=== PATIENT | female | born 1955 | race Hispanic/Latino ===

== ENCOUNTER → 2016-10-22 | Day surgery (SDC) | payer MEDICARE, MEDICAID ==
[~2016-10-22] MED LIST: ACET325C PO; ACET650S24 JT; ASPI-973 PO; ATOR20TA PO; CITA20TA11 PO; Fentanyl TOPICAL; INSLIS SUBQ; INSU100I13 SUBQ; MELA3TAB35 PO; METF-496 PO; METO25TA6 PO; METR500T19 JT; OLAN5TAB25 PO; OMEP20TA86 G-TUBE; ONDA-54 PO; OXYC5SOL11 PO; PROP10DR4 BOTH_EYES; RANI150C4 PO; [UNRECOGNIZED DRUG - CODE] SQ
== END ==
DX: Z45.2 Encounter for adjustment and management of vascular access device (principal)

== ENCOUNTER 2016-10-27 01:33 | Day surgery (SDC) | payer MEDICARE, MEDICAID ==
[~2016-10-27] VITALS: Ht 154.9 cm; Wt 70.0 kg
[~2016-10-27 01:33] MED LIST changes: -ACET325C PO; -Fentanyl TOPICAL; -OLAN5TAB25 PO; -PROP10DR4 BOTH_EYES; -RANI150C4 PO; -[UNRECOGNIZED DRUG - CODE] SQ
[2016-10-27 08:32] VITALS: BP 127/74; PULSE 68; RESP 14; O2SAT 100
--- NOTE | 2016-10-27 08:44 | NUR ---
Admitted for a PICC line placement today for infusions at [facility]. Pt does have a power port Left anterior chest used for Cancer Treatment. Pt does have a gastric feeding tube on the lower left side of her abdomen. RBS this AM is 142 - pre procedure.
[2016-10-27] MEDS ORDERED: 0.9% Sodium Chloride 250 ML ONE (08:51)
[2016-10-27] MEDS ORDERED: Heparin 5,000 Units/500 mL NS Premix IV ONE ×2 (09:23→09:55)
[2016-10-27] MEDS ORDERED: Heparin 1,000 Unit/mL 10 mL Inj ONE (10:08)
[2016-10-27] MEDS ORDERED: fentaNYL-PF 50 mCg/mL 2 mL Inj ONE (10:09)
[2016-10-27 11:00] VITALS: BP 108/61; PULSE 71; RESP 16; O2SAT 98
[2016-10-27 11:05] VITALS: BP 109/55; PULSE 70; RESP 16; O2SAT 97
--- NOTE | 2016-10-27 11:05 | DRSVH ---
PROCEDURE: 1. Right internal jugular vein PICC placement. 2. Conscious sedation x33 minutes. 3. Ultrasound guidance for right internal jugular vein access. INDICATIONS: Needs long-term antibiotics. COMPARISON: None. TECHNIQUE: Informed, written consent from the patient was obtained prior to the procedure. Patient wa s brought to the angiography suite, and conscious sedation was administered intravenously by [facility] staff, while continuous cardiorespiratory monitoring was performed. Maximal sterile barrier t echnique, hand hygiene, skin preparation, and sterile ultrasound technique (if ultrasound was utilize d) was followed. A mask, sterile gown, sterile gloves, a large sterile sheet, hand hygiene, and 2% ch lorhexidine or iodine was utilized for skin antisepsis. The right neck was prepped and draped sterile ly, and the skin and subcutaneous tissues overlying the right internal jugular vein were infused with lidocaine. The right internal jugular vein was accessed antegrade under sonographic guidance with a micropuncture set. A PICC catheter was cut to the appropriate length and advanced, with the tip place d at the cavoatrial junction. Catheter was then fastened to the skin surface by IV therapy. FLUOROSCOPY TIME: 3 minutes FINDINGS: At the conclusion of the procedure, the tip of the right internal jugular vein catheter is at the cavoatrial junction. IMPRESSION: Right internal jugular vein PICC placement. Dictated by: Hugh Nina M.D. on 10/27/2016 at 11:01 Approved by: Hugh Nina M.D. on 10/27/2016 at 11:04
[2016-10-27 11:15] VITALS: BP_SYST 109; BP_SYST 111; BP_DIAS 54; BP_DIAS 55; PULSE 70; PULSE 71; RESP 16; O2SAT 97
--- NOTE | 2016-10-27 11:28 | NUR ---
Returned from procedure with an OK for D/C now by Dr Bella. Pt has a bus service to [facility] today. PICC line placement is dry and intact. Power Port D/C'd in labor mediator - site of removal is dry and intact. Calling report to [facility].
== END 2016-10-27 23:59 | disposition home or self-care (01) ==
LOC: SOUO 01:33
PROVIDERS: ATTEND Radiology Diagnostic Radiology
DX: K31.6 Fistula of stomach and duodenum (principal); I10 Essential (primary) hypertension
CPT/HCPCS: 36569; 76937; 99152; C1769; J1644; J2250; J3010

== ENCOUNTER 2017-01-03 08:57 | Emergency (ER) | payer MEDICARE, MEDICAID ==
[~2017-01-03] VITALS: Ht 154.9 cm; Wt 164.0 kg
[2017-01-03 08:59] VITALS: BP 144/68; PULSE 82; RESP 16; O2SAT 98
--- NOTE | 2017-01-03 09:08 | ED.REPORT ---
HPI-General Illness Date of Service Jan 03, 2017 ED Provider: Kassie Lee MD Patient is a 61 year old female with a history of IDDM type II, gastric carcinoma, gastrectomy and Billroth II with complications, hypertension, stroke , and malignant neoplasm of the stomach among multiple other medical concerns is brought to the ED via EMS due to a dislodged J tube. She went to sleep last night with the tube in place, but found that it had fallen out when she woke up. She denies any pain or nausea. The patient is able to drink water and eat food but is not able to swallow pills, and has had the J-tube for several months. She has been seen in the ED multiple times for dislodging of this tube. The pt resides at [facility], but reports that she was not checked by staff until this morning. Nursing Notes Stated Complaint: DISPLACED J TUBE Chief Complaint: General Complaint Nursing Notes Reviewed: Yes Allergies: Coded Allergies: No Known Allergies (Verified Allergy, Unknown, 10/27/16) Scheduled Aspirin (Aspirin) 81 Mg Tablet 81 MG JT DAILY J TUBE Atorvastatin (Lipitor) 20 Mg Tablet 20 MG G-TUBE HS Citalopram (Citalopram) 20 Mg Tablet 20 MG JT DAILY Insulin Glargine (Lantus U100 Solostar Insulin Pen) 100 Unit/1 Ml Insuln.pen 30 UNIT SUBQ HS Insulin Human Lispro (HumaLOG U100 Insulin Vial) 100 Unit/Ml Unit 0-12 UNIT SUBQ TIDWM Check blood sugars before meals and at bedtime. Use correction factor only before meals. Blood Sugar Lispro Correction: <151, 0 units; 151-175, 1 unit; 176-200, 2 units; 201-225, 3 units; 226-250, 4 units; 251-275, 5 units; 276-300 , 6 units; 301-325, 7 units; 326-350, 8 units; 351-375, 9 units; 376-400, 10 units; >400, 12 units. Melatonin (Melatonin) 3 Mg Tablet 3 MG PO HS Metformin ER (Metformin ER) 1,000 Mg Tablet 1,000 MG JT BID Metoprolol Tartrate (Metoprolol Tartrate) 25 Mg Tablet 50 MG JT BID Metronidazole (Metronidazole) 500 Mg Tablet 500 MG JT TID Omeprazole (Omeprazole) 20 Mg Tablet.dr 20 MG G-TUBE DAILY J TUBE Ondansetron (Ondansetron) 8 Mg Tablet 8 MG PO TID Scheduled PRN Acetaminophen (Acetaminophen Liquid) 650 Mg/20 Ml Liquid 650 MG JT Q6H PRN PRN For Pain oxyCODONE (oxyCODONE) 5 Mg/5 Ml Solution 5-10 MG PO Q4H PRN PRN For Pain General Time Seen by MD: 09:06 Transferred From: assisted Chief Complaint Other (dislodged J-tube) Hx Obtained From: Patient, Oceanographer Assistant, EMS Arrived By: Ambulance Sudden in Onset?: Yes Onset Occurred: 9 - 12 hours ago Symptom Duration: Since onset Recent Healthcare: No recent hospitalization, Recent doctor visit Similar Sx Previous: Yes Past Medical History Past Medical History Notes: Seen ED for J-tube replacement 09/25/16 Past Medical History Gastric carcinoma IDDM type 2 Pancreatic leak Malignant neoplasm of the stomach 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 Recurrent UTIs Reports: Stroke Past Surgical History Gastrectomy and Billroth II, complicated by duodenal stump and pancreatic leak requiring squint operations Jejunostomy tube Percutaneous drainage of a retro-peritoneal abscess 08/2016 Family History non-contributory Smoking History Former Smoker (quit three years ago) Social History Other Social History: Good social support, Lives in longterm Ambulatory Status Independent Review of Systems dislodged J-tube Full Review of Systems Respiratory: Denies: Non-productive cough, Shortness of breath Cardiovascular: Denies: Chest pain GI: Denies: Abdominal pain, Nausea Musculoskeletal: Denies: Back pain, Neck pain Skin: Denies Rash Complete sys rev & neg: except as marked. Physical Exam Vital Signs Vital Signs Date Time Temp Pulse Resp B/P Pulse Ox O2 Delivery O2 Flow Rate FiO2 01/03/17 11:23 37.0 82 12 143/74 82 Room Air 01/03/17 08:59 37.2 82 16 144/68 98 Room Air Initial VS: Reviewed, Vital signs normal General/Constitutional: Awake, Alert, No acute distress Head / Eyes: Atraumatic, Normocephalic, PERRL, EOMI ENT: Atraumatic, Airway patent, Mucous membranes moist Neck: Atraumatic, Supple, Full range of motion Respiratory / Chest: Atraumatic, Breath sounds NL, Breath sounds = bilat, No respiratory distress Cardiovascular: Heart rate NL, Regular rhythm, Heart sounds NL Abdomen: Soft, Non-tender stoma with granulation tissue Back: Atraumatic Upper Extremities Upper Extremity / MS: Atraumatic Wrist / Hand: Atraumatic atrophy of the left hand Lower Extremity / Pelvis / MS: Atraumatic Skin: Color NL, No rash, Warm, Dry Neurologic: Oriented X3, Speech NL, No motor deficits, No sensory deficits Psychiatric: Affect NL, Mood NL Interpretation & Diagnostics Interpretation & Diagnostics: KUB X-Ray IMPRESSION: Jejunostomy catheter appears in expected position. Dictated by: Clarke Mcleod M.D. on 01/03/2017 at 10:07 Approved by: Clarke Mcleod M.D. on 01/03/2017 at 10:09 Re-Eval/Medical Decision Med Decision/Clinical Course The patient presents for a displaced G, she does not have any physical complaints at this time. Was reinserted and and was shown to be in good position on x-ray. Source of Hx: Old records Time of Eval: 09:43 Patient Status: Condition improved Re-Evaluation/Progress Note: Rechecked patient who is improved. The diagnosis and plan for discharge are discussed. The patient understands and agrees with the plan. All questions were addressed at this time. Counseled Regarding: Diagnosis, Need for follow-up, When/why to return to ED Discharge & Departure Primary Impression: Jejunostomy tube fell out Disposition: Home Discharge Condition All VS Reviewed: Yes Condition: Stable Additional Instructions: You will need to follow up with surgery or interventional radiology next week to have your tube replaced and secured properly. Have a surgeon address the extra granulation tissue around your stoma. Have the dressing changed at least 3 times per week. This tube is secured with tape only so be careful when changing the dressing. Return to the emergency department if you develop any new or worsening symptoms. Usted tendr que seguir con ciruga o radiologa intervencionista la prxima semana para que wills tubo sustituido y asegurados correctamente. Tener un cirujano abordar el tejido de granulacin extra alrededor de wills estoma. Tienen la preparacin cambi por lo menos 3 veces por semana. Suri tubo se fija con cinta slo as que tenga cuidado al cambiar el apsito. Volver al servicio de urgencias si presenta cualquier sntoma nuevo o que empeora. Referrals: Yesy Bauer MD (PCP) Scribe Attestation Portions of this note were transcribed by Neisha Samuels and Kanika Ernandez. I, Dr. Lee personally performed the history, physical exam and medical decision- making; I reviewed and confirmed the accuracy of the information in the transcribed note. Signed by: Neisha Samuels and Kanika Ernandez, Trinity, 01/03/17 and 1209. copies to: Yesy Bauer MD, Jena M MD Jan 03, 2017 09:08 Isatu Samuels Jan 03, 2017 09:24 KANIKA ERNANDEZ Jan 03, 2017 09:42
--- NOTE | 2017-01-03 10:10 | DRSVH ---
PROCEDURE: X-RAY KUB ([id number]) INDICATIONS: 61-year-old female with recent jejunostomy tube placement. TECHNIQUE: One view of the abdomen acquired. COMPARISON: [facility], CR, XR KUB, 06/09/2016, 10:15. FINDINGS: Surgical changes and devices: Left abdominal enteric catheter is present, as well as cholecystectomy clips. Bowel: Bowel gas pattern is normal. Contrast injected through the jejunostomy catheter opacifies no rmal caliber proximal small bowel loops. No contrast extravasation into the peritoneal cavity. Soft tissues: No suspicious abdominal calcifications. Visualized solid organ contours appear normal in size. Bones: No suspicious bony lesions. IMPRESSION: Jejunostomy catheter appears in expected position. Dictated by: Clarke Mcleod M.D. on 01/03/2017 at 10:07 Approved by: Clakre Mcleod M.D. on 01/03/2017 at 10:09
[2017-01-03 11:23] VITALS: BP 143/74; PULSE 82; RESP 12; O2SAT 82
== END 2017-01-03 11:29 | disposition home or self-care (01) ==
LOC: SED 08:57
DX: K94.23 Gastrostomy malfunction (principal); E11.9 Type 2 diabetes mellitus without complications; I10 Essential (primary) hypertension; E78.00 Pure hypercholesterolemia, unspecified; K21.9 Gastro-esophageal reflux disease without esophagitis; Z87.891 Personal history of nicotine dependence; Z87.440 Personal history of urinary (tract) infections; Z90.3 Acquired absence of stomach [part of]; Z85.028 Personal history of other malignant neoplasm of stomach; Z86.73 Personal history of transient ischemic attack (TIA), and cerebral infarction without residual deficits; Z79.4 Long term (current) use of insulin; Z79.82 Long term (current) use of aspirin; Z79.84 Long term (current) use of oral hypoglycemic drugs
CPT/HCPCS: 74000; 90791; 99284; Q9963

== ENCOUNTER 2017-02-21 16:11 | Inpatient (IN) | payer MEDICARE, MEDICAID ==
[~2017-02-21] VITALS: Ht 154.9 cm; Wt 74.9 kg
[2017-02-21 16:49] VITALS: BP 129/78; PULSE 86; RESP 20; O2SAT 97
[2017-02-21 18:00] LABS: BASOPHILS % (AUTO) 0.2 % (0-3); EOSINOPHILS % (AUTO) 2.1 % (0-5); Mean Corpuscular Hemoglobin 24.9 pg (27.0-35.0); Mean Corpuscular Volume 79.4 fL (81-100); NEUTROPHILS % (AUTO) 73.5 % (40-74); Platelet Count 656 bil/L (150-400)
[2017-02-21 18:20] LABS: Magnesium 1.7 mg/dL (1.6-2.6)
--- NOTE | 2017-02-21 18:28 | ED.REPORT ---
HPI-Abd Pain F 40 and Over Date of Service February 21, 2017 ED Provider: Zan Horton DO A 61 year old female with a medical history including gastric carcinoma, IDDM type 2, MRSA, retro-peritoneal abscess, CVA w/ left-sided deficits, and malignant neoplasm of the stomach s/p gastrectomy and Billroth II, complicated by duodenal stump and pancreatic leak requiring stent operations, presents to the ED with diffuse abdominal pain onset three weeks ago. Associated symptoms include nausea and vomiting. The patient denies diarrhea or other symptoms. She was seen at Urgent Care today, who sent her to the ED for a CT scan. The patient speaks Macedonian and her daughter was translating. Nursing Notes Stated Complaint: PAIN Chief Complaint: Female Abdominal Pain Nursing Notes Reviewed: Yes Allergies: Coded Allergies: No Known Allergies (Verified Allergy, Unknown, 10/27/16) Scheduled Aspirin (Aspirin) 81 Mg Tablet 81 MG JT DAILY J TUBE Atorvastatin (Lipitor) 20 Mg Tablet 20 MG G-TUBE HS Citalopram (Citalopram) 20 Mg Tablet 20 MG JT DAILY Insulin Glargine (Lantus U100 Solostar Insulin Pen) 100 Unit/1 Ml Insuln.pen 30 UNIT SUBQ HS Insulin Human Lispro (HumaLOG U100 Insulin Vial) 100 Unit/Ml Unit 0-12 UNIT SUBQ TIDWM Check blood sugars before meals and at bedtime. Use correction factor only before meals. Blood Sugar Lispro Correction: <151, 0 units; 151-175, 1 unit; 176-200, 2 units; 201-225, 3 units; 226-250, 4 units; 251-275, 5 units; 276-300 , 6 units; 301-325, 7 units; 326-350, 8 units; 351-375, 9 units; 376-400, 10 units; >400, 12 units. Melatonin (Melatonin) 3 Mg Tablet 3 MG PO HS Metformin ER (Metformin ER) 1,000 Mg Tablet 1,000 MG JT BID Metoprolol Tartrate (Metoprolol Tartrate) 25 Mg Tablet 50 MG JT BID Metronidazole (Metronidazole) 500 Mg Tablet 500 MG JT TID Omeprazole (Omeprazole) 20 Mg Tablet.dr 20 MG G-TUBE DAILY J TUBE Ondansetron (Ondansetron) 8 Mg Tablet 8 MG PO TID Scheduled PRN Acetaminophen (Acetaminophen Liquid) 650 Mg/20 Ml Liquid 650 MG JT Q6H PRN PRN For Pain oxyCODONE (oxyCODONE) 5 Mg/5 Ml Solution 5-10 MG PO Q4H PRN PRN For Pain General Time Seen by MD: 18:22 Chief Complaint Abdominal pain Hx Obtained From: Patient Arrived By: Walk-in Sudden in Onset?: No Onset Occurred: More than a week ago... 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 Recurrent UTIs CVA w/ left-sided deficits MRSA Reports: Stroke Past Surgical History Gastrectomy and Billroth II, complicated by duodenal stump and pancreatic leak requiring stent operations (07/12/16) Jejunostomy tube Percutaneous drainage of a retro-peritoneal abscess 08/2016 Family History non-contributory Smoking History Former Smoker Social History Lives at [facility] Other Social History: Good social support, Lives in [facility] Ambulatory Status Independent Review of Systems Constitutional: Denies: Fever Respiratory: Denies: Non-productive cough, Shortness of breath GI: Reports: Abdominal pain, Nausea, Vomiting, Denies: Diarrhea Complete sys rev & neg: except as marked. Physical Exam Vital Signs Vital Signs (First) Date Time Temp Pulse Resp B/P Pulse Ox O2 Delivery O2 Flow Rate FiO2 02/21/17 16:49 36.9 86 20 129/78 97 Room Air Initial VS: Reviewed Head / Eyes: Atraumatic, Normocephalic ENT: Conjunctiva normal, No scleral icterus Neck: Supple, Full range of motion Extremities: No swelling, No tenderness Neurologic: Alert, Oriented, Nonfocal Psychiatric: Mood/affect normal, Behavior normal, Normal thought content General/Constitutional: Awake, Alert Respiratory / Chest: Breath sounds NL, Breath sounds = bilat, No respiratory distress Cardiovascular: Heart rate NL, Regular rhythm, Heart sounds NL, Pulses = bilaterally Abdomen: Soft Tenderness/Guarding/Rebound: Positive: Tender diffuse (R>L) Skin: Warm, Dry No jaundice Interpretation & Diagnostics Lab Results Interpretation Result Diagram: 02/21/17 1740 02/21/17 1740 Test 02/21/17 17:40 02/21/17 17:50 02/21/17 18:41 White Blood Count 14.3th/mm3 (3.8-10.1) Red Blood Count 4.65mil/mm3 (3.90-5.20) Hemoglobin 11.6g/dL (12.0-15.6) Hematocrit 36.9% (35.0-46.0) Mean Corpuscular Volume 79.4fL (81-100) Mean Corpuscular Hemoglobin 24.9pg (27.0-35.0) Mean Corpuscular Hemoglobin Concent 31.4% (32.0-37.0) Red Cell Distribution Width 15.6% (12.3-15.4) Platelet Count 656bil/L (150-400) Neutrophils (%) (Auto) 73.5% (40-74) Lymphocytes (%) (Auto) 17.8% (14-46) Monocytes (%) (Auto) 6.0% (4-12) Eosinophils (%) (Auto) 2.1% (0-5) Basophils (%) (Auto) 0.2% (0-3) Sodium Level 133mEq/L (134-144) Potassium Level 4.8mEq/L (3.5-5.2) Chloride Level 94mEq/L (97-108) Carbon Dioxide Level 22mmol/L (18-29) Blood Urea Nitrogen 20mg/dL (8-27) Creatinine 0.89mg/dL (0.57-1.00) Estimat Glomerular Filtration Rate 92mL/min (>59) Glucose Level 192mg/dL (60-99) Lactic Acid Level 3.6mmol/L (0.4-2.0) Calcium Level 9.6mg/dL (8.5-10.1) Magnesium Level 1.7mg/dL (1.6-2.6) Iron Level 32ug/dL (35-150) Total Iron Binding Capacity 306ug/dL (250-450) Percent Iron Saturation 10%sat (15-50) Unsaturated Iron Binding 274.2ug/dL Total Bilirubin 0.3mg/dL (0.0-1.2) Aspartate Amino Transf (AST/SGOT) 21U/L (0-50) Alanine Aminotransferase (ALT/SGPT) 14U/L (0-32) Alkaline Phosphatase 95U/L (25-165) Troponin T < 0.010ug/L (0.0-0.011) Total Protein 8.8g/dL (6.4-8.4) Albumin 3.7g/dL (3.4-5.0) Lipase 14U/L (13-60) Procalcitonin 0.08ng/mL (0.00-0.08) Hold Little Top Tube Received (Received) Hold Urine Received (Received) Urine Color Dark yellow (YELLOW) Urine Appearance Cloudy (CLEAR,HAZY) Urine pH 5.0 (5.0-8.0) Urine Specific Pickett 1.020 (1.003-1.035) Urine Protein 30mg/dL (NEG,TRACE) Urine Glucose (UA) Negativemg/dL (NEGATIVE) Urine Ketones Negativemg/dL (NEGATIVE) Urine Occult Blood Trace (NEGATIVE) Urine Nitrite Positive (NEGATIVE) Urine Bilirubin Negative (NEGATIVE) Urine Urobilinogen 1.0mg/dL (NORMAL) Urine Leukocyte Esterase Negative (NEGATIVE) Urine RBC 0-2/hpf (0-2) Urine WBC 0-5/hpf (0-5) Urine Epithelial Cells None/hpf (NONE-MOD) Urine Crystals None seen (NONE SEEN) Urine Bacteria Many/hpf (NONE-FEW) Urine Hyaline Casts None/lpf (NONE) Urine Granular Casts None seen (NONE SEEN) Urine Waxy Casts None seen (NONE SEEN) Urine Red Blood Cell Casts None seen (NONE SEEN) Urine White Blood Cell Casts None seen (NONE SEEN) Urine Mucus Present (None Seen) Urine Trichomonas None seen (NONE SEEN) Urine Yeast None (NONE SEEN) Urinalysis Comment None Urine Culture Reflexed Indicated Point of Care Testing: Bedside glucose high, Hemoglobin low General Lab Results Interp 1: Labs reviewed, CBC - leukocytosis ECG Interpretation ECG Interpretation: Sinus rhythm rate 83 Low voltage, precordial leads Time: 20:37 Interpreted by: ED physician CT Abd / Pelvis Interpretation IMPRESSION: 1. Ill-defined loops of thickened bowel within the right hemiabdomen appearing to correlate to both small and large bowel. In addition, there is fluid-filled prominence of scattered small bowel loops. Free fluid is noted within the mid pelvis as well as perisplenic fluid and focal collection along the anterior abdomen. No free air is identified. Overall appearance is suggestive of diffuse infection or inflammation, possibly related colitis/enteritis with ileus/developing partial obstruction. Small focal fluid collection along the anterior abdomen may represent developing abscess. 2. Coursing within the anterior mesenteric fat which may be related to small areas of inflammation or fluid. In previous history of gastric carcinoma, small areas of peritoneal metastatic disease cannot be excluded. Recommend continued interval followup after resolution of apparent inflammatory/infectious condition. Dictated by: Ashley Rodriguez M.D. on 02/21/2017 at 19:25 Study type: Abdominal CT IV contrast Interpretation / Wet Read by: Interpret - Radiologist Re-Eval/Medical Decision Med Decision/Clinical Course Plan for fluid resuscitation and broad-spectrum antibiotics. Aerobic anaerobic and MRSA coverage indicated. Surgical consultation performed. Hospitalist admit. Source of Hx: Old records Re-Evaluation/Progress : Time of Eval: 20:50 Patient Status: Condition improved Re-Evaluation/Progress Note: Discussed with patient lab and CT results, diagnosis, and plan for admit. Patient agrees with plan for care and all questions were addressed. Consultation #1: Referral / Consult Name: Pablo Dill MD Consulted With: Surgeon Call Returned at: 19:50 Electrical Sign Servicer: Will see patient, Agrees with eval, Agrees with plan Note: Discussed patient's case Consultation #2: Referral / Consult Name: Aleksandr Cui MD Consulted With: Hospitalist Call Returned at: 19:55 Electrical Sign Servicer: Agrees with eval, Agrees with plan, Accepts admit Counseled Regarding: Diagnosis, Lab results, Need for admission Discharge & Departure Primary Impression: Bowel obstruction Intestinal obstruction type: unspecified Qualified Code: K56.60 - Unspecified intestinal obstruction Additional Impressions: Intra-abdominal infection UTI (urinary tract infection) Urinary tract infection type: acute cystitis Hematuria presence: without hematuria Qualified Code: N30.00 - Acute cystitis without hematuria Disposition: ADMITTED TO HOSPITAL Discharge Condition All VS Reviewed: Yes Condition: Improved Referrals: Yesy Bauer MD (PCP) [place] Attestation Portions of this note were transcribed by Mary Shankar. I, Dr. Horton, personally performed the history, physical exam, and medical decision-making; I reviewed and confirmed the accuracy of the information in the transcribed note. Signed by: Trinity Mccarthy, 02/21/2017, 22:45 copies to: Yesy Bauer MD, Todd P DO February 21, 2017 18:28 MARY SHANKAR February 21, 2017 18:43
[2017-02-21] MEDS ORDERED: 0.9% Sodium Chloride 1,000 ML IV ONE ×2 (18:45→23:35)
[2017-02-21] MEDS ORDERED: Ondansetron 2 mg/mL 2 mL Inj IVPUSH PRN (18:45)
[2017-02-21] MEDS: HYDROmorphone 1 mg/mL Inj IVPUSH PRN ×5 (18:51→22:27)
[2017-02-21 19:03] LABS: APPEARANCE,URINE CLOUDY (CLEAR,HAZY); COLOR,URINE DARK YELLOW (YELLOW)
[2017-02-21 19:04] LABS: OCCULT BLOOD,URINE TRACE (NEGATIVE)
--- NOTE | 2017-02-21 19:37 | DRSVH ---
PROCEDURE: CT ABDOMEN AND PELVIS WITH CONTRAST ([id number]) INDICATIONS: right sided abdominal pain, 14K wbc count TECHNIQUE: After the administration of intravenous contrast, 5 mm thick sections acquired from the diaphragm to the symphysis. 5 mm coronal and sagittal reformats were acquired. For radiation dose reduction, the following was used: automated exposure control, adjustment of mA and/or kV according to patient jaz cheema. COMPARISON: [facility], CT, CT ABD PELVIS W CON, 10/09/2016, 12:09. FINDINGS: Image quality: Excellent. ABDOMEN: Lung bases: Lung bases are clear. Heart size is normal. Solid organs: Liver is enlarged with mild steatosis. The spleen is normal in size and enhancement. Gallbladder has been removed. Biliary system is non dilated. Pancreas enhances normally. No adrena l nodules. Kidneys demonstrate normal size and enhancement, without hydronephrosis. Left renal cyst is present. Peritoneum and bowel: There are fluid-filled loops of mildly prominent small bowel throughout the ab domen and pelvis. There is thick and appearance of bowel within the right colon appearing to be predo minantly large bowel. However, overlapping, poorly distended loops of small bowel are also identified . There is free fluid within the mid pelvis. In addition, reena-splenic fluid is also identified. Ther e is an appearance of nodular coarsening of the abdominal mesenteric fat most prominently in the ante rior left hemiabdomen. Focal area of fluid is noted along the anterior abdomen at the level of the re ctus muscle within the midline measuring approximately 28 mm. Nodes and vessels: No retroperitoneal or mesenteric adenopathy by size criteria. Aorta and inferior vena cava are normal in size. Miscellaneous: No ventral hernias. PELVIS: Genitourinary: Bladder wall thickness is normal. Miscellaneous: No inguinal hernias or adenopathy. Bones: No suspicious bony lesions. No vertebral body compression fractures. IMPRESSION: 1. Ill-defined loops of thickened bowel within the right hemiabdomen appearing to correlate to both s mall and large bowel. In addition, there is fluid-filled prominence of scattered small bowel loops. F ree fluid is noted within the mid pelvis as well as perisplenic fluid and focal collection along the anterior abdomen. No free air is identified. Overall appearance is suggestive of diffuse infection or inflammation, possibly related colitis/enteritis with ileus/developing partial obstruction. Small fo britton fluid collection along the anterior abdomen may represent developing abscess. 2. Coursing within the anterior mesenteric fat which may be related to small areas of inflammation or fluid. In previous history of gastric carcinoma, small areas of peritoneal metastatic disease cannot be excluded. Recommend continued interval followup after resolution of apparent inflammatory/infecti ous condition. Dictated by: Ashley Rodriguez M.D. on 02/21/2017 at 19:25 Approved by: Ashley Rodriguez M.D. on 02/21/2017 at 19:36
[2017-02-21] MEDS ORDERED: Piperacillin-Tazo 3.375 Gm Inj 3.375 GM in Dextrose 5% Minibag Plus 50 ML IV ONE (19:45)
[2017-02-21] MEDS ORDERED: metroNIDAZOLE Inj 500 MG in IV Premix 1 EACH IV ONE (19:45)
[2017-02-21 20:14] VITALS: BP 140/45; PULSE 85; RESP 20; O2SAT 99
[2017-02-21] MEDS ORDERED: Ketorolac 15 mg/mL Inj IVPUSH ONE (21:00)
[2017-02-21] MEDS ORDERED: Alum-Mag Hydrox-Simeth 30 mL Suspension PO PRN (21:05)
[2017-02-21] MEDS ORDERED: Polyethylene Glycol (PEG) 17 Gm Powder PO PRN (21:05)
--- NOTE | 2017-02-21 21:20 | NUR ---
Arrival on the Floor Pt arrived on the floor via gurney around 2119. Daughter at bedside. Code Enforcement Officer on stick used for communication.
--- NOTE | 2017-02-21 21:28 | PCM.HPMED ---
Subjective Date of Service February 21, 2017 Primary Provider: Admitting Physician: Aleksandr Cui MD Primary Care Physician: Yesy Bauer MD Attending Physician: Pablo Dill MD Chief Complaint: Abdominal pain History of Present Illness: 61-year-old female staying at [facility] with a history of gastric carcinoma with multiple surgeries since last summer including Billroth II that was complicated by duodenal stump leak and intra-abdominal sepsis, a history of intra-abdominal abscess with MRSA, diabetes type II, CVA with left- sided deficits, and hyperlipidemia who presents emergency department tonight complaining of abdominal pain greater on the right than the left of 3 weeks duration with acute increase in pain last night. Patient states that over the last 3 weeks she has had crampy and stabbing lower quadrant abdominal pain as well as intermittent epigastric pain. Patient currently says her pain as 7 out of 10 with worst pain 10 out of 10 yesterday prior to vomiting. States she experienced nausea and nonbloody emesis 3. Over the last couple weeks she has been asking for better pain control but states that she is only received Tylenol. She denies any ongoing diarrhea, hematochezia/melena, fever, chills, chest pain, shortness of breath, dizziness, or difficulty urinating. She does state that she has been constipated, but this seems to be usual for her. Patient had a recent J-tube but is unable to give details about its removal. Patient is Serbian-speaking only and her daughters not a good chemical plant manager. History obtained using a chemical plant manager. In the ED patient underwent CT scan which shows some perisplenic free fluid and thickening of large and possibly small bowel with an overall picture concerning for infection/inflammation with questionable developing ileus or partial SBO. There are also small areas of inflammation or fluid in the peritoneum. Official read in chart Patient had a mild leukocytosis with white count 14.3, microcytic hypochromic anemia, as well as very mild hyponatremia and hypochloremia with thin anion gap of 17. Patient's glucose is 192. Lipase and LFTs were negative. Troponin was also negative. Urine was sent for culture although UA does not hint that UTI. Review of Systems: Complete review of systems performed, pertinent positives and negatives per history of present illness, all other systems reviewed and are negative. Allergies Coded Allergies: No Known Allergies (Verified Allergy, Unknown, 10/27/16) Home Medications Aspirin (Aspirin) 81 Mg Tablet 81 MG JT DAILY J TUBE Atorvastatin (Lipitor) 20 Mg Tablet 20 MG G-TUBE HS Citalopram (Citalopram) 20 Mg Tablet 20 MG JT DAILY Insulin Glargine (Lantus U100 Solostar Insulin Pen) 100 Unit/1 Ml Insuln.pen 30 UNIT SUBQ HS Insulin Human Lispro (HumaLOG U100 Insulin Vial) 100 Unit/Ml Unit 0-12 UNIT SUBQ TIDWM Melatonin (Melatonin) 3 Mg Tablet 3 MG PO HS Metformin ER (Metformin ER) 1,000 Mg Tablet 1,000 MG JT BID Metoprolol Tartrate (Metoprolol Tartrate) 25 Mg Tablet 50 MG JT BID Metronidazole (Metronidazole) 500 Mg Tablet 500 MG JT TID Omeprazole (Omeprazole) 20 Mg Tablet.dr 20 MG G-TUBE DAILY J TUBE Ondansetron (Ondansetron) 8 Mg Tablet 8 MG PO TID Acetaminophen (Acetaminophen Liquid) 650 Mg/20 Ml Liquid 650 MG JT Q6H PRN PRN For Pain oxyCODONE (oxyCODONE) 5 Mg/5 Ml Solution 5-10 MG PO Q4H PRN PRN For Pain PMH Gastric carcinoma IDDM type 2 Duodenal stump leak Hypercholesterolemia. Recurrent UTIs CVA w/ left-sided deficits Surgical History Gastrectomy and Billroth II, complicated by duodenal stump leak requiring stent operations (07/12/16) Jejunostomy tube Percutaneous drainage of a retro-peritoneal abscess 08/2016 Family History No history of malignancies in the family Social History Hx Alcohol Use: No Hx Substance Use: No Hx Tobacco Use: No Smoking Status: Former Smoker Living Arrangement: [facility] Facility ([facility]) Exam Vital Signs Vital Sign - Last Date Time Temp Pulse Resp B/P Pulse Ox O2 Delivery O2 Flow Rate FiO2 02/21/17 20:14 85 20 140/45 99 Room Air 02/21/17 16:49 36.9 Exam General: Awake and alert and conversive, mild distress HEENT: PERRLA, EOMI, dentition poor, mucous membranes dry Cardio: Regular rate and rhythm, no murmurs rubs or gallops Respiratory: CTA bilaterally, no wheezes or crackles Abdomen: Large central scar, small 3 cm scars consistent with previous laparoscopy. Bandage covering a recent drain removal site in the mid to left periumbilical region; noticeable guarding that inhibited the palpatory examination; moderate to severely tender with right greater than left; no rebound Extremities: No edema, pulses intact in all 4 extremities, Psych: Appropriate mood and affect Neuro: Sensation appeared to be intact throughout; mild left upper extremity deficiency; would not perform lower extremity movements due to abdominal pain Skin: No rashes Lymph: No lymphadenopathy Lab and Diagnostics Result Diagram: 02/21/17 17402/21/17 174 X-Rays, CTs and MRIs CT abdomen with contrast 1. Ill-defined loops of thickened bowel within the right hemiabdomen appearing to correlate to both small and large bowel. In addition, there is fluid-filled prominence of scattered small bowel loops. Free fluid is noted within the mid pelvis as well as perisplenic fluid and focal collection along the anterior abdomen. No free air is identified. Overall appearance is suggestive of diffuse infection or inflammation, possibly related colitis/enteritis with ileus/ developing partial obstruction. Small focal fluid collection along the anterior abdomen may represent developing abscess. 2. Coursing within the anterior mesenteric fat which may be related to small areas of inflammation or fluid. In previous history of gastric carcinoma, small areas of peritoneal metastatic disease cannot be excluded. Recommend continued interval followup after resolution of apparent inflammatory/infectious condition. Dictated by: Ashley Rodriguez M.D. on 02/21/2017 at 19:25 12-lead ECG Normal sinus rhythm with heart rate of 83; QTc 4 70 Assessment & Plan 61-year-old female with multiple abdominal surgeries due to gastric carcinoma, and history of intra-abdominal sepsis and abscesses with MRSA in the fall of 2015 who presented to the hospital with 3 weeks of worsening abdominal pain and new nausea and emesis x3 starting last night. Patient denies ongoing fevers or chills, or other signs systemic infection. Abdominal pain due to intra abdominal infection, acute; present on admission; Ongoing -etiology currently unknown but CT suggests possible ileus vs infection/ inflammation and early abscess, unable to rule out metastatic disease; no subjective findings of infection; mild leukocytosis -Dr. Dill was consulted from the emergency department and per ED's report will discuss case with Dr. Sawyer; will see tomorrow (no official consult placed admitting team) -Start patient on Unasyn and vancomycin due to somewhat recent history of MRSA -Patient has morphine for severe pain was to avoid opiates much as possible; initially patient given Dilaudid in the ED but needed additional Ketorolac for pain -Continued PPI -MRSA nasal screen Leukocytosis; present on admission; ongoing -Likely due to dehydration is membranes are dry and patient states she vomiting recently -Rehydrated in the ED with 2 L normal saline, given a 3rd liter on floor, and maintenance of 100 ml/hour -Reassess in a.m. CBC Insulin using Type II diabetes, chronic; present on admission; ongoing -Patient presents with glucose of 192 -This is a surgical patient and patient's blood glucose should be kept between 140 and 180 -Home Lantus 30 units daily at bedtime; lispro 0-12 units on sliding scale -We will restart Lantus 30 units tonight and will add a medium correctional -A1c pending Electrolyte abnormality; present mission; ongoing -Patient has a pseudohyponatremia with hypochloremia with a corrected anion gap of 19; likely due to recent vomiting without compensation for loss of chloride due to acuity -Lactic acid ordered and pending; initially ordered and the lab added it to a previously drawn lab; repeating -Normal saline bolus and ED and maintenance as above -recheck in AM Acute microcytic, hypochromic anemia; present mission; ongoing -Patient presents with a hemoglobin 11.6, a low MCV; review of past admissions does not appear that this is a chronic issue -Iron studies ordered -Consider smear and additional bilirubin or haptoglobin tomorrow High risk meds: IV morphine Disposition: She will admitted to [facility] expected length of stay greater than 2 minutes due to severity presentation, duration of treatment, and risk of adverse event. Resuscitation Status: CPR: Attempt Resuscitation Attending Statement The patient was seen and examined together with Dr. Amin on 02/21 and I agree with the history, exam and plan as outlined in the note above. Moo Amin DO February 21, 2017 21:28 Aleksandr Cui MD February 22, 2017 01:02
[2017-02-21 21:50] VITALS: BP 122/60; PULSE 88; RESP 18; O2SAT 94
[2017-02-21] MEDS ORDERED: Glucose 40% Oral Gel 15 Gm Tube PO PRN (22:10)
[2017-02-21] MEDS: 0.9% Sodium Chloride 1,000 ML IV SCH (22:22)
[2017-02-21 22:39] LABS: Unsaturated Iron Binding 274.2 ug/dL
[2017-02-21 22:51] VITALS: BP 100/63; PULSE 86; RESP 16; O2SAT 95
--- NOTE | 2017-02-21 22:59 | NUR ---
Admit Pt admission done with email marketing coordinator on stick. Oriented to room and use of call light. Family at bedside and providing some interpretation. Addendum: 02/22/17 at 0039 by ASCENCION HANNAH RN Updated Med Rec [facility] med list.
[2017-02-21] MEDS ORDERED: [UNRECOGNIZED DRUG - CODE] SQ (23:28)
[2017-02-21] MEDS ORDERED: PROP10DR4 BOTH_EYES (23:28)
[2017-02-21] MEDS ORDERED: RANI150C4 PO (23:28)
[2017-02-21] MEDS ORDERED: ACET325C PO (23:28)
[2017-02-22] VITALS (13 sets, daily range): BP systolic 101–124; BP diastolic 29–59; PULSE 82–126; RESP 16–22; O2SAT 94–99
--- NOTE | 2017-02-22 00:13 | CONS ---
[address] [address] CONSULTATION REPORT PATIENT: FLAQUITO DUBON : 1955 MR#: [id number] ADMIT: 02/21/2017 JOB ID: [id number] DATE OF SERVICE: 02/21/2017 CHIEF COMPLAINT: Abdominal pain. HISTORY OF PRESENT ILLNESS: The patient is a 61-year-old female with a complicated surgical history dating back to May 2016. The patient had gastric cancer and underwent neoadjuvant chemotherapy, and then subsequently underwent a distal gastrectomy with Billroth-II reconstruction and a cholecystectomy by Dr. Sawyer on May 27, 2016. Unfortunately, the patient developed a duodenal stump leak and required a 2nd operation by Dr. Durant on May 30 where he performed a patch closure of the stump leak and a feeding J-tube, and a 3rd operation by Dr. Dee on June 08 where he performed a washout and a retrograde J tube placement. The patient eventually left the hospital and went to [facility]. The patient was readmitted for a time in July of last year, and also in August 2016, underwent percutaneous drainage of right retroperitoneal abscess. 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 Most recently in January 2017, the patient had come back to the emergency department for a J-tube replacement. The patient presents to the emergency department tonight due to a 3-week history of epigastric and lower abdominal pain. This was associated with some vomiting yesterday. The patient did have a bowel movement two days ago. Her daughter denies any recent fevers. According to the daughter, she has not had any tubes in her for the past 1-2 months. The abdominal pain is described as bilateral lower quadrants, and also some in the epigastric location. The patient is mainly Israeli-speaking. Workup in the emergency department today showed an elevated white blood count of 14.3, and a CT scan of the abdomen and pelvis that suggests free fluid noted within the mid pelvis as well as perisplenic fluid and focal collection along the anterior abdomen. No free air. I was consulted by the ED physician for evaluation. PAST MEDICAL HISTORY: Gastric cancer, status post neoadjuvant chemotherapy, distal gastrectomy, Billroth-II reconstruction and a cholecystectomy, Port-A-Cath placement, diabetes, hypertension, stroke, recurrent UTIs. MEDICATIONS: Include acetaminophen, baby aspirin, Lipitor, citalopram, insulin, melatonin, metformin, metoprolol, omeprazole, oxycodone. ALLERGIES: None. SOCIAL HISTORY: The patient is . She is currently living at the [facility] [place]. She has four sons and one daughter. FAMILY HISTORY: Noncontributory to the current clinical situation. REVIEW OF SYSTEMS: Positive for the lower abdominal pain, epigastric pain and vomiting. There has been no fever. All other systems reviewed were negative. PHYSICAL EXAMINATION: The patient was pleasant-appearing, in no acute distress in the emergency department [facility]. Her BMI is 28.4, temperature is 36.9, blood pressure 140/45, pulse is 85, respirations 20. Saturation 99% on room air. Head is normocephalic, atraumatic. The patient is mainly Israeli-speaking. Neck is supple. Heart is regular rate. Lungs are clear bilaterally. Abdomen shows a well-healed midline scar. There are no external tubes coming out of her abdomen. The left-sided J-tube site is closed. The patient points to her lower bilateral abdomen as the site of her discomfort. However, on palpation, there is no guarding. There are no peritoneal signs. Extremities shows no clubbing and no cyanosis. Neurologically, patient is awake and alert, and speaks Israeli only. LABORATORY EXAMINATION: Today, shows a white blood count of 14.3, hematocrit 36.9, platelet count is 656. Sodium is 133, potassium 4.8, creatinine 0.89, lipase of 14. Total bilirubin is 0.3. Her urinalysis shows many bacteria. The CT scan report from [facility] shows free fluid noted within the midpelvis as well as perisplenic fluid and focal collection along the anterior abdomen. There is no free air. The overall appearance is suggestive of diffuse infection or inflammation, possibly related colitis or enteritis, with either ileus or partial obstruction. There could be small areas of peritoneal metastatic disease within the anterior mesenteric fat which could not be excluded. ASSESSMENT: This is a 61-year-old, Israeli-speaking female, with gastric cancer, who unfortunately, had a complicated postoperative course since May 2016. The patient has been having three weeks of lower abdominal pain and epigastric pain with some vomiting yesterday. The patient is not in distress at this time. The patient is being admitted to the hospital, and I recommend starting her on IV antibiotics. We will consult with the Intervention Radiology Service on Thursday to see if any of these fluid collections are new and whether they can be tapped percutaneously. Dr. Sawyer will return next Thursday. Possibly get GI service involved for consideration of colonoscopy. ALEXEI
[2017-02-22] MEDS: Heparin 5,000 Unit/mL Inj SUBQ SCH ×3 (00:25→16:42)
[2017-02-22] MEDS ORDERED: Piperacillin-Tazo 3.375 Gm Inj 3.375 GM in Dextrose 5% Minibag Plus 50 ML IV SCH (00:30)
[2017-02-22 02:30] LABS: BASOPHILS % (AUTO) 0.2 % (0-3); EOSINOPHILS % (AUTO) 2.4 % (0-5); MONOCYTES % (AUTO) 6.4 % (4-12); Mean Corpuscular Hemoglobin 24.8 pg (27.0-35.0); Mean Corpuscular Volume 81.5 fL (81-100); NEUTROPHILS % (AUTO) 67.6 % (40-74); Platelet Count 459 bil/L (150-400)
[2017-02-22] MEDS: Ampicillin-Sulbactam Inj 3,000 MG in 0.9% Sodium Chloride 100 ML IV SCH ×4 (02:52→20:17)
--- NOTE | 2017-02-22 06:57 | PCM.CONPHA ---
Subjective Date of Service: February 21, 2017 Requesting Provider: Moo Amin DO Abdominal pain History of Present Illness Intra-abdominal abscess with history of MRSA Reason for Pharmacy Consult: Vancomycin Dosing Objective Assessment/Plan Assessment/Plan A/ - 61 y/o female admitted in hospital late yesterday 02/21 for intra-abdominal pain/abscess. She has past hx of gastric carcinoma with multiple surgeries since last year, also hx of MRSA which Vancomycin required for empirical coverage - Afebrile, WBC: 14.3, Urine, blood cultures(x2), MRSA nasal screen are pending - In ED, patient received one time dose of Flagyl, ceftriaxone, Zosyn, and loading dose Vancomycin 1500mg - Comitant antibiotic: Unasyn - Wt: 69.8kg, ht: 155cm, SCr: 0.69 mg/dL, est. clearance ~ 75 ml/min, BMI: 29 mg/m2, Vd~49 L - Surgical consult ordered on Thursday P/ - Give vancomycin 1G iv q 12h. Trough level ordered before 3rd dose @2130 today. This regimen should produce a trough around 17 Pharmacy will continue to follow and make necessary adjustment Thank you for consulting clinical pharmacy in the care of this patient Akash Pickens, JohnnyD, [facility] Jose Pickens February 22, 2017 06:57
[2017-02-22] MEDS ORDERED: cefTRIAXone Inj 2,000 MG in Dextrose 5% Minibag Plus 50 ML IV SCH (08:30)
[2017-02-22] MEDS: Vancomycin Dose per Pharmacist XX SCH (08:30)
[2017-02-22] MEDS: 0.9% Sodium Chloride 1,000 ML IV SCH ×3 (08:31→18:48)
[2017-02-22] MEDS: Pantoprazole 4 mg/mL 10 mL Inj IVPUSH SCH (08:38)
[2017-02-22] MEDS: Insulin LISPRO 300 Unit/3 mL Inj SUBQ SCH ×2 (08:39→12:00)
--- NOTE | 2017-02-22 09:40 | PCM.PNSURG ---
Subjective Visit Information: Reason for Visit Bowel Obstruction, Intra Abdominal Infection Surgery/Surgery Date Post-Op Day # Date of Admission: February 21, 2017 at 20:53 Hospital Day # Subjective: febrile overnight, no n/v, c/o LLQ and suprapubic pain, no BM Objective Objective Lying in bed. awake Daughter is in room Abd: obese, mild tenderness LLQ and suprapubic location, no guarding or peritoneal signs WBC down to 12 Vital Sign- Last 8 Hours Date Time Temp Pulse Resp B/P Pulse Ox O2 Delivery O2 Flow Rate FiO2 02/22/17 08:12 107/46 02/22/17 08:06 39.9 103 20 103/32 98 Nasal Cannula 1.00 02/22/17 07:14 106 02/22/17 06:46 38.2 113 22 114/44 97 Nasal Cannula 2.00 02/22/17 05:48 39.4 126 95 Nasal Cannula 2.00 02/22/17 05:05 88 02/22/17 04:21 37.7 02/22/17 03:46 37.1 82 16 101/59 95 Room Air Intake and Output- Last 8 Hour 02/22/17 Cumulative From/Thru 07:00 02/21/17 16:49 - 02/22/17 06:49 Intake Total 2036 ml 2036 ml Balance 2036 ml 2036 ml Intake Oral 10 ml 10 ml IV Total 2026 ml 2026 ml # Voids 5 5 # Bowel Movements 0 0 Result Diagram: 02/22/1720902/22/170 Assessment & Plan Impression Lower abd pain for 3 weeks Complicated postop course since May 2016 with duodenal stump leak Problems: Plan Will discuss with IR about possibility of perc drainage tomorrow Continue IV abx Dr. Sawyer will return on Thursday Consider GI involvement for colonoscopy Resuscitation Status: CPR: Attempt Resuscitation Pablo Dill MD February 22, 2017 09:40
[2017-02-22] MEDS ORDERED: Acetaminophen IV 1,000 MG in IV Premix 1 EACH IV PRN (11:15)
[2017-02-22] MEDS: Vancomycin Inj 1,000 MG in IV Premix 1 EACH IV SCH ×2 (11:37→23:41)
[2017-02-22] MEDS ORDERED: Dextrose 10% 250 ML IV PRN (13:40)
[2017-02-22] MEDS: Insulin Human REGular 300 Unit/3 mL Inj SUBQ SCH ×2 (14:19→20:24)
--- NOTE | 2017-02-22 15:02 | NUR ---
Social Work: Initial Assessment Data & Assessment: See Initial Assessment. EMR reviewed. Patient is a 61 y/o female that admitted on 02/21/17 with bowel obstruction and intra abdominal infection. SW met with patient and patient's daughter, Teresa [phone], to complete initial assessment, SW role reviewed and initial assessment complete. Patient was asleep during most of the assessment. Patient's PCP is Dr. Yesy Bauer and patient's insurance is Medicare and [facility]. Patient has no VA or LTC benefits. Patient currently does not have a re-admit score. Patient was at [facility] prior to admission to the hospital. Patient plans to return home when discharged. Patient does not drive and patient has a wheel-chair at home. Patient has had HH in the past, but can not recall the name. Patient does want HH if it is needed when discharged. SW will continue to follow patient for discharge planning.SW provided patient and patient's daughter with SW contact information. Plan: SW will continue to follow and assist patient with discharge planning needs. Araceli Moncada LMSW, SARWAT Addendum: 02/22/17 at 1512 by ARACELI DA SILVA Amended: Links added.
--- NOTE | 2017-02-22 16:20 | CONS ---
[address] [address] CONSULTATION REPORT PATIENT: FLAQUITO DUBON : 1955 MR#: [id number] ADMIT: 02/21/2017 JOB ID: [id number] DATE OF SERVICE: 02/22/[address] Meeks for this timely consultation. REASON FOR CONSULT: Probable intra-abdominal infection. HISTORY OF PRESENT ILLNESS: The patient is an incredibly complex, 61-year-old woman I know from a series of admissions last June and July. Basically, the patient is a 61-year-old woman with a history of prior CVA and left hemiparesis as well as diabetes and hyperlipidemia. She was diagnosed last summer with gastric cancer and underwent a gastrectomy with Billroth II and cholecystectomy as her initial surgery. That surgery occurred in early May. Unfortunately, she developed a duodenal stump leak and required a return trip to the OR later that month to perform a patch on the leaking duodenum stump and to place a J-tube. She then required a third surgery in rapid succession which was done June 07 for an abdominal wall washout and placement of a drain. Following that surgery, I was involved with the case and the patient had shock and was critically ill with a white blood count over 40,000. She was aggressively treated with broad-spectrum antibacterial as well as antifungal agents and recovered. She was then discharged to rehab only to be admitted back in July with an abdominal wall abscess requiring additional drainage. That abscess appeared to have gas-forming organisms, but the main cultured organism was MRSA. That was treated with a lengthy course of vancomycin, ertapenem, and again antifungal agents. Eventually, the patient made it back to the [facility] facility. The patient was readmitted apparently in August, though I do not think I saw the patient at that time, for percutaneous drainage of another intra-abdominal abscess. In September, she developed a small bowel fistula, and in March, she had J-tube replacement. Against this backdrop of recurrent procedures and chronic illness the patient has been living at [facility] ever since her May admission. She recently developed lower abdominal pain which started about three weeks ago and slowly progressed, starting about two days ago. However, it became very severe and was associated with vomiting, subjective fever, rigors, and generalized weakness. Headache was also part of this illness. Nausea and vomiting were also present and because of this, the patient came back to the hospital and was admitted on February 20, two days ago. Initial workup in the ED showed leukocytosis and free fluid, which can raise the possibility of another abscess. Because of this, the patient was cultured and started on vancomycin and Unasyn at this time. PAST MEDICAL HISTORY: 1. Gastric carcinoma. a. Status post multiple procedures as listed above and complicated by duodenal stump leak as well as multiple fluid collections and abscesses. b. Necessity to be fed via percutaneous intra-abdominal devices and also need for recurrent drainage procedures. 2. Diabetes mellitus. 3. History of CVA with left hemiparesis. 4. Hyperlipidemia. 5. History of severe MRSA and intra-abdominal infection, July 2016. SOCIAL HISTORY: The patient has been living at [facility] for the past several months. She quit smoking a few years ago and does not drink alcohol. She speaks primarily Kinyarwanda. FAMILY HISTORY: Negative for tuberculosis in any first- or second-degree relatives of which she is aware. REVIEW OF SYSTEMS: Was done. The patient has had some headaches but they are improving. No visual change. No sore throat or trouble swallowing. She did have nausea and vomiting along with the lower abdominal pain prior to admission but the nausea and vomiting are largely gone in the past two days. No cough, shortness of breath or chest pain. No palpitations. No flank tenderness. She has been constipated prior to admission. No urinary complaints. She continues to be paralyzed on the left side. Remainder of the review of systems negative. PHYSICAL EXAMINATION: Reveals a healthier-looking woman than I appreciated in the past in that she is smiling and seems a little more filled out and well muscled than she did prior. Temperature 37.6 right now but she was essentially 40 degrees just this morning. Pulse 104, respiratory rate 18, blood pressure 103/46. She is saturating 96% on 2 L. As noted, she is in no acute distress at all. She is alert and oriented and able to give a good history. Conjunctivae very pale. Nose normal. Oral cavity: No thrush or hairy leukoplakia. Neck supple. Lungs relatively clear. Cardiac tones: Regular rate and rhythm without notable murmur. The patient's abdomen is notable for diffuse lower abdominal/pelvic tenderness perhaps slightly worse on the left. One could almost appreciate a sense of fullness in the lower mid abdomen. The upper portions of the abdomen are quite benign. The patient has a Silverman catheter. She is paralyzed on the left side with some contraction of the left upper extremity. Right lower extremity is completely normal. No evidence of synovitis around any joint. No skin rashes appreciated. Patient moves her right side well, left side not at all. The remainder of the physical basically unremarkable. LABORATORIES: Include a white count of 12,000 today without left shift. Platelets 459. Creatinine 0.69, AST 54, procalcitonin 0.08. During the last admission in the fall, we had negative HIV and hepatitis C. Micro studies from this admission: Nasal MRSA swab positive. Blood cultures negative so far, but they are only one day old. Urine cultures positive but cannot see what is being worked up and we do know there will be a positive on that assay. The urinalysis itself though had no white cells so I do not think it is of any significance. IMAGING: Includes an abdominal CT done yesterday when she was admitted. It shows ill-defined loops of thickened bowel on the right chapito-abdomen. There is also fluid-filled prominence of several small bowel loops and free fluid in the mid pelvis as well as perisplenic fluid and fluid collection along the anterior abdomen. Overall appearance is suggestive of a diffuse infection according to the radiologist. They raise concerns about possible developing abscess. The possibility of multiple small areas of peritoneal metastatic disease also could not be excluded per the radiologist. IMPRESSION: This is an incredibly complicated case of a woman who spent much of May, June, July in the hospital with duodenal stump leakage and formation of multiple abscesses and the need for many drains. She has continued to be in relatively ill health while living at the snf facility though obviously better than when she was last here in the hospital. She now returns with about three weeks of increasing symptoms but they were much worse in the past two days with nausea, vomiting, increasing abdominal pain and rigors. Given her elevated white count and temperature to basically 40 degrees this morning there seems little doubt that she is infected. Her prior cultures have primarily yielded MRSA and we never really were able to find much else though almost certainly there are anaerobes and other organisms involved. I note that she has already been started on vancomycin and Unasyn which is probably not a bad way to start, though Unasyn does have particular problems with E. coli and may not be the optimal agent for a below the diaphragm infections such as this. RECOMMENDATIONS: 1. Bactroban to the nares will be started. 2. Fungitell will be checked to see whether that might give us some hint about possible fungal infection. Note that we previously had high ones on the last few admissions but possibly due to spurious values caused by Zosyn use and so now will have a clean look at her Fungitell. 3. Fungal blood cultures will be obtained. 4. We may need to upgrade the Unasyn or add antifungal drugs going forward but for now the patient looks relatively nontoxic. The optimal approach here will undoubtedly be to place an additional drain and see whether we can get some good material for culture and Gram stain. Thank you very much for this consult. ALEXEI
--- NOTE | 2017-02-22 17:20 | NUR ---
Hypotension: P: Patient hypotensive with MAP mid 50 to low 60s. I: Patient asymptomatic. MD notified. Ordered NS 500 mL bolous once. Order for IV therapy to access L chest port. E: Port acessed by IV therapy. NS bolus was administered. BP 114/42 (60). Patient remains asymptomatic. Will continue to monitor patient and vitals.
--- NOTE | 2017-02-22 19:46 | PCM.PNMED ---
Subjective Date of Service February 22, 2017 Subjective Hospital day 2. No acute events overnight. However, the patient's blood pressures have continued to be soft but responsive to fluid administration. Patient continues to experience chills and high fevers with a peak of almost 40C. She reports today that she feels a little bit better than yesterday, but does note some persistent lower abdominal discomfort that is "minimal at this time." She reports otherwise just feeling worn down, but denies other complaints. Please note that she does have chronic limited use of her 4 extremities, but especially the left upper and lower extremities (the patient is wheelchair- bound at baseline). Please note that this was all communicated in Danish. ROS otherwise negative. Exam Vital Signs Vital Sign - Last Date Time Temp Pulse Resp B/P Pulse Ox O2 Delivery O2 Flow Rate FiO2 02/22/17 16:09 37.5 98 18 124/48 99 Room Air 02/22/17 12:31 2.00 Intake and Output 02/21/17 02/21/17 02/22/17 Cumulative From/Thru 15:00 23:00 07:00 02/21/17 16:49 - 02/22/17 06:49 Intake Total 2036 ml 2036 ml Balance 2036 ml 2036 ml Intake Oral 10 ml 10 ml IV Total 2026 ml 2026 ml # Voids 5 5 # Bowel Movements 0 0 Exam General: Awake and alert and conversive, mild distress HEENT: PERRLA, EOMI, dentition poor, mucous membranes dry Cardio: Regular rate and rhythm, no murmurs rubs or gallops Respiratory: CTA bilaterally, no wheezes or crackles Abdomen: Large central scar, small 3 cm scars consistent with previous laparoscopy. Bandage covering a recent drain removal site in the mid to left periumbilical region; noticeable guarding that inhibited the palpatory examination; mild to moderately tender with right greater than left; no rebound Extremities: No edema, pulses intact in all 4 extremities, Psych: Appropriate mood and affect Neuro: Sensation appeared to be intact throughout; mild left upper extremity deficiency; would not perform lower extremity movements due to abdominal pain Skin: No rashes Lymph: No lymphadenopathy Lab and Diagnostics Result Diagram: 02/22/1720902/22/17 0210 X-Rays, CTs and MRIs CT abdomen with contrast 1. Ill-defined loops of thickened bowel within the right hemiabdomen appearing to correlate to both small and large bowel. In addition, there is fluid-filled prominence of scattered small bowel loops. Free fluid is noted within the mid pelvis as well as perisplenic fluid and focal collection along the anterior abdomen. No free air is identified. Overall appearance is suggestive of diffuse infection or inflammation, possibly related colitis/enteritis with ileus/ developing partial obstruction. Small focal fluid collection along the anterior abdomen may represent developing abscess. 2. Coursing within the anterior mesenteric fat which may be related to small areas of inflammation or fluid. In previous history of gastric carcinoma, small areas of peritoneal metastatic disease cannot be excluded. Recommend continued interval followup after resolution of apparent inflammatory/infectious condition. Dictated by: Ashley Rodriguez M.D. on 02/21/2017 at 19:25 12-lead ECG Normal sinus rhythm with heart rate of 83; QTc 4 70 Assessment & Plan 61-year-old female with multiple abdominal surgeries due to gastric carcinoma, and history of intra-abdominal sepsis and abscesses with MRSA in the fall of 2015 who presented to the hospital with 3 weeks of worsening abdominal pain and new nausea and emesis x3 starting last night. Patient denies ongoing fevers or chills, or other signs systemic infection. Abdominal pain due to intra abdominal infection, acute; present on admission; Ongoing -etiology currently unknown but CT suggests possible ileus vs infection/ inflammation and early abscess, unable to rule out metastatic disease; no subjective findings of infection; mild leukocytosis -Dr. Dill was consulted from the emergency department and per ED's report will discuss case with Dr. Sawyer; * Surgical specialists have discussion with IR today regarding ultrasound- guided drainage of the small anterior abdominal fluid pocket. (This will be accomplished tomorrow) * Dr. Dill also noted that Dr. Sawyer will continue to follow on Thursday. -Start patient on Unasyn and vancomycin due to somewhat recent history of MRSA, and these will be continued (MRSA is positive) -Patient has morphine for severe pain was to avoid opiates much as possible; initially patient given Dilaudid in the ED but needed additional Ketorolac for pain -Continued PPI -Infectious disease consult that, and we appreciate Dr. House is expertise * Added fungitell, Bactroban to the nares, and fungal blood cultures * Consideration for adding antifungal given significant abdominal involvement in this somewhat chronically ill patient Leukocytosis; present on admission; ongoing and attributed to the above -Likely due to dehydration is membranes are dry and patient states she vomiting recently -Rehydrated in the ED with 2 L normal saline, given a 3rd liter on floor, and maintenance of 100 ml/hour. Bolusing as needed for blood pressure -Reassess in a.m. CBC -IV therapy to access patient's port for additional IV access Insulin using Type II diabetes, chronic; present on admission; ongoing -Patient presents with glucose of 192 -This is a surgical patient and patient's blood glucose should be kept between 140 and 180 -We will restart Lantus 30 units tonight and will add a medium correctional the form of regular insulin given her nothing by mouth status -A1c pending Electrolyte abnormality; present mission; ongoing -Patient has a pseudohyponatremia with hypochloremia with a corrected anion gap of 19; likely due to recent vomiting without compensation for loss of chloride due to acuity -Lactic acid normalized -Normal saline bolus and ED and maintenance as above -recheck in AM Acute microcytic, hypochromic anemia; present mission; ongoing -Patient presents with a hemoglobin 11.6, a low MCV; review of past admissions does not appear that this is a chronic issue -Iron studies ordered and demonstrates some deficiency component -Consider smear and additional bilirubin or haptoglobin tomorrow High risk meds: IV morphine She will admitted to [facility] expected length of stay greater than 2 minutes due to severity presentation, duration of treatment, and risk of adverse event. Anticipate patient will not discharge for several days given her significant multiple comorbidities on time of presentation in addition to acute illness. Pain Evaluation: Adequate Pain Control VTE Mechanical Devices: Intermittant Pneumatic CD Resuscitation Status: CPR: Attempt Resuscitation Attending Statement The patient was seen and examined together with Dr. Palomo on 02/22/2017 and I agree with the history, exam and plan as outlined in the note above. . Bacilio Meeks DO February 22, 2017 19:46 Merritt Longoria MD February 23, 2017 14:40
[2017-02-22] MEDS: HYDROmorphone 1 mg/mL Inj IVPUSH PRN (20:15)
[2017-02-22] MEDS: Mupirocin 2% 22 Gm Ointment NASAL SCH (20:17)
[2017-02-22] MEDS: Insulin GLARgine 100 Unit/mL Syringe SUBQ SCH (20:26)
[2017-02-22] MEDS ORDERED: Vancomycin Serum Trough XX ONE (21:30)
[2017-02-23] VITALS (7 sets, daily range): BP systolic 111–147; BP diastolic 41–66; PULSE 81–120; RESP 15–25; O2SAT 96–98
[2017-02-23] MEDS: Heparin 5,000 Unit/mL Inj SUBQ SCH ×3 (01:51→15:50)
[2017-02-23] MEDS: Insulin Human REGular 300 Unit/3 mL Inj SUBQ SCH ×4 (02:30→20:30)
[2017-02-23] MEDS: Ampicillin-Sulbactam Inj 3,000 MG in 0.9% Sodium Chloride 100 ML IV SCH ×4 (03:57→20:59)
[2017-02-23 04:35] LABS: Mean Corpuscular Hemoglobin 24.7 pg (27.0-35.0); Mean Corpuscular Volume 80.7 fL (81-100); Platelet Count 352 bil/L (150-400)
[2017-02-23 04:36] LABS: BASOPHILS % (AUTO) 0.4 % (0-3); EOSINOPHILS % (AUTO) 4.5 % (0-5); MONOCYTES % (AUTO) 4.8 % (4-12); NEUTROPHILS % (AUTO) 72.3 % (40-74)
[2017-02-23 04:41] LABS: Phosphorus 2.3 mg/dL (2.5-4.9)
[2017-02-23 04:58] LABS: Magnesium 1.1 mg/dL (1.6-2.6)
[2017-02-23] MEDS ORDERED: Potassium Chloride 20 mEq SR Tab (K < 3 & Creat <2) PO SCH (06:05)
--- NOTE | 2017-02-23 06:43 | NUR ---
Mobility/NPO status Pt able to turn self in bed with moderate assist. Complaining of dry mouth. Given chapstick and mouth moisturizer.
[2017-02-23] MEDS ORDERED: KCl 40 mEq/500 mL D5W (K < 3 & Creat <2) IV SCH (06:45)
[2017-02-23] MEDS ORDERED: Mag Sulf 4 Gm/100 mL IV Premix (Mag < 1.6 & Creat < 2) IV ONE (06:45)
[2017-02-23] MEDS: Pantoprazole 4 mg/mL 10 mL Inj IVPUSH SCH (08:01)
[2017-02-23 08:09] LABS: Mean Corpuscular Hemoglobin 24.9 pg (27.0-35.0); Mean Corpuscular Volume 80.2 fL (81-100)
[2017-02-23 08:27] LABS: Magnesium 1.3 mg/dL (1.6-2.6); Phosphorus 2.8 mg/dL (2.5-4.9)
[2017-02-23] MEDS: Vancomycin Dose per Pharmacist XX SCH (08:30)
[2017-02-23] MEDS: Mupirocin 2% 22 Gm Ointment NASAL SCH ×2 (08:32→21:00)
--- NOTE | 2017-02-23 08:55 | PROG NOTE ---
[address] [address] PROGRESS NOTE PATIENT: FLAQUITO DUBON : 1955 MR#: [id number] ADMIT: 02/21/2017 JOB ID: [id number] DATE: 02/23/2017 REASON FOR FOLLOWUP: Intraabdominal infection. INTERVAL HISTORY: Overnight, the patient continues to complain of abdominal pain which is quite severe. She denies any fever, but says she has had chills during the night. No sweats. No significant headache. No sore throat. No cough, shortness of breath, or chest pain. She has had nausea, but no vomiting. No diarrhea. No dysuria. PHYSICAL EXAMINATION: Reveals a comfortable woman temperature 37.7 during the night, but she did spike to 39.9 yesterday morning exactly 24 hours ago. Pulse 82, respiratory rate 16, blood pressure 111/47, saturating well on room air. She is in no acute distress this morning and basically smiling though then complains of very significant lower than upper abdominal pain. Eyes with conjunctival pallor, but no conjunctivitis. Oral cavity is benign. Lungs relatively clear. Abdomen is diffusely tender with hypoactive bowel sounds especially in the lower abdomen, but this is very diffuse and extends all the way across really the entire abdomen. No drains are present at this point. No skin rash noted. The extremities are well perfused. Note she continues to have hemiparesis as before. DIAGNOSTIC STUDIES: Labs this morning were considered suspicious and been repeated so I will not mention other than to say that apparently her white count has declined rather suddenly to normal, but there are questions about the veracity of all of her hematology and chemistry this morning and for that reason the nurse was just drawing stat repeats. Urinalysis had no white cells in it. Fungitell is pending. Blood cultures are negative. Urine culture is growing 2 separate gram-negative rods to be identified both in heavy concentrations, but again no pyuria so it is hard to know what that means. As I mentioned 8 blood culture bottles are negative. CT scan of the abdomen was reviewed. It is suspicious for another abscess as well as possibly an early partial obstruction. IMPRESSION: This is an extremely complex woman whom I know from multiple prior admissions during much of the May through July she was in the hospital with complications of surgery for gastric carcinoma including multiple intraabdominal abscesses which yielded numerous organisms including MRSA. At this point, she once again appears to have another intraabdominal complex infection which will require involvement of both probably Interventional Radiology and General Surgery. We do not know the microbiology of this current infection, and she has been started on vancomycin and Unasyn which are probably reasonable places to start as we await additional culture data. RECOMMENDATIONS: 1. Continue vancomycin and Unasyn. 2. Continue Bactroban to the nares. 3. We await blood cultures and Fungitell. 4. Once a drainage procedure is undertaken we will need cultures whether it is done by IR or by General Surgery so as to determine what organisms are present especially to see if she still has MRSA or the development of any multi-drug resistant organisms.
[2017-02-23] MEDS ORDERED: Vancomycin Serum Trough XX ONE ×2 (09:30→21:00)
--- NOTE | 2017-02-23 09:35 | PCM.PNSURG ---
Subjective Date of Service: February 23, 2017 Visit Information: Reason for Visit Bowel Obstruction, Intra Abdominal Infection Surgery/Surgery Date Post-Op Day # Date of Admission: February 21, 2017 at 20:53 Hospital Day #2 Subjective: This patient was examined with her daughter who acted as a gluer. Mid lower abdominal pain continues. Denies nausea or vomiting. Passing flatus but has not had a bowel movement. Has not been to IR for pelvic fluid collection drained. Postop General: Other (as above) Gastrointestinal: Good Appetite, No N/V, Passing Flatus Pain Management: IV Push Postop Activity: Other (bedrest) Objective Vital Sign- Last 8 Hours Date Time Temp Pulse Resp B/P Pulse Ox O2 Delivery O2 Flow Rate FiO2 02/23/17 08:14 37.1 83 120/60 96 Room Air 02/23/17 03:53 82 16 111/47 98 Room Air Intake and Output- Last 8 Hour 02/23/17 Cumulative From/Thru 07:00 02/21/17 16:49 - 02/23/17 06:30 Intake Total 1268 ml 5232 ml Balance 1268 ml 5232 ml Intake Oral 0 ml 10 ml IV Total 1268 ml 5222 ml # Voids 2 7 # Bowel Movements 0 General: Alert, Cooperative, No Acute Distress Lungs: Clear to Auscultation (in the anterolateral parada) Heart: Regular Rate/Rhythm Abdomen: Soft, Non-distended, No masses, Other (minimally tender to palpation in the mid lower abdomen.) Extremities: Thigh&Calf Soft/Nontender Neuro: Normal Speech Catheters: None Result Diagram: 02/23/17 0745 02/23/17 0745 Assessment & Plan Impression Primary diagnosis: Lower abdominal/pelvic fluid collection suggestive of possible early abscess formation. HD #2, not toxic. Pending IR drain placement. Other chronic conditions: 1. Gastric carcinoma 2. IDDM type 2 3. Duodenal stump leak , resolved. 4. Hypercholesterolemia. 5. Recurrent UTIs 6. CVA with residual left upper extremity hemiplegia 7. Former cigarette smoker Problems: Plan 1. Full liquid diet 2. Percutaneous drain by IR today. 3. CBC in the morning Pain Management: IV analgesics VTE Prophylaxis: Sub-Q Heparin (Unfractionated) Resuscitation Status: CPR: Attempt Resuscitation Denys Stephens PA-C February 23, 2017 09:35
[2017-02-23] MEDS ORDERED: Sodium Chloride LOK Flush 10 mL Syringe IVFLUSH PRN (11:05)
[2017-02-23] MEDS: 0.9% Sodium Chloride 250 ML IV SCH (11:05)
[2017-02-23] MEDS ORDERED: HepLOK Flush 100 unit/mL 5 mL Inj IVFLUSH PRN (11:05)
[2017-02-23] MEDS: Vancomycin Inj 1,000 MG in IV Premix 1 EACH IV SCH (11:19)
--- NOTE | 2017-02-23 14:47 | PCM.PNMED ---
Subjective Date of Service February 23, 2017 Subjective Ashley Smith is a 61-year-old female with a history of gastric carcinoma, multiple abdominal surgeries and intra-abdominal infection with abscess positive for MRSA in the fall of 2015 who presented with worsening abdominal pain for three weeks. Being treated for intra-abdominal infection, electrolyte abnormalities and anemia. Hospital day #3. No acute events overnight. Per nursing, patient hypotensive with MAP 50s-60, responsive to IV fluids. 500ml bolus of normal saline. Exam Vital Signs Vital Sign - Last Date Time Temp Pulse Resp B/P Pulse Ox O2 Delivery O2 Flow Rate FiO2 02/23/17 03:53 82 16 111/47 98 Room Air 02/22/17 22:57 36.7 02/22/17 12:31 2.00 Intake and Output 02/22/17 02/22/17 02/23/17 Cumulative From/Thru 15:00 23:00 07:00 02/21/17 16:49 - 02/23/17 06:30 Intake Total 1928 ml 1268 ml 5232 ml Balance 1928 ml 1268 ml 5232 ml Intake Oral 0 ml 10 ml IV Total 1928 ml 1268 ml 5222 ml # Voids 2 7 # Bowel Movements 0 Exam General: No acute distress, well-developed, well-nourished, appropriately interactive HEENT: Normocephalic, atraumatic. PERRL, mucous membranes dry Neck: Supple, nontender, no JVD, lymphadenopathy or thyromegaly. Cardiovascular: Regular rate and rhythm with no murmurs, rubs, or gallops appreciated Pulmonary: Clear to auscultation bilaterally with no crackles, wheezes, or rhonchi. Normal respiratory effort. Abdomen: Soft, nondistended, Large central scar & small scars consistent with previous laparoscopy, mid periumbilical bandage covering drain removal site; noticeable guarding, tender with right greater than left; no rebound. Bowel tones present. Extremities: No edema, cyanosis or clubbing. Skin: Normal temperature, turgor, no rash or ulcerations. Neurological: Cranial nerves grossly intact, mild left upper extremity deficiency Psychiatric: Normal mood and affect. Alert and oriented to person, place, and time. IVs and Medications Medications Reviewed: Medications were reviewed in detail Lab and Diagnostics Laboratory Tests Test 02/22/17 14:15 02/23/17 04:00 02/23/17 07:45 White Blood Count 5.6th/mm3 (3.8-10.1) Red Blood Count 2.95mil/mm3 (3.90-5.20) Hemoglobin 7.3g/dL (12.0-15.6) Hematocrit 23.8% (35.0-46.0) Mean Corpuscular Volume 80.7fL (81-100) Mean Corpuscular Hemoglobin 24.7pg (27.0-35.0) Mean Corpuscular Hemoglobin Concent 30.7% (32.0-37.0) Red Cell Distribution Width 15.3% (12.3-15.4) Platelet Count 352bil/L (150-400) Neutrophils (%) (Auto) 72.3% (40-74) Lymphocytes (%) (Auto) 17.8% (14-46) Monocytes (%) (Auto) 4.8% (4-12) Eosinophils (%) (Auto) 4.5% (0-5) Basophils (%) (Auto) 0.4% (0-3) Sodium Level 140mEq/L (134-144) Potassium Level 2.8mEq/L (3.5-5.2) Chloride Level 110mEq/L (97-108) Carbon Dioxide Level 20mmol/L (18-29) Blood Urea Nitrogen 5mg/dL (8-27) Creatinine 0.37mg/dL (0.57-1.00) Estimat Glomerular Filtration Rate 254mL/min (>59) Glucose Level 87mg/dL (60-99) Calcium Level 6.5mg/dL (8.5-10.1) Phosphorus Level 2.3mg/dL (2.5-4.9) Magnesium Level 1.1mg/dL (1.6-2.6) Total Bilirubin 0.2mg/dL (0.0-1.2) Aspartate Amino Transf (AST/SGOT) 17U/L (0-50) Alanine Aminotransferase (ALT/SGPT) 11U/L (0-32) Alkaline Phosphatase 58U/L (25-165) Total Protein 4.4g/dL (6.4-8.4) Albumin 1.9g/dL (3.4-5.0) Result Diagram: 02/23/17 04002/23/17 0400 Microbiology 02/21/17 Blood culture- No growth at 24h 02/21/17 Urine culture- positive gram negative rods 02/21/17 MRSA screen- positive 02/22/17- Repeat Blood Cultures- pending. X-Rays, CTs and MRIs (02/21/17) CT ABDOMEN AND PELVIS WITH CONTRAST IMPRESSION: 1. Ill-defined loops of thickened bowel within the right hemiabdomen appearing to correlate to both small and large bowel. In addition, there is fluid-filled prominence of scattered small bowel loops. Free fluid is noted within the mid pelvis as well as perisplenic fluid and focal collection along the anterior abdomen. No free air is identified. Overall appearance is suggestive of diffuse infection or inflammation, possibly related colitis/enteritis with ileus/ developing partial obstruction. Small focal fluid collection along the anterior abdomen may represent developing abscess. 2. Coursing within the anterior mesenteric fat which may be related to small areas of inflammation or fluid. In previous history of gastric carcinoma, small areas of peritoneal metastatic disease cannot be excluded. Recommend continued interval followup after resolution of apparent inflammatory/infectious condition. Dictated and approved by: Ashley Rodriguez M.D. on 02/21/2017 at 19:25 . 12-lead ECG Normal sinus rhythm with heart rate of 83; QTc 4 70 Assessment & Plan 61-year-old female with multiple abdominal surgeries due to gastric carcinoma, and history of intra-abdominal sepsis and abscesses with MRSA in the fall of 2015 who presented to the hospital with 3 weeks of worsening abdominal pain and new nausea and emesis x3 starting day prior to admission. Hospital day #3. Probable intra-abdominal infection, acute. Present on admission. Active -Uncertain etiology. Abd CT suggests possible ileus vs infection/inflammation and early abscess, unable to rule out metastatic disease; no subjective findings of infection; mild leukocytosis -General surgery is following, advanced diet to clear liquids. -IR drainage of ultrasound-guided drainage of the small anterior abdominal fluid pocket planned for today. -Continue unasyn, vancomycin and Bactroban (MRSA screen positive) per Infectious Disease. -IV morphine prn for severe; try to avoid opiates as much as possible due to potential for ileus -Continued PPI -Fungitell and fungal blood cultures- pending. Insulin using Type II diabetes, chronic. Present on admission. Active -Patient presents with glucose of 192. Goal blood glucose 140-180. -Continue home Lantus, 30U QPM and correctional insulin -A1c pending Electrolyte abnormality. Present on admission. Active -Patient has a pseudohyponatremia with hypochloremia with a corrected anion gap of 19; likely due to recent vomiting without compensation for loss of chloride due to acuity -Lactic acid normalized -IV fluids as above -BMP in the morning Acute microcytic, hypochromic anemia. Present mission. Active -Patient presents with a hemoglobin 11.6, a low MCV; review of past admissions does not appear that this is a chronic issue -Iron studies ordered and demonstrates some deficiency component -Supplemental iron -Check haptoglobin Leukocytosis, acute. Present on admission. Resolved. -Likely due to dehydration is membranes are dry and patient states she vomiting recently and possible intra-abdominal infection. -IV fluid resuscitation, received 3L normal saline. Maintenance 100mls/hr. -Follow CBC -Antibiotics, as above. High risk meds: IV morphine Disposition: Patient will likely discharge back to [facility] in 2-3 more days given her significant multiple comorbidities at time of presentation and pending further evaluation of probable intra-abdominal infection. VTE Mechanical Devices: Intermittant Pneumatic CD Resuscitation Status: CPR: Attempt Resuscitation Attending Statement The patient was seen and examined together with Dr. Jordan on 02-23-17 and I agree with the history, exam and plan as outlined in the note above. Carlota Jordan DO February 23, 2017 08:04 Deng Menard MD February 24, 2017 16:22
[2017-02-23] MEDS: HYDROmorphone 1 mg/mL Inj IVPUSH PRN ×3 (15:52→23:14)
[2017-02-23] MEDS: 0.9% Sodium Chloride 1,000 ML IV SCH ×2 (16:55→23:01)
--- NOTE | 2017-02-23 16:58 | DRSVH ---
PROCEDURE: US ABDOMEN, LIMITED ([id number]) INDICATIONS: Ant midline fluid collection seen on CT scan 02/21 TECHNIQUE: Real-time focused scanning was performed of the abdomen, with image documentation. COMPARISON: [facility], CT, CT ABD PELVIS W CON, 02/21/2017, 19:10. FINDINGS: No drainable fluid is identified within the anterior lower abdomen. There is a solid appea ring, hypoechoic masslike structure within the midline and slightly to the right inferior to the umbi licus measuring roughly 10.2 x 2.3 cm., within the peritoneal cavity. Doppler assessment demonstrates no definite internal flow. Trace ascites. IMPRESSION: 1. No drainable superficial fluid collection is seen although trace amount of ascites is present with in the pelvis. 2. Solid-appearing superficial masslike structure is present as above. Underlying neoplastic process cannot be excluded. Dictated by: Jimmy Mahoney [facility] Interpreted: Pravin Perez MD on 02/23/2017 at 16:54 Transcribed by: RASHID on 02/23/2017 at 16:57 Approved by: Pravin Perez M.D. on 02/24/2017 at 8:46
--- NOTE | 2017-02-23 18:31 | NUR ---
Pain/constipation pt c/o 7-05/14 abdominal pain through the day. Medicated each time with 2mg Morphine (q4hrs). Reassessment charted. Pt stating not having a BM for about 6days now, asking for suppository. MD made aware Suppository administered. Ongoing care.
[2017-02-23] MEDS: Insulin GLARgine 100 Unit/mL Syringe SUBQ SCH (21:00)
--- NOTE | 2017-02-23 21:44 | NUR ---
BG Pt's BG currently at 97. Previous night, pt was at 117 and 30 units of Lantus given at HS and at AM BG at 87. Provider contacted and orders to hold HS dose obtained.
--- NOTE | 2017-02-23 23:16 | PCM.PHAPRO ---
Progress Date of Service: February 23, 2017 Abdominal pain VANCOMYCIN MANAGEMENT A\ 61 yo F with intra-abdominal abscess and history of MRSA. Vancomycin trough = 11.5 Goal =15 SCr=0.49 GFR =102 WBC=6.8 P\ Will increase vancomycin 1250mg iv Q12h and check another level at 1030 02/25 Pharmacy will continue to monitor and adjust vancomycin as needed. Gilbert Longo [facility] February 23, 2017 23:16
[2017-02-23] MEDS: Vancomycin Inj 1,250 MG in 0.9% Sodium Chloride 250 ML IV SCH (23:21)
[2017-02-24] VITALS (8 sets, daily range): BP systolic 124–152; BP diastolic 43–74; PULSE 99–113; RESP 14–22; O2SAT 94–97
[2017-02-24] MEDS: Heparin 5,000 Unit/mL Inj SUBQ SCH ×4 (01:02→23:31)
[2017-02-24] MEDS ORDERED: MeTOProlol 1 mg/mL 5 mL Inj IVPUSH ONE (02:05)
[2017-02-24] MEDS: Insulin Human REGular 300 Unit/3 mL Inj SUBQ SCH ×4 (02:30→21:17)
[2017-02-24] MEDS: Ampicillin-Sulbactam Inj 3,000 MG in 0.9% Sodium Chloride 100 ML IV SCH ×4 (02:41→22:03)
[2017-02-24 03:18] LABS: BASOPHILS % (AUTO) 0.1 % (0-3); EOSINOPHILS % (AUTO) 0.7 % (0-5); MONOCYTES % (AUTO) 7.2 % (4-12); Mean Corpuscular Hemoglobin 24.6 pg (27.0-35.0); Mean Corpuscular Volume 78.9 fL (81-100); NEUTROPHILS % (AUTO) 84.9 % (40-74); Platelet Count 408 bil/L (150-400)
[2017-02-24] MEDS: HYDROmorphone 1 mg/mL Inj IVPUSH PRN ×3 (03:36→20:16)
[2017-02-24 05:00] LABS: TROPONIN T 0.01 ug/L (0.0-0.011)
[2017-02-24] MEDS: Ondansetron 2 mg/mL 2 mL Inj IVPUSH PRN ×2 (06:47→17:15)
--- NOTE | 2017-02-24 08:17 | PROG NOTE ---
[address] [address] PROGRESS NOTE PATIENT: FLAQUITO DUBON : 1955 MR#: [id number] ADMIT: 02/21/2017 JOB ID: [id number] DATE: 02/24/2017 SUBJECTIVE: The patient is seen in followup. I am extremely familiar with her overall story, as I have seen her innumerable times in the [facility] after her complicated episode of care starting in May 2016 when she underwent gastrectomy that was complicated by a duodenal stump leak and required multiple other operations and a long convalescence. She had been clinically well with no evidence of a fistula for the past 4-5 months. She was then admitted to the hospital service and complained that she had about three weeks of increasing lower abdominal pain. She is not complaining of any nausea today. She still complains of pain across the lower abdomen in a bandlike distribution. She is having bowel movements and has not had blood in the stool. There has been no vomiting. Yesterday, she underwent ultrasound of her abdominal process to see if it was amenable to percutaneous drainage. Not surprising to me, the ultrasound did not show any drainable fluid collection. There was a trace amount of ascites in the pelvis. There was a solid-appearing superficial masslike structure just inferior to the umbilicus, measuring 10 x 2 cm, and underlying neoplastic process could not be excluded. OBJECTIVE: Temperature 37.9, pulse 110, blood pressure 145/56, saturation 94% on room air. In general, she is sitting up in bed, in no acute distress. Heart: Regular rate and rhythm. No murmurs. Chest is clear. Abdomen is firm but not distended. There is no erythema of the abdominal wall. Her midline scar is completely healed, with no fluctuance. Her prior jejunostomy tube site in the left lower abdomen is closed, with no erythema, no fluctuance. LABORATORIES: White blood cell count 14.9, hematocrit 27.6, platelets 408. Creatinine 0.49. Lactate 0.9. Procalcitonin 0.08. IMAGING: As above. 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 The exact etiology of her current problem it is not clear. I do not think she has an intra-abdominal abscess, as there is really no evidence of a drainable fluid collection, and she has a normal procalcitonin level, arguing against an infectious process. I think the possibility of neoplasm needs to be considered. I have reviewed things with Dr. Kenny House from Infectious Disease, and I recommended stopping antibiotics. I think we should treat her conservatively and repeat CT scan of the abdomen in 2-3 days to see if anything evolves.
--- NOTE | 2017-02-24 08:18 | PROG NOTE ---
[address] [address] PROGRESS NOTE PATIENT: FLAQUITO DUBON : 1955 MR#: [id number] ADMIT: 02/21/2017 JOB ID: [id number] DATE: 02/24/2017 REASON FOR FOLLOWUP: Intraabdominal process, infection versus tumor versus combination. INTERVAL HISTORY: Overnight, the patient reports continued periumbilical pain, which is moderately severe. No associated chills, though she does report some subjective fever during the night. No chills, no sweats, but subjective fevers during the night. No vomiting, but nausea has been reported. No cough or shortness of breath. No headache. PHYSICAL EXAMINATION: Reveals a comfortable woman lying in bed. Her temperature this morning 37.9. She was as high as 38.4 during the night. Blood pressure 145/56, saturating 94% on room air. Mental status is clear. Oral cavity negative. Lungs clear. Cardiac tones regular rate and rhythm without murmur. Abdomen is notable for tenderness which is in the periumbilical distribution especially to the upper left of the umbilicus. The upper abdomen is relatively nontender. No skin rashes noted. There is no peripheral edema. LABORATORIES: Include white count which was 6800 yesterday, it has jumped to 14,900 today with 85% segs. Creatinine is 0.5. Albumin 1.9. Urinalysis without white cells. Fungitell is pending. Blood cultures x8 bottles all negative. Urine with 2 separate gram-negative rods greater than 100,000 colonies. Susceptibilities are pending. Nasal MRSA was positive. IMAGING: Includes the ultrasound done yesterday which shows no drainable fluid collection in the lower abdomen and a solid-appearing mass like structure is seen just below and to the right of the umbilicus. This mass is said to measure 10 x [address] scan done 2 days prior to the ultrasound on the other hand, showed course abdominal mesenteric fat in this area and an area of focal fluid in the anterior abdomen. This case discussed with Dr. Sawyer of General Surgery. Dr. Sawyer feels that the appearance of the patient is inconsistent with infection at this juncture and wonders whether the abdominal process could be a malignant one. I am uncertain as to whether not an infectious process is ongoing. Certainly the CT scan which suggests the possibility of intra-abdominal abscess, but the ultrasound done on the sounds more like a recurrence of gastric malignancy. Meanwhile the patient has had very consistent fevers over the past 72 hours, which of course could be on the basis of malignancy, but I am nonetheless concerned that in conjunction with elevated left shift and platelet count that this represents infection. Tumor in and of itself could of course do all of this. RECOMMENDATIONS: 1. I would cautiously continue with the vancomycin and Unasyn as we closely observe the patient. 2. I plan to call back Dr. Sawyer and discuss the case additionally with him. Whether or not to stop the patient's antibiotics and observe is unclear to me at this time. Additional imaging will undoubtedly be required as we go forward the next few days with an eye towards the drainage procedure or biopsy to determine if this is infection, tumor, or both.
[2017-02-24] MEDS: Vancomycin Dose per Pharmacist XX SCH (08:30)
[2017-02-24] MEDS: 0.9% Sodium Chloride 1,000 ML IV SCH ×2 (09:01→14:54)
[2017-02-24] MEDS: Mupirocin 2% 22 Gm Ointment NASAL SCH ×2 (09:06→20:16)
[2017-02-24] MEDS: Pantoprazole 4 mg/mL 10 mL Inj IVPUSH SCH (09:06)
--- NOTE | 2017-02-24 12:23 | PCM.PNMED ---
Subjective Date of Service February 24, 2017 Subjective Ashley Smith is a 61-year-old female with a history of gastric carcinoma, multiple abdominal surgeries and intra-abdominal infection with abscess positive for MRSA in the fall of 2015 who presented with worsening abdominal pain for three weeks. Being treated for intra-abdominal infection, electrolyte abnormalities and anemia. Hospital day #4 Patient afebrile overnight with Tmax of 38.4C. Ultrasound drainage of intra- abdominal fluid collection unsuccessful as no drainable superficial fluid collection seen on ultrasound. Patient continues to report increasing RLQ abdominal pain and decreased appetite. Exam Vital Signs Vital Sign - Last Date Time Temp Pulse Resp B/P Pulse Ox O2 Delivery O2 Flow Rate FiO2 02/24/17 03:30 37.9 110 18 145/56 94 Room Air 02/22/17 12:31 2.00 Intake and Output 02/23/17 02/23/17 02/24/17 Cumulative From/Thru 15:00 23:00 07:00 02/21/17 16:49 - 02/24/17 06:09 Intake Total 1738 ml 700 ml 7670 ml Balance 1738 ml 700 ml 7670 ml Intake Oral 220 ml 700 ml 930 ml IV Total 1518 ml 6740 ml # Voids 4 5 16 # Bowel Movements 2 2 Exam General: No acute distress, well-developed, well-nourished, appropriately interactive HEENT: Normocephalic, atraumatic. PERRL, mucous membranes dry Neck: Supple, nontender, no JVD, lymphadenopathy or thyromegaly. Cardiovascular: Regular rate and rhythm with no murmurs, rubs, or gallops appreciated Pulmonary: Clear to auscultation bilaterally with no crackles, wheezes, or rhonchi. Normal respiratory effort. Abdomen: Soft, nondistended, Large central scar & small scars consistent with previous laparoscopy, mid periumbilical bandage covering drain removal site; noticeable guarding, tender with right greater than left; no rebound. Bowel tones present. Extremities: No edema, cyanosis or clubbing. Skin: Normal temperature, turgor, no rash or ulcerations. Neurological: Cranial nerves grossly intact, mild left upper extremity deficiency Psychiatric: Normal mood and affect. Alert and oriented to person, place, and time. IVs and Medications Medications Reviewed: Medications were reviewed in detail Lab and Diagnostics Laboratory Tests Test 02/23/17 21:39 02/24/17 02:45 02/24/17 05:10 Vancomycin Level Trough 11.5mcg/mL White Blood Count 14.9th/mm3 (3.8-10.1) Red Blood Count 3.50mil/mm3 (3.90-5.20) Hemoglobin 8.6g/dL (12.0-15.6) Hematocrit 27.6% (35.0-46.0) Mean Corpuscular Volume 78.9fL (81-100) Mean Corpuscular Hemoglobin 24.6pg (27.0-35.0) Mean Corpuscular Hemoglobin Concent 31.2% (32.0-37.0) Red Cell Distribution Width 15.5% (12.3-15.4) Platelet Count 408bil/L (150-400) Neutrophils (%) (Auto) 84.9% (40-74) Lymphocytes (%) (Auto) 6.9% (14-46) Monocytes (%) (Auto) 7.2% (4-12) Eosinophils (%) (Auto) 0.7% (0-5) Basophils (%) (Auto) 0.1% (0-3) Creatinine 0.51mg/dL (0.57-1.00) Glucose Level 142mg/dL (60-99) Troponin T 0.010ug/L (0.0-0.011) Lactic Acid Level 0.9mmol/L (0.4-2.0) Result Diagram: 02/24/17 0245 02/24/17 0245 Microbiology 02/21/17 Blood culture- No growth at 2days 02/21/17 Urine culture- Positive for E. coli 02/21/17 MRSA screen- positive 02/22/17- Repeat Blood Cultures- no growth at 24 hrs. X-Rays, CTs and MRIs (02/21/17) CT ABDOMEN AND PELVIS WITH CONTRAST IMPRESSION: 1. Ill-defined loops of thickened bowel within the right hemiabdomen appearing to correlate to both small and large bowel. In addition, there is fluid-filled prominence of scattered small bowel loops. Free fluid is noted within the mid pelvis as well as perisplenic fluid and focal collection along the anterior abdomen. No free air is identified. Overall appearance is suggestive of diffuse infection or inflammation, possibly related colitis/enteritis with ileus/ developing partial obstruction. Small focal fluid collection along the anterior abdomen may represent developing abscess. 2. Coursing within the anterior mesenteric fat which may be related to small areas of inflammation or fluid. In previous history of gastric carcinoma, small areas of peritoneal metastatic disease cannot be excluded. Recommend continued interval followup after resolution of apparent inflammatory/infectious condition. Dictated and approved by: Ashley Rodriguez M.D. on 02/21/2017 at 19:25 (02/23/17) US ABDOMEN, LIMITED IMPRESSION: 1. No drainable superficial fluid collection is seen although trace amount of ascites is present within the pelvis. 2. Solid-appearing superficial masslike structure is present as above. Underlying neoplastic process cannot be excluded. Interpreted and approved by: Pravin Perez MD on 02/23/2017 at 16:54 12-lead ECG Normal sinus rhythm with heart rate of 83; QTc 4 70 Assessment & Plan 61-year-old female with multiple abdominal surgeries due to gastric carcinoma, and history of intra-abdominal sepsis and abscesses with MRSA in the fall of 2016 who presented to the hospital with 3 weeks of worsening abdominal pain and new nausea and emesis x3 starting day prior to admission. Hospital day # 4 . Probable intra-abdominal infection, acute. Present on admission. Active -Uncertain etiology. Abd CT suggests possible ileus vs infection/inflammation and early abscess, unable to rule out metastatic disease; no subjective findings of infection; mild leukocytosis -General surgery is following, advanced diet to clear liquids. -IR drainage of small anterior abdominal fluid pocket unsuccessful. -Continue unasyn, vancomycin and Bactroban (MRSA screen positive) per Infectious Disease. -IV morphine prn for severe; try to avoid opiates as much as possible due to potential for ileus -Continue PPI -Fungitell and fungal blood cultures- pending. Insulin using Type II diabetes, chronic. Present on admission. Active -Patient presents with glucose of 192. Goal blood glucose 140-180. -Continue home Lantus at decreased dose, 10U QPM and medium dose correctional insulin -A1c 7.2 Electrolyte abnormality. Present on admission. Active -Patient has a pseudohyponatremia with hypochloremia with a corrected anion gap of 19; likely due to recent vomiting without compensation for loss of chloride due to acuity -Lactic acid normalized -IV fluids as above -BMP in the morning Acute microcytic, hypochromic anemia. Present mission. Active -Patient presents with a hemoglobin 11.6, a low MCV; review of past admissions does not appear that this is a chronic issue -Iron studies demonstrate deficiency component -Supplemental iron Leukocytosis, acute. Present on admission. Resolved. -Likely due to dehydration is membranes are dry and patient states she vomiting recently and possible intra-abdominal infection. -IV fluid resuscitation, received 3L normal saline. Maintenance 100mls/hr. -Follow CBC -Antibiotics, as above. High risk meds: IV morphine, vancomycin Disposition: Patient will likely discharge back to [facility] in 2-3 more days given her significant multiple comorbidities at time of presentation and pending further evaluation of probable intra-abdominal infection. VTE Prophylaxis: Sub-Q Heparin (Unfractionated) VTE Mechanical Devices: Intermittant Pneumatic CD Resuscitation Status: CPR: Attempt Resuscitation Attending Statement The patient was seen and examined together with Dr. Jordan on 02-24-17 and I agree with the history, exam and plan as outlined in the note above. Carlota Jordan DO February 24, 2017 08:05 Deng Menard MD February 24, 2017 17:52
--- NOTE | 2017-02-24 13:50 | NUR ---
NUTRITION ASSESSMENT: ASSESS: Pt is a 61yo F admitted for possible bowel obstruction and abdominal pain. Pt has history of gastric cancer s/p distal gastrectomy, with Billroth II anastomosis, complicated by duodenal stump leak, for which she underwent re-laparotomy with repair of the leak, TONY drain placement at the site of the leak, and feeding jejunostomy placement 05/27- at [facility]. Per H&P, they are unsure when pts J tube was removed but it was within the last 1-2 months. Surgery is following. Currently plan is to treat her conservatively. Her diet was able to be advanced to Full Liquid 02/23. No PO has been recorded. PMHX: Type 2 DM, hyperlipidemia, stroke with left sided weakness, gastric adenocarcinoma. LABS: Reviewed. Bun 5, Staffing Specialist .49, Glu 142, Ca 8.1, Mg 1.3, Alb 1.9 MEDS: Reviewed. Senna, insulin, zofran GI: BMx2 02/24 SKIN: Devin 15, no major issues noted CURRENT WTS: 73.8kg, BMI 30.7kg/m2, admit wt 69.8kg, IBW 47.7kg DIET: Full Liquid. No PO recorded EST. NEEDS: BMI Kcals: 1625-1845kcal/day (22-25kcal/kg) Pro: 60-75g/day (1.2-1.5g/kg IBW) NUTRITION DIAGNOSIS: 1.) Inadequate oral intake related to altered GI function as evidence by recent diet advance, no PO recorded yet, pt reporting poor appetite and history of needing J-tube feedings. NUTRITION INTERVENTION: 1.) Will add Glucerna on L and D trays now that diet has been advanced to Full Liquid 2.) Recommend advance diet when medically appropriate MONITOR / EVAL: PO, wt, GI, diet advc, labs, POC, nutrition status. Will continue to monitor per high nutrition risk guidelines
[2017-02-24] MEDS: Vancomycin Inj 1,250 MG in 0.9% Sodium Chloride 250 ML IV SCH (14:54)
[2017-02-24] MEDS: 0.9% Sodium Chloride 250 ML IV SCH (14:54)
[2017-02-24] MEDS ORDERED: Potassium Chloride 20 mEq SR Tablet PO ONE (18:05)
--- NOTE | 2017-02-24 19:27 | NUR ---
PO Intake/K+/Nutritional Shakes/Pain Pt refused AM tray, ate 25% of lunch tray and encouraged to increase PO intake. K+ leve 3.3 per lab, notified, new order for PO K+ given as MD would like pt to increase PO intake and has ordered Supplemental Shakes with meal trays. Pt moving ind in bed, not OOB for dayshift. Family at the BS and requesting pain medication for pt; 2mg IV Morphine given followed by 4mg IV Zofran for N/V without emesis. Will continue to monitor with frequent rounds.
[2017-02-24] MEDS: Insulin GLARgine 100 Unit/mL Syringe SUBQ SCH (21:16)
[2017-02-25] VITALS (9 sets, daily range): BP systolic 116–160; BP diastolic 51–75; PULSE 97–120; RESP 14–22; O2SAT 93–95
[2017-02-25] MEDS: Vancomycin Inj 1,250 MG in 0.9% Sodium Chloride 250 ML IV SCH ×2 (01:39→16:03)
[2017-02-25] MEDS: Insulin Human REGular 300 Unit/3 mL Inj SUBQ SCH ×4 (02:30→21:47)
[2017-02-25] MEDS: HYDROmorphone 1 mg/mL Inj IVPUSH PRN ×9 (03:02→23:52)
[2017-02-25] MEDS: Ampicillin-Sulbactam Inj 3,000 MG in 0.9% Sodium Chloride 100 ML IV SCH ×4 (03:45→20:37)
[2017-02-25] MEDS: 0.9% Sodium Chloride 1,000 ML IV SCH ×2 (03:46→14:37)
[2017-02-25 05:23] LABS: BASOPHILS % (AUTO) 0.1 % (0-3); EOSINOPHILS % (AUTO) 4.8 % (0-5); MONOCYTES % (AUTO) 4.7 % (4-12); Mean Corpuscular Hemoglobin 24.8 pg (27.0-35.0); Mean Corpuscular Volume 78.3 fL (81-100); NEUTROPHILS % (AUTO) 74.1 % (40-74); Platelet Count 417 bil/L (150-400)
--- NOTE | 2017-02-25 05:44 | NUR ---
Telemetry/Pain Afebrile. Patient complains of abd pain 9/10. She reports pain relief down to 5/10 after dose of Dilaudid or Morphine. Patient noted to be needing pain meds often. No c/o nausea. Telemetry ST in low 100s
[2017-02-25] MEDS ORDERED: Potassium Chloride Oral 20 mEq SR Tab(K 3 - 3.7 & Creat < 2) PO ONE (06:10)
[2017-02-25] MEDS: Heparin 5,000 Unit/mL Inj SUBQ SCH ×3 (08:07→23:52)
[2017-02-25] MEDS: Mupirocin 2% 22 Gm Ointment NASAL SCH ×2 (08:08→21:46)
[2017-02-25] MEDS: Pantoprazole 4 mg/mL 10 mL Inj IVPUSH SCH (08:08)
[2017-02-25] MEDS: Vancomycin Dose per Pharmacist XX SCH (08:16)
--- NOTE | 2017-02-25 08:19 | PROG NOTE ---
[address] [address] PROGRESS NOTE PATIENT: FLAQUITO DUBON : 1955 MR#: [id number] ADMIT: 02/21/2017 JOB ID: [id number] DATE: 02/25/2017 REASON FOR FOLLOW UP: Possible intra-abdominal infection versus recurrent tumor mass. INTERVAL HISTORY: Overnight, the patient reports she has had no fevers, chills, or sweats. This represents an improvement over yesterday when she was having fever. She notes she has no cough, shortness of breath or sore throat, but she does have continued diffuse abdominal pain, which is worse on the left lower quadrant but extends across the entire abdomen. There is associated nausea. She has no vomiting, but she is afraid if she tried to eat more than a limited amount she is eating now that she would vomit. No problems with the lower extremities. PHYSICAL EXAMINATION: Reveals a woman who is 36.8 degrees now. She was as high as 38.1 during the night and, the night before that, she was 38.4. The night before that, 37.7. The night before that, 39.4. This is now her 5th in-hospital day. The patient is awake, alert, calm and conversational. Oral cavity without thrush or pharyngitis. Lungs are quite clear. Cardiac tones regular rate and rhythm without murmur. The abdomen has positive bowel tones, though they are hypoactive. There is tenderness wherever one palpates in the abdomen, but especially around the umbilicus and below diffusely. Lower extremities without cellulitis or edema. LABORATORIES: Include a white count of 7900, 74% polys. Creatinine 0.44. LFTs are normal. Albumin 2.1. Urinalysis without white cells. Fungitell is negative. Blood cultures negative x8 bottles. Urine grew 2 gram negative rods E. coli and Klebsiella, but the urinalysis actually showed no white cells. MRSA swab of the nares positive. The abdominal ultrasound was discussed in yesterday's note, shows possible masslike abnormality, 10 x 2 cm, within the peritoneal cavity. The abdominal CT scan which was done back on admission was less clear and suggested the possibility of either malignancy or abscess. IMPRESSION: This remains a difficult case which I discussed yesterday with Dr. Sawyer. Initially, I concurred with Dr. Sawyer' assessment that this was likely not an infection and we could safely withdraw antibiotics, but after re-thinking this, I am somewhat concerned. The patient did have significant fevers which seem to be moderating with the presence of antibiotics and she did have a significant leukocytosis with some degree of left shift on at least February 24 differential white blood count which also seems to be improving. Despite that, of course, there is no positive cultures of significance and we do have a negative procalcitonin. RECOMMENDATIONS: 1. I would continue cautiously with vancomycin and Unasyn while we further assess the case. I do feel she has improved somewhat with these antibiotics. 2. Attempts to biopsy or drain the intra-abdominal abnormality seen on ultrasound would seem to be a reasonable approach, and will defer this to General Surgery. However, will continue to closely follow this patient with you.
--- NOTE | 2017-02-25 09:51 | PROG NOTE ---
[address] [address] PROGRESS NOTE PATIENT: ASHLEY DUBON : 1955 MR#: [id number] ADMIT: 02/21/2017 JOB ID: [id number] DATE: 02/25/2017 SUBJECTIVE: Ashley is seen in followup. She is doing well. She continues to complain of pain across her lower abdomen, mostly relieved by pain medication. She has had some mild nausea, but no vomiting. OBJECTIVE: Temperature max 38.1 yesterday evening, current temperature 36.8, pulse 99, blood pressure 133/51, saturation 95% on room air. In general, she is resting in bed in no acute distress. Chest is clear. Heart regular rate and rhythm, no murmurs. Abdomen is nondistended. Her midline scar is intact as is the left lower abdominal jejunostomy site. There is no erythema of either site, and no drainage. She is mildly tender in the lower abdomen. LABORATORIES: White blood cell count 7.9, hematocrit 27.8, platelets 417. Creatinine 0.44. Glucose 104. Albumin 2.1. ASSESSMENT AND PLAN: A 61-year-old woman with lower abdominal pain and findings on CT of an inflammatory mass or a solid lesion of the lower abdomen with some new free intra-abdominal fluid. The etiology of this to me is not clear. I do not think she has an abscess in the abdomen. The possibility of recurrent tumor is discussed. Recommend checking some tumor markers today including a CEA, CA-125, CA-19-9. She also has urinary tract infection with Escherechia coli and Klebsiella, being treated with antibiotics. Recommend repeating a CT scan of the abdomen and pelvis in 1-2 days to see what becomes of the inflammatory mass seen on previous imaging.
[2017-02-25] MEDS ORDERED: Vancomycin Serum Trough XX ONE ×2 (10:30→14:00)
[2017-02-25] MEDS: 0.9% Sodium Chloride 250 ML IV SCH (11:05)
[2017-02-25] MEDS ORDERED: Potassium Chloride 20 mEq SR Tablet ONE (14:43)
--- NOTE | 2017-02-25 14:51 | NUR ---
Social Work Note: Continued Discharge Planning Data& Assessment: EMR reviewed. Per MD in morning rounds, pt is not medically ready for discharge at this time. Pt will undergo repeat CT with contrast this 02/17/2017. PT order is pending. ID final recommendations pending. SW to await PT recommendations and MD orders. SW check in with pt via phone call. Pt speaks some Irish. Pt denies any needs at this time. SW to arrange meeting time with pt and pt with the assistance of a progress clerk to ensure pt and pt have understanding of discharge plan and their needs are being met. SW to continue to follow. Plan: Per MD pt is not medically ready for discharge at this time. SW to await PT recommendations and MD orders. SW to continue to follow. COLLIN Montaño
--- NOTE | 2017-02-25 16:08 | PCM.PHAPRO ---
Progress Date of Service: February 25, 2017 Abdominal pain Vancomycin management per pharmacy Indication: intra-abdominal abscess, hx of MRSA Goal trough: 15-20 Pertinent info: - Patient has been receiving vancomycin 1250 mg Q12H. - Vancomycin was retimed yesterday but trough was not retimed, so patient only received 1 dose yesterday. - Vancomycin trough today at 1030 was 10.9 (however, this was not timed properly to be a true trough). Will not make any adjustments to vancomycin at this time. Will re-order vanco trough for 02/26/17 at 1400. Pharmacy to continue to monitor and dose vancomycin daily. Thank you, Nawaf Philippe Pharmacist. Nawaf Philippe February 25, 2017 16:08
--- NOTE | 2017-02-25 16:32 | PCM.PNMED ---
Subjective Date of Service February 25, 2017 Subjective Ashley Smith is a 61-year-old female with a history of gastric carcinoma, multiple abdominal surgeries and intra-abdominal infection with abscess positive for MRSA in the fall of 2015 who presented with worsening abdominal pain for three weeks. Being treated for intra-abdominal infection, electrolyte abnormalities and anemia. Patient afebrile overnight with Tmax of 38.1C. Patient reported 9/10 abdominal pain only mildly improved with dialudid or morphine. Today she continues to report RLQ pain that radiates across the midline and she is quite tender to palpation in the suprapubic region. She continues to deny urinary or GI symptoms. Exam Vital Signs Vital Sign - Last Date Time Temp Pulse Resp B/P Pulse Ox O2 Delivery O2 Flow Rate FiO2 02/25/17 12:51 37.1 99 18 116/70 95 Room Air 02/22/17 12:31 2.00 Intake and Output 02/24/17 02/24/17 02/25/17 Cumulative From/Thru 15:00 23:00 07:00 02/21/17 16:49 - 02/25/17 06:06 Intake Total 679 ml 1138 ml 1838 ml 40505 ml Balance 679 ml 1138 ml 1838 ml 76817 ml Intake Oral 430 ml 600 ml 1960 ml IV Total 679 ml 708 ml 1238 ml 9365 ml # Voids 4 3 23 # Bowel Movements 2 4 Exam General: Well-developed, female in no acute distress, appropriately interactive HEENT: Normocephalic, atraumatic. PERRL, mucous membranes moist/pink Neck: Supple, nontender, no lymphadenopathy Cardiovascular: Regular rate and rhythm with no murmurs, rubs, or gallops appreciated Pulmonary: Clear to auscultation bilaterally with no crackles, wheezes, or rhonchi. Abdomen: Soft, nondistended, Large central scar & small scars consistent with previous laparoscopy, mid periumbilical bandage covering drain removal site; noticeable guarding, tender with right greater than left; no rebound. Bowel tones present. Extremities: No edema, cyanosis or clubbing. Skin: Normal temperature, turgor, no rash or ulcerations. Neurological: Cranial nerves grossly intact, mild left upper extremity deficiency Psychiatric: Normal mood and affect. Alert and oriented to person, place, and time. IVs and Medications Medications Reviewed: Medications were reviewed in detail Lab and Diagnostics Laboratory Tests Test 02/25/17 05:15 02/25/17 11:05 02/25/17 14:40 02/25/17 16:15 White Blood Count 7.9th/mm3 (3.8-10.1) Red Blood Count 3.55mil/mm3 (3.90-5.20) Hemoglobin 8.8g/dL (12.0-15.6) Hematocrit 27.8% (35.0-46.0) Mean Corpuscular Volume 78.3fL (81-100) Mean Corpuscular Hemoglobin 24.8pg (27.0-35.0) Mean Corpuscular Hemoglobin Concent 31.7% (32.0-37.0) Red Cell Distribution Width 15.4% (12.3-15.4) Platelet Count 417bil/L (150-400) Neutrophils (%) (Auto) 74.1% (40-74) Lymphocytes (%) (Auto) 16.0% (14-46) Monocytes (%) (Auto) 4.7% (4-12) Eosinophils (%) (Auto) 4.8% (0-5) Basophils (%) (Auto) 0.1% (0-3) Sodium Level 141mEq/L (134-144) Potassium Level 3.3mEq/L (3.5-5.2) 3.6mEq/L (3.5-5.2) Chloride Level 105mEq/L (97-108) Carbon Dioxide Level 24mmol/L (18-29) Blood Urea Nitrogen 2mg/dL (8-27) Creatinine 0.44mg/dL (0.57-1.00) Estimat Glomerular Filtration Rate 208mL/min (>59) Glucose Level 104mg/dL (60-99) Calcium Level 7.7mg/dL (8.5-10.1) Total Bilirubin 0.2mg/dL (0.0-1.2) Aspartate Amino Transf (AST/SGOT) 15U/L (0-50) Alanine Aminotransferase (ALT/SGPT) 11U/L (0-32) Alkaline Phosphatase 75U/L (25-165) Total Protein 5.1g/dL (6.4-8.4) Albumin 2.1g/dL (3.4-5.0) Vancomycin Level Trough 10.9mcg/mL Result Diagram: 02/25/17 0515 02/25/17 1105 Microbiology 02/21/17 Blood culture- No growth to date 02/21/17 Urine culture- Positive Escherichia Coli; Klebsiella Pneumoniae 02/21/17 MRSA screen- positive 02/22/17- Repeat Blood Cultures- no growth to date X-Rays, CTs and MRIs (02/21/17) CT ABDOMEN AND PELVIS WITH CONTRAST IMPRESSION: 1. Ill-defined loops of thickened bowel within the right hemiabdomen appearing to correlate to both small and large bowel. In addition, there is fluid-filled prominence of scattered small bowel loops. Free fluid is noted within the mid pelvis as well as perisplenic fluid and focal collection along the anterior abdomen. No free air is identified. Overall appearance is suggestive of diffuse infection or inflammation, possibly related colitis/enteritis with ileus/ developing partial obstruction. Small focal fluid collection along the anterior abdomen may represent developing abscess. 2. Coursing within the anterior mesenteric fat which may be related to small areas of inflammation or fluid. In previous history of gastric carcinoma, small areas of peritoneal metastatic disease cannot be excluded. Recommend continued interval followup after resolution of apparent inflammatory/infectious condition. Dictated and approved by: Ashley Rodriguez M.D. on 02/21/2017 at 19:25 (02/23/17) US ABDOMEN, LIMITED IMPRESSION: 1. No drainable superficial fluid collection is seen although trace amount of ascites is present within the pelvis. 2. Solid-appearing superficial masslike structure is present as above. Underlying neoplastic process cannot be excluded. Interpreted and approved by: Pravin Perez MD on 02/23/2017 at 16:54 12-lead ECG Normal sinus rhythm with heart rate of 83; QTc 4 70 Assessment & Plan 61-year-old female with multiple abdominal surgeries due to gastric carcinoma, and history of intra-abdominal sepsis and abscesses with MRSA in the fall of 2016 who presented to the hospital with 3 weeks of worsening abdominal pain and new nausea and emesis x3 starting day prior to admission. Intra-abdominal mass/fluid collection, acute. Present on admission. Active -Uncertain etiology. Possibly infectious, inflammation and early abscess, unable to rule out metastatic disease. -Continue unasyn, vancomycin and Bactroban (MRSA screen positive) per Infectious Disease. -IV morphine prn for severe; oxycodone prn; try to avoid opiates as much as possible due to potential for ileus -General surgery not recommending surgical intervention at this time. -Repeat abd CT in next couple of days. UTI, acute. Present on admission. Active. -Urine culture growing- E. coli, Klebsiella -Continue unasyn, vancomycin, per Infectious Disease. -Add phenazopyridine for bladder analgesia as this may be contributing to her lower abdominal pain. Insulin using Type II diabetes, chronic. Present on admission. Active -Patient presents with glucose of 192. Goal blood glucose 140-180. -Continue home Lantus at decreased dose, 10U QPM and medium dose correctional insulin -A1c 7.2 Electrolyte abnormality. Present on admission.Resolved. -Patient with pseudohyponatremia, hypochloremia with a corrected anion gap of 19 ; likely due to recent vomiting without compensation for loss of chloride due to acuity -Lactic acid normalized -IV fluids as above -BMP in the morning Acute microcytic, hypochromic anemia. Present mission. Active -Patient presents with a hemoglobin 11.6, a low MCV; review of past admissions does not appear that this is a chronic issue -Iron studies demonstrate deficiency component. Consideration for supplemental iron. -Follow CBC Leukocytosis, acute. Present on admission. Resolved. -Likely due to dehydration is membranes are dry and patient states she vomiting recently and possible intra-abdominal infection. -IV fluid resuscitation, received 3L normal saline. Maintenance 100mls/hr. -Follow CBC -Antibiotics, as above. High risk meds: IV morphine, vancomycin Disposition: Patient will likely discharge back to [facility] in 2-3 more days given her significant multiple comorbidities at time of presentation and pending further evaluation of probable intra-abdominal infection. VTE Prophylaxis: Sub-Q Heparin (Unfractionated) VTE Mechanical Devices: Intermittant Pneumatic CD Resuscitation Status: CPR: Attempt Resuscitation Attending Statement Patient seen and examined with house staff. Agree with all attached documentation. Carlota Jordan DO February 25, 2017 16:10 Prakash Allison MD February 26, 2017 07:45
--- NOTE | 2017-02-25 17:18 | NUR ---
Requiring fairly frequent doses of anagesics for abd discomfort, eating well, denies nausea. Abd is soft, non-distended. Potassium replaced this morning; repeated this afternoon; to recheck level at 1900. Sinus rhythm/tach on tele. BP stable, low-grade temp. Independently repositioning in bed, declines getting up due to her abd discomfort. Blood sugars within goal range, no insulin coverage indicated. Labs ordered in a.m. Daughter here briefly this morningi and this evening.
[2017-02-25] MEDS: Phenazopyridine 97.5 mg Tablet PO SCH (21:46)
[2017-02-25] MEDS: Insulin GLARgine 100 Unit/mL Syringe SUBQ SCH (21:47)
[2017-02-26] VITALS (9 sets, daily range): BP systolic 130–151; BP diastolic 60–76; PULSE 92–108; RESP 15–20; O2SAT 93–96
[2017-02-26] MEDS ORDERED: Vancomycin Inj 1,250 MG in 0.9% Sodium Chloride 250 ML IV SCH (00:30)
[2017-02-26] MEDS: HYDROmorphone 1 mg/mL Inj IVPUSH PRN ×3 (01:56→08:08)
[2017-02-26] MEDS: Ampicillin-Sulbactam Inj 3,000 MG in 0.9% Sodium Chloride 100 ML IV SCH (01:56)
[2017-02-26] MEDS: Vancomycin Inj 1,250 MG in 0.9% Sodium Chloride 250 ML IV SCH ×3 (02:50→23:40)
[2017-02-26] MEDS: Insulin Human REGular 300 Unit/3 mL Inj SUBQ SCH ×4 (02:59→20:30)
[2017-02-26] MEDS: 0.9% Sodium Chloride 1,000 ML IV SCH ×2 (03:00→15:19)
[2017-02-26] MEDS: Sodium Chloride LOK Flush 10 mL Syringe IVFLUSH PRN (04:46)
[2017-02-26 05:10] LABS: BASOPHILS % (AUTO) 0.2 % (0-3); EOSINOPHILS % (AUTO) 4.4 % (0-5); MONOCYTES % (AUTO) 4.6 % (4-12); Mean Corpuscular Hemoglobin 25.1 pg (27.0-35.0); Mean Corpuscular Volume 76.9 fL (81-100); NEUTROPHILS % (AUTO) 77.2 % (40-74); Platelet Count 460 bil/L (150-400)
--- NOTE | 2017-02-26 05:46 | NUR ---
Pain Patient c/o abd pain as high 06/14. Patient requiring frequent pain meds. Dilaudid 0.5 mg IV given frequently. Pt reports better pain relief from Dialudid. Md made aware with new orders noted. Pt reports pain down as low as 5/10 after Dilaudid 1 mg given. No nausea. Senna last night with no bm noted. Addendum: 02/26/17 at 0553 by ASCENCION HANNAH RN Temp max 38.6. Tylenol given for comfort.
--- NOTE | 2017-02-26 07:19 | PROG NOTE ---
[address] [address] PROGRESS NOTE PATIENT: FLAQUITO DUBON : 1955 MR#: [id number] ADMIT: 02/21/2017 JOB ID: [id number] DATE: 02/26/2017 SUBJECTIVE: The patient is seen in followup. She still complains of fairly diffuse lower abdominal pain and has required multiple doses of IV narcotics overnight. She denies any nausea. She does not have an appetite. OBJECTIVE: Temperature max 38.6 last night, current temperature 36.6. Pulse 96, blood pressure 138/68, saturation 93% on room air. General: She is resting in bed in no acute distress. Chest is clear. Heart: Regular rate and rhythm. No murmurs. Abdomen is mildly distended and firm across the lower abdomen. There is no erythema of the abdominal wall. Her prior surgical scars are healed with no drainage. There are no discrete palpable masses. She is tender to palpation throughout the lower abdomen. LABORATORIES: White blood cell count 9.4, hematocrit 27.6, platelets 460. Creatinine 0.40, glucose 138. Procalcitonin 0.30. CA-125 is mildly elevated at 39.2. CEA and CA-19-9 are normal. ASSESSMENT AND PLAN: A 61-year-old woman with a history of gastric cancer, status post resection in May 2016, complicated by duodenal stump leak with a long convalescence, now admitted with abdominal pain, free intra-abdominal fluid, urinary tract infection. I am not sure about the significance of her mildly elevated CA-[address] scan of the abdomen and pelvis has been ordered for today.
--- NOTE | 2017-02-26 07:57 | PROG NOTE ---
[address] [address] PROGRESS NOTE PATIENT: FLAQUITO DUBON : 1955 MR#: [id number] ADMIT: 02/21/2017 JOB ID: [id number] DATE: 02/26/2017 REASON FOR FOLLOWUP: Possible intraabdominal abscess versus recurrent tumor or combination. INTERVAL HISTORY: The patient reports she has had some upper airway congestion overnight, but no significant cough. No chest pain, fevers, or chills. She has had very severe and worsening night sweats, however. Her abdominal pain continues especially just to the left of her umbilicus. She notes it is very hard in that area and that the pain is unrelenting. PHYSICAL EXAMINATION: Reveals a woman who is once again, febrile during the night. Temperature 38.6, pulse 96, respiratory rate 138/68, saturating 93% on room air. She is in mild distress. Awake, alert, and able to give an accurate history. Oral cavity is unremarkable. No thrush or pharyngitis is noted. Eyes without conjunctivitis. Lungs relatively clear bilaterally. Cardiac tones without change. Regular rate and rhythm. The left upper chest port appears benign. The abdomen is rather firm diffusely with a palpable mass just to the left and superior to the umbilicus. This mass is basically hard. There are other what feel like masses elsewhere in the abdomen, but none so distinct as the one in the left just above the umbilicus. No new skin rash noted. LABORATORIES: Include a white count of 9400, neutrophils 77%, creatinine is 0.4. AST is up to 54, otherwise LFTs normal. Albumin 2.1. CA-125, slightly elevated at 39 which is basically the upper limit of normal and is probably not significant. CA-19-9 and CEA tumor markers are normal. Cultures include negative blood cultures x8 bottles. MRSA swab of the nose is positive in the urine when she was first admitted now some 5 days ago. Grew E. coli and Klebsiella. Her most recent imaging was the abdominal ultrasound which shows a mass near the umbilicus. The abdominal CT that previously was more ambiguous. Impression: This case discussed in person with the surgical team. This remains a very difficult case in that it seems likely the patient has a recurrence of her gastric carcinoma though that has not been proven, but it is probably the most likely explanation for this very firm abdominal mass. Whether or not she might have an infection is difficult to ascertain. I doubt she has a urinary tract infection. As she has little in the way of symptoms and no pyuria even though she does have a positive culture. Of greater concern is the possibility of intraabdominal abscess and if that is true it could be the source of her ongoing fevers though. It is also possible that her tumor in and of itself could produce these fevers. At this point, I think it is reasonable to continue with antibiotics for a bit longer. To simplify things I would change the Unasyn to ertapenem which provides similar, but better coverage except for the Enterococcus. Note that she is also on vanco because of the finding of MRSA in her nares and the fact she had an intraabdominal MRSA infection during a prior hospitalization. RECOMMENDATIONS: 1. Will discontinue the Unasyn. 2. Will add ertapenem. 3. I would continue with the combination of ertapenem and vancomycin for the next several days perhaps to give a 5-7 to 10 day trial of antibiotics and see if we have any changes in her fever or overall status. 4. Note that I will be out of town the next 4 days. Returning to work on March 03. I can be reached by telephone or text message as needed to discuss this or any other case. ALEXEI
[2017-02-26] MEDS: Phenazopyridine 97.5 mg Tablet PO SCH ×3 (08:09→20:41)
[2017-02-26] MEDS: Heparin 5,000 Unit/mL Inj SUBQ SCH ×3 (08:09→23:41)
[2017-02-26] MEDS: Mupirocin 2% 22 Gm Ointment NASAL SCH ×2 (08:10→20:41)
[2017-02-26] MEDS: Pantoprazole 4 mg/mL 10 mL Inj IVPUSH SCH (08:10)
[2017-02-26] MEDS: Vancomycin Dose per Pharmacist XX SCH (08:30)
[2017-02-26] MEDS: 0.9% Sodium Chloride 250 ML IV SCH (10:25)
[2017-02-26] MEDS: Ertapenem Inj 1,000 MG in 0.9% Sodium Chloride 50 ML IV SCH (10:37)
--- NOTE | 2017-02-26 11:22 | PCM.PNMED ---
Subjective Date of Service February 26, 2017 Subjective Ashley Smith is a 61-year-old female with a history of gastric carcinoma, multiple abdominal surgeries and intra-abdominal infection with abscess positive for MRSA in the fall of 2015 who presented with worsening abdominal pain for three weeks. Being treated for intra-abdominal infection, electrolyte abnormalities and anemia. No acute events overnight. Pain control continues to be an issue. Patient requiring frequent IV pushes of morhpine as well as dilaudid for abdominal pain. This morning she reports congestion in her chest that started yesterday. She denies cough, shortness of breath, chest pain, nasal congestion, night sweats or chills. She states that the pain in her abdomen is getting worse and that it feels firm. Exam Vital Signs Vital Sign - Last Date Time Temp Pulse Resp B/P Pulse Ox O2 Delivery O2 Flow Rate FiO2 02/26/17 08:30 36.9 102 20 143/60 95 Room Air 02/22/17 12:31 2.00 Intake and Output 02/25/17 02/25/17 02/26/17 Cumulative From/Thru 15:00 23:00 07:00 02/21/17 16:49 - 02/26/17 05:03 Intake Total 2237 ml 1776 ml 68907 ml Balance 2237 ml 1776 ml 60627 ml Intake Oral 837 ml 400 ml 3197 ml IV Total 1400 ml 1376 ml 22795 ml # Voids 2 3 28 # Bowel Movements 0 4 Exam General: Well-developed, female in no acute distress, appropriately interactive HEENT: Normocephalic, atraumatic. PERRL, mucous membranes moist/pink Neck/chest: Supple, nontender, no lymphadenopathy. Left port in place without surrounding erythema or warmth. Cardiovascular: Regular rate and rhythm with no murmurs, rubs, or gallops appreciated Pulmonary: Mild bibasilar crackles. No wheezing or rhonchi. Abdomen: Soft, mildly distended with diffuse tenderness to palpation and noticeable guarding. LLQ is firm to palpation. Multiple surgical scars. Hypoactive bowel sounds Extremities: Mild pitting edema of bilateral lower ext to the ankle L >R. No cyanosis or clubbing. No calf tenderness or palpable cord. Skin: Normal temperature, turgor, no rash or ulcerations. Neurological: Cranial nerves grossly intact, mild left upper extremity deficiency Psychiatric: Normal mood and affect. Alert and oriented to person, place, and time. IVs and Medications Medications Reviewed: Medications were reviewed in detail Lab and Diagnostics Laboratory Tests Test 02/25/17 11:05 02/25/17 14:40 02/25/17 16:15 02/25/17 20:35 Potassium Level 3.6mEq/L (3.5-5.2) 4.1mEq/L (3.5-5.2) Vancomycin Level Trough 10.9mcg/mL Carcinoembryonic Antigen 3.8ng/mL (0.0-4.7) CA 19-9 Antigen <1U/mL (0-35) CA 125 Antigen 39.2U/mL (0.0-38.1) Test 02/26/17 04:36 White Blood Count 9.4th/mm3 (3.8-10.1) Red Blood Count 3.59mil/mm3 (3.90-5.20) Hemoglobin 9.0g/dL (12.0-15.6) Hematocrit 27.6% (35.0-46.0) Mean Corpuscular Volume 76.9fL (81-100) Mean Corpuscular Hemoglobin 25.1pg (27.0-35.0) Mean Corpuscular Hemoglobin Concent 32.6% (32.0-37.0) Red Cell Distribution Width 15.7% (12.3-15.4) Platelet Count 460bil/L (150-400) Neutrophils (%) (Auto) 77.2% (40-74) Lymphocytes (%) (Auto) 13.4% (14-46) Monocytes (%) (Auto) 4.6% (4-12) Eosinophils (%) (Auto) 4.4% (0-5) Basophils (%) (Auto) 0.2% (0-3) Sodium Level 137mEq/L (134-144) Potassium Level 4.1mEq/L (3.5-5.2) Chloride Level 104mEq/L (97-108) Carbon Dioxide Level 23mmol/L (18-29) Blood Urea Nitrogen 3mg/dL (8-27) Creatinine 0.40mg/dL (0.57-1.00) Estimat Glomerular Filtration Rate 232mL/min (>59) Glucose Level 138mg/dL (60-99) Calcium Level 8.1mg/dL (8.5-10.1) Total Bilirubin 0.3mg/dL (0.0-1.2) Aspartate Amino Transf (AST/SGOT) 54U/L (0-50) Alanine Aminotransferase (ALT/SGPT) 28U/L (0-32) Alkaline Phosphatase 94U/L (25-165) Total Protein 5.8g/dL (6.4-8.4) Albumin 2.1g/dL (3.4-5.0) Procalcitonin 0.30ng/mL (0.00-0.08) Result Diagram: 02/26/17 0436 02/26/17 0436 Microbiology 02/21/17 Blood culture- No growth to date 02/21/17 Urine culture- Positive Escherichia Coli; Klebsiella Pneumoniae 02/21/17 MRSA screen- positive 02/22/17- Repeat Blood Cultures- no growth to date X-Rays, CTs and MRIs (02/21/17) CT ABDOMEN AND PELVIS WITH CONTRAST IMPRESSION: 1. Ill-defined loops of thickened bowel within the right hemiabdomen appearing to correlate to both small and large bowel. In addition, there is fluid-filled prominence of scattered small bowel loops. Free fluid is noted within the mid pelvis as well as perisplenic fluid and focal collection along the anterior abdomen. No free air is identified. Overall appearance is suggestive of diffuse infection or inflammation, possibly related colitis/enteritis with ileus/ developing partial obstruction. Small focal fluid collection along the anterior abdomen may represent developing abscess. 2. Coursing within the anterior mesenteric fat which may be related to small areas of inflammation or fluid. In previous history of gastric carcinoma, small areas of peritoneal metastatic disease cannot be excluded. Recommend continued interval followup after resolution of apparent inflammatory/infectious condition. Dictated and approved by: Ashley Rodriguez M.D. on 02/21/2017 at 19:25 (02/23/17) US ABDOMEN, LIMITED IMPRESSION: 1. No drainable superficial fluid collection is seen although trace amount of ascites is present within the pelvis. 2. Solid-appearing superficial masslike structure is present as above. Underlying neoplastic process cannot be excluded. Interpreted and approved by: Pravin Perez MD on 02/23/2017 at 16:54 12-lead ECG Normal sinus rhythm with heart rate of 83; QTc 4 70 Assessment & Plan 61-year-old female with multiple abdominal surgeries due to gastric carcinoma, and history of intra-abdominal sepsis and abscesses with MRSA in the fall of 2016 who presented to the hospital with 3 weeks of worsening abdominal pain and new nausea and emesis x3 starting day prior to admission. Intra-abdominal mass/fluid collection, acute. Present on admission. Active -Uncertain etiology. Possibly infectious or inflammatory, unable to rule out metastatic disease. -General surgery not recommending surgical intervention at this time. No drainable abscess on Ultrasound. -CA 125 slightly elevated, uncertain significance. -Continue ertapenem, vancomycin and Bactroban (MRSA screen positive) per Infectious Disease. -Morphine 1-2mg IV q4h prn for severe pain; oxycodone 5mg Q4h prn -Repeat abd CT planned for today. UTI, acute. Present on admission. Active. -Urine culture growing- E. coli, Klebsiella. Patient suprapubic pain but no urinary symptoms. -Continue antibiotics, as above -Phenazopyridine added 02/25 for bladder analgesia, as this may be contributing to her lower abdominal pain. Insulin using Type II diabetes, chronic. Present on admission. Active -Patient presents with glucose of 192. Goal blood glucose 140-180. -Continue home Lantus at decreased dose, 10U QPM and medium dose correctional insulin -A1c 7.2 Acute microcytic, hypochromic anemia. Present mission. Active -Patient presents with a hemoglobin 11.6, a low MCV; review of past admissions does not appear that this is a chronic issue -Iron studies demonstrate deficiency component. -Supplemental iron held thus far due to constipation. -Follow CBC High risk meds: IV morphine, vancomycin Disposition: Patient will likely discharge back to [facility] in 2-3 more days given her significant multiple comorbidities at time of presentation and pending further evaluation of probable intra-abdominal infection. VTE Prophylaxis: Sub-Q Heparin (Unfractionated) VTE Mechanical Devices: Intermittant Pneumatic CD Resuscitation Status: CPR: Attempt Resuscitation Attending Statement Patient seen and examined with house staff. Agree with all attached documentation. Carlota Jordan DO February 26, 2017 09:03 Prakash Allison MD March 01, 2017 07:43
[2017-02-26] MEDS ORDERED: Vancomycin Serum Trough XX ONE (14:00)
--- NOTE | 2017-02-26 14:07 | DRSVH ---
PROCEDURE: CT ABDOMEN AND PELVIS WITH CONTRAST ([id number]) INDICATIONS: abdominal pain, fevers, history of gastric cancer TECHNIQUE: After the administration of oral and intravenous contrast, 5 mm thick sections acquired from the diap hragms to the symphysis. 5 mm thick coronal and sagittal reformats were performed. For radiation do se reduction, the following was used: automated exposure control, adjustment of mA and/or kV accordi ng to patient size. COMPARISON: CT abdomen and pelvis 02/21/2017; limited abdomen ultrasound 02/23/2017 FINDINGS: Image quality: Excellent. ABDOMEN: Lung bases: Compared to recent exams, there is now a small bilateral pleural effusion left greater th an right and increased atelectasis in both lower lobes. Heart size is normal. No hiatal hernia. Solid organs: Liver and spleen are normal in size and enhancement. Gallbladder is surgically absent . Biliary system is non-dilated. Pancreas enhances normally. No adrenal nodules. Kidneys are norm al in size and enhancement, without hydronephrosis. Peritoneum and bowel: Stomach contains ingested contrast. There is the appearance of a row of sutures along the greater curvature aspect of the antrum. Surgical clips right upper quadrant. Air fluid lev els are present within dilated large and small bowel loops compatible with ileus. A moderate amount o f ascites is present, increased in volume since last exam, especially within the pelvis. No free air seen. Nodes and vessels: No retroperitoneal or mesenteric adenopathy. Aorta and inferior vena cava are no rmal in caliber. Miscellaneous: There is a moderate amount of edema in the subcutaneous soft tissues. Again noted is a tract in the left lower abdominal wall secondary to prior J-tube. PELVIS: Genitourinary: Bladder wall thickness is normal. Uterus appears atrophic and located to the right o f midline. Ovaries appear normal. Miscellaneous: No inguinal hernias or adenopathy. Bones: No suspicious bony lesions. No vertebral body compression fractures. IMPRESSION: 1. Small bilateral pleural effusions, left greater than right, increasing volume of ascites and devel opment of diffuse subcutaneous edema. 2. Postoperative changes of partial gastrectomy, cholecystectomy and possible partial bowel resection . Old abdominal wall tract from prior J-tube placement. 3. Bowel distention with air-fluid levels, likely inflammatory with ileus, possibility of partial sma ll bowel obstruction with possible transition in the right upper quadrant in the area of surgical cli ps. Dictated by: Rio Thornton M.D. on 02/26/2017 at 13:45 Approved by: Rio Thornton M.D. on 02/26/2017 at 14:05
[2017-02-26] MEDS ORDERED: Furosemide 10 mg/mL 2 mL Inj IVPUSH ONE (15:30)
--- NOTE | 2017-02-26 15:44 | PCM.PHAPRO ---
Progress Date of Service: February 26, 2017 Abdominal pain Vancomycin management per pharmacy Indication: intra-abdominal abscess Goal vancomycin trough: 15 Pertinent information: - SCr = 0.4 - Procal = 0.3 (up from admit) - Febrile yesterday - Vancomycin trough today is 14.0 Vancomycin trough is slightly below goal. Will retime next dose to be earlier to act as pseudo-bolus dose then resume maintenance dose. Give vancomycin 1250 mg IV Q12H starting at 0030. Next trough has been scheduled for 02/28 at 1200. Pharmacy to continue to monitor and dose vancomycin. Thank you, Nawaf Philippe Pharmacist Nawaf Philippe February 26, 2017 15:44
[2017-02-26] MEDS ORDERED: HYDROmorphone 0.5 mg/0.5 mL iSecure Syringe IVPUSH PRN (17:10)
[2017-02-26] MEDS ORDERED: Dextrose 5% 500 ML IV SCH (17:10)
[2017-02-26] MEDS: HYDROmorphone PCA 0.2 mg/mL 30 mL Inj IV PRN (18:15)
--- NOTE | 2017-02-26 18:32 | DRSVH ---
PROCEDURE: US VEINOUS LEG DUPLEX UNILATERAL, LEFT INDICATIONS: Left > right lower ext swelling TECHNIQUE: Real-time imaging, as well as color and pulse Doppler interrogation, were performed of the lower extr emity deep veins from the inguinal ligament to the popliteal fossa. COMPARISON: None. FINDINGS: The deep veins are normally compressible, and free of intraluminal thrombus. Color and pu lse Doppler demonstrate normal phasic intraluminal flow. There is normal augmentation response to di stal compression maneuver. IMPRESSION: No evidence of deep venous thrombosis Dictated by: Tomy Cervantes M.D. on 02/26/2017 at 18:30 Approved by: Tomy Cervantes M.D. on 02/26/2017 at 18:31
--- NOTE | 2017-02-26 19:10 | NUR ---
Pain/Constipation Pt complaining of pain often today (see pain med pass). MD made aware of pt's pain unrelieved with current medications. CLINICAL SUPERVISOR Dilaudid ordered. Pt also complaining of constipation, stating receiving suppository at the detention when constipated. MD made aware, new order for prn suppository. Report given to oncoming RN.
[2017-02-26] MEDS: Insulin GLARgine 100 Unit/mL Syringe SUBQ SCH (21:00)
[2017-02-27] VITALS (15 sets, daily range): BP systolic 132–158; BP diastolic 65–80; PULSE 95–105; RESP 12–19; O2SAT 92–97
[2017-02-27] MEDS: Insulin Human REGular 300 Unit/3 mL Inj SUBQ SCH ×4 (02:17→20:30)
[2017-02-27] MEDS: Sodium Chloride LOK Flush 10 mL Syringe IVFLUSH PRN (04:53)
[2017-02-27 05:10] LABS: BASOPHILS % (AUTO) 0.2 % (0-3); EOSINOPHILS % (AUTO) 7.5 % (0-5); MONOCYTES % (AUTO) 9.8 % (4-12); Mean Corpuscular Hemoglobin 24.9 pg (27.0-35.0); Mean Corpuscular Volume 76.2 fL (81-100); NEUTROPHILS % (AUTO) 62.1 % (40-74); Platelet Count 498 bil/L (150-400)
--- NOTE | 2017-02-27 05:48 | NUR ---
Pain Pt reports pain as low as 4-6/10 and resting comfortably in bed. She is tolerating turns and care better with the ABRADING MACHINE TENDER medication. Pt reports no nausea or vomiting. C/o mild itching and Benadryl given with effectiveness. Xlarge x2 incontinent of urine noted last night. No BM last night despite suppository and Senna. 02sat in mid 90s on RA. Pt snore a little bit and noted to maintain 02sat 92% when asleep. 02 at 1L at this time while asleep.
[2017-02-27] MEDS: Pantoprazole 4 mg/mL 10 mL Inj IVPUSH SCH (07:58)
[2017-02-27] MEDS: Heparin 5,000 Unit/mL Inj SUBQ SCH ×2 (07:58→15:40)
[2017-02-27] MEDS: Vancomycin Dose per Pharmacist XX SCH (07:58)
[2017-02-27] MEDS: Ertapenem Inj 1,000 MG in 0.9% Sodium Chloride 50 ML IV SCH (07:58)
[2017-02-27] MEDS: Mupirocin 2% 22 Gm Ointment NASAL SCH ×2 (07:58→21:02)
[2017-02-27] MEDS: HYDROmorphone PCA 0.2 mg/mL 30 mL Inj IV PRN (08:19)
[2017-02-27] MEDS: Phenazopyridine 97.5 mg Tablet PO SCH ×3 (10:09→21:03)
[2017-02-27] MEDS: 0.9% Sodium Chloride 250 ML IV SCH (10:10)
--- NOTE | 2017-02-27 10:46 | NUR ---
NUTRITION FOLLOW-UP: ASSESS: Pt is a 61yo F admitted for possible bowel obstruction and abdominal pain. Pt has history of gastric cancer s/p distal gastrectomy, with Billroth II anastomosis, complicated by duodenal stump leak, for which she underwent re-laparotomy with repair of the leak, TONY drain placement at the site of the leak, and feeding jejunostomy placement 05/27- at [facility]. Per H&P, they are unsure when pts J tube was removed but it was within the last 1-2 months. Surgery and ID are following. She continues to have high amounts of abdominal pain. There is concern that the patient has a recurrence of her gastric carcinoma. She is to have abd CT today. Her PO intake continues to be poor on Full Liquid diet at bites-25%. PMHX: Type 2 DM, hyperlipidemia, stroke with left sided weakness, gastric adenocarcinoma. LABS: Reviewed. Bun 3, supervisor brine .43, Glu 101, Ca 8.0, AST 54, Alb 2.1 MEDS: Reviewed. Senna, insulin, zofran GI: BMx4 02/24 SKIN: Devin 17, no major issues noted CURRENT WTS: 78.6kg, BMI 32.7kg/m2, admit wt 69.8kg, IBW 47.7kg DIET: Full Liquid. PO bites-25% EST. NEEDS: BMI Kcals: 1625-1845kcal/day (22-25kcal/kg) Pro: 60-75g/day (1.2-1.5g/kg IBW) NUTRITION DIAGNOSIS: 1.) Inadequate oral intake related to altered GI function as evidence by poor PO intake, pt reporting poor appetite, severe abdominal pain and history of needing J-tube feedings. --PERSISTS NUTRITION INTERVENTION: 1.) Will increase supplements to Glucerna on all trays 2.) Recommend advance diet when medically appropriate 3.) Will continue to monitor PO intake. If pt continues to only tolerate bites of food, nutrition support may need to be considered. Pt has history of needing both TPN and J-Tube Feeding. MONITOR / EVAL: PO, wt, GI, diet advc, labs, POC, nutrition status. Will continue to monitor per high nutrition risk guidelines
[2017-02-27] MEDS: Vancomycin Inj 1,250 MG in 0.9% Sodium Chloride 250 ML IV SCH (13:13)
[2017-02-27] MEDS: Dextrose 5% 500 ML IV SCH (15:20)
[2017-02-27] MEDS ORDERED: HYDROmorphone PCA 0.2 mg/mL 30 mL Inj IV PRN (15:20)
--- NOTE | 2017-02-27 15:20 | PCM.PNMED ---
Subjective Date of Service February 27, 2017 Subjective Ashley Smith is a 61-year-old female with a history of gastric carcinoma, multiple abdominal surgeries and intra-abdominal infection with abscess positive for MRSA in the fall of 2015 who presented with worsening abdominal pain for three weeks. Being treated for intra-abdominal infection, electrolyte abnormalities and anemia. No acute events overnight. Patient continues to report abdominal/suprapubic pain. Dilaudid POLICY SPECIALIST initiated yesterday (02/26) with good response. This morning states that she has better control of her pain but still no change in her pain. Patient states that her breathing is better and that her chest is clear. Per nursing, patient was incontinent of urine overnight but still no bowel movement despite the suppository. Exam Vital Signs Vital Sign - Last Date Time Temp Pulse Resp B/P Pulse Ox O2 Delivery O2 Flow Rate FiO2 02/27/17 07:54 12 96 02/27/17 07:47 36.8 105 145/80 Room Air 02/27/17 04:26 1.00 Intake and Output 02/26/17 02/26/17 02/27/17 Cumulative From/Thru 15:00 23:00 07:00 02/21/17 16:49 - 02/27/17 05:51 Intake Total 1906 ml 675 ml 41069 ml Balance 1906 ml 675 ml 98235 ml Intake Oral 600 ml 300 ml 4097 ml IV Total 1306 ml 375 ml 48340 ml # Voids 5 2 35 # Bowel Movements 4 Exam General: Well-developed, female in no acute distress, appropriately interactive HEENT: Normocephalic, atraumatic. PERRL, mucous membranes moist/pink Neck/chest: Supple, nontender, no lymphadenopathy. Left port in place without surrounding erythema or warmth. Cardiovascular: Regular rate and rhythm with no murmurs, rubs, or gallops appreciated Pulmonary: Lungs clear to auscultation bilaterally with no crackles, wheezing or rhonchi. Abdomen: Soft, non-distended with diffuse tenderness to palpation especially in suprapubic area. Multiple surgical scars. Hypoactive bowel sounds Extremities: Mild pitting edema of bilateral lower ext to the ankle L >R. No cyanosis or clubbing. Skin: Normal temperature, turgor, no rash or ulcerations. Neurological: Cranial nerves grossly intact, mild left upper extremity deficiency Psychiatric: Normal mood and affect. Alert and oriented to person, place, and time. IVs and Medications Medications Reviewed: Medications were reviewed in detail Lab and Diagnostics Laboratory Tests Test 02/26/17 14:40 02/27/17 04:55 Vancomycin Level Trough 14.0mcg/mL White Blood Count 8.2th/mm3 (3.8-10.1) Red Blood Count 3.62mil/mm3 (3.90-5.20) Hemoglobin 9.0g/dL (12.0-15.6) Hematocrit 27.6% (35.0-46.0) Mean Corpuscular Volume 76.2fL (81-100) Mean Corpuscular Hemoglobin 24.9pg (27.0-35.0) Mean Corpuscular Hemoglobin Concent 32.6% (32.0-37.0) Red Cell Distribution Width 15.8% (12.3-15.4) Platelet Count 498bil/L (150-400) Neutrophils (%) (Auto) 62.1% (40-74) Lymphocytes (%) (Auto) 20.0% (14-46) Monocytes (%) (Auto) 9.8% (4-12) Eosinophils (%) (Auto) 7.5% (0-5) Basophils (%) (Auto) 0.2% (0-3) Sodium Level 136mEq/L (134-144) Potassium Level 3.9mEq/L (3.5-5.2) Chloride Level 100mEq/L (97-108) Carbon Dioxide Level 24mmol/L (18-29) Blood Urea Nitrogen 3mg/dL (8-27) Creatinine 0.43mg/dL (0.57-1.00) Estimat Glomerular Filtration Rate 214mL/min (>59) Glucose Level 101mg/dL (60-99) Calcium Level 8.0mg/dL (8.5-10.1) Procalcitonin 0.29ng/mL (0.00-0.08) Result Diagram: 02/27/17 0455 02/27/17 0455 Microbiology 02/21/17 Blood culture- No growth to date 02/21/17 Urine culture- Positive Escherichia Coli; Klebsiella Pneumoniae 02/21/17 MRSA screen- positive 02/22/17- Repeat Blood Cultures- no growth to date X-Rays, CTs and MRIs (02/21/17) CT ABDOMEN AND PELVIS WITH CONTRAST IMPRESSION: 1. Ill-defined loops of thickened bowel within the right hemiabdomen appearing to correlate to both small and large bowel. In addition, there is fluid-filled prominence of scattered small bowel loops. Free fluid is noted within the mid pelvis as well as perisplenic fluid and focal collection along the anterior abdomen. No free air is identified. Overall appearance is suggestive of diffuse infection or inflammation, possibly related colitis/enteritis with ileus/ developing partial obstruction. Small focal fluid collection along the anterior abdomen may represent developing abscess. 2. Coursing within the anterior mesenteric fat which may be related to small areas of inflammation or fluid. In previous history of gastric carcinoma, small areas of peritoneal metastatic disease cannot be excluded. Recommend continued interval followup after resolution of apparent inflammatory/infectious condition. Dictated and approved by: Ashley Rodriguez M.D. on 02/21/2017 at 19:25 (02/23/17) US ABDOMEN, LIMITED IMPRESSION: 1. No drainable superficial fluid collection is seen although trace amount of ascites is present within the pelvis. 2. Solid-appearing superficial masslike structure is present as above. Underlying neoplastic process cannot be excluded. Interpreted and approved by: Pravin Perez MD on 02/23/2017 at 16:54 (02/26/17) CT ABDOMEN AND PELVIS WITH CONTRAST IMPRESSION: 1. Small bilateral pleural effusions, left greater than right, increasing volume of ascites and development of diffuse subcutaneous edema. 2. Postoperative changes of partial gastrectomy, cholecystectomy and possible partial bowel resection. Old abdominal wall tract from prior J-tube placement. 3. Bowel distention with air-fluid levels, likely inflammatory with ileus, possibility of partial small bowel obstruction with possible transition in the right upper quadrant in the area of surgical clips. Dictated and approved by: Rio Thornton M.D. on 02/26/2017 at 14:05 ADDENDUM: Following consultation with Dr. Sawyer, the focal area of small bowel narrowing in the right upper quadrant at the level of surgical clips represents a surgical blind ended loop of duodenum and not a focus of small bowel obstruction. Dictated by: Rio Thornton M.D. on 02/26/2017 at 15:02 12-lead ECG Normal sinus rhythm with heart rate of 83; QTc 4 70 Assessment & Plan 61-year-old female with multiple abdominal surgeries due to gastric carcinoma, and history of intra-abdominal sepsis and abscesses with MRSA in the fall of 2016 who presented to the hospital with 3 weeks of worsening abdominal pain and new nausea and emesis x3 starting day prior to admission. Intra-abdominal mass/fluid collection, acute. Present on admission. Active -Uncertain etiology. Possibly infectious or inflammatory, unable to rule out metastatic disease. -General surgery not recommending surgical intervention at this time. No drainable abscess on Ultrasound. -CA 125 slightly elevated, uncertain significance. -Continue ertapenem, vancomycin and Bactroban (MRSA screen positive) per Infectious Disease. -Titrate down on dilaudid POLICY SPECIALIST -Repeat abd CT, as above. UTI, acute. Present on admission. Active. -Urine culture growing- E. coli, Klebsiella. Patient suprapubic pain but no urinary symptoms. -Continue antibiotics, as above -Phenazopyridine added 02/25 for bladder analgesia, as this may be contributing to her lower abdominal pain. Insulin using Type II diabetes, chronic. Present on admission. Active -Patient presents with glucose of 192. Goal blood glucose 140-180. -Continue home Lantus at decreased dose, 10U QPM and medium dose correctional insulin -A1c 7.2 Acute microcytic, hypochromic anemia. Present mission. Active -Patient presents with a hemoglobin 11.6, a low MCV; review of past admissions does not appear that this is a chronic issue -Iron studies demonstrate deficiency component. -Supplemental iron held thus far due to constipation. -Follow CBC High risk meds: IV morphine, vancomycin Disposition: Patient will likely discharge back to [facility] in 2-3 more days given her significant multiple comorbidities at time of presentation and pending further evaluation of probable intra-abdominal infection. VTE Prophylaxis: Sub-Q Heparin (Unfractionated) VTE Mechanical Devices: Intermittant Pneumatic CD Resuscitation Status: CPR: Attempt Resuscitation Attending Statement Patient seen and examined with house staff. Agree with all attached documentation. Carlota Jordan DO February 27, 2017 08:50 Prakash Allison MD February 28, 2017 07:43
--- NOTE | 2017-02-27 18:50 | DRSVH ---
PROCEDURE: US PELVIC SONOGRAM + TRANSVAGINAL SONOGRAM INDICATIONS: ascites, elevated CA 125 TECHNIQUE: Real-time scanning was performed of the pelvic organs, with image documentation. Additional endovagi nal scanning was necessary due to incomplete visualization of the adnexal and endometrial structures by transabdominal scanning. COMPARISON: None. FINDINGS: (orthogonal measurements) Uterus size: 4.00 cm, 1.79 cm, 3.44 cm Endometrium thickness: 2.10 mm Right ovary size: Not identified. Left ovary size: Not identified. Transabdominal scanning: Limited scanning through the kidneys shows no hydronephrosis. Ascites is in cidentally noted.. Endovaginal scanning: Uterus: Uterus is atrophic. Endometrium is within normal physiologic limits. Ovaries: Not identified. IMPRESSION: 1. Atrophic otherwise ultrasonographically normal uterus. The ovaries were not identified and cannot be evaluated. 2. Ascites is noted. Dictated by: Keny Duvall M.D. on 02/27/2017 at 18:47 Approved by: Keny Duvall M.D. on 02/27/2017 at 18:49
--- NOTE | 2017-02-27 19:16 | NUR ---
Wheeze/Lesion/Constipation Pt has audible wheeze today which appeared to slightly worsen throughout shift, Pt denied SOB, MD notified who came at assessed Pt. It was discovered shortly later that Pt had ~1" X 0.5" fluid filled pustule on central abd, MD made aware who assessed lesion, instructed to gently cleanse area and place a basic dressing over the lesion at this time, oncoming NOC RN made aware. Pt continues to report constipation, Pt reports flatus present, aware, Pt given PRN suppository.
[2017-02-27] MEDS: Insulin GLARgine 100 Unit/mL Syringe SUBQ SCH (21:03)
[2017-02-28] VITALS (13 sets, daily range): BP systolic 134–197; BP diastolic 68–97; PULSE 98–130; RESP 16–20; O2SAT 92–95
[2017-02-28] MEDS: Vancomycin Inj 1,250 MG in 0.9% Sodium Chloride 250 ML IV SCH ×3 (01:23→23:43)
[2017-02-28] MEDS: Heparin 5,000 Unit/mL Inj SUBQ SCH ×4 (01:23→23:43)
[2017-02-28] MEDS: Insulin Human REGular 300 Unit/3 mL Inj SUBQ SCH ×4 (02:30→20:26)
[2017-02-28 04:58] LABS: Mean Corpuscular Hemoglobin 24.9 pg (27.0-35.0); Platelet Count 598 bil/L (150-400)
[2017-02-28 05:25] LABS: BASOPHILS % (AUTO) 0.3 % (0-3); EOSINOPHILS % (AUTO) 7.4 % (0-5); MONOCYTES % (AUTO) 8.1 % (4-12); NEUTROPHILS % (AUTO) 60.9 % (40-74)
--- NOTE | 2017-02-28 05:29 | NUR ---
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
[2017-02-28] MEDS: 0.9% Sodium Chloride 250 ML IV SCH ×2 (06:33→23:43)
[2017-02-28] MEDS: Pantoprazole 40 mg ER24 Tablet PO SCH (06:33)
[2017-02-28] MEDS: Ondansetron 2 mg/mL 2 mL Inj IVPUSH PRN ×2 (07:53→16:07)
[2017-02-28] MEDS: Ertapenem Inj 1,000 MG in 0.9% Sodium Chloride 50 ML IV SCH (07:59)
[2017-02-28] MEDS: Mupirocin 2% 22 Gm Ointment NASAL SCH ×2 (08:02→20:11)
[2017-02-28] MEDS: Vancomycin Dose per Pharmacist XX SCH (08:03)
--- NOTE | 2017-02-28 09:59 | PROG NOTE ---
[address] [address] PROGRESS NOTE PATIENT: FLAQUITO DUBON : 1955 MR#: [id number] ADMIT: 02/21/2017 JOB ID: [id number] DATE: 02/28/2017 SUBJECTIVE: The patient is seen in followup for General Surgery team. The patient is a 61-year-old female, who underwent a distal gastrectomy with Billroth-II reconstruction in May of 2016 which was unfortunately complicated by duodenal stump leak. She had a prolonged recovery and was recently given ready to finally go home from [facility] facility when she developed progressive pain in her abdomen. Her family and she tell me that this just slowly progressed to the point where it was no longer controlled by Tylenol prompting her to be readmitted to the hospital. She has undergone a number of imaging studies, which show some ascites as well as some bowel distention with air-fluid levels. She continues to complain of intermittent pain. This morning she is afebrile with a temperature 36.8 degrees, heart rate of 100 beats per minute. Blood pressure 157/79, satting 95% on room air with a respiratory rate of 16 breaths per minute. In general, she appears comfortable, in no acute distress. Her abdomen is somewhat firm, mildly distended but not significantly tender, though she does endorse having pain everywhere. She has a mild leukocytosis of 10.7, up from 8.2 yesterday. Her hematocrit is also up a little bit at 29.1 from 27.6, and her platelet count is also up to 598. Her creatinine is 0.49. ASSESSMENT AND PLAN: This is a 61-year-old female with a history of gastric cancer for which she underwent a distal gastrectomy but never received adjuvant chemotherapy now admitted with abdominal pain and ascites. I had a lengthy discussion with the patient and her son and daughter. At this point, I am concerned about the potential for recurrent gastric cancer that is leading to ascites. I think the next appropriate step is to obtain a paracentesis. In the meantime, I recommend getting physical therapy involved to get her up and ambulating. Sounds like she has poor oral intake so I would also recommend a nutritional consult considering TPN for nutritional support. At this point, there is no indication for surgical intervention.
--- NOTE | 2017-02-28 11:56 | PCM.PNMED ---
Subjective Date of Service February 28, 2017 Subjective Ashley Smith is a 61-year-old female with a history of gastric carcinoma, multiple abdominal surgeries and intra-abdominal infection with abscess positive for MRSA in the fall of 2015 who presented with worsening abdominal pain for three weeks. Being treated for intra-abdominal infection, electrolyte abnormalities and anemia. No acute events overnight. Patient continues to report diffuse abdominal pain worse in suprapubic area and RLQ. 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 No bowel movement for three days despite multiple suppositories. Exam Vital Signs Vital Sign - Last Date Time Temp Pulse Resp B/P Pulse Ox O2 Delivery O2 Flow Rate FiO2 02/28/17 06:11 16 94 02/28/17 05:29 102 02/28/17 04:21 36.9 154/68 Room Air 02/27/17 04:26 1.00 Intake and Output 02/27/17 02/27/17 02/28/17 Cumulative From/Thru 15:00 23:00 07:00 02/21/17 16:49 - 02/28/17 06:41 Intake Total 1032 ml 962 ml 85341 ml Balance 1032 ml 962 ml 23378 ml Intake Oral 600 ml 580 ml 5277 ml IV Total 432 ml 382 ml 14238 ml # Voids 3 2 40 # Bowel Movements 4 Exam General: Well-developed, female in no acute distress, appropriately interactive HEENT: Normocephalic, atraumatic. PERRL, mucous membranes moist/pink Neck/chest: Supple, nontender, no lymphadenopathy. Left port in place without surrounding erythema or warmth. Cardiovascular: Regular rate and rhythm with no murmurs, rubs, or gallops appreciated Pulmonary: Lungs clear to auscultation bilaterally with no crackles, wheezing or rhonchi. Abdomen: Soft, non-distended with diffuse tenderness to palpation especially in suprapubic area. Multiple surgical scars. Hypoactive bowel sounds Extremities: Mild pitting edema of bilateral lower ext to the ankle L >R. No cyanosis or clubbing. Skin: Normal temperature, turgor, no rash or ulcerations. Neurological: Cranial nerves grossly intact, mild left upper extremity deficiency Psychiatric: Normal mood and affect. Alert and oriented to person, place, and time. IVs and Medications Medications Reviewed: Medications were reviewed in detail Lab and Diagnostics Laboratory Tests Test 02/28/17 04:40 White Blood Count 10.7th/mm3 (3.8-10.1) Red Blood Count 3.73mil/mm3 (3.90-5.20) Hemoglobin 9.3g/dL (12.0-15.6) Hematocrit 29.1% (35.0-46.0) Mean Corpuscular Volume 78.0fL (81-100) Mean Corpuscular Hemoglobin 24.9pg (27.0-35.0) Mean Corpuscular Hemoglobin Concent 32.0% (32.0-37.0) Red Cell Distribution Width 15.8% (12.3-15.4) Platelet Count 598bil/L (150-400) Neutrophils (%) (Auto) 60.9% (40-74) Lymphocytes (%) (Auto) 22.9% (14-46) Monocytes (%) (Auto) 8.1% (4-12) Eosinophils (%) (Auto) 7.4% (0-5) Basophils (%) (Auto) 0.3% (0-3) Band Neutrophils % 0% (1-5) Hematology Comments Sodium Level 136mEq/L (134-144) Potassium Level 3.6mEq/L (3.5-5.2) Chloride Level 98mEq/L (97-108) Carbon Dioxide Level 25mmol/L (18-29) Blood Urea Nitrogen 3mg/dL (8-27) Creatinine 0.49mg/dL (0.57-1.00) Estimat Glomerular Filtration Rate 184mL/min (>59) Glucose Level 116mg/dL (60-99) Calcium Level 8.2mg/dL (8.5-10.1) Total Bilirubin 0.2mg/dL (0.0-1.2) Aspartate Amino Transf (AST/SGOT) 47U/L (0-50) Alanine Aminotransferase (ALT/SGPT) 57U/L (0-32) Alkaline Phosphatase 141U/L (25-165) Total Protein 5.9g/dL (6.4-8.4) Albumin 2.3g/dL (3.4-5.0) Procalcitonin 0.23ng/mL (0.00-0.08) Result Diagram: 02/28/17 0440 02/28/17 0440 Microbiology 02/21/17 Blood culture- No growth to date 02/21/17 Urine culture- Positive Escherichia Coli; Klebsiella Pneumoniae 02/21/17 MRSA screen- positive 02/22/17- Repeat Blood Cultures- no growth to date X-Rays, CTs and MRIs (02/26/17) CT ABDOMEN AND PELVIS WITH CONTRAST IMPRESSION: 1. Small bilateral pleural effusions, left greater than right, increasing volume of ascites and development of diffuse subcutaneous edema. 2. Postoperative changes of partial gastrectomy, cholecystectomy and possible partial bowel resection. Old abdominal wall tract from prior J-tube placement. 3. Bowel distention with air-fluid levels, likely inflammatory with ileus, possibility of partial small bowel obstruction with possible transition in the right upper quadrant in the area of surgical clips. Dictated and approved by: Rio Thornton M.D. on 02/26/2017 at 14:05 ADDENDUM: Following consultation with Dr. Sawyer, the focal area of small bowel narrowing in the right upper quadrant at the level of surgical clips represents a surgical blind ended loop of duodenum and not a focus of small bowel obstruction. Dictated by: Rio Thornton M.D. on 02/26/2017 at 15:02 (02/27/17) US PELVIC SONOGRAM + TRANSVAGINAL SONOGRAM IMPRESSION: 1. Atrophic otherwise ultrasonographically normal uterus. The ovaries were not identified and cannot be evaluated. 2. Ascites is noted. Dictated and approved by: Keny Duvall M.D. on 02/27/2017 at 18:47 . 12-lead ECG Normal sinus rhythm with heart rate of 83; QTc 4 70 Assessment & Plan 61-year-old female with multiple abdominal surgeries due to gastric carcinoma, and history of intra-abdominal sepsis and abscesses with MRSA in the fall of 2015 who presented to the hospital with 3 weeks of worsening abdominal pain and new nausea and emesis x3 starting day prior to admission. Intra-abdominal mass/fluid collection, acute. Present on admission. Active -Uncertain etiology. Possibly infectious or inflammatory, unable to rule out metastatic disease. -General surgery recommend diagnostic paracentesis, no surgical intervention at this time. -CA 125 slightly elevated, uncertain significance. Transvaginal US unremarkable for ovarian pathology -Repeat abd CT, results as above. -Continue ertapenem, vancomycin and Bactroban (MRSA screen positive) per Infectious Disease. 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 UTI, acute. Present on admission. Active. -Urine culture growing- E. coli, Klebsiella. Patient suprapubic pain but no urinary symptoms. -Continue antibiotics, as above -Phenazopyridine added 02/25-02/27. Constipation, chronic. Present on admission. Active. -Likely secondary to chronic opiate use. Typically responds to suppositories, per the patient. -Last bowel movement was now three days ago despite multiple suppositories -Schedule miralax and docusate -Enema today (02/28). Insulin using Type II diabetes, chronic. Present on admission. Active -Patient presents with glucose of 192. Goal blood glucose 140-180. -Continue home Lantus at decreased dose, 10U QPM and medium dose correctional insulin -A1c 7.2 Acute microcytic, hypochromic anemia. Present mission. Active -Patient presents with a hemoglobin 11.6, a low MCV; review of past admissions does not appear that this is a chronic issue -Iron studies demonstrate deficiency component. -Supplemental iron held thus far due to constipation. -Follow CBC High risk meds: IV dilaudid, vancomycin Disposition: Patient will likely discharge back to [facility] in 2-3 more days given her significant multiple comorbidities at time of presentation and pending further evaluation of probable intra-abdominal infection. Pain Evaluation: Adequate Pain Control VTE Prophylaxis: Sub-Q Heparin (Unfractionated) VTE Mechanical Devices: Intermittant Pneumatic CD Resuscitation Status: CPR: Attempt Resuscitation Attending Statement Patient seen and examined with house staff. Agree with all attached documentation. Carlota Jordan DO February 28, 2017 07:33 Prakash Allison MD March 01, 2017 07:38 does not appear that this is a chronic issue -Iron studies demonstrate deficiency component. -Supplemental iron held thus far due to constipation. -Follow CBC High risk meds: IV dilaudid, vancomycin Disposition: Patient will likely discharge back to [facility] in 2-3 more days given her significant multiple comorbidities at time of presentation and pending further evaluation of probable intra-abdominal infection. Pain Evaluation: Adequate Pain Control VTE Prophylaxis: Sub-Q Heparin (Unfractionated) VTE Mechanical Devices: Intermittant Pneumatic CD Resuscitation Status: CPR: Attempt Resuscitation Carlota Jordan DO February 28, 2017 07:33
[2017-02-28] MEDS ORDERED: Vancomycin Serum Trough XX ONE (12:00)
[2017-02-28] MEDS: Polyethylene Glycol (PEG) 17 Gm Powder PO SCH (13:00)
[2017-02-28 13:16] LABS: Magnesium 1.6 mg/dL (1.6-2.6)
--- NOTE | 2017-02-28 14:35 | NUR ---
NUTRITION FOLLOW-UP: ASSESS: Pt is a 61 YO female who underwent a distal gastrectomy with Billroth-II reconstruction related to gastric cancer in May of 2016 which was unfortunately complicated by duodenal stump leak. She had a jejunostomy placed 05/27/16. SNF staff report that j-tube removed within last 1 - 2 months. She had a prolonged recovery and was recently on the verge of discharging from the snf facility when she developed progressive pain in her abdomen. Patient and family report that this just slowly progressed to the point where it was no longer controlled by Tylenol prompting her to be readmitted to the hospital. She has undergone a number of imaging studies, which show some ascites as well as some bowel distention with air-fluid levels. She continues to complain of intermittent pain. Surgery and ID are following. Surgery concerned about the potential for recurrent gastric cancer that is leading to ascites; recommending paracentesis, PT and TPN. There is no surgical intervention planned at this time. PMHX: Type 2 DM, hyperlipidemia, stroke with left sided weakness, gastric adenocarcinoma. LABS: Reviewed. BUN 3, Cr 0.49, Glu 116, A1c 7.2, Ca 8.2, ALT 47, Alb 2.3. MEDS:Reviewed. Miralax, colace, insulin. GI: BM x 4 (02/24) SKIN: Devin 17, no major issues noted. WT:79.6 kg, BMI 32.7kg/m2, admit wt 69.8kg, IBW 47.7kg DIET: Full Liquid. PO bites-25% EST. NEEDS: BMI Kcals: 1625-1845kcal/day (22-25kcal/kg) Pro: 60-75g/day (1.2-1.5g/kg IBW) NUTRITION DIAGNOSIS: 1) Inadequate oral intake related to altered GI function as evidence by poor PO intake, pt reporting poor appetite, severe abdominal pain and history of needing J-tube feedings - PERSISTS. NUTRITION INTERVENTION: 1) Will increase supplements to Glucerna on all trays. 2) Recommend advance diet when medically appropriate. 3) Will continue to monitor PO intake. Pt has history of needing both TPN and J-Tube Feeding. TPN recommendation follows in event it is ordered over weekend: goal macronutrient recommendation dextrose 320 g, amino acid 65 g, lipids 35 g (64% dextrose / 15% amino acid / 21% lipid), providing 1698 kcal, 65 g protein, meeting 100% nutrient needs. 4) Recommend initiate TPN at 35% macronutrient goal to mitigate refeeding issues. 5) Recommend monitor diet advance / PO intake and adjust TPN accordingly. MONITOR / EVAL: PO, wt, GI, diet advc, labs, POC, nutrition status. Will continue to monitor per high nutrition risk guidelines
--- NOTE | 2017-02-28 14:44 | NUR ---
Evaluation completed. Please go to "Notes" then click on "Assessments and Notes" (bottom left corner of screen). Then select appropriate discipline tab on top of screen.
[2017-02-28] MEDS ORDERED: Sodium Biphos-Phos 133 mL Enema RECTAL PRN (14:55)
[2017-02-28] MEDS: Dextrose 5% 500 ML IV SCH (15:20)
--- NOTE | 2017-02-28 19:25 | NUR ---
Constipation Pt has had no BM since the . Pt reports feeling like she needs to have a BM, but then can't. Pt given malena senna this am and then PRN miralax mixed in prune juice. MD already aware when discussed, orders for miralax changed to malena, malena colace added, and PRN enemas added. Pt still no BM prior to shift change, Pt given PRN suppository and oncoming NOC RN made aware of PRN enema order.
[2017-02-28] MEDS ORDERED: DEXTROSE 5% IV ONE (19:30)
[2017-02-28] MEDS ORDERED: Magnesium Sulf 4 Gm/100 mL H2O 4 GM in IV Premix 1 EACH IV ONE (19:30)
[2017-02-28] MEDS ORDERED: POTASSIUM PHOS IV ONE (19:30)
[2017-02-28] MEDS: HYDROmorphone PCA 0.2 mg/mL 30 mL Inj IV PRN (20:19)
[2017-02-28] MEDS: Insulin GLARgine 100 Unit/mL Syringe SUBQ SCH (20:27)
[2017-03-01] VITALS (11 sets, daily range): BP systolic 151–156; BP diastolic 77–82; PULSE 107–116; RESP 12–22; O2SAT 90–97
[2017-03-01] MEDS: Insulin Human REGular 300 Unit/3 mL Inj SUBQ SCH ×4 (03:07→20:30)
[2017-03-01 03:20] LABS: Mean Corpuscular Hemoglobin 24.7 pg (27.0-35.0); Mean Corpuscular Volume 78.8 fL (81-100); Platelet Count 608 bil/L (150-400)
[2017-03-01 03:31] LABS: BASOPHILS % (AUTO) 0.3 % (0-3); EOSINOPHILS % (AUTO) 5.5 % (0-5); MONOCYTES % (AUTO) 10.1 % (4-12); NEUTROPHILS % (AUTO) 68.1 % (40-74)
[2017-03-01] MEDS: Pantoprazole 40 mg ER24 Tablet PO SCH (05:34)
--- NOTE | 2017-03-01 05:56 | NUR ---
GI/ Mag Scheduled bowel meds given as ordered with no success- pt is passing gas with repositioning but still no BM. Pt using CONTINUOUS MINING MACHINE LODE MINER Dilaudid overnight for abdominal pain- PRN Po pain med given at bed for pain with good results, pt sleeping comfortably overnight- Pt only used 2.3 MG of her CONTINUOUS MINING MACHINE LODE MINER Dilaudid. Mag 1.6- rider order per resident. paged this am for repeat lab order.
[2017-03-01] MEDS: Ondansetron 2 mg/mL 2 mL Inj IVPUSH PRN (09:14)
[2017-03-01] MEDS: Mupirocin 2% 22 Gm Ointment NASAL SCH ×2 (09:18→21:52)
[2017-03-01] MEDS: Polyethylene Glycol (PEG) 17 Gm Powder PO SCH (09:19)
[2017-03-01] MEDS: Ertapenem Inj 1,000 MG in 0.9% Sodium Chloride 50 ML IV SCH (09:19)
[2017-03-01] MEDS: Heparin 5,000 Unit/mL Inj SUBQ SCH ×2 (09:22→17:37)
[2017-03-01] MEDS: Vancomycin Dose per Pharmacist XX SCH (09:28)
[2017-03-01] MEDS: Vancomycin Inj 1,250 MG in 0.9% Sodium Chloride 250 ML IV SCH (12:20)
--- NOTE | 2017-03-01 14:47 | PCM.PNMED ---
Subjective Date of Service March 01, 2017 Subjective She feels about the same today. She rates her pain at 6 out of 10. His both epigastric and suprapubic but more suprapubic. Some nausea and increased abdominal distention. No emesis. One small bowel movement this morning. No diarrhea or blood. No fever. She is somewhat short of breath but denies any cough. No overnight events noted. Exam Vital Signs Vital Sign - Last Date Time Temp Pulse Resp B/P Pulse Ox O2 Delivery O2 Flow Rate FiO2 03/01/17 12:19 16 96 03/01/17 11:34 110 03/01/17 02:58 37.1 156/77 Room Air 02/27/17 04:26 1.00 Intake and Output 02/28/17 02/28/17 03/01/17 Cumulative From/Thru 15:00 23:00 07:00 02/21/17 16:49 - 03/01/17 06:06 Intake Total 1216 ml 621 ml 77882 ml Balance 1216 ml 621 ml 93628 ml Intake Oral 800 ml 200 ml 6277 ml IV Total 416 ml 421 ml 51921 ml # Voids 3 3 46 # Bowel Movements 1 0 5 Exam Alert and oriented -3, no distress. Fluent speech Anicteric sclera. Lungs are clear with normal rate and effort Heart is regular without murmur gallop or rub Abdomen soft nontender, distended and somewhat tense. Some suprapubic tenderness with deep palpation. No guarding or rebound. Extremities are free of edema. Skin is free of rash or lesions. IVs and Medications Medications Reviewed: Medications were reviewed in detail Lab and Diagnostics Result Diagram: 03/01/17 0313 03/01/17 0313 Microbiology 02/21/17 Blood culture- No growth to date 02/21/17 Urine culture- Positive Escherichia Coli; Klebsiella Pneumoniae 02/21/17 MRSA screen- positive 02/22/17- Repeat Blood Cultures- no growth to date X-Rays, CTs and MRIs (02/26/17) CT ABDOMEN AND PELVIS WITH CONTRAST IMPRESSION: 1. Small bilateral pleural effusions, left greater than right, increasing volume of ascites and development of diffuse subcutaneous edema. 2. Postoperative changes of partial gastrectomy, cholecystectomy and possible partial bowel resection. Old abdominal wall tract from prior J-tube placement. 3. Bowel distention with air-fluid levels, likely inflammatory with ileus, possibility of partial small bowel obstruction with possible transition in the right upper quadrant in the area of surgical clips. Dictated and approved by: Rio Thornton M.D. on 02/26/2017 at 14:05 ADDENDUM: Following consultation with Dr. Sawyer, the focal area of small bowel narrowing in the right upper quadrant at the level of surgical clips represents a surgical blind ended loop of duodenum and not a focus of small bowel obstruction. Dictated by: Rio Thornton M.D. on 02/26/2017 at 15:02 (02/27/17) US PELVIC SONOGRAM + TRANSVAGINAL SONOGRAM IMPRESSION: 1. Atrophic otherwise ultrasonographically normal uterus. The ovaries were not identified and cannot be evaluated. 2. Ascites is noted. Dictated and approved by: Keny Duvall M.D. on 02/27/2017 at 18:47 . 12-lead ECG Normal sinus rhythm with heart rate of 83; QTc 4 70 Assessment & Plan 61-year-old female with multiple abdominal surgeries due to gastric carcinoma, and history of intra-abdominal sepsis and abscesses with MRSA in the fall of 2015 who presented to the hospital with 3 weeks of worsening abdominal pain and new nausea and emesis x3 starting day prior to admission. Intra-abdominal mass/fluid collection, acute. Present on admission. Active and progressive. The plan is to perform a therapeutic and diagnostic paracentesis either Thursday or Thursday depending on interventional radiology availability. This will be done with ultrasound -Uncertain etiology. Possibly infectious or inflammatory, unable to rule out metastatic disease. -General surgery recommend diagnostic paracentesis, no surgical intervention at this time. -CA 125 slightly elevated, uncertain significance. Transvaginal US unremarkable for ovarian pathology -Repeat abd CT, results as above. -Continue ertapenem, vancomycin and Bactroban (MRSA screen positive) per Infectious Disease. 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 UTI, acute. Present on admission. Active. -Urine culture growing- E. coli, Klebsiella. Patient suprapubic pain but no urinary symptoms. -Continue antibiotics, as above -Phenazopyridine added 02/25-02/27. Constipation, chronic. Present on admission. Active and improving. -Likely secondary to chronic opiate use. Typically responds to suppositories, per the patient. -Last bowel movement was now three days ago despite multiple suppositories -Schedule miralax and docusate -Enema today (02/28). Insulin using Type II diabetes, chronic. Present on admission. Active -Patient presents with glucose of 192. Goal blood glucose 140-180. -Continue home Lantus at decreased dose, 10U QPM and medium dose correctional insulin -A1c 7.2 Acute microcytic, hypochromic anemia. Present mission. Active -Patient presents with a hemoglobin 11.6, a low MCV; review of past admissions does not appear that this is a chronic issue -Iron studies demonstrate deficiency component. -Supplemental iron held thus far due to constipation. -Follow CBC High risk meds: IV dilaudid, vancomycin Disposition: Patient will likely discharge back to [facility] in 2-3 more days given her significant multiple comorbidities at time of presentation and pending further evaluation of probable intra-abdominal infection. VTE Prophylaxis: Sub-Q Heparin (Unfractionated) VTE Mechanical Devices: Intermittant Pneumatic CD Resuscitation Status: CPR: Attempt Resuscitation Prakash Allison MD March 01, 2017 14:47
[2017-03-01] MEDS: Dextrose 5% 500 ML IV SCH (15:20)
--- NOTE | 2017-03-01 15:21 | NUR ---
CHACE signed by pt's daughter who was at bedside.
--- NOTE | 2017-03-01 16:49 | NUR ---
Social Work Note: Continued Discharge Planning Data& Assessment: EMR reviewed. Per MD in morning rounds, pt is not medically ready for discharge at this time. ID is following. Pt to receive a paracentesis. Pt continues on abx. PT is recommending SNF at this time as pt has deconditioned in the hospital. Pt comes from [facility] where she was receiving rehab prior to admission. Pt is likely to return there at discharge. SW continues to follow pt and await MD orders. Plan: Per pt is not medically ready for discharge at this time. SW to await MD orders. SW to continue to follow. Rita Martinez NEWSPAPER SUBSCRIPTION SOLICITOR
[2017-03-01] MEDS: HYDROmorphone PCA 0.2 mg/mL 30 mL Inj IV PRN (17:54)
--- NOTE | 2017-03-01 18:12 | NUR ---
BM Pt had very small liquid BM this am, Pt denied feeling like she needed to have further BM afterwards, Pt given all scheduled BM medications to continue bowel regime at this time r/t small output. Pt continued to report abd pain throughout shift.
[2017-03-01] MEDS: Insulin GLARgine 100 Unit/mL Syringe SUBQ SCH (21:50)
[2017-03-02] VITALS (18 sets, daily range): BP systolic 131–196; BP diastolic 80–96; PULSE 99–114; RESP 16–20; O2SAT 93–98
[2017-03-02] MEDS: Heparin 5,000 Unit/mL Inj SUBQ SCH ×4 (00:46→23:20)
[2017-03-02] MEDS: Vancomycin Inj 1,250 MG in 0.9% Sodium Chloride 250 ML IV SCH (00:46)
[2017-03-02] MEDS: Insulin Human REGular 300 Unit/3 mL Inj SUBQ SCH ×4 (02:30→21:45)
[2017-03-02 03:56] LABS: Mean Corpuscular Hemoglobin 24.4 pg (27.0-35.0); Mean Corpuscular Volume 79.2 fL (81-100)
--- NOTE | 2017-03-02 05:12 | NUR ---
Pain Pt reported significant pain at HS of approx. 8/10 to abdomen and requested oral medications - oxycodone administered with pt sleeping on reassessment. At approx. 0030, pt woke and reported waking due to sudden severe pain - stated MOLDING ASSOCIATE was ineffective for relief and requested additional pain medication. 2 clinician boluses given through MOLDING ASSOCIATE, pt able to rest after administration. At 0400, no further MOLDING ASSOCIATE dosing had been utilized and pt reported pain at 4/10 (patient had earlier stated at least 5/10 as goal for pain). VSS with some hypertension, tele ST 100s-110s.
[2017-03-02] MEDS: Pantoprazole 40 mg ER24 Tablet PO SCH (06:33)
[2017-03-02] MEDS: Vancomycin Dose per Pharmacist XX SCH (08:30)
[2017-03-02] MEDS: Polyethylene Glycol (PEG) 17 Gm Powder PO SCH (09:41)
[2017-03-02] MEDS: Mupirocin 2% 22 Gm Ointment NASAL SCH ×2 (09:42→21:40)
[2017-03-02] MEDS: Ertapenem Inj 1,000 MG in 0.9% Sodium Chloride 50 ML IV SCH (09:55)
--- NOTE | 2017-03-02 10:39 | PROG NOTE ---
[address] [address] PROGRESS NOTE PATIENT: FLAQUITO DUBON : 1955 MR#: [id number] ADMIT: 02/21/2017 JOB ID: [id number] DATE: 03/02/2017 SUBJECTIVE: The patient is seen in followup for her recent admission for increasing abdominal pain. The patient tells me that over the last 24 hours her pain increased. The pain medication does help, but does not completely alleviate her pain. OBJECTIVE: Over the last 24 hours she has remained afebrile. She has been intermittently tachycardic up to as high as 115. This morning heart rate is 99. Her blood pressure has been fine. She is alert and oriented. Appears comfortable. Her abdomen is firm and tender particularly in the mid abdomen. Her white blood cell count is slightly up today 12.2 from 10.9 yesterday. Hematocrit stable at 24.4. Her creatinine is 0.87. Her albumin is 2.2. ASSESSMENT AND PLAN: This is a 61-year-old female with a history of gastric cancer status post distal gastrectomy complicated by duodenal stump leak in May 2016 now readmitted with worsening abdominal pain and ascites. The patient's daughter tells me that there is a plan for a paracentesis today. I agree with that plan. Really it is hard to know what is going on and recurrent malignancy certainly remains high in the differential. Physical therapy did come by yesterday and worked with her, and I encouraged her to continue to work with them. She is severely malnourished with an albumin of 2.2 and little to no oral intake. I recommend starting TPN.
[2017-03-02] MEDS: Ondansetron 2 mg/mL 2 mL Inj IVPUSH PRN ×2 (11:29→21:30)
[2017-03-02] MEDS ORDERED: Vancomycin Serum Trough XX ONE (12:00)
--- NOTE | 2017-03-02 13:49 | PCM.PHAPRO ---
Progress Abdominal pain VANCOMYCIN DOSING PER PHARMACY Trough came back at 24.9 Labs: Scr 0.87 (almost doubled from previous day) P: Will hold current vancomycin dose Will draw additional trough on 03/03 @ 0500 Will order additional SCr lab for 03/03 @ 499 Pharmacy will continue to monitor, thank you Elizabeth Colunga PharmD March 02, 2017 13:49
[2017-03-02] MEDS: HYDROmorphone PCA 0.2 mg/mL 30 mL Inj IV PRN (14:24)
--- NOTE | 2017-03-02 14:40 | PCM.PNMED ---
Subjective Date of Service March 02, 2017 Subjective The patient states that her abdominal pain is slightly stronger today, she rates the pain as 8/10 whereas it has previously been 6/10. She further states that overnight she had a dry cough that is new to this hospital stay. Otherwise she states that her appetite is unchanged, and that she continues to feel constipated and nauseous. Overnight events include cough as above. Exam Vital Signs Vital Sign - Last Date Time Temp Pulse Resp B/P Pulse Ox O2 Delivery O2 Flow Rate FiO2 03/02/17 13:02 36.7 114 16 154/89 96 Room Air 02/27/17 04:26 1.00 Intake and Output 03/01/17 03/01/17 03/02/17 Cumulative From/Thru 15:00 23:00 07:00 02/21/17 16:49 - 03/02/17 06:41 Intake Total 1400 ml 761 ml 47637 ml Balance 1400 ml 761 ml 25794 ml Intake Oral 950 ml 400 ml 7627 ml IV Total 450 ml 361 ml 52521 ml # Voids 2 1 49 # Bowel Movements 1 6 Exam Gen: A/O x3 pleasant cooperative woman mild acute distress secondary to abdominal pain Neck: Supple, non tender, no JVD, Full ROM HEENT: PERRL, EOMI, no scleral icterus, no conjunctival pallor CV: RRR, no murmurs rubs or gallops Resp: Lungs CTA BL, no wheezing rales or rhonchi Abd: Firm masslike area around the umbilicus extending to the left flank, Diminished bowel sounds throughout, diffuse mild tenderness to palpation Extr: Mild BL LE non pitting edema Neuro: CN 2-12 grossly intact, no focal neurologic deficit Psych: Mood and affect pleasant and appropriate IVs and Medications IV Fluids NS @ 10 ml hr TKO 50 ml delivered with IV meds Medications Reviewed: Medications were reviewed in detail Lab and Diagnostics Item Value Date Time Red Blood Count 3.60 mil/mm3 L 03/02/17344 Hematocrit 28.5 % L 03/02/17344 Mean Corpuscular Volume 79.2 fL L 03/02/17344 Mean Corpuscular Hemoglobin 24.4 pg L 03/02/17344 Mean Corpuscular Hemoglobin Concent 30.9 % L 03/02/17 034 Red Cell Distribution Width 16.5 % H 03/02/17 0345 Estimat Glomerular Filtration Rate 95 mL/min 03/02/17 0345 Calcium Level 8.0 mg/dL L 03/02/17 034 Magnesium Level 2.7 mg/dL H 03/01/17 0313 Total Bilirubin 0.3 mg/dL 03/02/17 0345 Aspartate Amino Transf (AST/SGOT) 67 U/L H 03/02/17 0345 Alanine Aminotransferase (ALT/SGPT) 44 U/L H 03/02/17 034 Alkaline Phosphatase 142 U/L 03/02/17 0345 Total Protein 5.9 g/dL L 03/02/17 034 Albumin 2.2 g/dL L 03/02/17 034 Result Diagram: 03/02/1734403/02/17344 Microbiology 02/21/17 Blood culture- No growth to date 02/21/17 Urine culture- Positive Escherichia Coli; Klebsiella Pneumoniae 02/21/17 MRSA screen- positive 02/22/17- Repeat Blood Cultures- no growth to date X-Rays, CTs and MRIs (02/26/17) CT ABDOMEN AND PELVIS WITH CONTRAST IMPRESSION: 1. Small bilateral pleural effusions, left greater than right, increasing volume of ascites and development of diffuse subcutaneous edema. 2. Postoperative changes of partial gastrectomy, cholecystectomy and possible partial bowel resection. Old abdominal wall tract from prior J-tube placement. 3. Bowel distention with air-fluid levels, likely inflammatory with ileus, possibility of partial small bowel obstruction with possible transition in the right upper quadrant in the area of surgical clips. Dictated and approved by: Rio Thornton M.D. on 02/26/2017 at 14:05 ADDENDUM: Following consultation with Dr. Sawyer, the focal area of small bowel narrowing in the right upper quadrant at the level of surgical clips represents a surgical blind ended loop of duodenum and not a focus of small bowel obstruction. Dictated by: Rio Thornton M.D. on 02/26/2017 at 15:02 (02/27/17) US PELVIC SONOGRAM + TRANSVAGINAL SONOGRAM IMPRESSION: 1. Atrophic otherwise ultrasonographically normal uterus. The ovaries were not identified and cannot be evaluated. 2. Ascites is noted. Dictated and approved by: Keny Duvall M.D. on 02/27/2017 at 18:47 . 12-lead ECG Normal sinus rhythm with heart rate of 83; QTc 4 70 Assessment & Plan 61-year-old female with multiple abdominal surgeries due to gastric carcinoma, and history of intra-abdominal sepsis and abscesses with MRSA in the fall of 2016 who presented to the hospital with 3 weeks of worsening abdominal pain and new nausea and emesis x3 starting day prior to admission. Intra-abdominal mass/fluid collection, acute. Present on admission. Active and progressive. -The plan is to perform a therapeutic and diagnostic paracentesis likely tomorrow because of the holiday. This will be done with ultrasound guidance -Uncertain etiology. Possibly infectious or inflammatory, unable to rule out metastatic disease. -General surgery recommend diagnostic paracentesis, no surgical intervention at this time. -CA 125 slightly elevated, uncertain significance. Transvaginal US unremarkable for ovarian pathology -Repeated abd CT, results as above. -Continue ertapenem, vancomycin and Bactroban (MRSA screen positive) per Infectious Disease. -Dilaudid SPECIAL EDUCATION PARAPROFESSIONAL for control of abdominal pain UTI, acute. Present on admission. Active. -Urine culture growing- E. coli, Klebsiella. Patient suprapubic pain but no urinary symptoms. -Continue antibiotics, as above -Phenazopyridine added 02/25-02/27. Constipation, chronic. Present on admission. Active and improving. -Likely secondary to chronic opiate use. Typically responds to suppositories, per the patient. -Starting Relistor to counteract opiate induced component of constipation -Last bowel movement was now three days ago despite multiple suppositories -Schedule miralax and docusate -Enema 02/28 Insulin using Type II diabetes, chronic. Present on admission. Active -Patient presents with glucose of 192. Goal blood glucose 140-180. -Continue home Lantus at decreased dose, 10U QPM and medium dose correctional insulin -A1c 7.2 Acute microcytic, hypochromic anemia. Present mission. Active -Patient presents with a hemoglobin 11.6, a low MCV; review of past admissions does not appear that this is a chronic issue -Iron studies demonstrate deficiency component. -Supplemental iron held thus far due to constipation. -Follow CBC High risk meds: IV dilaudid, vancomycin Disposition: Patient will likely discharge back to [facility] in 2-3 more days given her significant multiple comorbidities at time of presentation and uncertain nature of her abdominal symptoms. Pain Evaluation: Adequate Pain Control GI Prophylaxis: Proton Pump Inhibitor VTE Prophylaxis: Sub-Q Heparin (Unfractionated) VTE Mechanical Devices: Intermittant Pneumatic CD Resuscitation Status: CPR: Attempt Resuscitation Zeke Moncada DO March 02, 2017 14:13
[2017-03-02] MEDS: 0.9% Sodium Chloride 250 ML IV SCH (15:09)
[2017-03-02] MEDS: Dextrose 5% 500 ML IV SCH (15:13)
--- NOTE | 2017-03-02 16:50 | NUR ---
Chest pain At approximately 16:15 pt called to report sudden onset of substernal chest pressure with radiating pain to left shoulder, rating pain 5/10. No associative symptoms reported. Hypertensive, 150s/90s. ST per speed operator. 2L 02 applied for comfort. Hospitalist notified of change in pt status. Sp02 >92%. EKG completed, no acute changes noted. SL nitro administered with relief of chest pain. Troponin drawn. Will continue to monitor.
[2017-03-02] MEDS: Insulin GLARgine 100 Unit/mL Syringe SUBQ SCH (21:45)
[2017-03-02] MEDS: Nystatin 100,000 Unit/Gm 15 Gm Powder TOPICAL SCH (23:10)
--- NOTE | 2017-03-02 23:22 | NUR ---
Axillary rash Pt has rash to axillae bilaterally, left worse than right, that looks like yeast. MD notified and here to assess. Orders received and Nystatin applied. Pt is Upper Sorbian speaking. Daughter has been at bedside and is spending the night. I have offered steel roller services several times, but daughter and patient have declined.
[2017-03-03] VITALS (16 sets, daily range): BP systolic 127–150; BP diastolic 63–78; PULSE 86–107; RESP 14–20; O2SAT 93–99
[2017-03-03] MEDS: Insulin Human REGular 300 Unit/3 mL Inj SUBQ SCH ×4 (02:30→20:30)
[2017-03-03 03:46] LABS: INR 0.98 ratio
[2017-03-03 04:03] LABS: Phosphorus 4.4 mg/dL (2.5-4.9)
[2017-03-03 04:47] LABS: BASOPHILS % (AUTO) 0.2 % (0-3); EOSINOPHILS % (AUTO) 2.9 % (0-5); MONOCYTES % (AUTO) 9.8 % (4-12); Mean Corpuscular Hemoglobin 24.4 pg (27.0-35.0); Mean Corpuscular Volume 79.6 fL (81-100); NEUTROPHILS % (AUTO) 74.3 % (40-74); Platelet Count 511 bil/L (150-400)
[2017-03-03] MEDS ORDERED: Vancomycin Serum Trough XX ONE (05:00)
[2017-03-03] MEDS: Pantoprazole 40 mg ER24 Tablet PO SCH (05:29)
--- NOTE | 2017-03-03 05:45 | PCM.PHAPRO ---
Progress Date of Service: March 03, 2017 Requesting Provider: Moo Amin DO Abdominal pain intra-abdominal abscess with history of MRSA A/ - Day 10th on Vancomycin and Ertapenem to treat intra-abdominal abscess - Been received Vancomycin 1250mg q12, trough yesterday was high @ 24.9, noted that clearance is worsening: SCr jumped from 0.47 (03/01) to 0.87mg/dL (03/02) - Dose held and new trough drawn @0315 today at 17.5, and SCr increased again to 0.95 mg/dL P/ - Give Vancomycin 1500mg iv q24h, starts at 0600 today. Trough level ordered @ 0530 on 03/05 Pharmacy will continue to monitor daily Thank you Jose Cervantes March 03, 2017 05:45
[2017-03-03] MEDS: Vancomycin Inj 1,500 MG in 0.9% Sodium Chloride 500 ML IV SCH (05:49)
--- NOTE | 2017-03-03 06:50 | NUR ---
decreased urine output no void this shift. Bladder scan showed minimal amount in bladder. Addendum: 03/03/17 at 0651 by ROSY ISIDRO RN Md aware of no void this shift.
[2017-03-03] MEDS: Vancomycin Dose per Pharmacist XX SCH (08:30)
[2017-03-03] MEDS: Heparin 5,000 Unit/mL Inj SUBQ SCH ×2 (08:30→16:41)
[2017-03-03] MEDS: Ertapenem Inj 1,000 MG in 0.9% Sodium Chloride 50 ML IV SCH (08:49)
[2017-03-03] MEDS: Polyethylene Glycol (PEG) 17 Gm Powder PO SCH (08:51)
[2017-03-03] MEDS: Nystatin 100,000 Unit/Gm 15 Gm Powder TOPICAL SCH ×2 (08:52→21:41)
[2017-03-03] MEDS: Mupirocin 2% 22 Gm Ointment NASAL SCH ×2 (08:52→21:42)
[2017-03-03] MEDS: Ondansetron 2 mg/mL 2 mL Inj IVPUSH PRN (09:12)
--- NOTE | 2017-03-03 09:34 | NUR ---
Nausea / GI Pt reported nausea this a.m. while taking her PO medications. Administered 4 mg IVP Zofran. Pt reported later that she felt better. Pt passing flatus this a.m. when we turned her in bed. No BM this shift yet.
--- NOTE | 2017-03-03 11:09 | NUR ---
NUTRITION FOLLOW-UP: ASSESS: Pt is a 61 YO female who underwent a distal gastrectomy with Billroth-II reconstruction related to gastric cancer in May of 2016 which was unfortunately complicated by duodenal stump leak. She had a jejunostomy placed 05/27/16. SNF staff report that j-tube removed within last 1 - 2 months. Pt continues to have severe abdomen pain. Plan is for paracentesis today. There is concern for recurrent gastric cancer that is leading to ascites. Pt has been only tolerating bites-25% of food x10 days due to severe pain, constipation, nausea and some vomiting. TPN is to start tonight due to prolonged poor PO intake. PMHX: Type 2 DM, hyperlipidemia, stroke with left sided weakness, gastric adenocarcinoma. LABS: Reviewed. Bun 7, Glu 162, Ca 8.2, ALT 44, Alb 2.1 MEDS: Reviewed. Miralax, colace, insulin, relistor GI: BM x 1 (03/01) SKIN: Devin 16, no major issues noted. WT: 81 kg, BMI 33.7kg/m2, admit wt 69.8kg, IBW 47.7kg DIET: Full Liquid. PO bites-25% EST. NEEDS: BMI Kcals: 1780-2025kcal/day (22-25kcal/kg) Pro: 60-75g/day (1.2-1.5g/kg IBW) NUTRITION DIAGNOSIS: 1) Inadequate oral intake related to altered GI function as evidence by poor PO intake, pt reporting poor appetite, severe abdominal pain and history of needing J-tube feedings - PERSISTS. NUTRITION INTERVENTION: 1) Continue Glucerna on all trays 2) TPN to start tonight due to poor PO intake. Recommend start TPN at 135g Dex, 40g AA and 35g lipids to provide 869kcal and 40g pro (~50% estimated needs.) Pharmacy aware of recommendation 3) Recommend advance TPN as tolerated towards goal rate of 300g Dex, 75g AA and 50g lipids to provide 1820kcal and 75g pro (100% estimated needs) 4) Will continue to monitor PO intake. Recommend adjust TPN based on PO intake. MONITOR / EVAL: TPN start, PO, wt, GI, diet advc, labs, POC, nutrition status. Will continue to monitor per high nutrition risk guidelines
[2017-03-03] MEDS: TPN Per Pharmacist XX SCH (11:26)
--- NOTE | 2017-03-03 12:56 | DRSVH ---
PROCEDURE: US ABDOMEN, LIMITED ([id number]) INDICATIONS: abdominal mass and ascites TECHNIQUE: Real-time focused scanning was performed of the abdomen, with image documentation. COMPARISON: [facility], , [facility]EN L[facility], 02/23/2017, 15:53. FINDINGS: Small amount of ascites is present within the within the pelvis with intermittent peristals ing bowel intervening between the small amount of fluid and the anterior abdominal wall. IMPRESSION: Small amount of ascites is present with volume sufficient for safe paracentesis at this t kranthi. Dictated by: Jimmy Mahoney [facility] Interpreted: Adeel Carrasco MD on 03/03/2017 at 11:44 Transcribed by: DANIELLA on 03/03/2017 at 12:56 Approved by: Adeel Carrasco M.D. on 03/03/2017 at 15:34
--- NOTE | 2017-03-03 14:11 | PCM.PNMED ---
Subjective Date of Service March 03, 2017 Subjective Ashley Smith states that her symptoms are more or less unchanged since yesterday, she continues to endorse "Charmaine(strong)" abdominal pain rated at about 6/10. She states that the chest pain she had felt last evening has resolved. She has essentially no appetite, and has no desire to get up and moving. She and her daughter express frustration at the wait for diagnostic testing. Comprehensive ROS negative except as outlined above. Exam Vital Signs Vital Sign - Last Date Time Temp Pulse Resp B/P Pulse Ox O2 Delivery O2 Flow Rate FiO2 03/03/17 11:49 36.8 92 16 142/78 95 Room Air 03/03/17 08:44 2.00 Intake and Output 03/02/17 03/02/17 03/03/17 Cumulative From/Thru 15:00 23:00 07:00 02/21/17 16:49 - 03/03/17 06:49 Intake Total 333 ml 318 ml 10733 ml Balance 333 ml 318 ml 11765 ml Intake Oral 200 ml 200 ml 8027 ml IV Total 133 ml 118 ml 16221 ml # Voids 2 0 51 # Bowel Movements 6 Exam Gen: A/O x3 pleasant cooperative woman in mild acute distress secondary to abdominal pain Neck: Supple, non tender, no JVD, Full ROM HEENT: PERRL, EOMI, no scleral icterus, no conjunctival pallor Chest: Port a cath present in Left upper chest CV: RRR no murmurs rubs or gallops Resp: Lungs CTA BL, no wheezing rales or rhonchi Abd: Firm rubbery mass surrounding umbilicus with extension into the left flank , BS +4Q, diffuse mild tenderness to palpation, no appreciable organomegaly Extr: No clubbing cyanosis or edema Neuro: CN 2-12 grossly intact, no focal neurologic deficit Psych: Pleasant and appropriate mood and affect, does express some frustration with the wait for diagnostic procedure. IVs and Medications IV Fluids 550 ml NS delivered with IV meds Medications Reviewed: Medications were reviewed in detail Lab and Diagnostics Item Value Date Time Red Blood Count 2.70 mil/mm3 L 03/03/17436 Mean Corpuscular Volume 79.6 fL L 03/03/17436 Mean Corpuscular Hemoglobin 24.4 pg L 03/03/17436 Mean Corpuscular Hemoglobin Concent 30.7 % L 03/03/17436 Neutrophils (%) (Auto) 74.3 % H 03/03/17436 Lymphocytes (%) (Auto) 12.4 % L 03/03/17436 Monocytes (%) (Auto) 9.8 % 03/03/17436 Eosinophils (%) (Auto) 2.9 % 03/03/17436 Basophils (%) (Auto) 0.2 % 03/03/17436 Estimat Glomerular Filtration Rate 86 mL/min 03/03/17314 Calcium Level 8.2 mg/dL L 03/03/17314 Phosphorus Level 4.4 mg/dL 03/03/17314 Magnesium Level 2.0 mg/dL 03/03/17314 Total Bilirubin 0.3 mg/dL 03/03/17314 Aspartate Amino Transf (AST/SGOT) 42 U/L 03/03/17314 Alanine Aminotransferase (ALT/SGPT) 44 U/L H 03/03/17314 Alkaline Phosphatase 147 U/L 03/03/17314 Troponin T 0.010 ug/L 03/02/172129 Total Protein 6.3 g/dL L 03/03/17314 Albumin 2.1 g/dL L 03/03/17314 Procalcitonin 0.19 ng/mL H 03/03/17314 Prothrombin Time 10.5 sec 03/03/17314 Prothromb Time International Ratio 0.98 ratio 03/03/17314 Result Diagram: 03/03/17 0520 03/03/17314 Microbiology 02/21/17 Blood culture- No growth to date 02/21/17 Urine culture- Positive Escherichia Coli; Klebsiella Pneumoniae 02/21/17 MRSA screen- positive 02/22/17- Repeat Blood Cultures- no growth to date X-Rays, CTs and MRIs (02/26/17) CT ABDOMEN AND PELVIS WITH CONTRAST IMPRESSION: 1. Small bilateral pleural effusions, left greater than right, increasing volume of ascites and development of diffuse subcutaneous edema. 2. Postoperative changes of partial gastrectomy, cholecystectomy and possible partial bowel resection. Old abdominal wall tract from prior J-tube placement. 3. Bowel distention with air-fluid levels, likely inflammatory with ileus, possibility of partial small bowel obstruction with possible transition in the right upper quadrant in the area of surgical clips. Dictated and approved by: Rio Thornton M.D. on 02/26/2017 at 14:05 ADDENDUM: Following consultation with Dr. Sawyer, the focal area of small bowel narrowing in the right upper quadrant at the level of surgical clips represents a surgical blind ended loop of duodenum and not a focus of small bowel obstruction. Dictated by: Rio Thornton M.D. on 02/26/2017 at 15:02 (02/27/17) US PELVIC SONOGRAM + TRANSVAGINAL SONOGRAM IMPRESSION: 1. Atrophic otherwise ultrasonographically normal uterus. The ovaries were not identified and cannot be evaluated. 2. Ascites is noted. Dictated and approved by: Keny Duvall M.D. on 02/27/2017 at 18:47 . 12-lead ECG Normal sinus rhythm with heart rate of 83; QTc 4 70 Assessment & Plan 61-year-old female with multiple abdominal surgeries due to gastric carcinoma, and history of intra-abdominal sepsis and abscesses with MRSA in the fall of 2015 who presented to the hospital with 3 weeks of worsening abdominal pain and new nausea and emesis x3 starting day prior to admission. 1. Intra-abdominal mass/fluid collection, acute. Present on admission. Active and progressive. -Therapeutic and diagnostic paracentesis to be performed today with analysis of pleural fluid including cell count with diff and cultures -Uncertain etiology. Possibly infectious or inflammatory, though recurrent malignancy appears to be the most likely scenario given soft infectious indicators and the size of the mass -General surgery recommend diagnostic paracentesis, no surgical intervention at this time. -CA 125 slightly elevated, uncertain significance. Transvaginal US unremarkable for ovarian pathology -Repeated abd CT, results as above. -Continue ertapenem, vancomycin and Bactroban (MRSA screen positive) per Infectious Disease. -Dilaudid RV REPAIRER for control of abdominal pain 2. UTI, acute. Present on admission. Active. -Urine culture growing- E. coli, Klebsiella. Patient suprapubic pain but no urinary symptoms. -Continue antibiotics, as above -Phenazopyridine added 02/25-02/27. 3. Constipation, chronic. Present on admission. Active and improving. -Likely secondary to chronic opiate use. Typically responds to suppositories, per the patient. -Starting Relistor to counteract opiate induced component of constipation -Last bowel movement 03/01 -Schedule miralax and docusate -Enema 02/28 4. Insulin using Type II diabetes, chronic. Present on admission. Active -Patient presents with glucose of 192. Goal blood glucose 140-180. -Continue home Lantus at decreased dose, 10U QPM and medium dose correctional insulin -A1c 7.2 5. Acute microcytic, hypochromic anemia. Present mission. Active -Patient presents with a hemoglobin 11.6, a low MCV; review of past admissions does not appear that this is a chronic issue -Iron studies demonstrate deficiency component. -Supplemental iron held thus far due to constipation. -Follow CBC High risk meds: IV dilaudid, vancomycin Disposition: Patient will likely discharge back to [facility] following appropriate diagnostic procedures to characterize her mass Pain Evaluation: Adequate Pain Control GI Prophylaxis: Proton Pump Inhibitor VTE Prophylaxis: Sub-Q Heparin (Unfractionated) VTE Mechanical Devices: Intermittant Pneumatic CD Resuscitation Status: CPR: Attempt Resuscitation Attending Statement The patient was seen and examined together with Dr. Moncada on 03/03/2017 and I agree with the history, exam and plan as outlined in the note above. . Zeke Moncada DO March 03, 2017 14:11 Merritt Longoria MD Mar 05, 2017 20:25
--- NOTE | 2017-03-03 14:14 | PCM.CONPHA ---
Subjective Abdominal pain Reason for Pharmacy Consult: TPN Management Assessment/Plan Assessment/Plan PARENTERAL NUTRITION ORDERS 1 - Standard Hang Time: 2100 Substrates Total kcal: 869 AMINO ACIDS 40 g DEXTROSE 135 g Total Volume (mL): 1500 LIPIDS 25 g Sterile Water for Injection QS mL To Infuse Over (hrs): 24 Total Volume 1500 mL At at a rate of (mL/hr): 63 Additives Sodium Chloride 40 mEq "typical" daily requirements Sodium Acetate 20 mEq Sodium 50-120mEq Potassium Chloride 40 mEq Potassium 60-120mEq Potassium Phosphate 20 mEq Phosphate 20-40mEq Calcium Gluconate 9 mEq Magnesium 8-32mEq Magnesium Sulfate 16 mEq Calcium 9-22mEq Acetate* 80-120mEq Chloride* 80-120mEq Regular Insulin units *Depending on acid-base status Famotidine 40 mg Multivitamins 1 std dose Insulin Regimen Trace Elements 1 std dose none Thiamine 100 mg Regular Low Intensity Subcut X Folic Acid 1 mg Regular Medium Intensity Subcut Ascorbic Acid mg Regular High Intensity Subcut Regular Insulin Infusion Other: Special Instructions: To be infused via central line only. For delay or inturruption of TPN contact the pharmacist for alternative replacement solution. Signature Date: FLAQUITO DUBON [address] [facility] Mynor See, PharmD Mynor See March 03, 2017 14:14
[2017-03-03] MEDS: 0.9% Sodium Chloride 250 ML IV SCH ×2 (15:11→17:31)
[2017-03-03] MEDS: Dextrose 5% 500 ML IV SCH (15:20)
--- NOTE | 2017-03-03 15:40 | NUR ---
Social Work-continued d/c planning: Data:EMR Reviewed. Pt is on day 10 of hospitalization for bowel obstruction per H&P. Pt is not medically stable anticipate 2-3 more days. JORDAN met with pt, daughter Mary [phone] and designer and patternmaker at bedside, SW role explained. Daughter expressed concerns about pt returning to [facility] at discharge. Daughter is hopeful to take pt home, but does not have [facility] anymore. Daughter states this was discontinued in December and they have not gotten pt back on services. JORDAN explained PT recommendation of SNF and that pt is a 2 person max assist and that SNF would be beneficial. JORDAN called [facility] and found out pt's HCS worker is Lilly Haro [phone], JORDAN called Lilly and requested she call SW back to discuss. JORDAN explained to daughter that SW has left a message with Lilly and Lilly would be the one to complete assessment for [facility]. JORDAN explained to daughter that it may make sense to have pt return to [facility] while she works with Lilly on getting [facility] set up at home. Daughter and pt in agreement with this plan. JORDAN explained that if any information is found out from Lilly, JORDAN will update daughter at bedside. JORDAN also provided daughter with Lilly's phone number. JORDAN placed a call to Lana at [facility] and confirmed they are able to accept pt back at discharge. Paperwork placed in the chart. SW will continue to follow. Assessment:Pt who would benefit from SNF. Plan:Pt to discharge back to [facility] with Dr. Cortes to follow. JORDAN has left message for HCS worker Lilly to discuss snf [facility] options for pt post Rehab. Pt and daughter agreeable to plan.Paperwork placed in the chart. SW will continue to follow. COLLIN Ordonez
--- NOTE | 2017-03-03 16:01 | NUR ---
Transferred off [facility] Pt transferred to [facility] room 1012 at 1600 hrs. VSS. Pt alert and oriented. Pain controlled with OIL RIGGER Dilaudid; OIL RIGGER pump and IV pump sent with pt. Daughter at pt's bedside. All pt possessions transferred to room 1012 with pt. Report called to Darlyn Mukherjee RN.
[2017-03-03] MEDS: HYDROmorphone PCA 0.2 mg/mL 30 mL Inj IV PRN (16:40)
--- NOTE | 2017-03-03 17:09 | PROG NOTE ---
[address] [address] PROGRESS NOTE PATIENT: FLAQUITO DUBON : 1955 MR#: [id number] ADMIT: 02/21/2017 JOB ID: [id number] DATE: 03/03/2017 SUBJECTIVE: The patient is seen in followup. She complains of the same pain across her lower abdomen and her whole abdomen is tight. She is not complaining of nausea but does state that she frequently gets nausea in the mornings. She is passing flatus but has not had a bowel movement today. OBJECTIVE: Temperature 37.2, pulse 88, blood pressure 141/77, saturation 96% on room air. General: She is resting in bed in no acute distress. Her abdomen is firm, mildly distended. There is no erythema of the abdominal wall. She is mildly tender to palpation. LABORATORY: Hemoglobin is 9.2, hematocrit 30.0, creatinine 0.95, glucose 162, albumin 2.1, Procalcitonin 0.19. IMAGING: Ultrasound of the abdomen today shows a small amount of ascites fluid, but there is no safe window for paracentesis. ASSESSMENT AND PLAN: A 61-year-old woman with abdominal pain, new ascites, inflammatory mass deep to the anterior abdominal wall, with a personal history of gastric cancer. The etiology of her acute problem is still unclear. It does not sound like paracentesis will be a safe option. I have discussed her situation with Dr. Zeke Moncada from the hospitalist service. Recommendation is to proceed with ultrasound-guided needle biopsy of the abdominal wall inflammatory mass. I will continue to follow along, but otherwise defer care to the hospitalist team for management.
--- NOTE | 2017-03-03 18:59 | DRSVH ---
PROCEDURE: US VENOUS ARM DUPLEX UNILATERAL, LEFT INDICATIONS: infiltrated IV in arm with previous SVT TECHNIQUE: Real-time imaging, as well as color and pulse Doppler interrogation, was performed of the left upper extremity deep veins from the inferior neck to the antecubital fossa. COMPARISON: None. FINDINGS: The internal jugular vein, visualized portions of the subclavian vein, axillary, and brach ial veins are free of intraluminal thrombus. The left cephalic vein is not well identified. Where phy sically possible, the veins are normally compressible. Color and pulse Doppler demonstrate normal in traluminal flow, with expected phasicity and pulsatility. Additional scanning of the cephalic and ba silic veins of the superficial system demonstrate normal compressibility, without thrombus. IMPRESSION: No evidence of deep vein thrombosis involving the left upper extremity where the veins a re well-visualized. Please note the left cephalic vein is not well visualized through the entire ext ent and cannot be completely evaluated. Dictated by: Selma Boone MD, PhD on 03/03/2017 at 18:56 Approved by: Selma Boone MD, PhD on 03/03/2017 at 18:57
--- NOTE | 2017-03-03 19:17 | PROG NOTE ---
[address] [address] PROGRESS NOTE PATIENT: FLAQUITO DUBON : 1955 MR#: [id number] ADMIT: 02/21/2017 JOB ID: [id number] DATE: 03/03/2017 REASON FOR FOLLOWUP: Possible intra-abdominal abscess versus recurrent tumor mass versus combination. INTERVAL HISTORY: In the last four days since I have last seen the patient, she has continued to have primarily left-sided abdominal pain which she thinks is actually worsening. She has also noticed that her fevers and chills and sweats have resolved, even as she has developed a bit of a nonproductive cough. She is not significantly short of breath, however, and has no chest pain. Her abdominal pain was quite severe and she rates it at least 6, and sometimes far higher scale on the one out of ten [place] Scale. She is not able to eat. PHYSICAL EXAMINATION: Reveals an afebrile woman who has been afebrile since February 25, which was six days ago; currently 37.2. Pulse 88, respiratory rate 18, blood pressure 141/77. She is in moderate distress due to pain, but she is alert and able to provide history. Oral cavity negative. Neck without new adenopathy. Lungs fairly clear with some decreased breath sounds at the left base, perhaps cardiac tones without change. Abdomen is very firm with the sense that there is a large mass present just to the left upper side of the umbilicus. Extremities without change. LABORATORIES: Include a white count which has dropped to 9700, platelet count which has dropped to 511, CRP which is dropped to 0.19 from a previous high of 0.3 several days ago. Fungitell has come back negative. Blood cultures are all negative. The MRSA screen was positive of course. The abdominal ultrasound done today showed a small amount of ascites in and around the bowel. IMPRESSION: This is an extremely challenging case of a woman with multiple previous surgeries related to her diagnosis of gastric carcinoma. She did have a large intra-abdominal abscess that was treated in the past and now presents with increasing abdominal symptoms which may be due to abscess, recurrent tumor, or both. We are continuing to treat with vancomycin and ertapenem as broad-spectrum coverage directed against the methicillin-resistant Staphylococcus aureus she had previously, and we know she is still colonized with as well as other common enteric organisms. RECOMMENDATIONS: 1. Will continue with vancomycin and ertapenem. 2. We await the results of tomorrow's planned biopsy and/or aspiration to see whether this is infection, cancer or both, and if it is an infection, what are the microorganisms involved. 3. ID will go ahead and follow up on this case on March 05. Thank you very much.
[2017-03-03] MEDS: Total Parenteral Nutrition 1 BAG IV SCH (21:42)
[2017-03-03] MEDS: Insulin GLARgine 100 Unit/mL Syringe SUBQ SCH (22:57)
[2017-03-04] VITALS (10 sets, daily range): BP systolic 110–132; BP diastolic 66–72; PULSE 75–87; RESP 18–20; O2SAT 96–98
[2017-03-04] MEDS: Heparin 5,000 Unit/mL Inj SUBQ SCH ×3 (00:51→16:36)
[2017-03-04] MEDS: Insulin Human REGular 300 Unit/3 mL Inj SUBQ SCH ×4 (02:30→20:30)
[2017-03-04 05:11] LABS: BASOPHILS % (AUTO) 0.2 % (0-3); EOSINOPHILS % (AUTO) 3.7 % (0-5); Mean Corpuscular Hemoglobin 24.5 pg (27.0-35.0); Mean Corpuscular Volume 79.8 fL (81-100); NEUTROPHILS % (AUTO) 75.5 % (40-74); Platelet Count 626 bil/L (150-400)
[2017-03-04 05:44] LABS: Magnesium 1.9 mg/dL (1.6-2.6); Phosphorus 3.8 mg/dL (2.5-4.9)
[2017-03-04] MEDS: Vancomycin Inj 1,500 MG in 0.9% Sodium Chloride 500 ML IV SCH (06:02)
--- NOTE | 2017-03-04 06:14 | NUR ---
TPN/INCONTINENT: Started TPN tonight as scheduled. Incontinent of urine and stool x3 tonight. Pt. was constipated last BM per report was 3 days ago. Gave stool softeners at HS and a Dulcolax Suppository at HS as well. Good results tonight. Pain is controlled with SET UP WORKER Dilaudid. Gave Melatonin at HS, pt. sleeping comfortably through the night. A & O, vss. On going care.
--- NOTE | 2017-03-04 07:25 | PROG NOTE ---
[address] [address] PROGRESS NOTE PATIENT: FLAQUITO DUBON : 1955 MR#: [id number] ADMIT: 02/21/2017 JOB ID: [id number] DATE: 03/04/2017 SUBJECTIVE: The patient is seen in followup. She feels about the same today. She has no nausea. After getting a suppository, she had three fairly large bowel movements overnight. OBJECTIVE: Temperature 36.1, pulse 77, blood pressure 110/67, saturation 98% on room air. In general, she is resting in bed in no acute distress. Her abdomen is mildly distended. The central upper abdomen is firm. The lower abdomen and flanks are soft, with a small amount of ascites fluid appreciable. There is no erythema of the abdominal wall. There is no drainage from her wounds. LABORATORIES: White count is 12.3, hemoglobin 8.5, hematocrit 27.7, platelets 626. Creatinine 0.86, glucose 141, albumin 2.0. Procalcitonin 0.13. ASSESSMENT AND PLAN: A 61-year-old woman with a history of gastric cancer, status post distal gastrectomy with Billroth II reconstruction with a complicated postoperative course following that operation, now admitted with abdominal pain and an inflammatory versus neoplastic mass involving the anterior intraabdominal space with ascites. Plan is to proceed today with a percutaneous biopsy of the inflammatory mass. Recommend sending tissue for flow cytometry as well as standard pathology.
[2017-03-04] MEDS: Vancomycin Dose per Pharmacist XX SCH (08:30)
[2017-03-04] MEDS: Polyethylene Glycol (PEG) 17 Gm Powder PO SCH (08:30)
[2017-03-04] MEDS: Methylnaltrexone 12 mg/0.6 mL Inj SUBQ SCH (08:30)
[2017-03-04] MEDS: TPN Per Pharmacist XX SCH (08:30)
[2017-03-04] MEDS: Mupirocin 2% 22 Gm Ointment NASAL SCH ×2 (08:51→19:50)
[2017-03-04] MEDS: Nystatin 100,000 Unit/Gm 15 Gm Powder TOPICAL SCH ×2 (08:59→19:50)
[2017-03-04] MEDS: Ertapenem Inj 1,000 MG in 0.9% Sodium Chloride 50 ML IV SCH (09:08)
--- NOTE | 2017-03-04 09:19 | NUR ---
NUTRITION FOLLOW-UP: ASSESS: Pt is a 61 YO female who underwent a distal gastrectomy with Billroth-II reconstruction related to gastric cancer in May of 2016 which was unfortunately complicated by duodenal stump leak. She had a jejunostomy placed 05/27/16. SNF staff report that j-tube removed within last 1 - 2 months. Pt continues to have severe abdomen pain. Plan is for paracentesis and percutaneous biopsy of inflammatory mass. Pt has been made NPO and TPN was started 03/03. So far TPN is tolerated. Pt had 3 BM overnight. PMHX: Type 2 DM, hyperlipidemia, stroke with left sided weakness, gastric adenocarcinoma. LABS: Reviewed. Glu 141, Ca 8.0, Alb 2.0 MEDS: Reviewed. Miralax, colace, insulin, relistor GI: BM x 3 03/04 SKIN: Devin 14, no major issues noted. WT: 81.2 kg, BMI 33.8kg/m2, admit wt 69.8kg, IBW 47.7kg DIET: NPO EST. NEEDS: BMI Kcals: 1780-2025kcal/day (22-25kcal/kg) Pro: 60-75g/day (1.2-1.5g/kg IBW) NUTRITION DIAGNOSIS: 1) Inadequate oral intake related to altered GI function as evidence by poor PO intake, pt reporting poor appetite, severe abdominal pain and history of needing J-tube feedings - SLIGHT IMPROVEMENT W/TPN START NUTRITION INTERVENTION: 1) Continue TPN due to poor PO intake and now NPO status. Recommend continue same TPN today at 135g Dex, 40g AA and 35g lipids to provide 869kcal and 40g pro (~50% estimated needs.) Pharmacy aware of recommendation 2) If TPN continues to be tolerated, recommend advance to 220g Dex, 65g AA and 40g lipids to provide 1408kcal and 65g pro (~75% estimated needs) in next day or two. 3) Recommend advance TPN as tolerated towards goal rate of 300g Dex, 75g AA and 50g lipids to provide 1820kcal and 75g pro (100% estimated needs) 4) Will monitor for diet advance and adjust TPN macronutrients based on PO intake MONITOR / EVAL: TPN , NPO, wt, GI, diet advc, labs, POC, nutrition status. Will continue to monitor per high nutrition risk guidelines
--- NOTE | 2017-03-04 09:30 | PCM.PNMED ---
Subjective Date of Service March 04, 2017 Subjective pt c/o persistent abdominal pain from known mass, 05/14, nauseated, poor appetite , cannot eat anything down kept NPO overnight, TPN is running scheduled for US guided biopsys today Discussed at length via rubber tubing backer about current status, plan, pt understood well, questions answered Exam Vital Signs Vital Sign - Last Date Time Temp Pulse Resp B/P Pulse Ox O2 Delivery O2 Flow Rate FiO2 03/04/17 06:11 77 03/04/17 05:13 20 98 03/04/17 04:35 36.1 110/67 Room Air 03/03/17 08:44 2.00 Intake and Output 03/03/17 03/03/17 03/04/17 Cumulative From/Thru 15:00 23:00 07:00 02/21/17 16:49 - 03/04/17 05:13 Intake Total 35 ml 519 ml 73812 ml Balance 35 ml 519 ml 42017 ml Intake Oral 0 ml 8027 ml IV Total 35 ml 66 ml 31956 ml TPN/PPN 453 ml 453 ml # Voids 3 54 # Bowel Movements 0 6 Exam Laying down on the bed, mildly distressed due to pain no JVD, MMM, no LAD RRR, nl s1, s2 no mrg CTAB, no w,c S,distended, diffuse tenderness,hypoactive BS+ warm, no edema, pulses 2/2 FINANCE BROKER pump, TPN running IVs and Medications Medications Reviewed: Medications were reviewed in detail Lab and Diagnostics Result Diagram: 03/04/17 0450 03/04/17 0450 Microbiology 02/21/17 Blood culture- No growth to date 02/21/17 Urine culture- Positive Escherichia Coli; Klebsiella Pneumoniae 02/21/17 MRSA screen- positive 02/22/17- Repeat Blood Cultures- no growth to date X-Rays, CTs and MRIs (02/26/17) CT ABDOMEN AND PELVIS WITH CONTRAST IMPRESSION: 1. Small bilateral pleural effusions, left greater than right, increasing volume of ascites and development of diffuse subcutaneous edema. 2. Postoperative changes of partial gastrectomy, cholecystectomy and possible partial bowel resection. Old abdominal wall tract from prior J-tube placement. 3. Bowel distention with air-fluid levels, likely inflammatory with ileus, possibility of partial small bowel obstruction with possible transition in the right upper quadrant in the area of surgical clips. Dictated and approved by: Rio Thornton M.D. on 02/26/2017 at 14:05 ADDENDUM: Following consultation with Dr. Sawyer, the focal area of small bowel narrowing in the right upper quadrant at the level of surgical clips represents a surgical blind ended loop of duodenum and not a focus of small bowel obstruction. Dictated by: Rio Thornton M.D. on 02/26/2017 at 15:02 (02/27/17) US PELVIC SONOGRAM + TRANSVAGINAL SONOGRAM IMPRESSION: 1. Atrophic otherwise ultrasonographically normal uterus. The ovaries were not identified and cannot be evaluated. 2. Ascites is noted. Dictated and approved by: Keny Duvall M.D. on 02/27/2017 at 18:47 . 12-lead ECG Normal sinus rhythm with heart rate of 83; QTc 4 70 Assessment & Plan 61-year-old female with multiple abdominal surgeries due to gastric carcinoma, and history of intra-abdominal sepsis and abscesses with MRSA in the fall of 2015 who presented to the hospital with 3 weeks of worsening abdominal pain and new nausea and emesis x3 starting day prior to admission. 1. Intra-abdominal mass/fluid collection, acute. Present on admission. Active and progressive. -percutaneous biopsy to be performed today, cultures, cytology,.flow cytometry, standard pathology. -Uncertain etiology. Possibly infectious or inflammatory, though recurrent malignancy appears to be the most likely scenario given soft infectious indicators and the size of the mass -appreciatre General surgery input, recommend diagnostic paracentesis, no surgical intervention at this time. -CA 125 slightly elevated, uncertain significance. Transvaginal US unremarkable for ovarian pathology -Repeated abd CT, results as above. -Continue ertapenem, vancomycin and Bactroban (MRSA screen positive) per Infectious Disease. -Dilaudid FINANCE BROKER for control of abdominal pain 2. UTI, acute. Present on admission. Active. -Urine culture growing- E. coli, Klebsiella. Patient suprapubic pain but no urinary symptoms. -Continue antibiotics, as above -Phenazopyridine added 02/25-02/27. 3. Constipation, chronic. Present on admission. Active, Likely secondary to chronic opiate use. Typically responds to suppositories, per the patient. -no BM yet with current tx-Last bowel movement 03/01 -continue Relistor to counteract opiate induced component of constipation -Schedule miralax and docusate -Enema 5/27 4. Insulin using Type II diabetes, chronic. Present on admission. Active -Patient presents with glucose of 192. Goal blood glucose 140-180. -Continue home Lantus at decreased dose, 10U QPM and medium dose correctional insulin -A1c 7.2 5. Acute microcytic, hypochromic anemia. Present mission. Active -Patient presents with a hemoglobin 11.6, a low MCV; review of past admissions does not appear that this is a chronic issue -Iron studies demonstrate deficiency component. -Supplemental iron held thus far due to constipation. -Follow CBC High risk meds: IV dilaudid, vancomycin Disposition: Patient will likely discharge back to [facility] following appropriate diagnostic procedures to characterize her mass GI Prophylaxis: Proton Pump Inhibitor VTE Prophylaxis: Sub-Q Heparin (Unfractionated) VTE Mechanical Devices: Intermittant Pneumatic CD Resuscitation Status: CPR: Attempt Resuscitation Time spent 35min Kati Gibbons MD March 04, 2017 09:11
--- NOTE | 2017-03-04 10:26 | PCM.PHAPRO ---
Progress TPN Management: -Indication: poor oral intake for the past 11 days in pt with history of gastric cancer -Day 2 this evening of TPN -macronutrients will remain the same as yesterday, as confirmed with nutrition -electrolytes have remained fairly stable overnight as well -formula for this evening: PARENTERAL NUTRITION ORDERS 2 04-Mar-17 Standard Hang Time: 2100 Substrates Total kcal: 969 AMINO ACIDS 40 g DEXTROSE 135 g Total Volume (mL): 1500 LIPIDS 35 g Sterile Water for Injection QS mL To Infuse Over (hrs): 24 Total Volume 1500 mL At at a rate of (mL/hr): 63 Additives Sodium Chloride 70 mEq "typical" daily requirements Sodium Acetate 20 mEq Sodium 50-120mEq Potassium Chloride 30 mEq Potassium 60-120mEq Potassium Phosphate 30 mEq Phosphate 20-40mEq Calcium Gluconate 9 mEq Magnesium 8-32mEq Magnesium Sulfate 16 mEq Calcium 9-22mEq Acetate* 80-120mEq Chloride* 80-120mEq Regular Insulin units *Depending on acid-base status Famotidine 40 mg Multivitamins 1 std dose Insulin Regimen Trace Elements 1 std dose none Thiamine 100 mg Regular Low Intensity Subcut X Folic Acid 1 mg Regular Medium Intensity Subcut Ascorbic Acid mg Regular High Intensity Subcut Regular Insulin Infusion Other: Leesa Knight [facility] March 04, 2017 10:26
--- NOTE | 2017-03-04 12:10 | DRSVH ---
PROCEDURE: US GUIDED PARACENTESIS, PRIMARY ([id number]) INDICATIONS: Ventral abdominal mass TECHNIQUE: The indications, alternatives, benefits, risks, and complications of the procedure were explained to the patient. Written informed consent was obtained and placed in the chart. The abdomen and pelvis were examined sonographically, and an appropriate site was chosen for paracentesis. The skin was pre pared and draped in the usual sterile fashion, and 1% lidocaine was infiltrated from the skin down th rough the peritoneal surface. A 19-gauge catheter-covered needle was then introduced into the perito kiki space, the catheter was advanced and the needle was withdrawn, and thereafter peritoneal fluid w as withdrawn. The catheter was then removed and a dressing was applied. The fluid was discarded if the clinician did not order diagnostic testing of the fluid. The attending physician was present, an d personally performed the procedure. COMPARISON: None. FINDINGS: Access site: Midline pelvis Needle: One-Step centesis catheter with introducer needle. Fluid volume and description: 240 cc of clear peritoneal fluid was aspirated. Fluid sent for diagnostic testing: Fluid sent for cytology, multiple chemistry panels and therapeuti c drainage. Medications: 1% lidocaine for local anaesthesia. Complications: None. IMPRESSION: Successful ultrasound-guided paracentesis. Dictated by: Jimmy EDDY Interpreted: Tomy Cervantes MD on 03/04/2017 at 12:08 Transcribed by: ROULA on 03/04/2017 at 12:09 Approved by: Tomy Cervantes M.D. on 03/04/2017 at 15:09
[2017-03-04 13:43] LABS: BFWBC 353 /mm3; MONOCYTES,BODY FLUID 10 %
[2017-03-04 13:44] LABS: OTHER CELLS,BODY FLUID 0
[2017-03-04] MEDS: Dextrose 5% 500 ML IV SCH (15:20)
--- NOTE | 2017-03-04 15:44 | NUR ---
Day Shift An biology specimen technician was used for all assessments. A bedside paracentesis was done with the use of an biology specimen technician as well. The patient has had pretty consistent pain in her abdomen throughout the day, she has been encouraged to use the CHAIR LIFT OPERATOR as needed. CHAIR LIFT OPERATOR education was done with an biology specimen technician in the room. The patient has been drowsy, sleeping a good portion of the day.
[2017-03-04] MEDS: HYDROmorphone PCA 0.2 mg/mL 30 mL Inj IV PRN (16:31)
[2017-03-04] MEDS: Total Parenteral Nutrition 1 BAG IV SCH (21:00)
[2017-03-05] VITALS (13 sets, daily range): BP systolic 128–172; BP diastolic 67–82; PULSE 73–88; RESP 14–20; O2SAT 96–98
[2017-03-05] MEDS: Heparin 5,000 Unit/mL Inj SUBQ SCH ×3 (00:24→16:45)
[2017-03-05] MEDS: Insulin GLARgine 100 Unit/mL Syringe SUBQ SCH ×2 (00:25→21:33)
[2017-03-05] MEDS: Insulin Human REGular 300 Unit/3 mL Inj SUBQ SCH ×4 (03:56→21:34)
[2017-03-05] MEDS ORDERED: Vancomycin Serum Trough XX ONE (05:30)
[2017-03-05 06:04] LABS: Magnesium 1.9 mg/dL (1.6-2.6); Phosphorus 3.9 mg/dL (2.5-4.9)
[2017-03-05] MEDS: Vancomycin Inj 1,500 MG in 0.9% Sodium Chloride 500 ML IV SCH (06:32)
--- NOTE | 2017-03-05 06:40 | NUR ---
ACTIVITY: Resting in bed through the night, no c/o pain or nausea. Incontinent of large amounts of urine, no BM. Skin care incontinent care done as needed. Wants to eat some fruit (simran). Informed needs to wait for doctors orders regarding diet. A & O, forgetful at times.
--- NOTE | 2017-03-05 08:07 | PROG NOTE ---
[address] [address] PROGRESS NOTE PATIENT: FLAQUITO DUBON : 1955 MR#: [id number] ADMIT: 02/21/2017 JOB ID: [id number] DATE: 03/05/2017 SUBJECTIVE: The patient is seen in follow up. She is doing well clinically. She is hungry today and is asking for simran. Yesterday she underwent ultrasound-guided paracentesis, which she tolerated well. Her abdominal pain is well controlled. She has no nausea. OBJECTIVE: Temperature 36.6, pulse 73, blood pressure 133/67, saturation 98% on room air. In general, she is resting in bed in no acute distress. Abdomen is firm in anterior superior portions. Her flanks are soft. Her scars are well approximated with no erythema, no drainage. She has a paracentesis site in the right lower quadrant, which has no evidence of drainage. ASSESSMENT AND PLAN: A 61-year-old woman with a history of gastric cancer, now admitted with abdominal pain, ascites, inflammatory mass involving the anterior intraabdominal space. She is day 1 following paracentesis. She is doing relatively well. I am restarting a diet for her today. I will continue to follow along peripherally, awaiting cytology results from yesterday's procedure.
[2017-03-05] MEDS: Polyethylene Glycol (PEG) 17 Gm Powder PO SCH ×2 (08:30→21:26)
[2017-03-05] MEDS: TPN Per Pharmacist XX SCH (08:30)
[2017-03-05] MEDS: Vancomycin Dose per Pharmacist XX SCH (08:30)
[2017-03-05] MEDS: Mupirocin 2% 22 Gm Ointment NASAL SCH ×2 (09:20→21:16)
[2017-03-05] MEDS: Ertapenem Inj 1,000 MG in 0.9% Sodium Chloride 50 ML IV SCH (09:20)
[2017-03-05] MEDS: Nystatin 100,000 Unit/Gm 15 Gm Powder TOPICAL SCH (09:20)
--- NOTE | 2017-03-05 10:19 | PCM.PNMED ---
Subjective Date of Service Mar 05, 2017 Subjective pt underwent paracentesis well, c/o persistent abdominal pain, cell count shows exudates, no gram/culture, cytology pending still nauseated, on TPN, advanced diet per today Exam Vital Signs Vital Sign - Last Date Time Temp Pulse Resp B/P Pulse Ox O2 Delivery O2 Flow Rate FiO2 03/05/17 09:06 36.6 79 18 128/69 97 Room Air 03/03/17 08:44 2.00 Intake and Output 03/04/17 03/04/17 03/05/17 Cumulative From/Thru 15:00 23:00 07:00 02/21/17 16:49 - 03/05/17 06:05 Intake Total 0 ml 475 ml 74824 ml Output Total 781 ml 781 ml Balance 0 ml -781 ml 475 ml 67578 ml Intake Oral 0 ml 0 ml 8027 ml IV Total 50 ml 58588 ml TPN/PPN 425 ml 878 ml Output Urine/Stool Mix 781 ml 781 ml # Voids 3 4 61 # Bowel Movements 3 1 0 10 Exam Laying down on the bed, mildly distressed due to pain no JVD, MMM, no LAD RRR, nl s1, s2 no mrg CTAB, no w,c S,distended, diffuse tenderness,hypoactive BS+ warm, no edema, pulses 2/2 CLAIM ANALYST pump, TPN running IVs and Medications Medications Reviewed: Medications were reviewed in detail Lab and Diagnostics Result Diagram: 03/04/17 0450 03/05/17 0503 Microbiology 02/21/17 Blood culture- No growth to date 02/21/17 Urine culture- Positive Escherichia Coli; Klebsiella Pneumoniae 02/21/17 MRSA screen- positive 02/22/17- Repeat Blood Cultures- no growth to date X-Rays, CTs and MRIs (02/26/17) CT ABDOMEN AND PELVIS WITH CONTRAST IMPRESSION: 1. Small bilateral pleural effusions, left greater than right, increasing volume of ascites and development of diffuse subcutaneous edema. 2. Postoperative changes of partial gastrectomy, cholecystectomy and possible partial bowel resection. Old abdominal wall tract from prior J-tube placement. 3. Bowel distention with air-fluid levels, likely inflammatory with ileus, possibility of partial small bowel obstruction with possible transition in the right upper quadrant in the area of surgical clips. Dictated and approved by: Rio Thornton M.D. on 02/26/2017 at 14:05 ADDENDUM: Following consultation with Dr. Sawyer, the focal area of small bowel narrowing in the right upper quadrant at the level of surgical clips represents a surgical blind ended loop of duodenum and not a focus of small bowel obstruction. Dictated by: Rio Thornton M.D. on 02/26/2017 at 15:02 (02/27/17) US PELVIC SONOGRAM + TRANSVAGINAL SONOGRAM IMPRESSION: 1. Atrophic otherwise ultrasonographically normal uterus. The ovaries were not identified and cannot be evaluated. 2. Ascites is noted. Dictated and approved by: Keny Duvall M.D. on 02/27/2017 at 18:47 . 12-lead ECG Normal sinus rhythm with heart rate of 83; QTc 4 70 Assessment & Plan 61-year-old female with multiple abdominal surgeries due to gastric carcinoma, and history of intra-abdominal sepsis and abscesses with MRSA in the fall of 2015 who presented to the hospital with 3 weeks of worsening abdominal pain and new nausea and emesis x3 starting day prior to admission. 1. Intra-abdominal mass/fluid collection, acute. Present on admission. Active and progressive. ddx: infectious or inflammatory or recurrent malingnancy. CA 125 slightly elevated, uncertain significance. Transvaginal US unremarkable for ovarian pathology. s/p diagnostic paracentesis 03/04, tolerated well. -awaits cultures, cytology, flow cytometry from peritoneal fluid 03/04 -appreciatre General surgery input, no surgical intervention for now -Continue ertapenem, vancomycin and Bactroban (MRSA screen positive) per Infectious Disease. -Dilaudid CLAIM ANALYST for control of abdominal pain 2. UTI, acute. Present on admission. Active. -Urine culture growing- E. coli, Klebsiella. Patient suprapubic pain but no urinary symptoms. -Continue antibiotics, as above -Phenazopyridine added 02/25-02/27. 3. Constipation, chronic. Present on admission. Active, Likely secondary to chronic opiate use. Typically responds to suppositories, per the patient. -no BM yet with current tx-Last bowel movement 03/01 -continue Relistor to counteract opiate induced component of constipation -Schedule miralax and docusate -Enema 02/28, will try again today 4. Insulin using Type II diabetes, chronic. Present on admission. Active -Patient presents with glucose of 192. Goal blood glucose 140-180. -Continue home Lantus at decreased dose, 10U QPM and medium dose correctional insulin -A1c 7.2 5. Acute microcytic, hypochromic anemia. Present mission. Active -Patient presents with a hemoglobin 11.6, a low MCV; review of past admissions does not appear that this is a chronic issue -Iron studies demonstrate deficiency component. -Supplemental iron held thus far due to constipation. -Follow CBC High risk meds: IV dilaudid, vancomycin Disposition: Patient will likely discharge back to [facility] following appropriate diagnostic procedures to characterize her mass GI Prophylaxis: Proton Pump Inhibitor VTE Prophylaxis: Sub-Q Heparin (Unfractionated) VTE Mechanical Devices: Intermittant Pneumatic CD Resuscitation Status: CPR: Attempt Resuscitation Time spent 35min Kati Gibbons MD Mar 05, 2017 10:19
[2017-03-05] MEDS: 0.9% Sodium Chloride 250 ML IV SCH (11:05)
--- NOTE | 2017-03-05 11:31 | PCM.PHAPRO ---
Progress TPN Management: -Day 3 of TPN -macronutrients have been advanced to AA 65gm, Dextrose 220gm, Lipids 40gm per nutrition recommendation -electrolytes have remained stable -Plan: formula for this evening at 2100: PARENTERAL NUTRITION ORDERS 3 05-Mar-17 Standard Hang Time: 2100 Substrates Total kcal: 1408 AMINO ACIDS 65 g DEXTROSE 220 g Total Volume (mL): 1700 LIPIDS 40 g Sterile Water for Injection QS mL To Infuse Over (hrs): 24 Total Volume 1700 mL At at a rate of (mL/hr): 71 Additives Sodium Chloride 60 mEq "typical" daily requirements Sodium Acetate 30 mEq Sodium 50-120mEq Potassium Chloride 40 mEq Potassium 60-120mEq Potassium Phosphate 20 mEq Phosphate 20-40mEq Calcium Gluconate 9 mEq Magnesium 8-32mEq Magnesium Sulfate 16 mEq Calcium 9-22mEq Acetate* 80-120mEq Chloride* 80-120mEq Regular Insulin units *Depending on acid-base status Famotidine 40 mg Multivitamins 1 std dose Insulin Regimen Trace Elements 1 std dose none Thiamine 100 mg Regular Low Intensity Subcut X Folic Acid 1 mg Regular Medium Intensity Subcut Ascorbic Acid mg Regular High Intensity Subcut Regular Insulin Infusion -Bmp, Mg and Phos on order for tomorrow Leesa Knight [facility] Mar 05, 2017 11:31
--- NOTE | 2017-03-05 11:39 | NUR ---
NUTRITION FOLLOW-UP: ASSESS: Pt is a 61 YO female who underwent a distal gastrectomy with Billroth-II reconstruction related to gastric cancer in May of 2016 which was unfortunately complicated by duodenal stump leak. She had a jejunostomy placed 05/27/16. SNF staff report that j-tube removed within last 1 - 2 months. Pt underwent diagnostic paracentesis 03/04, cytology is pending. Pt is reporting an appetite today but continues to have some nausea and abdomen pain. Diet has been advanced to general. Pt continues on TPN and tolerating well. PMHX: Type 2 DM, hyperlipidemia, stroke with left sided weakness, gastric adenocarcinoma. LABS: Reviewed. Glu 170, Ca 8.0, Alb 2.0 MEDS: Reviewed. Miralax, colace, insulin, relistor GI: BM x 4 03/04 SKIN: Devin 12, no major issues noted. WT: 79.6 kg, BMI 33.2kg/m2, admit wt 69.8kg, IBW 47.7kg DIET: General EST. NEEDS: BMI Kcals: 1780-2025kcal/day (22-25kcal/kg) Pro: 60-75g/day (1.2-1.5g/kg IBW) NUTRITION DIAGNOSIS: 1) Inadequate oral intake related to altered GI function as evidence by poor PO intake, pt reporting poor appetite, severe abdominal pain and history of needing J-tube feedings - SLIGHT IMPROVEMENT W/TPN START NUTRITION INTERVENTION: 1) Recommend advance TPN to 220g Dex, 65g AA and 40g lipids to provide 1408kcal and 65g pro (~75% estimated needs). Pharmacy is aware of recommendation. 2) Will monitor for PO intake now that pt's diet has been advanced and adjust TPN macronutrients based on intake 3) If PO intake continues to be minimal recommend advance TPN as tolerated towards goal rate of 300g Dex, 75g AA and 50g lipids to provide 1820kcal and 75g pro (100% estimated needs) MONITOR / EVAL: TPN , PO, wt, GI, diet advc, labs, POC, nutrition status. Will continue to monitor per high nutrition risk guidelines Addendum: 03/06/17 at [address] Will continue current TPN today of 220g Dex, 65g AA and 40g lipids to provide 1408kcal and 65g pro (~75% estimated needs). Pharmacy is aware of recommendation. Pt refused all meals yesterday due to nausea/pain. Pt's Na was low this am so pt's NaCl will be increased in today's TPN per pharmacy.
--- NOTE | 2017-03-05 13:45 | PROG NOTE ---
[address] [address] PROGRESS NOTE PATIENT: FLAQUITO DUBON : 1955 MR#: [id number] ADMIT: 02/21/2017 JOB ID: [id number] DATE: 03/05/2017 REASON FOR FOLLOWUP: Intraabdominal tumor spread, infection, or both. INTERVAL HISTORY: The patient reports she continues to have quite severe abdominal pain which is unrelenting. When she eats, she almost immediately vomits it up. She also notes she no longer is passing stool and thinks that her constipation is part of the reason for her terrible abdominal pain. She has no fevers, chills, or sweats, and she is not short of breath. PHYSICAL EXAMINATION: Reveals a reasonably comfortable woman lying in bed. Temperature 36.6, pulse 79, respiratory rate 18, blood pressure 128/69. She is saturating well on room air. She is awake and alert but in some pain, apparently. Oral cavity is negative. Lungs relatively clear. Cardiac tones without change. Her abdomen is diffusely rather tender with a mass present above and to the left of the umbilicus. No new skin rash. She is being fed via TPN. LABORATORY DATA: Labs include a white count yesterday at 12,000, not repeated today. Today, her creatinine is 0.88, and yesterday's liver function test normal. Procalcitonin continues to be very low at 0.13. Yesterday she underwent a paracentesis to attempt to establish the nature of the conflicts with solid and fluid collections within the abdomen, so fluid was obtained which had 350 white cells. Half were polys and about half lymphocytes. A gram stain and culture have been ordered on that fluid. Unfortunately, they were not ordered at the time the study was done, so and I conferred today, and we went ahead and added a gram stain and culture. A cytology is also pending. No new imaging has been done since an ultrasound on the . IMPRESSION: This remains a very challenging case of a woman who had gastric cancer as well as an intraabdominal abscess within the past year. She has had multiple surgeries and now presents with pain, what feels like a swollen mass above and to the left of the umbilicus. A small amount of peritoneal fluid was seen, and this was aspirated yesterday in hopes of figuring out if this is infection, tumor, or a mixture. RECOMMENDATIONS: 1. Will continue with vancomycin and ertapenem. 2. We await the gram stain culture, cytology, and other studies from yesterday's histopath if there was any from yesterday's biopsy/paracentesis.
[2017-03-05] MEDS: Dextrose 5% 500 ML IV SCH (15:20)
--- NOTE | 2017-03-05 19:32 | NUR ---
Turns / pain pain seems to be controlled with Standard dose UMBRELLA TIPPER Dilaudid. Pt does rub belly during and after moving or when asked about pain. Although pt c/o pain same as yesterday this nurse has noticed that her use of the UMBRELLA TIPPER has decreased and pt seems much more comfortable. Independent Living Specialist in person or over computer has been used for all assessments. Pt aids with turns most of time. Although with PT pt seems to be unable to help much. Care continues.
[2017-03-05] MEDS: Total Parenteral Nutrition 1 BAG IV SCH (21:00)
[2017-03-05] MEDS: HYDROmorphone PCA 0.2 mg/mL 30 mL Inj IV PRN (21:57)
[2017-03-06] VITALS (11 sets, daily range): BP systolic 149–173; BP diastolic 71–82; PULSE 77–84; RESP 16–20; O2SAT 96–97
[2017-03-06] MEDS: Nystatin 100,000 Unit/Gm 15 Gm Powder TOPICAL SCH ×3 (00:34→21:18)
[2017-03-06] MEDS: Heparin 5,000 Unit/mL Inj SUBQ SCH ×3 (00:34→16:28)
[2017-03-06] MEDS: Insulin Human REGular 300 Unit/3 mL Inj SUBQ SCH ×4 (03:23→21:15)
--- NOTE | 2017-03-06 04:02 | NUR ---
INCONTINENT/CONSTIPATED: Pt. has been incontinent of very large urine about 3 X tonight. Was given stool softeners at HS with no result, also given a Fleet enema tonight, no result yet. Passing flatus. Repositioned multiple times in bed per pt's request. Using Dilaudid CITY CLERK for pain control. On going care.
[2017-03-06 06:03] LABS: Magnesium 1.8 mg/dL (1.6-2.6); Phosphorus 3.8 mg/dL (2.5-4.9)
[2017-03-06] MEDS: Vancomycin Inj 1,500 MG in 0.9% Sodium Chloride 500 ML IV SCH (06:19)
[2017-03-06 07:37] LABS: BASOPHILS % (AUTO) 0.2 % (0-3); EOSINOPHILS % (AUTO) 1.4 % (0-5); MONOCYTES % (AUTO) 5.3 % (4-12); Mean Corpuscular Hemoglobin 24.9 pg (27.0-35.0); Mean Corpuscular Volume 80.2 fL (81-100); Platelet Count 713 bil/L (150-400)
[2017-03-06] MEDS: Vancomycin Dose per Pharmacist XX SCH (07:38)
[2017-03-06] MEDS: TPN Per Pharmacist XX SCH (07:38)
[2017-03-06] MEDS: Polyethylene Glycol (PEG) 17 Gm Powder PO SCH ×2 (07:54→20:30)
[2017-03-06] MEDS: Mupirocin 2% 22 Gm Ointment NASAL SCH ×2 (07:54→21:17)
[2017-03-06] MEDS: Ondansetron 2 mg/mL 2 mL Inj IVPUSH PRN ×3 (08:08→21:28)
--- NOTE | 2017-03-06 08:13 | PROG NOTE ---
[address] [address] PROGRESS NOTE PATIENT: FLAQUITO DUBON : 1955 MR#: [id number] ADMIT: 02/21/2017 JOB ID: [id number] DATE: 03/06/2017 SUBJECTIVE: The patient is seen in followup. She had some nausea yesterday, so did not feel like eating anything. She is passing flatus, but had not had a bowel movement yesterday. OBJECTIVE: Temperature 36.5, pulse 77, blood pressure 173/82, saturation 96% on room air. General: She is resting in bed, in no acute distress. Her abdomen is distended, firm in the central upper aspect, soft in the flanks and lower abdomen. There is no erythema of the abdominal wall. There is no drainage from her prior scars. LABORATORY DATA: Gram stain from paracentesis fluid shows no polys, no organisms, and culture shows no growth to date. Cytology is pending. ASSESSMENT AND PLAN: A 61-year-old woman with a history of gastric cancer, status post resection with Billroth-II reconstruction, now with abdominal pain, ascites, inflammatory versus neoplastic mass in the upper abdomen. There is no evidence of infection. Cytology is pending, but I am hopeful that we will get some answers today.
[2017-03-06] MEDS: Ertapenem Inj 1,000 MG in 0.9% Sodium Chloride 50 ML IV SCH (08:29)
[2017-03-06] MEDS: Methylnaltrexone 12 mg/0.6 mL Inj SUBQ SCH (08:30)
--- NOTE | 2017-03-06 09:41 | PCM.PNMED ---
Subjective Date of Service Mar 06, 2017 Subjective pt remained in pain, had 4BM 2days ago, no yesterday had one episode of vomiting 150cc, controlled with nausea awaits cytology, gram stain/culture ngtd Exam Vital Signs Vital Sign - Last Date Time Temp Pulse Resp B/P Pulse Ox O2 Delivery O2 Flow Rate FiO2 03/06/17 07:51 36.9 79 16 156/77 96 Room Air 03/03/17 08:44 2.00 Intake and Output 03/05/17 03/05/17 03/06/17 Cumulative From/Thru 15:00 23:00 07:00 02/21/17 16:49 - 03/06/17 06:52 Intake Total 520 ml 733 ml 61126 ml Output Total 781 ml Balance 520 ml 733 ml 27910 ml Intake Oral 520 ml 100 ml 8647 ml IV Total 50 ml 10192 ml TPN/PPN 583 ml 1461 ml Output Urine/Stool Mix 781 ml # Voids 3 2 66 # Bowel Movements 10 IVs and Medications Medications Reviewed: Medications were reviewed in detail Lab and Diagnostics Result Diagram: 03/06/17 0455 03/06/17 0455 Microbiology 02/21/17 Blood culture- No growth to date 02/21/17 Urine culture- Positive Escherichia Coli; Klebsiella Pneumoniae 02/21/17 MRSA screen- positive 02/22/17- Repeat Blood Cultures- no growth to date X-Rays, CTs and MRIs (02/26/17) CT ABDOMEN AND PELVIS WITH CONTRAST IMPRESSION: 1. Small bilateral pleural effusions, left greater than right, increasing volume of ascites and development of diffuse subcutaneous edema. 2. Postoperative changes of partial gastrectomy, cholecystectomy and possible partial bowel resection. Old abdominal wall tract from prior J-tube placement. 3. Bowel distention with air-fluid levels, likely inflammatory with ileus, possibility of partial small bowel obstruction with possible transition in the right upper quadrant in the area of surgical clips. Dictated and approved by: Rio Thornton M.D. on 02/26/2017 at 14:05 ADDENDUM: Following consultation with Dr. Sawyer, the focal area of small bowel narrowing in the right upper quadrant at the level of surgical clips represents a surgical blind ended loop of duodenum and not a focus of small bowel obstruction. Dictated by: Rio Thornton M.D. on 02/26/2017 at 15:02 (02/27/17) US PELVIC SONOGRAM + TRANSVAGINAL SONOGRAM IMPRESSION: 1. Atrophic otherwise ultrasonographically normal uterus. The ovaries were not identified and cannot be evaluated. 2. Ascites is noted. Dictated and approved by: Keny Duvall M.D. on 02/27/2017 at 18:47 . 12-lead ECG Normal sinus rhythm with heart rate of 83; QTc 4 70 Assessment & Plan 61-year-old female with multiple abdominal surgeries due to gastric carcinoma, and history of intra-abdominal sepsis and abscesses with MRSA in the fall of 2015 who presented to the hospital with 3 weeks of worsening abdominal pain and new nausea and emesis x3 starting day prior to admission. 1. Intra-abdominal mass/fluid collection, acute. Present on admission. Active and progressive. ddx: infectious or inflammatory or recurrent malingnancy. CA 125 slightly elevated, uncertain significance. Transvaginal US unremarkable for ovarian pathology. s/p diagnostic paracentesis 03/04, tolerated well. exudates, culture ngtd -pt is clinically stable, HD stable -awaits cytology, flow cytometry from peritoneal fluid 03/04 -appreciatre General surgery input, no surgical intervention for now -Continue ertapenem, vancomycin and Bactroban (MRSA screen positive) per Infectious Disease. -Dilaudid HR MANAGER for control of abdominal pain 2. UTI, acute. Present on admission. Active. -Urine culture growing- E. coli, Klebsiella. Patient suprapubic pain but no urinary symptoms. -Continue antibiotics, as above -Phenazopyridine added 02/25-02/27. 3. Constipation, chronic. Present on admission. Active, Likely secondary to chronic opiate use. Typically responds to suppositories, per the patient. -last BM03/04 4times, -continue Relistor, for counteract opiate induced component of constipation, -Schedule miralax and docusate -Enema 02/28, 03/05 4. Insulin using Type II diabetes, chronic. Present on admission. Active -Patient presents with glucose of 192. Goal blood glucose 140-180. -Continue home Lantus at decreased dose, 10U QPM and medium dose correctional insulin -A1c 7.2 5. Acute microcytic, hypochromic anemia. Present mission. Active -Patient presents with a hemoglobin 11.6, a low MCV; review of past admissions does not appear that this is a chronic issue -Iron studies demonstrate deficiency component. -Supplemental iron held thus far due to constipation. -Follow CBC High risk meds: IV dilaudid, vancomycin Disposition: Patient will likely discharge back to [facility] following appropriate diagnostic procedures to characterize her mass GI Prophylaxis: Proton Pump Inhibitor VTE Prophylaxis: Sub-Q Heparin (Unfractionated) VTE Mechanical Devices: Intermittant Pneumatic CD Resuscitation Status: CPR: Attempt Resuscitation Time spent 35min Kati Gibbons MD Mar 06, 2017 09:41
[2017-03-06] MEDS: 0.9% Sodium Chloride 250 ML IV SCH (11:19)
--- NOTE | 2017-03-06 12:06 | PCM.PHAPRO ---
Progress -tpn volume decreased and NS concentration increased to 75meq. PARENTERAL NUTRITION ORDERS 4 06-Mar-17 Standard Hang Time: 2100 Substrates Total kcal: 1408 AMINO ACIDS 65 g DEXTROSE 220 g Total Volume (mL): 1000 LIPIDS 40 g Sterile Water for Injection QS mL To Infuse Over (hrs): 24 Total Volume 1000 mL At at a rate of (mL/hr): 42 Additives Sodium Chloride 75 mEq "typical" daily requirements Sodium Acetate 30 mEq Sodium 50-120mEq Potassium Chloride 40 mEq Potassium 60-120mEq Potassium Phosphate 20 mEq Phosphate 20-40mEq Calcium Gluconate 9 mEq Magnesium 8-32mEq Magnesium Sulfate 16 mEq Calcium 9-22mEq Acetate* 80-120mEq Chloride* 80-120mEq Regular Insulin units *Depending on acid-base status Famotidine 40 mg Multivitamins 1 std dose Insulin Regimen Trace Elements 1 std dose none Thiamine 100 mg Regular Low Intensity Subcut X Folic Acid 1 mg Regular Medium Intensity Subcut Ascorbic Acid mg Regular High Intensity Subcut Regular Insulin Infusion Other: Special Instructions: To be infused via central line only. For delay or inturruption of TPN contact the pharmacist for alternative replacement solution. Signature Date: FLAQUITO DUBON [address] [facility] [place] Davila.D Mar 06, 2017 12:06
[2017-03-06] MEDS: Dextrose 5% 500 ML IV SCH (13:03)
--- NOTE | 2017-03-06 15:16 | NUR ---
GI/ACTIVITY LINEN GRADER Dilaudid has been helpful for pain control. Patient rated her pain as 7/10 over her abdomen. Via FELDT scale patient pain level is 0/10 after the pain medicine. Complained of nausea. Vomited X 2. 150 ml of emesis noted. No appetite at this time due to nausea. Zofran 4 mg IV administered. + Xlarge stool, Loose this morning. Turned and repositioned. Dressing in her abdomen is CDI. Patient is on remote tele. Per agent telegrapher patient is on sinus reena; HR-50.
--- NOTE | 2017-03-06 15:28 | NUR ---
Social Work: Continued Discharge Planning D: EMR reviewed. Pt is on day 13 of hospitalizations. SW placed a call to Lana at [facility] and confirmed they are able to accept pt back at discharge. Access given. Paperwork placed in the chart. SW will continue to follow. A:Pt who would benefit from SNF. P: Pt to discharge back to [facility] with Dr. Cortes to follow. Pt and daughter agreeable to plan. Paperwork placed in the chart and access given. SW will continue to follow. COLLIN Anderson
[2017-03-06] MEDS: Insulin GLARgine 100 Unit/mL Syringe SUBQ SCH (21:15)
[2017-03-06] MEDS: Ondansetron 8 mg ODT Tablet PO PRN (21:16)
[2017-03-06] MEDS: Total Parenteral Nutrition 1 BAG IV SCH (21:28)
--- NOTE | 2017-03-06 23:50 | NUR ---
Nausea/Vomiting/Refused Medication This evening during medication administration patient complained of nausea. 8mg zofran tablet was given, but patient vomited before tablet could be dissolved. Charge nurse notified and 4mg zofran IVP was given. Upon reassessment patient states relief. Patient refused to continue with medication administration, stating that if she tried to drink water again, she would get sick. Even medications were unable to be given. Will continue to monitor, and continue Q1 hour checks. Addendum: 03/06/17 at 6039 by NESHA LARA RN notified
[2017-03-07] VITALS (13 sets, daily range): BP systolic 148–163; BP diastolic 75–89; PULSE 75–98; RESP 14–20; O2SAT 96–100
[2017-03-07] MEDS: Heparin 5,000 Unit/mL Inj SUBQ SCH ×3 (01:02→17:57)
--- NOTE | 2017-03-07 02:28 | NUR ---
Missing Dentures This evening, family member states that patients dentures are missing. Entire room checked as well as both garbage cans. Neither this nurse or ON SITE MANAGER have seen patients dentures on this shift. Charge nurse notified of this, will notify day shift and community center director for follow up. Care continues.
[2017-03-07] MEDS: HYDROmorphone PCA 0.2 mg/mL 30 mL Inj IV PRN ×2 (02:52→22:18)
[2017-03-07] MEDS: Insulin Human REGular 300 Unit/3 mL Inj SUBQ SCH ×4 (02:59→22:07)
[2017-03-07 04:29] LABS: BASOPHILS % (AUTO) 0.1 % (0-3); EOSINOPHILS % (AUTO) 1.2 % (0-5); MONOCYTES % (AUTO) 6.4 % (4-12); Mean Corpuscular Hemoglobin 24.6 pg (27.0-35.0); Mean Corpuscular Volume 79.8 fL (81-100); NEUTROPHILS % (AUTO) 78.8 % (40-74); Platelet Count 699 bil/L (150-400)
--- NOTE | 2017-03-07 04:31 | PROG NOTE ---
[address] [address] PROGRESS NOTE PATIENT: FLAQUITO DUBON : 1955 MR#: [id number] ADMIT: 02/21/2017 JOB ID: [id number] INFECTIOUS DISEASE FOLLOWUP NOTE: DATE: 03/06/2017 REASON FOR FOLLOWUP: Intraabdominal fluid collection, infection, tumor or both. INTERVAL HISTORY: The patient reports she feels exactly the same. Her abdominal pain continues to be moderately severe at all times. She is not able to eat by mouth. She is receiving TPN. No fever or chills or trouble breathing. PHYSICAL EXAMINATION: Reveals an afebrile woman. Temperature 36.7, pulse 81, respiratory rate 19, blood pressure 150/73. She is saturating well on room air. She looks like she is chronic pain, but no different than any other day. Lungs: Fairly clear. Cardiac: Tones without murmur. Left chest port is benign and has TPN infusing. Abdomen is firm and at some points hard. There is a mass present just to the left above the umbilicus. LABORATORIES: Include a white count which has jumped up to 15,700 with 82% segs. Creatinine stable 0.8. Procalcitonin is 0.09, which strongly suggests no bacterial infection and no systemic bacterial infection. Gram stain of the peritoneal fluid that was obtained yesterday showed no organisms and there is no growth. The cytology is still pending on that fluid. IMPRESSION: Complex patient with recent gastric cancer as well as multiple intraabdominal abscesses in the past year. Currently awaiting the IR draining analysis to see whether this is tumor, infection or both. RECOMMENDATIONS: 1. We will continue with vancomycin and ertapenem over the weekend. 2. We await the cultures and cytology.
[2017-03-07 04:49] LABS: Magnesium 1.7 mg/dL (1.6-2.6); Phosphorus 3.4 mg/dL (2.5-4.9)
[2017-03-07] MEDS ORDERED: Vancomycin Serum Trough XX ONE (05:30)
--- NOTE | 2017-03-07 05:52 | PCM.PHAPRO ---
Progress Date of Service: Mar 07, 2017 Vancomycin dosing by pharmacy for 61 y/o woman A: * The patient is on vancomycin 1500 mg IV every 24 hours * Trough level today is appropriate at 16.4 mcg/mL * The last two trough levels at this dosing were also appropriate * SCr remaining stable at 0.74 mg/dL today 03/07/17 P: * Continue the current vancomycin dose * Pharmacy to follow-up with culture results Thank you. Fozia Welch Mar 07, 2017 05:52
[2017-03-07] MEDS: Vancomycin Inj 1,500 MG in 0.9% Sodium Chloride 500 ML IV SCH (06:10)
[2017-03-07] MEDS: Vancomycin Dose per Pharmacist XX SCH (08:30)
[2017-03-07] MEDS: TPN Per Pharmacist XX SCH (08:30)
[2017-03-07] MEDS: Mupirocin 2% 22 Gm Ointment NASAL SCH ×2 (08:30→21:51)
[2017-03-07] MEDS: Ertapenem Inj 1,000 MG in 0.9% Sodium Chloride 50 ML IV SCH (09:02)
--- NOTE | 2017-03-07 09:15 | NUR ---
CHACE signed by pt's daughter
--- NOTE | 2017-03-07 10:23 | NUR ---
Social Work: Readiness for Discharge D: EMR reviewed. Pt is on day 14 of hospitalization. on 03/06, SW placed a T/C to Lana at [facility] and confirmed they are able to accept pt back at discharge. Access given. Paperwork in the chart. SW will continue to follow. A:Pt for whom a SNF has been deemed medically necessary. P: Pt to discharge back to [facility] with Dr. Cortes to follow. SW to update [facility] at time of discharge. Pt and daughter agreeable to plan. Paperwork placed in the chart and access given. SW will continue to follow. COLLIN Anderson
[2017-03-07] MEDS: Polyethylene Glycol (PEG) 17 Gm Powder PO SCH ×2 (11:24→21:51)
[2017-03-07] MEDS: Nystatin 100,000 Unit/Gm 15 Gm Powder TOPICAL SCH ×2 (11:26→21:52)
[2017-03-07] MEDS: Ondansetron 8 mg ODT Tablet PO PRN (11:42)
--- NOTE | 2017-03-07 12:24 | NUR ---
nausea / SOB PT worked with pt this a.m. and pt c/o slight SOB after sitting up at the side of bed. Also stated her back hurt. Administered 1 lpm oxygen via nasal cannula. Pt reported this helped. Kept pt on oxygen and will recheck her later.
--- NOTE | 2017-03-07 12:43 | PCM.PNMED ---
Subjective Date of Service Mar 07, 2017 Subjective pain continued, not tolerable for po TPN is running no BM for 2d Exam Vital Signs Vital Sign - Last Date Time Temp Pulse Resp B/P Pulse Ox O2 Delivery O2 Flow Rate FiO2 03/07/17 12:07 Supplement Oxygen 03/07/17 10:14 95 03/07/17 09:43 36.9 16 163/84 96 03/03/17 08:44 2.00 Intake and Output 03/06/17 03/06/17 03/07/17 Cumulative From/Thru 15:00 23:00 07:00 02/21/17 16:49 - 03/07/17 06:27 Intake Total 1610 ml 873 ml 91103 ml Output Total 1238 ml 2019 ml Balance 1610 ml -365 ml 01995 ml Intake Oral 150 ml 8797 ml IV Total 704 ml 121 ml 07655 ml TPN/PPN 906 ml 602 ml 2969 ml Output Urine Total 1238 ml 1238 ml Urine/Stool Mix 781 ml # Voids 3 3 72 # Bowel Movements 1 0 11 Exam Laying down on the bed, mildly distressed due to pain no JVD, MMM, no LAD RRR, nl s1, s2 no mrg CTAB, no w,c S,distended, diffuse tenderness,hypoactive BS+ warm, no edema, pulses 2/2 GUIDANCE COUNSELOR pump, TPN running IVs and Medications Medications Reviewed: Medications were reviewed in detail Lab and Diagnostics Result Diagram: 03/07/1741403/07/175 Microbiology 02/21/17 Blood culture- No growth to date 02/21/17 Urine culture- Positive Escherichia Coli; Klebsiella Pneumoniae 02/21/17 MRSA screen- positive 02/22/17- Repeat Blood Cultures- no growth to date X-Rays, CTs and MRIs (02/26/17) CT ABDOMEN AND PELVIS WITH CONTRAST IMPRESSION: 1. Small bilateral pleural effusions, left greater than right, increasing volume of ascites and development of diffuse subcutaneous edema. 2. Postoperative changes of partial gastrectomy, cholecystectomy and possible partial bowel resection. Old abdominal wall tract from prior J-tube placement. 3. Bowel distention with air-fluid levels, likely inflammatory with ileus, possibility of partial small bowel obstruction with possible transition in the right upper quadrant in the area of surgical clips. Dictated and approved by: Rio Thornton M.D. on 02/26/2017 at 14:05 ADDENDUM: Following consultation with Dr. Sawyer, the focal area of small bowel narrowing in the right upper quadrant at the level of surgical clips represents a surgical blind ended loop of duodenum and not a focus of small bowel obstruction. Dictated by: Rio Thornton M.D. on 02/26/2017 at 15:02 (02/27/17) US PELVIC SONOGRAM + TRANSVAGINAL SONOGRAM IMPRESSION: 1. Atrophic otherwise ultrasonographically normal uterus. The ovaries were not identified and cannot be evaluated. 2. Ascites is noted. Dictated and approved by: Keny Duvall M.D. on 02/27/2017 at 18:47 . 12-lead ECG Normal sinus rhythm with heart rate of 83; QTc 4 70 Assessment & Plan 61-year-old female with multiple abdominal surgeries due to gastric carcinoma, and history of intra-abdominal sepsis and abscesses with MRSA in the fall of 2015 who presented to the hospital with 3 weeks of worsening abdominal pain and new nausea and emesis x3 starting day prior to admission. 1. Intra-abdominal mass/fluid collection, acute. Present on admission. Active and progressive. ddx: infectious or inflammatory or recurrent malingnancy. CA 125 slightly elevated, uncertain significance. Transvaginal US unremarkable for ovarian pathology. s/p diagnostic paracentesis 03/04, tolerated well. exudates, culture ngtd -pt is clinically stable, HD stable -awaits cytology, flow cytometry from peritoneal fluid 03/04 -appreciatre General surgery input, no surgical intervention for now -Continue ertapenem, vancomycin and Bactroban (MRSA screen positive) per Infectious Disease. -Dilaudid GUIDANCE COUNSELOR for control of abdominal pain 2. UTI, acute. Present on admission. Active. -Urine culture growing- E. coli, Klebsiella. Patient suprapubic pain but no urinary symptoms. -Continue antibiotics, as above -Phenazopyridine added 02/25-02/27. 3. Constipation, chronic. Present on admission. Active, Likely secondary to chronic opiate use. Typically responds to suppositories, per the patient. -last BM 03/06 once -continue Relistor, for counteract opiate induced component of constipation, -Schedule miralax and docusate -Enema 02/28, 03/05, will try again 4. Insulin using Type II diabetes, chronic. Present on admission. Active -Patient presents with glucose of 192. Goal blood glucose 140-180. -Continue home Lantus at decreased dose, 10U QPM and medium dose correctional insulin -A1c 7.2 5. Acute microcytic, hypochromic anemia. Present mission. Active -Patient presents with a hemoglobin 11.6, a low MCV; review of past admissions does not appear that this is a chronic issue -Iron studies demonstrate deficiency component. -Supplemental iron held thus far due to constipation. -Follow CBC High risk meds: IV dilaudid, vancomycin Disposition: Patient will likely discharge back to [facility] following appropriate diagnostic procedures to characterize her mass GI Prophylaxis: Proton Pump Inhibitor VTE Prophylaxis: Sub-Q Heparin (Unfractionated) VTE Mechanical Devices: Intermittant Pneumatic CD Resuscitation Status: CPR: Attempt Resuscitation Time spent 35min Kati Gibbons MD Mar 07, 2017 12:43
--- NOTE | 2017-03-07 13:25 | NUR ---
NUTRITION FOLLOW-UP: ASSESS: Pt is a 61 YO female who underwent a distal gastrectomy with Billroth-II reconstruction related to gastric cancer in May 2016 which was unfortunately complicated by duodenal stump leak. She had a jejunostomy placed 05/27/16. SNF staff report that j-tube removed within last 1 - 2 months. Transvaginal US unremarkable for ovarian pathology, s/p diagnostic paracentesis 03/04. Awaits cytology, flow cytometry from peritoneal fluid 03/04. Pt is reporting an appetite today but continues to have some nausea and abdominal pain. Diet has been advanced to general. Pt continues on TPN and tolerating well. PMHX: Type 2 DM, hyperlipidemia, stroke with left sided weakness, gastric adenocarcinoma. LABS: Reviewed. Glu 205, Ca 8.1, Alb 1.9. MEDS: Reviewed. Relistor, MiraLax, Docusate, Melatonin. GI: BM x 1 yesterday. SKIN: Devin 11. No major issues noted. WT: 79.4 kg, BMI 33.2kg/m2, admit wt 69.8kg, IBW 47.7kg DIET: General. TPN: 220g Dex, 65g AA and 40g lipids to provide 1408 kcal and 65 g pro (~75% estimated needs). Pharmacy is aware of recommendation. EST. NEEDS: BMI Kcals: 1780-2025kcal/day (22-25kcal/kg) Pro: 60-75g/day (1.2-1.5g/kg IBW) NUTRITION DIAGNOSIS: 1) Inadequate oral intake related to altered GI function as evidence by poor PO intake, pt reporting poor appetite, severe abdominal pain and history of needing J-tube feedings - SLIGHT IMPROVEMENT W/TPN START. NUTRITION INTERVENTION: 1) Will monitor PO intake and adjust TPN macronutrients based on intake. 3) If PO intake continues to be minimal recommend advance TPN as tolerated towards goal rate of 300g Dex, 75g AA and 50g lipids to provide 1820kcal and 75g pro (100% estimated needs) MONITOR / EVAL: TPN tolerance, PO intake, wt, GI, diet advc, labs, POC, nutrition status. Will continue to monitor per high nutrition risk guidelines.
[2017-03-07] MEDS: 0.9% Sodium Chloride 250 ML IV SCH (14:30)
[2017-03-07] MEDS: Dextrose 5% 500 ML IV SCH (15:20)
--- NOTE | 2017-03-07 16:39 | NUR ---
Constipation Pt has not had a BM today yet. Administered Fleets enema and pt tolerated this well. Waiting for results of enema; pt is incontinent. Addendum: 03/07/17 at 1840 by HIRO HAIR RN No BM yet as of 1840 hrs. Hypoactive BT present in all 4 quadrants. Will pass information onto [facility] rajani RN to continue bowel regimen.
--- NOTE | 2017-03-07 16:39 | PCM.PHAPRO ---
Progress PARENTERAL NUTRITION ORDERS 5 07-Mar-17 Standard Hang Time: 2100 Substrates Total kcal: 1820 AMINO ACIDS 75 g DEXTROSE 300 g Total Volume (mL): 1250 LIPIDS 50 g Sterile Water for Injection QS mL To Infuse Over (hrs): 24 Total Volume 1250 mL At at a rate of (mL/hr): 52 Additives Sodium Chloride 90 mEq "typical" daily requirements Sodium Acetate 30 mEq Sodium 50-120mEq Potassium Chloride 40 mEq Potassium 60-120mEq Potassium Phosphate 20 mEq Phosphate 20-40mEq Calcium Gluconate 9 mEq Magnesium 8-32mEq Magnesium Sulfate 16 mEq Calcium 9-22mEq Acetate* 80-120mEq Chloride* 80-120mEq Regular Insulin units *Depending on acid-base status Famotidine 40 mg Multivitamins 1 std dose Insulin Regimen Trace Elements 1 std dose none Thiamine 100 mg Regular Low Intensity Subcut X Folic Acid 1 mg Regular Medium Intensity Subcut Ascorbic Acid mg Regular High Intensity Subcut Regular Insulin Infusion Other: Special Instructions: To be infused via central line only. For delay or inturruption of TPN contact the pharmacist for alternative replacement solution. Signature Date: FLAQUITO DUBON [address] [facility] Israel Davila Pharm.D Mar 07, 2017 16:39
[2017-03-07] MEDS ORDERED: Total Parenteral Nutrition 1 BAG IV SCH (21:00)
[2017-03-07] MEDS: Total Parenteral Nutrition 1 BAG IV SCH (21:00)
[2017-03-07] MEDS: Insulin GLARgine 100 Unit/mL Syringe SUBQ SCH (22:06)
[2017-03-08] VITALS (14 sets, daily range): BP systolic 171–184; BP diastolic 82–99; PULSE 80–87; RESP 16–18; O2SAT 96–100
[2017-03-08] MEDS: Heparin 5,000 Unit/mL Inj SUBQ SCH ×3 (01:39→16:28)
[2017-03-08] MEDS: Insulin Human REGular 300 Unit/3 mL Inj SUBQ SCH ×4 (03:08→21:35)
--- NOTE | 2017-03-08 05:24 | NUR ---
GI No BM overnight, denies nausea. TPN infusing - appetite decreased. Abdomen painful, needs reinforcement for [employer] use. Genevieve-care done and repositioned for comfort.
[2017-03-08] MEDS: Vancomycin Inj 1,500 MG in 0.9% Sodium Chloride 500 ML IV SCH (05:51)
[2017-03-08] MEDS: Vancomycin Dose per Pharmacist XX SCH (08:30)
[2017-03-08] MEDS: TPN Per Pharmacist XX SCH (08:30)
[2017-03-08] MEDS: 0.9% Sodium Chloride 250 ML IV SCH (10:48)
[2017-03-08] MEDS: Ertapenem Inj 1,000 MG in 0.9% Sodium Chloride 50 ML IV SCH (10:54)
[2017-03-08] MEDS: Polyethylene Glycol (PEG) 17 Gm Powder PO SCH ×2 (10:58→22:21)
[2017-03-08] MEDS: Methylnaltrexone 12 mg/0.6 mL Inj SUBQ SCH (11:04)
--- NOTE | 2017-03-08 11:07 | PCM.PNMED ---
Subjective Date of Service Mar 08, 2017 Subjective abdomen is more distended, pt is more uncomfortable with belly respiratory status stable TPN, MULTIMEDIA SERVICES MANAGER is running no BM yet for >2more days bowel regimen increased, enema, relistor Exam Vital Signs Vital Sign - Last Date Time Temp Pulse Resp B/P Pulse Ox O2 Delivery O2 Flow Rate FiO2 03/08/17 10:29 36.8 86 16 179/90 96 Nasal Cannula 1.00 Intake and Output 03/07/17 03/07/17 03/08/17 Cumulative From/Thru 15:00 23:00 07:00 02/21/17 16:49 - 03/08/17 06:40 Intake Total 2100 ml 629 ml 05991 ml Output Total 2019 ml Balance 2100 ml 629 ml 81729 ml Intake Oral 856 ml 100 ml 9753 ml IV Total 724 ml 113 ml 83552 ml TPN/PPN 520 ml 416 ml 3905 ml Output Urine Total 1238 ml Urine/Stool Mix 781 ml # Voids 2 2 76 # Bowel Movements 0 0 11 Exam Laying down on the bed, mildly distressed due to pain no JVD, MMM, no LAD RRR, nl s1, s2 no mrg CTAB, no w,c S,somewhat more distended, diffuse tenderness,hypoactive BS+ warm, no edema, pulses 2/2 MULTIMEDIA SERVICES MANAGER pump, TPN running IVs and Medications Medications Reviewed: Medications were reviewed in detail Lab and Diagnostics Result Diagram: 03/07/1741403/07/175 Microbiology 02/21/17 Blood culture- No growth to date 02/21/17 Urine culture- Positive Escherichia Coli; Klebsiella Pneumoniae 02/21/17 MRSA screen- positive 02/22/17- Repeat Blood Cultures- no growth to date X-Rays, CTs and MRIs (02/26/17) CT ABDOMEN AND PELVIS WITH CONTRAST IMPRESSION: 1. Small bilateral pleural effusions, left greater than right, increasing volume of ascites and development of diffuse subcutaneous edema. 2. Postoperative changes of partial gastrectomy, cholecystectomy and possible partial bowel resection. Old abdominal wall tract from prior J-tube placement. 3. Bowel distention with air-fluid levels, likely inflammatory with ileus, possibility of partial small bowel obstruction with possible transition in the right upper quadrant in the area of surgical clips. Dictated and approved by: Rio Thornton M.D. on 02/26/2017 at 14:05 ADDENDUM: Following consultation with Dr. Sawyer, the focal area of small bowel narrowing in the right upper quadrant at the level of surgical clips represents a surgical blind ended loop of duodenum and not a focus of small bowel obstruction. Dictated by: Rio Thornton M.D. on 02/26/2017 at 15:02 (02/27/17) US PELVIC SONOGRAM + TRANSVAGINAL SONOGRAM IMPRESSION: 1. Atrophic otherwise ultrasonographically normal uterus. The ovaries were not identified and cannot be evaluated. 2. Ascites is noted. Dictated and approved by: Keny Duvall M.D. on 02/27/2017 at 18:47 . 12-lead ECG Normal sinus rhythm with heart rate of 83; QTc 4 70 Assessment & Plan 61-year-old female with multiple abdominal surgeries due to gastric carcinoma, and history of intra-abdominal sepsis and abscesses with MRSA in the fall of 2015 who presented to the hospital with 3 weeks of worsening abdominal pain and new nausea and emesis x3 starting day prior to admission. 1. Intra-abdominal mass/fluid collection, acute. Present on admission. Active and progressive. ddx: infectious or inflammatory or recurrent malingnancy. CA 125 slightly elevated, uncertain significance. Transvaginal US unremarkable for ovarian pathology. s/p diagnostic paracentesis 03/04, tolerated well. exudates, culture ngtd -pt is clinically stable, HD stable -awaits cytology, flow cytometry from peritoneal fluid 03/04 -appreciatre General surgery input, no surgical intervention for now -Continue ertapenem, vancomycin and Bactroban (MRSA screen positive) per Infectious Disease. -Dilaudid MULTIMEDIA SERVICES MANAGER for control of abdominal pain -please consider therapeutic tab tomorrow if pt develop more ascites, likely reaccumulate given high suspicion of cancer. order for US is in. 2. UTI, acute. Present on admission. Active. -Urine culture growing- E. coli, Klebsiella. Patient suprapubic pain but no urinary symptoms. -Continue antibiotics, as above -Phenazopyridine added 02/25-02/27. 3. Constipation, chronic. Present on admission. Active, Likely secondary to chronic opiate use. Typically responds to suppositories, per the patient. -last BM 03/06 once -continue Relistor, for counteract opiate induced component of constipation, -Schedule miralax and docusate, added ducolax -Enema 02/28, 03/05, will try again on daily basis 4. Insulin using Type II diabetes, chronic. Present on admission. Active -Patient presents with glucose of 192. Goal blood glucose 140-180. -Continue home Lantus at decreased dose, 10U QPM and medium dose correctional insulin -A1c 7.2 5. Acute microcytic, hypochromic anemia. Present mission. Active -Patient presents with a hemoglobin 11.6, a low MCV; review of past admissions does not appear that this is a chronic issue -Iron studies demonstrate deficiency component. -Supplemental iron held thus far due to constipation. -Follow CBC High risk meds: IV dilaudid, vancomycin Disposition: currently waiting to establish long-term plan, based on cytology, pt may need surgery, please coordinate with surgery, ID Half-Way nutrition also has to be discussed if non-surgical option is the plan. Consider palliative care consult in this case Patient will likely discharge back to [facility] following appropriate diagnostic procedures to characterize her mass GI Prophylaxis: Proton Pump Inhibitor VTE Prophylaxis: Sub-Q Heparin (Unfractionated) VTE Mechanical Devices: Intermittant Pneumatic CD Resuscitation Status: CPR: Attempt Resuscitation Time spent 35min Kati Gibbons MD Mar 08, 2017 11:07
[2017-03-08] MEDS: Ondansetron 2 mg/mL 2 mL Inj IVPUSH PRN ×4 (11:09→21:59)
[2017-03-08] MEDS: Nystatin 100,000 Unit/Gm 15 Gm Powder TOPICAL SCH ×2 (11:19→22:22)
[2017-03-08] MEDS: Mupirocin 2% 22 Gm Ointment NASAL SCH ×2 (11:37→21:39)
--- NOTE | 2017-03-08 11:51 | PCM.PHAPRO ---
Progress PARENTERAL NUTRITION ORDERS 6 08-Mar-17 Standard Hang Time: 2100 Substrates Total kcal: 1820 AMINO ACIDS 75 g DEXTROSE 300 g Total Volume (mL): 1250 LIPIDS 50 g Sterile Water for Injection QS mL To Infuse Over (hrs): 24 Total Volume 1250 mL At at a rate of (mL/hr): 52 Additives Sodium Chloride 90 mEq "typical" daily requirements Sodium Acetate 30 mEq Sodium 50-120mEq Potassium Chloride 40 mEq Potassium 60-120mEq Potassium Phosphate 20 mEq Phosphate 20-40mEq Calcium Gluconate 9 mEq Magnesium 8-32mEq Magnesium Sulfate 16 mEq Calcium 9-22mEq Acetate* 80-120mEq Chloride* 80-120mEq Regular Insulin units *Depending on acid-base status Famotidine 40 mg Multivitamins 1 std dose Insulin Regimen Trace Elements 1 std dose none Thiamine 100 mg Regular Low Intensity Subcut X Folic Acid 1 mg Regular Medium Intensity Subcut Ascorbic Acid mg Regular High Intensity Subcut Regular Insulin Infusion Other: Special Instructions: To be infused via central line only. For delay or inturruption of TPN contact the pharmacist for alternative replacement solution. Signature Date: FLAQUITO DUBON [address] [facility] No labs were drawn due to line access issues. Will continue previous TPN with no changes. Mynor See, PharmD Mynor See Mar 08, 2017 11:51
[2017-03-08 12:20] LABS: BASOPHILS % (AUTO) 0.3 % (0-3); EOSINOPHILS % (AUTO) 1.6 % (0-5); MONOCYTES % (AUTO) 5.2 % (4-12); Mean Corpuscular Hemoglobin 25.2 pg (27.0-35.0); NEUTROPHILS % (AUTO) 82.8 % (40-74); Platelet Count 713 bil/L (150-400)
--- NOTE | 2017-03-08 14:54 | DRSVH ---
PROCEDURE: X-RAY KUB ([id number]) INDICATIONS: known abdominal mass severe ileus TECHNIQUE: One view of the abdomen acquired. COMPARISON: [facility], US, ABDOMEN LTD, 03/03/2017, 10:25. [facility], CT, CT ABD PELVIS W CON, 02/26/2017, 13:15. FINDINGS: Surgical changes and devices: None. Bowel: Bowel gas pattern is again seen to be abnormal with a similar degree of ileus pattern over th e mid abdomen, perhaps slightly improved when compared to CT scanning from 02/26/17. Stable postsurgi britton clips right midabdomen, no free air suspected.. Soft tissues: No suspicious abdominal calcifications. Visualized solid organ contours appear normal in size. Bones: No suspicious bony lesions. IMPRESSION: Gukaio-[id number]-improved ileus pattern with reference to the CT scanning late last mo nth, no free air found. Dictated by: Adeel Carrasco M.D. on 03/08/2017 at 14:51 Approved by: Adeel Carrasco M.D. on 03/08/2017 at 14:53
[2017-03-08] MEDS: Dextrose 5% 500 ML IV SCH (15:05)
[2017-03-08] MEDS: HYDROmorphone PCA 0.2 mg/mL 30 mL Inj IV PRN (16:18)
--- NOTE | 2017-03-08 18:12 | NUR ---
GI/Pain/Nausea & Vomiting Pt. was given a mineral fleet enema 30min before administering bisacodyl 10mg suppository this morning. Pt. had BM x2, loose/brown and large. Pt. stated feeling slight relief but still c/o abdominal pain 5/10 through out shift. Abdomen firm round and distended. Pt. was reminded to use her SURGICAL CODER pump because she would forget sometimes. MD ordered tylenol for headache and Pt. stats that helped overall including her abdominal pain. Pt. also vomited x4 on shift and zofran PRN IV push 4mg was used x2 to help control N/V. Vomit characteristic was green/slight brown and liquid. Will continue to monitor.
[2017-03-08] MEDS: Total Parenteral Nutrition 1 BAG IV SCH (20:54)
[2017-03-08] MEDS: Insulin GLARgine 100 Unit/mL Syringe SUBQ SCH (21:56)
[2017-03-09] VITALS (12 sets, daily range): BP systolic 151–170; BP diastolic 78–80; PULSE 64–88; RESP 16–18; O2SAT 94–99
[2017-03-09] MEDS: Heparin 5,000 Unit/mL Inj SUBQ SCH ×3 (00:28→17:21)
--- NOTE | 2017-03-09 00:43 | NUR ---
GI/PAIN; pt given zofran x2 first half of shift with some relief for small emesis x1 and 240cc bile colored emesis x1. Pt was able to take most of her pills Encouraged pt to use physician advisor dilaudid for abd. pain. Sleeping second half of shift.
[2017-03-09] MEDS: Insulin Human REGular 300 Unit/3 mL Inj SUBQ SCH ×4 (01:29→20:30)
[2017-03-09] MEDS: Ondansetron 2 mg/mL 2 mL Inj IVPUSH PRN ×3 (01:36→14:56)
[2017-03-09] MEDS: Vancomycin Inj 1,500 MG in 0.9% Sodium Chloride 500 ML IV SCH (05:02)
[2017-03-09] MEDS: Polyethylene Glycol (PEG) 17 Gm Powder PO SCH ×2 (08:30→21:55)
[2017-03-09] MEDS: TPN Per Pharmacist XX SCH (08:30)
[2017-03-09] MEDS: Vancomycin Dose per Pharmacist XX SCH (08:30)
[2017-03-09] MEDS: Ertapenem Inj 1,000 MG in 0.9% Sodium Chloride 50 ML IV SCH (09:20)
[2017-03-09] MEDS: Nystatin 100,000 Unit/Gm 15 Gm Powder TOPICAL SCH ×2 (10:00→21:55)
[2017-03-09] MEDS: Mupirocin 2% 22 Gm Ointment NASAL SCH ×2 (10:01→20:30)
--- NOTE | 2017-03-09 11:07 | PCM.PHAPRO ---
Progress TPN Per Pharmacy Unable to draw morning labs - adjusting based on afternoon labs on 03/08 PARENTERAL NUTRITION ORDERS 7 09-Mar-17 Standard Hang Time: 2100 Substrates Total kcal: 1820 AMINO ACIDS 75 g DEXTROSE 300 g Total Volume (mL): 1250 LIPIDS 50 g Sterile Water for Injection QS mL To Infuse Over (hrs): 24 Total Volume 1250 mL At at a rate of (mL/hr): 52 Additives Sodium Chloride 110 mEq "typical" daily requirements Sodium Acetate 30 mEq Sodium 50-120mEq Potassium Chloride 40 mEq Potassium 60-120mEq Potassium Phosphate 20 mEq Phosphate 20-40mEq Calcium Gluconate 9 mEq Magnesium 8-32mEq Magnesium Sulfate 16 mEq Calcium 9-22mEq Acetate* 80-120mEq Chloride* 80-120mEq Regular Insulin units *Depending on acid-base status Famotidine 40 mg Multivitamins 1 std dose Insulin Regimen Trace Elements 1 std dose none Thiamine 100 mg Regular Low Intensity Subcut X Folic Acid 1 mg Regular Medium Intensity Subcut Ascorbic Acid mg Regular High Intensity Subcut Regular Insulin Infusion Other: Special Instructions: To be infused via central line only. For delay or inturruption of TPN contact the pharmacist for alternative replacement solution. Signature Date: FLAQUITO DUBON [address] [facility] Elizabeth Colunga PharmD Mar 09, 2017 11:07
[2017-03-09 11:43] LABS: BASOPHILS % (AUTO) 0.4 % (0-3); EOSINOPHILS % (AUTO) 3.1 % (0-5); MONOCYTES % (AUTO) 6.6 % (4-12); Mean Corpuscular Hemoglobin 24.7 pg (27.0-35.0); Mean Corpuscular Volume 80.1 fL (81-100); NEUTROPHILS % (AUTO) 80.9 % (40-74)
--- NOTE | 2017-03-09 11:48 | NUR ---
Social Work: Continued Discharge Planning D: EMR reviewed. Pt is on day 16 of hospitalization. Per MD in AM multi-disciplinary rounds, pt is likely to discharge in 3-4 days. Pt is still on TPN and CONTROLLED AREA CHECKER for pain management. On 03/06, SW placed a T/C to Lana at [facility] [place] and confirmed they are able to accept pt back at discharge. Access given. Paperwork in the chart. SW will continue to follow. A: Pt for whom a SNF has been deemed medically necessary. P: Pt to [facility] back [facility] with Dr. Cortes to follow. SW to update [facility] at time of discharge. Pt and daughter agreeable to plan. Paperwork placed in the chart and access given. SW will continue to follow. COLLIN Anderson
[2017-03-09 12:17] LABS: Magnesium 1.7 mg/dL (1.6-2.6); Phosphorus 2.9 mg/dL (2.5-4.9)
--- NOTE | 2017-03-09 12:53 | PCM.PNMED ---
Subjective Date of Service Mar 09, 2017 Subjective resting comfortable in bed. No fever. Awaiting results of biopsey, still on IV antibiotics. Exam Vital Signs Vital Sign - Last Date Time Temp Pulse Resp B/P Pulse Ox O2 Delivery O2 Flow Rate FiO2 03/09/17 10:30 86 03/09/17 10:07 Supplement Oxygen 03/09/17 10:07 16 98 03/09/17 10:04 36.9 162/79 1.00 Intake and Output 03/08/17 03/08/17 03/09/17 Cumulative From/Thru 15:00 23:00 07:00 02/21/17 16:49 - 03/09/17 06:30 Intake Total 1795 ml 1108 ml 23471 ml Output Total 200 ml 1205 ml 3424 ml Balance 1595 ml -97 ml 60847 ml Intake Oral 500 ml 200 ml 59724 ml IV Total 658 ml 328 ml 94944 ml TPN/PPN 637 ml 580 ml 5122 ml Output Urine Total 465 ml 1703 ml Urine/Stool Mix 781 ml Emesis 200 ml 740 ml 940 ml # Voids 3 3 82 # Bowel Movements 3 14 Exam Skin; clear no rash HENT adequate hydration CV; no murmur, reg Resp; clear anteriorly GI; soft with diffuse tenderness neuro; 2-12 intact, no focal neuro deficits Lab and Diagnostics Result Diagram: 03/09/17 1120 03/09/17 1120 Microbiology 02/21/17 Blood culture- No growth to date 02/21/17 Urine culture- Positive Escherichia Coli; Klebsiella Pneumoniae 02/21/17 MRSA screen- positive 02/22/17- Repeat Blood Cultures- no growth to date X-Rays, CTs and MRIs (02/26/17) CT ABDOMEN AND PELVIS WITH CONTRAST IMPRESSION: 1. Small bilateral pleural effusions, left greater than right, increasing volume of ascites and development of diffuse subcutaneous edema. 2. Postoperative changes of partial gastrectomy, cholecystectomy and possible partial bowel resection. Old abdominal wall tract from prior J-tube placement. 3. Bowel distention with air-fluid levels, likely inflammatory with ileus, possibility of partial small bowel obstruction with possible transition in the right upper quadrant in the area of surgical clips. Dictated and approved by: Rio Thornton M.D. on 02/26/2017 at 14:05 ADDENDUM: Following consultation with Dr. Sawyer, the focal area of small bowel narrowing in the right upper quadrant at the level of surgical clips represents a surgical blind ended loop of duodenum and not a focus of small bowel obstruction. Dictated by: Rio Thornton M.D. on 02/26/2017 at 15:02 (02/27/17) US PELVIC SONOGRAM + TRANSVAGINAL SONOGRAM IMPRESSION: 1. Atrophic otherwise ultrasonographically normal uterus. The ovaries were not identified and cannot be evaluated. 2. Ascites is noted. Dictated and approved by: Keny Duvall M.D. on 02/27/2017 at 18:47 . 12-lead ECG Normal sinus rhythm with heart rate of 83; QTc 4 70 Assessment & Plan 61-year-old female with multiple abdominal surgeries due to gastric carcinoma, and history of intra-abdominal sepsis and abscesses with MRSA in the fall of 2015 who presented to the hospital with 3 weeks of worsening abdominal pain and new nausea and emesis x3 starting day prior to admission. 1. Intra-abdominal mass/fluid collection, acute. Present on admission. Active and progressive. ddx: infectious or inflammatory or recurrent malingnancy. CA 125 slightly elevated, uncertain significance. Transvaginal US unremarkable for ovarian pathology. s/p diagnostic paracentesis 03/04, tolerated well. exudates, culture ngtd -pt is clinically stable, HD stable -awaits cytology, flow cytometry from peritoneal fluid 03/04 -appreciatre General surgery input, no surgical intervention for now -Continue ertapenem, vancomycin and Bactroban (MRSA screen positive) per Infectious Disease, re-evaluate today -Dilaudid HANDLE SEWER for control of abdominal pain -please consider therapeutic tab tomorrow if pt develop more ascites, likely reaccumulate given high suspicion of cancer. order for US is in. 2. UTI, acute. Present on admission. Active. -Urine culture growing- E. coli, Klebsiella. Patient suprapubic pain but no urinary symptoms. -Continue antibiotics, as above -Phenazopyridine added 02/25-02/27. 3. Constipation, chronic. Present on admission. Active, Likely secondary to chronic opiate use. Typically responds to suppositories, per the patient. -last BM 03/06 once -continue Relistor, for counteract opiate induced component of constipation, -Schedule miralax and docusate, added ducolax -Enema 02/28, 03/05, will try again on daily basis 4. Insulin using Type II diabetes, chronic. Present on admission. Active -Patient presents with glucose of 192. Goal blood glucose 140-180. -Continue home Lantus at decreased dose, 10U QPM and medium dose correctional insulin -A1c 7.2 5. Acute microcytic, hypochromic anemia. Present mission. Active -Patient presents with a hemoglobin 11.6, a low MCV; review of past admissions does not appear that this is a chronic issue -Iron studies demonstrate deficiency component. -Supplemental iron held thus far due to constipation. -Follow CBC High risk meds: IV dilaudid, vancomycin Disposition: currently waiting to establish oysterman plan, based on cytology, pt may need surgery, please coordinate with surgery, ID Alf nutrition also has to be discussed if non-surgical option is the plan. Consider palliative care consult in this case Patient will likely discharge back to [facility] following appropriate diagnostic procedures to characterize her mass GI Prophylaxis: Proton Pump Inhibitor VTE Prophylaxis: Sub-Q Heparin (Unfractionated) VTE Mechanical Devices: Intermittant Pneumatic CD Resuscitation Status: CPR: Attempt Resuscitation Deng Menard MD Mar 09, 2017 12:53
[2017-03-09] MEDS: MetoCLOpramide 5 mg/mL 2 mL Inj IVPUSH SCH ×2 (13:32→21:54)
[2017-03-09] MEDS: 0.9% Sodium Chloride 250 ML IV SCH (13:33)
--- NOTE | 2017-03-09 15:03 | NUR ---
NUTRITION FOLLOW-UP: ASSESS: Pt is a 61 YO female who underwent a distal gastrectomy with Billroth-II reconstruction related to gastric cancer in May 2016 which was unfortunately complicated by duodenal stump leak. She had a jejunostomy placed 05/27/16. SNF staff report that j-tube removed within last 1 - 2 months. Transvaginal US unremarkable for ovarian pathology, s/p diagnostic paracentesis 03/04. Continues to await cytology, flow cytometry from peritoneal fluid 03/04 for intra-abdominal mass. MD notes indicate pt may need surgery, and to discuss intermediate nutrition if surgery not an option. PO intake shows mild improvement; continues to have some nausea,vomiting. Pt continues on TPN and tolerating well, advanced today per pharmacy to goal. PMHX: Type 2 DM, hyperlipidemia, stroke with left sided weakness, gastric adenocarcinoma. LABS: Reviewed. Na 136, Glu 272,Ca 8.3, Alb 2.0 MEDS: Reviewed. Relistor, MiraLax, Docusate, Melatonin. GI: BM x 3 -6/4 SKIN: Devin 11. No major issues noted. WT: 79.1 kg, BMI 32.9kg/m2, admit wt 69.8kg, IBW 47.7kg DIET: General. PO 25-75% x 2 meals TPN: 300g Dex, 75g AA and 50g lipids to provide 1820kcal and 75g pro (100% estimated needs) EST. NEEDS: BMI Kcals: 1780-2025kcal/day (22-25kcal/kg) Pro: 60-75g/day (1.2-1.5g/kg IBW) NUTRITION DIAGNOSIS: 1) Inadequate oral intake related to altered GI function as evidence by poor PO intake, pt reporting poor appetite, severe abdominal pain and history of needing J-tube feedings - SLIGHT IMPROVEMENT W/TPN START. NUTRITION INTERVENTION: 1) Continue current TPN: 300g Dex, 75g AA and 50g lipids to provide 1820kcal and 75g pro (100% estimated needs). 2.) Monitor po intake and modify TPN accordingly. If PO intake remains 25-75% or > consider decreasing TPN formulation. MONITOR / EVAL: TPN tolerance, PO intake, wt, GI, diet advc, labs, POC, nutrition status. Will continue to monitor per high nutrition risk guidelines. Addendum: 03/10/17 at [address] Will continue current TPN today providing 100% estimated needs. Pharmacy is aware. Overnight pt experienced increased n/v. PO has been poor. Pt is to have paracentesis today. Will continue to monitor per high nutrition risk guidelines
[2017-03-09] MEDS: HYDROmorphone PCA 0.2 mg/mL 30 mL Inj IV PRN (15:15)
[2017-03-09] MEDS: Dextrose 5% 500 ML IV SCH (15:20)
--- NOTE | 2017-03-09 16:48 | DRSVH ---
PROCEDURE: CT ABDOMEN AND PELVIS WITH CONTRAST ([id number]) INDICATIONS: evaluate intraabdominal mass, ascites TECHNIQUE: After the administration of oral and intravenous contrast, 5 mm thick sections acquired from the diap hragms to the symphysis. 5 mm thick coronal and sagittal reformats were performed. For radiation do se reduction, the following was used: automated exposure control, adjustment of mA and/or kV accordi ng to patient size. COMPARISON: CT abdomen and pelvis 02/26/2017 FINDINGS: Image quality: Excellent. ABDOMEN: Lung bases: Lung bases show left lower lobe consolidation and small effusion of concern for pneumoni a/aspiration. Heart size is normal. Solid organs: Liver and spleen are normal in size and enhancement. Gallbladder is surgically absent . Biliary system is non-dilated. Pancreas enhances normally. No adrenal nodules. Kidneys are norm al in size and enhancement, without hydronephrosis. Peritoneum and bowel: Stomach is distended and does contain contrast/air level. Multiple air-fluid le vels are present throughout moderately dilated small bowel loops. Postoperative changes as previously noted. A moderately large volume of ascites is present. There appear to be peritoneal enhancing nodu les such as along the right upper pelvic wall. Nodes and vessels: No retroperitoneal or mesenteric adenopathy. Aorta and inferior vena cava are no rmal in caliber. Miscellaneous: No ventral hernias. PELVIS: Genitourinary: Bladder wall thickness is normal. Miscellaneous: No inguinal hernias or adenopathy. Bones: No suspicious bony lesions. No vertebral body compression fractures. IMPRESSION: 1. Left lower lobe pulmonary consolidation with small left pleural effusion, nonspecific with possibi lity of pneumonia. 2. Moderate degree of ascites. Enhancing peritoneal nodularity compatible with metastatic deposits fr om previously known gastric carcinoma. 3. Persistent small bowel distention with scattered air-fluid levels compatible with persistent ileus versus partial obstruction. Dictated by: Rio Thornton M.D. on 03/09/2017 at 16:36 Approved by: Rio Thornton M.D. on 03/09/2017 at 16:47
--- NOTE | 2017-03-09 17:05 | PROG NOTE ---
[address] [address] PROGRESS NOTE PATIENT: FLAQUITO DUBON : 1955 MR#: [id number] ADMIT: 02/21/2017 JOB ID: [id number] DATE: 03/09/2017 SUBJECTIVE: The patient is seen in followup. She has done relatively poorly over the past 24 hours with fairly large-volume emesis. She feels better now after ongoing vomiting this morning. The vomitus has been yellowish green. She has no nausea at this time. She does complain of ongoing pain across the upper central abdomen. OBJECTIVE: Temperature 36.9, pulse 86, blood pressure 162/79, saturation 98% on 1 L. General: She is resting in bed, chronically ill-appearing. Abdomen is distended. It is firm across the central upper portion, and soft along both flanks and on the inferior abdomen. Her midline scar is well approximated with no erythema, no drainage. LABORATORIES: White blood cell count 18.0, hematocrit 28.2, platelets cannot be counted because they are clumped. Creatinine 0.71, glucose 272, albumin 2.0. ASSESSMENT AND PLAN: A 61-year-old woman with a history of gastric cancer, now hospitalized with abdominal pain, ascites, inflammatory mass of the anterior intra-abdominal space. Paracentesis has been performed but cytology from that procedure is still pending. Now with increased vomiting, I recommend a CT scan of the abdomen and pelvis again today with oral contrast and IV contrast. The etiology of her intra-abdominal problem remains unclear. I also recommend scheduled Reglan because of potential poor gastric emptying after her prior hemigastrectomy, so that has been ordered.
--- NOTE | 2017-03-09 17:59 | PROG NOTE ---
[address] [address] PROGRESS NOTE PATIENT: FLAQUITO DUBON : 1955 MR#: [id number] ADMIT: 02/21/2017 JOB ID: [id number] DATE: 03/09/2017 REASON FOR FOLLOWUP: Progressive increase in abdominal girth, with severe abdominal pain, etiology unknown. INTERVAL HISTORY: Over the weekend, the patient has continued to have increasing abdominal girth, pain, intermittent vomiting and intermittent constipation. Yesterday, she did have a couple of bowel movements, however, which was an improvement in that direction, but still with persistent vomiting and severe abdominal pain with increasing girth. No fevers, chills, sweats, or cough. PHYSICAL EXAMINATION: Temperature 36.9, pulse 86, respiratory rate 16, blood pressure 162/79, saturating 98% on and off 1 L nasal oxygen. The patient appears to be in some pain and is receiving pain medications. She is awake and alert. Oral cavity with mild pharyngitis which looks as if it certainly could be due to repeated vomiting. There is no exudate noted. Lungs with decreased breath sounds at the bases. Cardiac tones without change. Abdomen: Abdominal girth is clearly increasing and much of the abdominal wall is almost rigid. There is the sensation of a palpable mass left and above the umbilicus. Whether or not there is ascites there is impossible to tell given the hard exterior texture of the abdomen. No skin rash is noted. Remainder of the exam is unchanged. LABS: Reveal a consistent leukocytosis, now 18,000, 81% segs. Her creatinine is 0.71. Her LFTs are normal. Procalcitonin when last checked was 0.09 and all of her procalcitonins have been very low. No recent urinalysis is available. The peritoneal fluid from the had 353 white cells, half were polys and the albumin was 1.5. Cultures from that peritoneal fluid on the are negative. Blood cultures negative. MRSA screen was positive. No new imaging is available. IMPRESSION: This case does not appear to be infected to me, but it is a little unclear what is going on in her peritoneum. Either she has progressive gastric tumor, infection, or a combination. Given her leukocytosis and other issues, I think it is reasonable to continue on at least briefly with antibiotics until we get some additional imaging. RECOMMENDATIONS: 1. Will continue with the current antibiotics which include vancomycin and ertapenem. Note that we have been on these antibiotics now for roughly 11 days, however. 2. We await the additional CT scan. 3. Additional paracentesis may be useful. 4. Note that I called the path lab on multiple occasions and was finally able to find out that no cytology had ever been ordered on the prior aspirates from the which explains why we do not have any cytology results. 5. ID will continue to follow this patient with you.
--- NOTE | 2017-03-09 19:44 | NUR ---
nausea/vomiting/CT scan Pt increased nausea and vomiting this shift, administered PRN Zofran and scheduled Reglan, some improvement, Pt on ROUTEMAN Dilaudid. helped with pain, gave K-pad to help with abdominal discomfort. pt drank and keep down half the contrast required for CT scan today. pt tolerated CT well. Peracentisis rescheduled for tomorrow at 2pm, pt and family aware.
[2017-03-09] MEDS: Total Parenteral Nutrition 1 BAG IV SCH (21:00)
[2017-03-09] MEDS: Insulin GLARgine 100 Unit/mL Syringe SUBQ SCH (22:24)
[2017-03-10] VITALS (17 sets, daily range): BP systolic 119–155; BP diastolic 66–87; PULSE 79–88; RESP 12–20; O2SAT 96–100
[2017-03-10] MEDS: MetoCLOpramide 5 mg/mL 2 mL Inj IVPUSH SCH ×4 (00:32→20:40)
[2017-03-10] MEDS: Heparin 5,000 Unit/mL Inj SUBQ SCH ×3 (00:32→17:46)
[2017-03-10] MEDS: Insulin Human REGular 300 Unit/3 mL Inj SUBQ SCH ×4 (02:57→22:29)
--- NOTE | 2017-03-10 05:09 | NUR ---
nausea/vomiting/pain Pt had episode of vomiting at start of shift. Quickly resolved and Pt had no c/o NV rest of shift. Rec'd routine reglan. Pt using POLICE CAPTAIN SENIOR dilaudid for pain and Kpad which has been helpful. She states pain 3/10 but has been comfortable and sleeping this shift. Pt has been being repositioned q2hrs and tolerating well. Family at bedside early in shift and assisting with translation. Care continues
[2017-03-10] MEDS: Vancomycin Inj 1,500 MG in 0.9% Sodium Chloride 500 ML IV SCH (05:17)
[2017-03-10] MEDS: HYDROmorphone PCA 0.2 mg/mL 30 mL Inj IV PRN (06:43)
[2017-03-10] MEDS: Vancomycin Dose per Pharmacist XX SCH (08:49)
[2017-03-10] MEDS: TPN Per Pharmacist XX SCH (08:49)
[2017-03-10] MEDS: Ertapenem Inj 1,000 MG in 0.9% Sodium Chloride 50 ML IV SCH (08:57)
[2017-03-10] MEDS: Mupirocin 2% 22 Gm Ointment NASAL SCH ×2 (09:03→20:44)
[2017-03-10] MEDS: Polyethylene Glycol (PEG) 17 Gm Powder PO SCH ×2 (09:03→20:46)
[2017-03-10] MEDS: Nystatin 100,000 Unit/Gm 15 Gm Powder TOPICAL SCH ×2 (09:03→20:44)
--- NOTE | 2017-03-10 09:20 | NUR ---
CHACE: Asked WOOD PLANER to follow up with family regarding CHACE
--- NOTE | 2017-03-10 10:41 | PCM.PHAPRO ---
Progress TPN per Pharmacy no changes necessary PARENTERAL NUTRITION ORDERS 8 10-Mar-17 Standard Hang Time: 2100 Substrates Total kcal: 1820 AMINO ACIDS 75 g DEXTROSE 300 g Total Volume (mL): 1250 LIPIDS 50 g Sterile Water for Injection QS mL To Infuse Over (hrs): 24 Total Volume 1250 mL At at a rate of (mL/hr): 52 Additives Sodium Chloride 110 mEq "typical" daily requirements Sodium Acetate 30 mEq Sodium 50-120mEq Potassium Chloride 40 mEq Potassium 60-120mEq Potassium Phosphate 20 mEq Phosphate 20-40mEq Calcium Gluconate 9 mEq Magnesium 8-32mEq Magnesium Sulfate 16 mEq Calcium 9-22mEq Acetate* 80-120mEq Chloride* 80-120mEq Regular Insulin units *Depending on acid-base status Famotidine 40 mg Multivitamins 1 std dose Insulin Regimen Trace Elements 1 std dose none Thiamine 100 mg Regular Low Intensity Subcut X Folic Acid 1 mg Regular Medium Intensity Subcut Ascorbic Acid mg Regular High Intensity Subcut Regular Insulin Infusion Other: Special Instructions: To be infused via central line only. For delay or inturruption of TPN contact the pharmacist for alternative replacement solution. Signature Date: FLAQUITO DUBON [address] [facility] Elizabeth Colunga PharmD Mar 10, 2017 10:41
[2017-03-10] MEDS: Methylnaltrexone 12 mg/0.6 mL Inj SUBQ SCH (10:52)
[2017-03-10] MEDS: 0.9% Sodium Chloride 250 ML IV SCH (11:13)
--- NOTE | 2017-03-10 13:04 | NUR ---
No Nausea/Vomiting/Pain Pt has not had any nausea today, given scheduled antiemetics. Pt up in the chair now, waiting for scheduled paracentesis at 1400. Family at bedside all shift. Pt has reported 7/10 abd pain, Dilaudid CASE ASSISTANT helpful for pain. Cont to monitor.
[2017-03-10] MEDS: Dextrose 5% 500 ML IV SCH (14:24)
--- NOTE | 2017-03-10 16:06 | PCM.PNMED ---
Subjective Date of Service Mar 10, 2017 Subjective In bed, daughter in law is trying to get her to eat a bit. Patient says the abdominal pain is a bit better. Repeat paracentesis don, > 3 liters obtained. I called lab , I added a protein , glucose and LDH. Flow cytometry and cell count already ordered. Exam Vital Signs Vital Sign - Last Date Time Temp Pulse Resp B/P Pulse Ox O2 Delivery O2 Flow Rate FiO2 03/10/17 15:36 83 16 119/67 03/10/17 15:34 36.5 100 Room Air 03/10/17 09:04 1.00 Intake and Output 03/09/17 03/09/17 03/10/17 Cumulative From/Thru 15:00 23:00 07:00 02/21/17 16:49 - 03/10/17 05:35 Intake Total 1428 ml 1186 ml 27102 ml Output Total 1670 ml 400 ml 5494 ml Balance -242 ml 786 ml 84793 ml Intake Oral 600 ml 460 ml 86646 ml IV Total 204 ml 116 ml 40053 ml TPN/PPN 624 ml 610 ml 6356 ml Output Urine Total 1220 ml 2923 ml Urine/Stool Mix 781 ml Emesis 450 ml 400 ml 1790 ml # Voids 2 2 86 # Bowel Movements 0 0 14 Exam Skin; clear no rash HENT adequate hydration CV; no murmur, reg Resp; clear anteriorly GI; firm hardness to anterior abdomen, bs present, diffuse tenderness neuro; 2-12 intact, no focal neuro deficits Lab and Diagnostics Result Diagram: 03/09/17 1120 03/10/17 0835 Microbiology 02/21/17 Blood culture- No growth to date 02/21/17 Urine culture- Positive Escherichia Coli; Klebsiella Pneumoniae 02/21/17 MRSA screen- positive 02/22/17- Repeat Blood Cultures- no growth to date X-Rays, CTs and MRIs (02/26/17) CT ABDOMEN AND PELVIS WITH CONTRAST IMPRESSION: 1. Small bilateral pleural effusions, left greater than right, increasing volume of ascites and development of diffuse subcutaneous edema. 2. Postoperative changes of partial gastrectomy, cholecystectomy and possible partial bowel resection. Old abdominal wall tract from prior J-tube placement. 3. Bowel distention with air-fluid levels, likely inflammatory with ileus, possibility of partial small bowel obstruction with possible transition in the right upper quadrant in the area of surgical clips. Dictated and approved by: Rio Thornton M.D. on 02/26/2017 at 14:05 ADDENDUM: Following consultation with Dr. Sawyer, the focal area of small bowel narrowing in the right upper quadrant at the level of surgical clips represents a surgical blind ended loop of duodenum and not a focus of small bowel obstruction. Dictated by: Rio Thornton M.D. on 02/26/2017 at 15:02 (02/27/17) US PELVIC SONOGRAM + TRANSVAGINAL SONOGRAM IMPRESSION: 1. Atrophic otherwise ultrasonographically normal uterus. The ovaries were not identified and cannot be evaluated. 2. Ascites is noted. Dictated and approved by: Keny Duvall M.D. on 02/27/2017 at 18:47 . 12-lead ECG Normal sinus rhythm with heart rate of 83; QTc 4 70 Assessment & Plan 61-year-old female with multiple abdominal surgeries due to gastric carcinoma, and history of intra-abdominal sepsis and abscesses with MRSA in the fall of 2016 who presented to the hospital with 3 weeks of worsening abdominal pain and new nausea and emesis x3 starting day prior to admission. 1. Intra-abdominal mass/fluid collection, acute. Present on admission. Active and progressive. -ddx: infectious or inflammatory or recurrent malingnancy. CA 125 slightly elevated, uncertain significance. -awaits cytology, flow cytometry from peritoneal fluid 03/10/17 and other studies -Continue ertapenem, vancomycin and Bactroban (MRSA screen positive) per Infectious Disease -Dilaudid PROCESS HELPER for control of abdominal pain 2. UTI, acute. Present on admission. resolved. -Urine culture growing- E. coli, Klebsiella. Patient suprapubic pain but no urinary symptoms. -Phenazopyridine added 02/25-02/27. 3. Constipation, chronic. Present on admission. Active, -Likely secondary to chronic opiate use. Typically responds to suppositories, per the patient. -continue Relistor, for counteract opiate induced component of constipation, -Schedule miralax and docusate, added ducolax -Enema 02/28, 03/05, will try again on daily basis if needed 4. Insulin using Type II diabetes, chronic. Present on admission. Active -Patient presents with glucose of 192. Goal blood glucose 140-180. -Continue home Lantus at decreased dose, 10U QPM and medium dose correctional insulin -A1c 7.2 5. Acute microcytic, hypochromic anemia. Present mission. Active -Patient presents with a hemoglobin 11.6, a low MCV; review of past admissions does not appear that this is a chronic issue -Iron studies demonstrate deficiency component. -Supplemental iron held thus far due to constipation. -Follow CBC 6. Nutrition -continue TPN High risk meds: IV dilaudid, vancomycin Disposition: currently waiting to establish group home plan, based on cytology, pt may need surgery, please coordinate with surgery, ID Group Home nutrition also has to be discussed if non-surgical option is the plan. Consider palliative care consult in this case Patient will likely discharge back to [facility] following appropriate diagnostic procedures to characterize her mass GI Prophylaxis: Proton Pump Inhibitor VTE Prophylaxis: Sub-Q Heparin (Unfractionated) VTE Mechanical Devices: Intermittant Pneumatic CD Resuscitation Status: CPR: Attempt Resuscitation Deng Menard MD Mar 10, 2017 16:06
--- NOTE | 2017-03-10 16:16 | NUR ---
Paracentesis: 3,800 mLs of greenish yellow cloudy fluid removed Paracentesis performed with brick yard hand. Tolerated procedure well. Catheter removed intact and pressure held to site x 15 minutes. Band aid dressing applied. No bleeding or hematoma. Dr. House later added lab orders to test peritoneal fluid for fluid cell count and gram stain culture. Confirmed with Lab dept that they are able to process those orders with the peritoneal fluid already collected today. Dr. House notified. Report to primary RN. Results called to Ultrasound.
--- NOTE | 2017-03-10 16:19 | DRSVH ---
PROCEDURE: US GUIDED PARACENTESIS, PRIMARY ([id number]) INDICATIONS: gastric cancer, ascites, peritoneal carcinomatosis TECHNIQUE: The indications, alternatives, benefits, risks, and complications of the procedure were explained to the patient. Written informed consent was obtained and placed in the chart. The abdomen and pelvis were examined sonographically, and an appropriate site was chosen for paracentesis. The skin was pre pared and draped in the usual sterile fashion, and 1% lidocaine was infiltrated from the skin down th rough the peritoneal surface. A 19-gauge catheter-covered needle was then introduced into the perito kiki space, the catheter was advanced and the needle was withdrawn, and thereafter peritoneal fluid w as withdrawn. The catheter was then removed and a dressing was applied. The fluid was discarded if the clinician did not order diagnostic testing of the fluid. The attending physician was present, an d personally performed the procedure. COMPARISON: [facility], US, US GUIDED PARACENTESIS, 03/04/2017, 10:31. FINDINGS: Access site: Midline pelvis Needle: One-Step centesis catheter with introducer needle. Fluid volume and description: 3.8 L of clear peritoneal fluid. Fluid sent for diagnostic testing: Fluid sent for cytology, multiple chemistry panels and therapeuti c drainage. Medications: 1% lidocaine for local anaesthesia. Complications: None. IMPRESSION: Successful ultrasound-guided paracentesis. Dictated by: Jimmy EDDY Interpreted: Alfredo Flynn MD on 03/10/2017 at 16:18 Transcribed by: SIMONE on 03/10/2017 at 16:18 Approved by: Alfredo Flynn M.D. on 03/11/2017 at 12:12
--- NOTE | 2017-03-10 16:20 | PROG NOTE ---
[address] [address] PROGRESS NOTE PATIENT: FLAQUITO DUBON : 1955 MR#: [id number] ADMIT: 02/21/2017 JOB ID: [id number] DATE: 03/10/2017 INFECTIOUS DISEASE FOLLOW UP NOTE: REASON FOR FOLLOWUP: Extensive peritoneal fluid collection related to malignancy, infection or both. INTERVAL HISTORY: Today, the patient is having a bedside paracentesis. So far, about 4 L of light greenish fluid have been drained from her peritoneal cavity and the drainage continues. The patient reports as the fluid is drained, her abdominal pain is receding. She has had no fevers, chills, sweats, cough or chest pain today. PHYSICAL EXAMINATION: Reveals an afebrile woman, temperature 36.9, pulse 84, respiratory rate 16, blood pressure 155/81. Her examination is basically unchanged from prior except that her abdomen is much less distended and painful even as the paracentesis continues. Her mental status is sharp and her lungs are clear. As noted, her abdomen is much less tender and much less swollen following the massive paracentesis which is ongoing. LABORATORIES: Include a white count of 18,000 yesterday which has not changed. Platelets 218. Fungitell negative. Our last sample of peritoneal fluid had 350 white cells, 50% were polys. The cultures from that fluid last obtained on the have been negative now almost five full days. IMPRESSION: It seems unlikely that there is an ongoing infection within her peritoneum but we await the results from this paracentesis. The patient most likely has progressive gastric tumor with peritoneal implants and fluid production though a superimposed infection is certainly not impossible. RECOMMENDATIONS: 1. I continue with vanc and ertapenem for at least another day or two while we await the results of the paracentesis. 2. I have written for cell count and cultures. I note that Dr. Sawyer has already written for cytology. 3. Will continue to follow this patient with you at least the next couple days until we have back some culture and cytology information.
--- NOTE | 2017-03-10 21:08 | NUR ---
EMESIS: Just previous to HS meds, gave 10 mg of IV Reglan, then gave po HS medications, but Pt. immediately had an emesis about 200 ml with all meds that she took included in emesis. Will wait until later tonight and give meds again. On going care. Addendum: 03/10/17 at 2312 by PRESLEY CASTILLO RN (NELLY) ADDENDUM: EMESIS: Pt. had a second emesis at about 2230, about 100 ml liquid. Given 8 mg of IV Reglan. Cool wash cloth to the forehead. On going care.
[2017-03-10] MEDS: Total Parenteral Nutrition 1 BAG IV SCH (21:24)
[2017-03-10] MEDS: Insulin GLARgine 100 Unit/mL Syringe SUBQ SCH (22:29)
[2017-03-10] MEDS: Ondansetron 2 mg/mL 2 mL Inj IVPUSH PRN (22:40)
[2017-03-11] VITALS (11 sets, daily range): BP systolic 131–161; BP diastolic 62–77; PULSE 75–85; RESP 16–18; O2SAT 96–99
[2017-03-11] MEDS: Heparin 5,000 Unit/mL Inj SUBQ SCH ×3 (00:40→17:18)
[2017-03-11] MEDS: MetoCLOpramide 5 mg/mL 2 mL Inj IVPUSH SCH ×4 (02:05→21:41)
[2017-03-11] MEDS: Insulin Human REGular 300 Unit/3 mL Inj SUBQ SCH ×4 (03:08→22:43)
[2017-03-11] MEDS ORDERED: Vancomycin Serum Trough XX ONE (05:00)
[2017-03-11 07:15] LABS: Vancomycin, Trough 14.5 mcg/mL
[2017-03-11] MEDS: Vancomycin Inj 1,500 MG in 0.9% Sodium Chloride 500 ML IV SCH (07:30)
[2017-03-11] MEDS: HYDROmorphone PCA 0.2 mg/mL 30 mL Inj IV PRN (07:40)
[2017-03-11] MEDS: TPN Per Pharmacist XX SCH (08:00)
[2017-03-11] MEDS: Vancomycin Dose per Pharmacist XX SCH (08:30)
--- NOTE | 2017-03-11 08:48 | PROG NOTE ---
[address] [address] PROGRESS NOTE PATIENT: FLAQUITO DUBON : 1955 MR#: [id number] ADMIT: 02/21/2017 JOB ID: [id number] DATE: 03/11/2017 SUBJECTIVE: The patient is seen in followup. She feels better today after paracentesis yesterday. During that procedure, 3.8 L of clear yellow fluid was aspirated and sent for testing including cytology and cell count. At this time, the fluid was sent to [facility], since the previous sample was not successfully run for cytology. This morning, she has no nausea but she did reportedly have vomiting overnight. OBJECTIVE: Temperature 36.8, pulse 81, blood pressure 146/73, saturation 97% on room air. General: She is resting in bed, slightly drowsy, in no acute distress. Her abdomen is mildly distended. She has firm tissue by palpation in the central abdomen, stable from before. There is decreased ascites fluid by palpation. There is no erythema of the abdominal wall. LABORATORY DATA: Creatinine 0.71, glucose 215. ASSESSMENT/PLAN: A 61-year-old woman with gastric cancer, new ascites, abdominal pain, peritoneal nodularity versus mass versus inflammatory change. I think it is much more likely that she has recurrent cancer. Yesterday's fluid was sent for cytology, so hopefully we will have results of that within 24 hours from now. I spoke with the daughter about her prognosis if this does represent recurrent cancer. She understands that this disease would not be resectable and options would be palliative chemotherapy versus no treatment. I would like Shoe Associate to meet with her daughter, Mary, today. Mary does not have formal durable power of environmental health and safety manager, but she tells me this morning that the patient does not want to know about the exact nature of her disease or prognosis, and requests that biopsy results be shared with Mary alone. I would like Shoe Associate to meet with her and work on durable power of environmental health and safety manager for Mary if appropriate.
--- NOTE | 2017-03-11 09:04 | PCM.PNMED ---
Subjective Date of Service Mar 11, 2017 Subjective Large volume paracentesis yesterday, about 4 liters , with significant improvement in patients abdominal pain. No other problems overnight. Spoke with and updated patient's daughter SUSANNE this AM. Exam Vital Signs Vital Sign - Last Date Time Temp Pulse Resp B/P Pulse Ox O2 Delivery O2 Flow Rate FiO2 03/11/17 06:19 18 97 03/11/17 06:18 81 03/11/17 04:35 36.8 146/73 Room Air 03/10/17 09:04 1.00 Intake and Output 03/10/17 03/10/17 03/11/17 Cumulative From/Thru 15:00 23:00 07:00 02/21/17 16:49 - 03/11/17 06:19 Intake Total 991 ml 600 ml 1329 ml 16056 ml Output Total 4786 ml 400 ml 88536 ml Balance 991 ml -4186 ml 929 ml 40616 ml Intake Oral 600 ml 250 ml 97872 ml IV Total 598 ml 187 ml 52690 ml TPN/PPN 393 ml 892 ml 7641 ml Output Urine Total 986 ml 3909 ml Urine/Stool Mix 781 ml Emesis 400 ml 2190 ml Other 3800 ml 3800 ml # Voids 2 2 90 # Bowel Movements 0 14 Exam Skin; clear no rash HENT adequate hydration, no oral lessions CV; no murmur, reg, no sig edema, no JVD Resp; clear anteriorly GI; firm hardness to anterior abdomen, bs present, still runner but less so neuro; 2-12 intact, no focal neuro deficits Lab and Diagnostics Result Diagram: 03/09/17 1120 03/11/17 0641 Microbiology 02/21/17 Blood culture- No growth to date 02/21/17 Urine culture- Positive Escherichia Coli; Klebsiella Pneumoniae 02/21/17 MRSA screen- positive 02/22/17- Repeat Blood Cultures- no growth to date X-Rays, CTs and MRIs (02/26/17) CT ABDOMEN AND PELVIS WITH CONTRAST IMPRESSION: 1. Small bilateral pleural effusions, left greater than right, increasing volume of ascites and development of diffuse subcutaneous edema. 2. Postoperative changes of partial gastrectomy, cholecystectomy and possible partial bowel resection. Old abdominal wall tract from prior J-tube placement. 3. Bowel distention with air-fluid levels, likely inflammatory with ileus, possibility of partial small bowel obstruction with possible transition in the right upper quadrant in the area of surgical clips. Dictated and approved by: Rio Thornton M.D. on 02/26/2017 at 14:05 ADDENDUM: Following consultation with Dr. Sawyer, the focal area of small bowel narrowing in the right upper quadrant at the level of surgical clips represents a surgical blind ended loop of duodenum and not a focus of small bowel obstruction. Dictated by: Rio Thornton M.D. on 02/26/2017 at 15:02 (02/27/17) US PELVIC SONOGRAM + TRANSVAGINAL SONOGRAM IMPRESSION: 1. Atrophic otherwise ultrasonographically normal uterus. The ovaries were not identified and cannot be evaluated. 2. Ascites is noted. Dictated and approved by: Keny Duvall M.D. on 02/27/2017 at 18:47 . 12-lead ECG Normal sinus rhythm with heart rate of 83; QTc 4 70 Assessment & Plan 61-year-old female with multiple abdominal surgeries due to gastric carcinoma, and history of intra-abdominal sepsis and abscesses with MRSA in the fall of 2016 who presented to the hospital with 3 weeks of worsening abdominal pain and new nausea and emesis x3 starting day prior to admission. 1. Intra-abdominal mass/fluid collection, acute. Present on admission. Active and progressive. -ddx: infectious or inflammatory or recurrent malingnancy. CA 125 slightly elevated, uncertain significance. -awaits cytology, flow cytometry from peritoneal fluid 03/10/17 and other studies -Continue ertapenem, vancomycin and Bactroban (MRSA screen positive) per Infectious Disease -Dilaudid SPECIAL MACHINE STITCHER for control of abdominal pain 2. UTI, acute. Present on admission. resolved. -Urine culture growing- E. coli, Klebsiella. Patient suprapubic pain but no urinary symptoms. . 3. Constipation, chronic. Present on admission. Active, -Likely secondary to chronic opiate use. Typically responds to suppositories, per the patient. -continue Relistor, for counteract opiate induced component of constipation, -Schedule miralax and docusate, added ducolax -Enema 02/28, 03/05, will try again on daily basis if needed 4. Insulin using Type II diabetes, chronic. Present on admission. Active -Patient presents with glucose of 192. Goal blood glucose 140-180. -Continue home Lantus at decreased dose, 10U QPM and medium dose correctional insulin -A1c 7.2 5. Acute microcytic, hypochromic anemia. Present mission. Active -Patient presents with a hemoglobin 11.6, a low MCV; review of past admissions does not appear that this is a chronic issue -Iron studies demonstrate deficiency component. -Supplemental iron held thus far due to constipation. -Follow CBC 6. Nutrition -continue TPN High risk meds: IV dilaudid, vancomycin Disposition: currently waiting to establish residential plan, based on cytology, pt may need surgery, please coordinate with surgery, ID Snf nutrition also has to be discussed if non-surgical option is the plan. Consider palliative care consult in this case Patient will likely discharge back to [facility] following appropriate diagnostic procedures to characterize her mass disposition; -[facility] -oncologist is Dr. Garber GI Prophylaxis: Proton Pump Inhibitor VTE Prophylaxis: Sub-Q Heparin (Unfractionated) VTE Mechanical Devices: Intermittant Pneumatic CD Resuscitation Status: CPR: Attempt Resuscitation Deng Menard MD Mar 11, 2017 09:04
[2017-03-11] MEDS: Ertapenem Inj 1,000 MG in 0.9% Sodium Chloride 50 ML IV SCH (10:01)
[2017-03-11] MEDS: Polyethylene Glycol (PEG) 17 Gm Powder PO SCH ×2 (10:03→22:58)
[2017-03-11] MEDS: Nystatin 100,000 Unit/Gm 15 Gm Powder TOPICAL SCH ×2 (10:07→22:49)
--- NOTE | 2017-03-11 10:20 | PCM.PHAPRO ---
Progress TPN per Pharmacy TPN #9, will remove thiamine and folic acid from bag PARENTERAL NUTRITION ORDERS 9 11-Mar-17 Standard Hang Time: 2100 Substrates Total kcal: 1820 AMINO ACIDS 75 g DEXTROSE 300 g Total Volume (mL): 1250 LIPIDS 50 g Sterile Water for Injection QS mL To Infuse Over (hrs): 24 Total Volume 1250 mL At at a rate of (mL/hr): 52 Additives Sodium Chloride 110 mEq "typical" daily requirements Sodium Acetate 30 mEq Sodium 50-120mEq Potassium Chloride 40 mEq Potassium 60-120mEq Potassium Phosphate 20 mEq Phosphate 20-40mEq Calcium Gluconate 9 mEq Magnesium 8-32mEq Magnesium Sulfate 16 mEq Calcium 9-22mEq Acetate* 80-120mEq Chloride* 80-120mEq Regular Insulin units *Depending on acid-base status Famotidine 40 mg Multivitamins 1 std dose Insulin Regimen Trace Elements 1 std dose none Thiamine mg Regular Low Intensity Subcut X Folic Acid mg Regular Medium Intensity Subcut Ascorbic Acid mg Regular High Intensity Subcut Regular Insulin Infusion Other: Special Instructions: To be infused via central line only. For delay or inturruption of TPN contact the pharmacist for alternative replacement solution. Signature Date: FLAQUITO DUBON [address] [facility] Elizabeth Colunga PharmD Mar 11, 2017 10:20
[2017-03-11] MEDS: Ondansetron 2 mg/mL 2 mL Inj IVPUSH PRN (10:29)
[2017-03-11] MEDS: Mupirocin 2% 22 Gm Ointment NASAL SCH ×2 (10:29→22:49)
--- NOTE | 2017-03-11 11:29 | NUR ---
Social Work- Continued D/C Planning Data: EMR reviewed. Pt is on day 18 of hospitalization for bowel obstruction, intra abdominal infection per H&P. Pt is not medically ready for discharge. Pt underwent paracentesis, results are pending. Pt discussed in multi-disciplinary rounds. SW received order from MD regarding DPOA follow up. Per RN, pt's daughter Mary would like to pursue DPOA and wants to meet with NATIONAL COVERAGE SPECIALIST. T/C to Mary regarding DPOA and CHACE, as pt is due for CHACE and pt was unable to sign earlier today. Mary requested meeting with NATIONAL COVERAGE SPECIALIST in person at pt's bedside with machining engineer to review DPOA paperwork and CHACE. Mary and NATIONAL COVERAGE SPECIALIST coordinated a meeting time for tomorrow 03/12 at 1600, as Mary is arriving at 1600 today 03/11 and NATIONAL COVERAGE SPECIALIST has meeting from [id number]. Mary agreeable to plan. Pt has been accepted at [facility] with Sebastian to follow pending clinical course. SW will continue to follow for changes in discharge plan as clinical course evolves. Assessment: Pt who is awaiting paracentesis results to determine plan of care. Plan: NATIONAL COVERAGE SPECIALIST to meet with pt and pt's daughter Mary at bedside tomorrow at 1600 regarding CHACE and DPOA. Pt has been accepted at [facility] with Sebastian to follow pending clinical course. SW will continue to follow. COLLIN Fung
--- NOTE | 2017-03-11 11:36 | NUR ---
CHACE Pt's daughter requested HOROLOGIST APPRENTICE meet with her at bedside 03/12/ at 1600 to review CHACE with director part. HOROLOGIST APPRENTICE agreed. Rita Martinez HOROLOGIST APPRENTICE
--- NOTE | 2017-03-11 13:04 | NUR ---
NUTRITION FOLLOW-UP: ASSESS: Pt admit with intraabdominal mass; ddx include infectious vs inflammatory v recurrent malignancy, awaiting cytology. TPN continues at goal, pt with poor oral intake x 2days, recommend continue TPN at goal rate until po intake improves. Noted improvement in abdominal pain today s/p removal 4L s/p paracentesis. PMHX: Type 2 DM, hyperlipidemia, stroke with left sided weakness, gastric adenocarcinoma,gastrectomy w/reconstruction. LABS: Reviewed. Na 136, Glu 272,Ca 8.3, Alb 2.0 MEDS: Reviewed. Relistor, MiraLax, Docusate, Melatonin,dilaudid GI: Constipation.BM x 3 -6/4 SKIN: Devin 11. No major issues noted. WT: 79.0 kg, BMI 32.9kg/m2, admit wt 69.8kg, IBW 47.7kg DIET: General. PO 0-25% x 24 hrs TPN: 300g Dex, 75g AA and 50g lipids to provide 1820kcal and 75g pro (100% estimated needs) EST. NEEDS: BMI Kcals: 1780-2025kcal/day (22-25kcal/kg) Pro: 60-75g/day (1.2-1.5g/kg IBW) NUTRITION DIAGNOSIS: 1) Inadequate oral intake related to altered GI function as evidence by poor PO intake, pt reporting poor appetite, severe abdominal pain and history of needing J-tube feedings - PERSISTS. Pt remains on TPN. NUTRITION INTERVENTION: 1) Continue current TPN: 300g Dex, 75g AA and 50g lipids to provide 1820kcal and 75g pro (100% estimated needs). 2.) Monitor po intake and modify TPN accordingly. If PO intake remains 25-75% or > consider decreasing TPN formulation. MONITOR / EVAL: TPN tolerance, PO intake, wt, GI, diet advc, labs, POC, nutrition status. Will continue to monitor per high nutrition risk guidelines.
[2017-03-11] MEDS: Dextrose 5% 500 ML IV SCH (15:20)
[2017-03-11] MEDS: 0.9% Sodium Chloride 250 ML IV SCH (15:46)
--- NOTE | 2017-03-11 19:39 | NUR ---
pain/activity Pt pain controlled with ELECTROPLATER AUTOMATIC Dilaudid. pt slept a lot more today, had one bout of emesis this morning with her pills, antiemetic given. pt had large BM on this shift Turning q2 hours
[2017-03-11] MEDS: Total Parenteral Nutrition 1 BAG IV SCH (21:00)
[2017-03-11] MEDS: Insulin GLARgine 100 Unit/mL Syringe SUBQ SCH (22:44)
[2017-03-12] VITALS (9 sets, daily range): BP systolic 137–163; BP diastolic 72–86; PULSE 77–87; RESP 16–20; O2SAT 77–99
[2017-03-12] MEDS: Heparin 5,000 Unit/mL Inj SUBQ SCH ×3 (00:31→16:43)
--- NOTE | 2017-03-12 03:09 | NUR ---
ACTIVITY/INCONTINENT: Pt. resting in bed throughout the shift, made no attempts to get oob. Forgetful memory but able to make needs known. NO c/o N/V tonight, given Reglan as scheduled. Able to take HS po meds with no emesis tonight. Refused PO food intake, states does not have any appetite. Incontinent of large urine, no stool so far tonight. Pain is controlled with SHREDDED FILLER MACHINE WRAPPER LAYER Dilaudid. A & O, vss. On going care.
[2017-03-12] MEDS: MetoCLOpramide 5 mg/mL 2 mL Inj IVPUSH SCH ×4 (03:32→19:39)
[2017-03-12] MEDS: Insulin Human REGular 300 Unit/3 mL Inj SUBQ SCH ×3 (03:44→14:39)
[2017-03-12] MEDS: Vancomycin Inj 1,500 MG in 0.9% Sodium Chloride 500 ML IV SCH (07:43)
[2017-03-12 08:22] LABS: BASOPHILS % (AUTO) 0.3 % (0-3); EOSINOPHILS % (AUTO) 1.7 % (0-5); MONOCYTES % (AUTO) 6.8 % (4-12); Mean Corpuscular Hemoglobin 24.7 pg (27.0-35.0); Mean Corpuscular Volume 80.3 fL (81-100); NEUTROPHILS % (AUTO) 78.7 % (40-74); Platelet Count 754 bil/L (150-400)
[2017-03-12] MEDS: Vancomycin Dose per Pharmacist XX SCH (08:30)
[2017-03-12] MEDS: TPN Per Pharmacist XX SCH (08:30)
[2017-03-12 08:51] LABS: Magnesium 1.7 mg/dL (1.6-2.6)
[2017-03-12] MEDS ORDERED: Methylnaltrexone 12 mg/0.6 mL Inj SUBQ PRN (08:52)
[2017-03-12] MEDS: Polyethylene Glycol (PEG) 17 Gm Powder PO SCH ×2 (09:57→21:26)
[2017-03-12] MEDS: Mupirocin 2% 22 Gm Ointment NASAL SCH (10:00)
[2017-03-12] MEDS: Nystatin 100,000 Unit/Gm 15 Gm Powder TOPICAL SCH ×2 (10:01→21:28)
[2017-03-12] MEDS: Ertapenem Inj 1,000 MG in 0.9% Sodium Chloride 50 ML IV SCH (10:08)
--- NOTE | 2017-03-12 10:45 | PCM.PHAPRO ---
Progress TPN PER PHARMACY Na is slightly decreased, will increase in TPN beginning tonight PARENTERAL NUTRITION ORDERS 10 12-Mar-17 Standard Hang Time: 2100 Substrates Total kcal: 1820 AMINO ACIDS 75 g DEXTROSE 300 g Total Volume (mL): 1250 LIPIDS 50 g Sterile Water for Injection QS mL To Infuse Over (hrs): 24 Total Volume 1250 mL At at a rate of (mL/hr): 52 Additives Sodium Chloride 140 mEq "typical" daily requirements Sodium Acetate 30 mEq Sodium 50-120mEq Potassium Chloride 40 mEq Potassium 60-120mEq Potassium Phosphate 20 mEq Phosphate 20-40mEq Calcium Gluconate 9 mEq Magnesium 8-32mEq Magnesium Sulfate 16 mEq Calcium 9-22mEq Acetate* 80-120mEq Chloride* 80-120mEq Regular Insulin units *Depending on acid-base status Famotidine 40 mg Multivitamins 1 std dose Insulin Regimen Trace Elements 1 std dose none Thiamine mg Regular Low Intensity Subcut X Folic Acid mg Regular Medium Intensity Subcut Ascorbic Acid mg Regular High Intensity Subcut Regular Insulin Infusion Other: Special Instructions: To be infused via central line only. For delay or inturruption of TPN contact the pharmacist for alternative replacement solution. Signature Date: FLAQUITO DUBON [address] [facility] Pharmacy will continue to follow, thank you. Elizabeth Colunga PharmD Mar 12, 2017 10:45
[2017-03-12] MEDS: HYDROmorphone PCA 0.2 mg/mL 30 mL Inj IV PRN (11:19)
--- NOTE | 2017-03-12 11:37 | PROG NOTE ---
[address] [address] PROGRESS NOTE PATIENT: FLAQUITO DUBON : 1955 MR#: [id number] ADMIT: 02/21/2017 JOB ID: [id number] DATE: 03/12/2017 INFECTIOUS DISEASE FOLLOW UP NOTE: REASON FOR FOLLOWUP: Abdominal pain with peritoneal fluid in a patient with a history of MRSA peritonitis. INTERVAL HISTORY: Overnight, the patient reports her abdominal pain continues though it is much less than before her large volume paracentesis of two days ago. She is having no fevers, chills or sweats. No shortness of breath. She notes that when she attempts to eat even a spoonful of food she suffers nausea and vomiting. Her abdominal pain is better than prior to the paracentesis but already seems to be getting a little worse again. No other notable complaints. History was reviewed with a tactical air defense controller. PHYSICAL EXAMINATION: Reveals a woman who has been afebrile throughout this hospital stay. Temperature 36.9, pulse 85, respiratory rate 17, blood pressure 163/81. She is in some pain using CLAM PICKER but appears about the same as yesterday. She is lucid. Lungs are clear. Cardiac tones without new murmur. Left chest port has TPN infusing. The abdomen is firm to hard as it has been continuously. There is almost no bowel sounds and it is quite tender to palpation which is no change. No peripheral edema. LABORATORIES: Include white count 15,000 today, 78% segs, otherwise negative. Creatinine 0.69. Procalcitonin is 0 and it has been very low now for many days. The peritoneal fluid obtained on March 10 apparently did not have any cell counts or cultures done, though as I recall, I ordered those specifically. In any event, we do have negative cultures of peritoneal fluid from the , which are now final and that was the paracentesis prior to this one. We are still awaiting the cytology from this most recent paracentesis and I called the path lab and spent quite a bit of time trying to get the cytology from two days ago, but it is not available and they say there may be "a delay" as they are behind on cytology. IMPRESSION: At this point, I really see no evidence for infection. We have negative cultures of blood, and the peritoneal fluid from the . 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 RECOMMENDATIONS: 1. Will go ahead and stop her antibiotics today. 2. Like Dr. Sawyer I suspect this is primarily a malignant process rather than an infectious process and that additional antibiotics are unlikely to be of benefit and may be more of a negative in this situation. 3. ID will go ahead and sign off at this point, as the patient has completed a two week or so course of antibiotics without positive cultures, and at this point, there is really no strong reason to think she is infected. 4. Please do not hesitate to call me if there are additional issues or questions with this very complex woman.
[2017-03-12] MEDS: 0.9% Sodium Chloride 250 ML IV SCH (13:00)
[2017-03-12] MEDS: Dextrose 5% 500 ML IV SCH (14:27)
--- NOTE | 2017-03-12 14:56 | PCM.PNMED ---
Subjective Date of Service Mar 12, 2017 Subjective Having more abdominal pain today. I spoke with [facility], should have results later today, but so far negative for malignant cells. All antibiotics have been stopped today by ID, treatment for nasal mrsa completed also. Exam Vital Signs Vital Sign - Last Date Time Temp Pulse Resp B/P Pulse Ox O2 Delivery O2 Flow Rate FiO2 03/12/17 14:04 36.7 79 19 150/78 97 Room Air 03/10/17 09:04 1.00 Intake and Output 03/11/17 03/11/17 03/12/17 Cumulative From/Thru 15:00 23:00 07:00 02/21/17 16:49 - 03/12/17 06:41 Intake Total 1801 ml 1143 ml 71820 ml Output Total 600 ml 16264 ml Balance 1801 ml 543 ml 61946 ml Intake Oral 500 ml 400 ml 25477 ml IV Total 724 ml 129 ml 12914 ml TPN/PPN 577 ml 614 ml 8832 ml Output Urine Total 600 ml 4509 ml Urine/Stool Mix 781 ml Emesis 2190 ml Other 3800 ml # Voids 3 1 94 # Bowel Movements 1 0 15 Exam Skin; clear no rash HENT adequate hydration, no oral lessions CV; no murmur, reg, no sig edema, no JVD Resp; clear anteriorly GI; firm hardness to anterior abdomen, bs present, little more diffuse tenderness today, increased firmness neuro; 2-12 intact, no focal neuro deficits Lab and Diagnostics Result Diagram: 03/12/17 0743 03/12/17 0743 Microbiology 02/21/17 Blood culture- No growth to date 02/21/17 Urine culture- Positive Escherichia Coli; Klebsiella Pneumoniae 02/21/17 MRSA screen- positive 02/22/17- Repeat Blood Cultures- no growth to date X-Rays, CTs and MRIs (02/26/17) CT ABDOMEN AND PELVIS WITH CONTRAST IMPRESSION: 1. Small bilateral pleural effusions, left greater than right, increasing volume of ascites and development of diffuse subcutaneous edema. 2. Postoperative changes of partial gastrectomy, cholecystectomy and possible partial bowel resection. Old abdominal wall tract from prior J-tube placement. 3. Bowel distention with air-fluid levels, likely inflammatory with ileus, possibility of partial small bowel obstruction with possible transition in the right upper quadrant in the area of surgical clips. Dictated and approved by: Rio Thornton M.D. on 02/26/2017 at 14:05 ADDENDUM: Following consultation with Dr. Sawyer, the focal area of small bowel narrowing in the right upper quadrant at the level of surgical clips represents a surgical blind ended loop of duodenum and not a focus of small bowel obstruction. Dictated by: Rio Thornton M.D. on 02/26/2017 at 15:02 (02/27/17) US PELVIC SONOGRAM + TRANSVAGINAL SONOGRAM IMPRESSION: 1. Atrophic otherwise ultrasonographically normal uterus. The ovaries were not identified and cannot be evaluated. 2. Ascites is noted. Dictated and approved by: Keny Duvall M.D. on 02/27/2017 at 18:47 . 12-lead ECG Normal sinus rhythm with heart rate of 83; QTc 4 70 Assessment & Plan 61-year-old female with multiple abdominal surgeries due to gastric carcinoma, and history of intra-abdominal sepsis and abscesses with MRSA in the fall of 2015 who presented to the hospital with 3 weeks of worsening abdominal pain and new nausea and emesis x3 starting day prior to admission. 1. Intra-abdominal mass/fluid collection, acute. Present on admission. Active and progressive. -ddx: infectious or inflammatory or recurrent malingnancy. CA 125 slightly elevated, uncertain significance. -awaits cytology, flow cytometry from peritoneal fluid 03/10/17, shold be available later today -all antibiotics stopped today -Dilaudid CYBER TRANSPORT SYSTEMS SPECIALIST for control of abdominal pain -I have a page out to Dr. Garber and will update and discuss patient with him 2. UTI, acute. Present on admission. resolved. -Urine culture growing- E. coli, Klebsiella. Patient suprapubic pain but no urinary symptoms. . 3. Constipation, chronic. Present on admission. Active, -Likely secondary to chronic opiate use. Typically responds to suppositories, per the patient. -continue Relistor, for counteract opiate induced component of constipation, -Schedule miralax and docusate, added ducolax -Enema 02/28, 03/05, will try again on daily basis if needed 4. Insulin using Type II diabetes, chronic. Present on admission. Active -Patient presents with glucose of 192. Goal blood glucose 140-180. -A1c 7.2 -home dose = Lantus 30 HS, Lispro 2 units tid ac (nutritional), and metformin 1 ,000 bid -Increase lantus to 20, increase to medium correction scale, cont tohold metformin for now 5. Acute microcytic, hypochromic anemia. Present mission. Active -Patient presents with a hemoglobin 11.6, a low MCV; review of past admissions does not appear that this is a chronic issue -Iron studies demonstrate deficiency component. -Supplemental iron held thus far due to constipation. -Follow CBC 6. Nutrition -continue TPN 7. Positive nasal MRSA screen, poa, resolved -treatment completed with muperisone, discontinued High risk meds: IV dilaudid, vancomycin Disposition: currently waiting to establish equipment operator intermodal yard plan, based on cytology, pt may need surgery, please coordinate with surgery, ID Alf nutrition also has to be discussed if non-surgical option is the plan. Consider palliative care consult in this case Patient will likely discharge back to [facility] following appropriate diagnostic procedures to characterize her mass disposition; -[facility] -oncologist is Dr. Garber -pcp is Dr. Bauer GI Prophylaxis: Proton Pump Inhibitor VTE Prophylaxis: Sub-Q Heparin (Unfractionated) VTE Mechanical Devices: Intermittant Pneumatic CD Resuscitation Status: CPR: Attempt Resuscitation Deng Menard MD Mar 12, 2017 14:56
[2017-03-12] MEDS ORDERED: Glucose 40% Oral Gel 15 Gm Tube PO PRN (15:15)
--- NOTE | 2017-03-12 16:22 | NUR ---
CHACE signed by pt's daughter Mary after extensive conversation between pt and pt's daughter with the assistance of the drilling assistant. Rita Martinez EMPLOYMENT EDUCATIONAL COORD
--- NOTE | 2017-03-12 16:23 | NUR ---
Social Work- Advance Directive Follow Up Social Work met with pt and pt's daughter Mary with the assistance of an ssis developer regarding Advance Directives. DPOA paperwork in Kenyan and Yi was provided at bedside. An explanation of Advance Directives in Yi was also provided. SW explained the notary requirement or 2 witnesses requirement. Mary stated understanding of all DPOA requirements. No additional needs identified at this time. SW will continue to follow. COLLIN Fung
[2017-03-12] MEDS: Ondansetron 2 mg/mL 2 mL Inj IVPUSH PRN ×2 (17:58→22:09)
[2017-03-12] MEDS: Insulin LISPRO 300 Unit/3 mL Inj SUBQ SCH ×2 (18:03→22:00)
--- NOTE | 2017-03-12 19:05 | NUR ---
pain/activity pain controlled with ELECTRIC SPOT WELDER. patient slept on/off throughout day. turn Q2hrs. reported occasional nausea. IV reglan ansd zofran have been effective. family at bedside most of the day, very supportive.
[2017-03-12] MEDS ORDERED: Insulin GLARgine 100 Unit/mL Syringe SUBQ SCH (21:00)
[2017-03-12] MEDS: Total Parenteral Nutrition 1 BAG IV SCH (21:28)
--- NOTE | 2017-03-12 22:16 | PROG NOTE ---
[address] [address] PROGRESS NOTE PATIENT: FLAQUITO DUBON : 1955 MR#: [id number] ADMIT: 02/21/2017 JOB ID: [id number] DATE: 03/12/2017 SUBJECTIVE: The patient is seen in followup. She is stable today. She has no nausea. She still has similar abdominal pain. OBJECTIVE: Temperature 36.7, pulse 79, blood pressure 150/78, saturation 97% on room air. General: She is resting in bed in no acute distress. Abdomen: Essentially firm, but soft inferiorly and on her flanks. There is no erythema of the abdominal wall. LABORATORIES: White blood cell count 15.6, hematocrit 29.3, platelets 754, creatinine 0.69, procalcitonin 0.08. PATHOLOGY: Cytology from abdominal fluid from two days ago shows no evidence of malignancy, negative for lymphoma on flow cytometry. ASSESSMENT AND PLAN: A 61-year-old woman with a history of gastric cancer with ascites, abdominal pain, peritoneal masses. I still believe that this is malignancy. I think the next step is to ask Interventional Radiology to get a core biopsy of the most easily accessible tissue for pathology, and most likely this is in the central upper abdomen, just deep to the abdominal wall. ALEXEI
[2017-03-13] VITALS (15 sets, daily range): BP systolic 124–157; BP diastolic 59–80; PULSE 72–91; RESP 15–18; O2SAT 96–100
[2017-03-13] MEDS: Heparin 5,000 Unit/mL Inj SUBQ SCH ×3 (00:22→16:49)
[2017-03-13] MEDS: MetoCLOpramide 5 mg/mL 2 mL Inj IVPUSH SCH ×4 (04:38→22:11)
--- NOTE | 2017-03-13 05:20 | NUR ---
NAUSEA/VOMITING: Pt. resting in bed though the night. Incontinent of urine, no stool tonight. Had large emesis when taking her HS meds. took her stool softener and immediately had a large emesis regardless of Reglan given one hr previous to po meds. Given IV Zofran 8 mg it was effective, then she was able to take the rest of her meds later on with no emesis. No other episodes of emesis tonight.
--- NOTE | 2017-03-13 07:04 | PCM.PNMED ---
Subjective Date of Service Mar 13, 2017 Subjective Resting in bed. Pain under control with PRODUCT MARKETING MANAGER. I spoke with Dr. Garber to review patient, he had also discussed patient with Dr. Sawyer earlier. Plan is to do biopsy. Patient unable to keep any food down, has emesis after eating. Exam Vital Signs Vital Sign - Last Date Time Temp Pulse Resp B/P Pulse Ox O2 Delivery O2 Flow Rate FiO2 03/13/17 06:03 36.9 81 16 155/70 97 Room Air 03/10/17 09:04 1.00 Intake and Output 03/12/17 03/12/17 03/13/17 Cumulative From/Thru 15:00 23:00 07:00 02/21/17 16:49 - 03/13/17 06:03 Intake Total 1574 ml 896 ml 97280 ml Output Total 1024 ml 581 ml 75609 ml Balance 550 ml 315 ml 91934 ml Intake Oral 400 ml 100 ml 26821 ml IV Total 630 ml 129 ml 87832 ml TPN/PPN 544 ml 667 ml 63648 ml Output Urine Total 1024 ml 581 ml 6114 ml Urine/Stool Mix 781 ml Emesis 0 ml 2190 ml Other 3800 ml # Voids 2 96 # Bowel Movements 0 0 15 Exam Skin; clear no rash HENT adequate hydration, no oral lessions CV; no murmur, reg, no sig edema, no JVD Resp; clear anteriorly GI; firm hardness to anterior abdomen, bs present, little more diffuse tenderness today, increased firmness and probable fluid neuro; 2-12 intact, no focal neuro deficits Lab and Diagnostics Result Diagram: 03/12/17 0743 03/13/17 0559 Microbiology 02/21/17 Blood culture- No growth to date 02/21/17 Urine culture- Positive Escherichia Coli; Klebsiella Pneumoniae 02/21/17 MRSA screen- positive 02/22/17- Repeat Blood Cultures- no growth to date X-Rays, CTs and MRIs (02/26/17) CT ABDOMEN AND PELVIS WITH CONTRAST IMPRESSION: 1. Small bilateral pleural effusions, left greater than right, increasing volume of ascites and development of diffuse subcutaneous edema. 2. Postoperative changes of partial gastrectomy, cholecystectomy and possible partial bowel resection. Old abdominal wall tract from prior J-tube placement. 3. Bowel distention with air-fluid levels, likely inflammatory with ileus, possibility of partial small bowel obstruction with possible transition in the right upper quadrant in the area of surgical clips. Dictated and approved by: Rio Thornton M.D. on 02/26/2017 at 14:05 ADDENDUM: Following consultation with Dr. Sawyer, the focal area of small bowel narrowing in the right upper quadrant at the level of surgical clips represents a surgical blind ended loop of duodenum and not a focus of small bowel obstruction. Dictated by: iRo Thornton M.D. on 02/26/2017 at 15:02 (02/27/17) US PELVIC SONOGRAM + TRANSVAGINAL SONOGRAM IMPRESSION: 1. Atrophic otherwise ultrasonographically normal uterus. The ovaries were not identified and cannot be evaluated. 2. Ascites is noted. Dictated and approved by: Keny Duvall M.D. on 02/27/2017 at 18:47 . 12-lead ECG Normal sinus rhythm with heart rate of 83; QTc 4 70 Assessment & Plan 61-year-old female with multiple abdominal surgeries due to gastric carcinoma, and history of intra-abdominal sepsis and abscesses with MRSA in the fall of 2016 who presented to the hospital with 3 weeks of worsening abdominal pain and new nausea and emesis x3 starting day prior to admission. 1. Intra-abdominal mass/fluid collection, acute. Present on admission. Active and progressive. -ddx: infectious or inflammatory or recurrent malingnancy. CA 125 slightly elevated, uncertain significance. -awaits cytology, flow cytometry from peritoneal fluid 03/10/17, should be available later today -all antibiotics stopped yesterday -Dilaudid PRODUCT MARKETING MANAGER for control of abdominal pain -Discussed patient with Dr. Garber yesterday who had spoke with Dr. Sawyer earlier, plan is to pursue biopsy if peritoneal fluid analysis is negative for malignancy.. 2. UTI, acute. Present on admission. resolved. -Urine culture growing- E. coli, Klebsiella. Patient suprapubic pain but no urinary symptoms. . 3. Constipation, chronic. Present on admission. Active, -Likely secondary to chronic opiate use. Typically responds to suppositories, per the patient. -continue Relistor, for counteract opiate induced component of constipation, -Schedule miralax and docusate, added ducolax -Enema 02/28, 03/05, will try again on daily basis if needed -Had big BM today 4. Insulin using Type II diabetes, chronic. Present on admission. Active -Patient presents with glucose of 192. Goal blood glucose 140-180. -A1c 7.2 -home dose = Lantus 30 HS, Lispro 2 units tid ac (nutritional), and metformin 1 ,000 bid -Increase lantus to 22, increase to medium correction scale, cont to hold metformin for now 5. Acute microcytic, hypochromic anemia. Present mission. Active -Patient presents with a hemoglobin 11.6, a low MCV; review of past admissions does not appear that this is a chronic issue -Iron studies demonstrate deficiency component. -Supplemental iron held thus far due to constipation. -Follow CBC 6. Nutrition -continue TPN 7. Positive nasal MRSA screen, poa, resolved -treatment completed with muperisone, discontinued High risk meds: IV dilaudid, Disposition: currently waiting to establish half-way plan, based on cytology, pt may need surgery, please coordinate with surgery, ID Custodial nutrition also has to be discussed if non-surgical option is the plan. Consider palliative care consult in this case Patient will likely discharge back to [facility] following appropriate diagnostic procedures to characterize her mass disposition; -[facility] -oncologist is Dr. Garber -pcp is Dr. Bauer GI Prophylaxis: Proton Pump Inhibitor VTE Prophylaxis: Sub-Q Heparin (Unfractionated) VTE Mechanical Devices: Intermittant Pneumatic CD Resuscitation Status: CPR: Attempt Resuscitation Deng Menard MD Mar 13, 2017 07:04
[2017-03-13] MEDS: Polyethylene Glycol (PEG) 17 Gm Powder PO SCH ×2 (08:30→22:11)
[2017-03-13] MEDS: TPN Per Pharmacist XX SCH (08:30)
[2017-03-13] MEDS: Insulin LISPRO 300 Unit/3 mL Inj SUBQ SCH ×4 (09:21→22:00)
[2017-03-13] MEDS: Nystatin 100,000 Unit/Gm 15 Gm Powder TOPICAL SCH ×2 (09:24→20:30)
[2017-03-13 09:42] LABS: INR 1.02 ratio
--- NOTE | 2017-03-13 10:15 | PCM.PHAPRO ---
Progress TPN PER PHARMACY - No changes made today, pts labs continue to be stable PARENTERAL NUTRITION ORDERS 11 13-Mar-17 Standard Hang Time: 2100 Substrates Total kcal: 1820 AMINO ACIDS 75 g DEXTROSE 300 g Total Volume (mL): 1250 LIPIDS 50 g Sterile Water for Injection QS mL To Infuse Over (hrs): 24 Total Volume 1250 mL At at a rate of (mL/hr): 52 Additives Sodium Chloride 140 mEq "typical" daily requirements Sodium Acetate 30 mEq Sodium 50-120mEq Potassium Chloride 40 mEq Potassium 60-120mEq Potassium Phosphate 20 mEq Phosphate 20-40mEq Calcium Gluconate 9 mEq Magnesium 8-32mEq Magnesium Sulfate 16 mEq Calcium 9-22mEq Acetate* 80-120mEq Chloride* 80-120mEq Regular Insulin units *Depending on acid-base status Famotidine 40 mg Multivitamins 1 std dose Insulin Regimen Trace Elements 1 std dose none Thiamine mg Regular Low Intensity Subcut X Folic Acid mg Regular Medium Intensity Subcut Ascorbic Acid mg Regular High Intensity Subcut Regular Insulin Infusion Other: Special Instructions: To be infused via central line only. For delay or inturruption of TPN contact the pharmacist for alternative replacement solution. Signature Date: FLAQUITO DUBON [address] [facility] Pharmacy will continue to follow, thank you Elizabeth Colunga PharmD Mar 13, 2017 10:15
--- NOTE | 2017-03-13 10:37 | PROG NOTE ---
[address] [address] PROGRESS NOTE PATIENT: FLAQUITO DUBON : 1955 MR#: [id number] ADMIT: 02/21/2017 JOB ID: [id number] DATE: 03/13/2017 SUBJECTIVE: The patient is seen in followup. She is complaining of mild pain along the upper abdomen today. She also had some vomiting overnight as well as a large bowel movement. OBJECTIVE: Temperature 36.9, pulse 81, blood pressure 155/70, saturation 97% on room air. In general, she is resting in bed in no acute distress. Her abdomen is soft, nondistended. She has firm palpable mass in the central upper abdomen, deep to her midline scar. There is no erythema of the abdominal wall. ASSESSMENT AND PLAN: A 61-year-old woman with a gastric cancer, now with ascites and a peritoneal mass. Peritoneal cytology from ascites fluid was negative for malignancy. I have made arrangements today for percutaneous biopsy of the peritoneal mass along the anterior abdominal wall. She will be made n.p.o. for that. We will check another INR for the procedure.
--- NOTE | 2017-03-13 10:54 | NUR ---
Palliative care note D/A: Palliative care referral for assistance with goals of care received today from Dr. Menard. Pt is undergoing biopsies today with core biopsy planned for today and if negative, then an open biopsy. Dr. Menard indicates that consult can occur on Thursday. Note that pt has a history of CVA with L chapito and most recently had received a diagnosis of GI cancer summer. Pt now with J tube and has had recurrent drainage procedures. Dr. Menard notes that dependent on the results of biopsy Please note that Cuban is not the primary language for this family and rolled materials worker is necessary for communication. DEPUTY ADMINISTRATOR met with family on 03/12/17 provided Indonesian and Cuban DPOA forms as well as explanation forms. Pt is from [facility] and the plan has been for her to return. Note that pt was formerly on [facility] and earlier in admission-family had expressed a wish to explore [facility] again as alternative to SNF. DEPUTY ADMINISTRATOR had assisted with getting family in touch with [facility] correctional case records supervisor to explore further. DEPUTY ADMINISTRATOR had discussed with family that pt would benefit from SNF placement while [facility] details being worked on. P: Palliative care to follow. Olimpia ADAN, [facility]
[2017-03-13] MEDS: 0.9% Sodium Chloride 250 ML IV SCH ×2 (11:05→15:00)
--- NOTE | 2017-03-13 11:34 | NUR ---
Social Work: Continued Discharge Planning D: EMR reviewed. Pt is on day 20 of hospitalization. Per MD in AM multi-disciplinary rounds, pt is being followed by oncology and receiving biopsy 03/13. If biopsy is negative, pt will go for open biopsy. MD stated that pt is not likely to discharge for 3-5 more days. MD stated that pt will not be on IVABX at discharge. on 03/11, PT noted that pt is a maximum assist. Pt's discharge plan is pending on biopsy for paracentesis culture. At this time, pt has been accepted to return to [facility] with Dr. Cortes to follow. SW will continue to follow for needs. A: Pt who resides at [facility] at baseline P: Pt's discharge plan is pending on biopsy for paracentesis culture. At this time, pt has been accepted to return to [facility] with Dr. Cortes to follow. SW will continue to follow for needs. COLLIN Anderson
[2017-03-13] MEDS: Ondansetron 2 mg/mL 2 mL Inj IVPUSH PRN (12:05)
[2017-03-13] MEDS ORDERED: fentaNYL-PF 50 mCg/mL 2 mL Inj IVPUSH PRN (13:55)
--- NOTE | 2017-03-13 14:24 | NUR ---
Aspirin, Heparin Withheld Morning aspirin and heparin withheld this morning in anticipation of biopsy after consultation with CT.
[2017-03-13] MEDS: Dextrose 5% 500 ML IV SCH (14:56)
--- NOTE | 2017-03-13 15:13 | DRSVH ---
PROCEDURE: CT-GUIDED BIOPSY OF ABDOMEN OR RETROPERITONEUM ([id number]) INDICATIONS: biopsy anterior intraabdominal mass, h/o gastric c TECHNIQUE: The indications, alternatives, benefits, risks, and possible complications of the procedure were comm unicated to the patient. Informed written consent from the patient was obtained and placed in the art. Continuous EKG and hemodynamic monitoring was started by trained personnel. For radiation dose reduction, the following was used: automated exposure control, adjustment of mA and/or kV according to patient size. The patient was brought to the CT suite and regional engagement consultant spiral CT imaging was performed with localization g rid. The appropriate site for percutaneous access to the biopsy target was marked, was prepped and d raped sterilely, and was infused with local anaesthesia. Under CT guidance, a core biopsy trocar and needle set was advanced to the biopsy target, and specimen(s) were obtained. The trocar and needle were then removed, and the patient was sent for post-procedure monitoring. COMPARISON: [facility], CT, CT ABD PELVIS W CON, 03/09/2017, 16:20. FINDINGS: Biopsy site: Anterior abdominal wall Needle: 20 gauge biopsy needle with introducer trocar. Number of passes: 2 Medications: 1% lidocaine for local anaesthesia. Complications: None. IMPRESSION: Successful CT-guided biopsy of anterior abdominal wall mass. Dictated by: Hugh Nina M.D. on 03/13/2017 at 15:10 Approved by: Hugh Nina M.D. on 03/13/2017 at 15:11
--- NOTE | 2017-03-13 19:24 | NUR ---
Off to and Return from CT Patient off floor for CT this shift. Patient alert and oriented, denies nausea and states pain within a tolerable level when departing floor, returns to floor in same condition. Care is ongoing.
[2017-03-13] MEDS ORDERED: Insulin GLARgine 100 Unit/mL Syringe SUBQ SCH (21:00)
[2017-03-13] MEDS: HYDROmorphone PCA 0.2 mg/mL 30 mL Inj IV PRN (21:06)
[2017-03-13] MEDS: Total Parenteral Nutrition 1 BAG IV SCH (22:40)
[2017-03-14] VITALS (14 sets, daily range): BP systolic 144–161; BP diastolic 66–81; PULSE 84–91; RESP 16–20; O2SAT 94–100
[2017-03-14] MEDS: Heparin 5,000 Unit/mL Inj SUBQ SCH ×3 (00:50→16:45)
[2017-03-14] MEDS: MetoCLOpramide 5 mg/mL 2 mL Inj IVPUSH SCH ×4 (03:28→20:56)
--- NOTE | 2017-03-14 04:42 | NUR ---
Voiding Patient had a large liquid BM this morning. Patient A&Ox3. Vitals stable. Patient not up OOB this shift. Incontinent. Tele sinus 92. Room air 96%. Q2 turns. Patient has TPN going at 52 ml/hr. FOREIGN LEGAL CONSULTANT Dilaudid managing pain well.
[2017-03-14 06:26] LABS: Magnesium 1.7 mg/dL (1.6-2.6); Phosphorus 3.4 mg/dL (2.5-4.9)
--- NOTE | 2017-03-14 07:42 | PCM.PHAPRO ---
Progress PARENTERAL NUTRITION ORDERS 12 14-Mar-17 Standard Hang Time: 2100 Substrates Total kcal: 1820 AMINO ACIDS 75 g DEXTROSE 300 g Total Volume (mL): 1250 LIPIDS 50 g Sterile Water for Injection QS mL To Infuse Over (hrs): 24 Total Volume 1250 mL At at a rate of (mL/hr): 52 Additives Sodium Chloride 140 mEq "typical" daily requirements Sodium Acetate 30 mEq Sodium 50-120mEq Potassium Chloride 40 mEq Potassium 60-120mEq Potassium Phosphate 20 mEq Phosphate 20-40mEq Calcium Gluconate 9 mEq Magnesium 8-32mEq Magnesium Sulfate 24 mEq Calcium 9-22mEq Acetate* 80-120mEq Chloride* 80-120mEq Regular Insulin units *Depending on acid-base status Famotidine 40 mg Multivitamins 1 std dose Insulin Regimen Trace Elements 1 std dose none Thiamine mg Regular Low Intensity Subcut X Folic Acid mg Regular Medium Intensity Subcut Ascorbic Acid mg Regular High Intensity Subcut Regular Insulin Infusion Other: Special Instructions: To be infused via central line only. For delay or inturruption of TPN contact the pharmacist for alternative replacement solution. Signature Date: FLAQUITO DUBON 1010 Increased magnesium content for this evenings TPN -Mynor See,PharmD Mynor See Mar 14, 2017 07:42
[2017-03-14] MEDS: Polyethylene Glycol (PEG) 17 Gm Powder PO SCH ×2 (08:30→20:30)
[2017-03-14] MEDS: TPN Per Pharmacist XX SCH (08:30)
[2017-03-14] MEDS: Insulin LISPRO 300 Unit/3 mL Inj SUBQ SCH ×4 (09:54→22:24)
[2017-03-14] MEDS: Nystatin 100,000 Unit/Gm 15 Gm Powder TOPICAL SCH ×2 (10:08→20:58)
--- NOTE | 2017-03-14 13:05 | NUR ---
Discharge pt discharged to home with . A&Ox3, PORTILLO, VSS, Pain under control, Hard copy script provided to patient for Zofran - Hard copy Roxycodone provided to pt 03/13/17 prior to dc, IV dcd intact, Dressing CDI to 5x lap sites, Care Notes provided on dc dx and new medications - instructed on s/sx to watch for and when to seek medical attention. All personal belongings in hand at dc. No unanswered questions/concerns. Wheeled off unit to vehicle at 1240. Addendum: 03/14/17 at 1307 by RUCHI YIP RN CHARTED UNDER WRONG PATIENT.
--- NOTE | 2017-03-14 13:32 | PROG NOTE ---
[address] [address] PROGRESS NOTE PATIENT: FLAQUITO DUBON : 1955 MR#: [id number] ADMIT: 02/21/2017 JOB ID: [id number] DATE: 03/14/2017 SUBJECTIVE: She had her abdominal mass biopsy yesterday. She is stable, the dressing is intact over the biopsy site without sign of drainage. General Surgery will continue to follow every few days.
[2017-03-14] MEDS: 0.9% Sodium Chloride 250 ML IV SCH (14:14)
[2017-03-14] MEDS: Dextrose 5% 500 ML IV SCH (15:20)
--- NOTE | 2017-03-14 15:32 | PCM.PNMED ---
Subjective Date of Service Mar 14, 2017 Subjective Little bit better day today. Pain under control. Actually was up standing briefly today, and even in the wheel chair for a while. CT guided biopsy of anterior abdominal mass done yesterday, tolerated well. Results pending Exam Vital Signs Vital Sign - Last Date Time Temp Pulse Resp B/P Pulse Ox O2 Delivery O2 Flow Rate FiO2 03/14/17 15:09 36.7 88 18 147/80 99 Room Air 03/10/17 09:04 1.00 Intake and Output 03/13/17 03/13/17 03/14/17 Cumulative From/Thru 15:00 23:00 07:00 02/21/17 16:49 - 03/14/17 06:39 Intake Total 100 ml 870 ml 46754 ml Output Total 1543 ml 600 ml 42780 ml Balance -1443 ml 270 ml 04341 ml Intake Oral 100 ml 200 ml 60363 ml IV Total 114 ml 59823 ml TPN/PPN 556 ml 13805 ml Output Urine Total 1242 ml 600 ml 7956 ml Stool Total 1 ml 1 ml Urine/Stool Mix 781 ml Emesis 300 ml 2490 ml Other 3800 ml # Voids 1 97 # Bowel Movements 1 10 21 Exam Skin; clear no rash HENT adequate hydration, no oral lessions CV; no murmur, reg, no sig edema, no JVD Resp; clear anteriorly, no wheezing or rhonchi GI; firm hardness to anterior abdomen, bs present, little more diffuse tenderness today, increased firmness and probable fluid neuro; 2-12 intact, no focal neuro deficits Lab and Diagnostics Result Diagram: 03/12/17 0743 03/14/17 0555 Microbiology 02/21/17 Blood culture- No growth to date 02/21/17 Urine culture- Positive Escherichia Coli; Klebsiella Pneumoniae 02/21/17 MRSA screen- positive 02/22/17- Repeat Blood Cultures- no growth to date X-Rays, CTs and MRIs (02/26/17) CT ABDOMEN AND PELVIS WITH CONTRAST IMPRESSION: 1. Small bilateral pleural effusions, left greater than right, increasing volume of ascites and development of diffuse subcutaneous edema. 2. Postoperative changes of partial gastrectomy, cholecystectomy and possible partial bowel resection. Old abdominal wall tract from prior J-tube placement. 3. Bowel distention with air-fluid levels, likely inflammatory with ileus, possibility of partial small bowel obstruction with possible transition in the right upper quadrant in the area of surgical clips. Dictated and approved by: Rio Thornton M.D. on 02/26/2017 at 14:05 ADDENDUM: Following consultation with Dr. Sawyer, the focal area of small bowel narrowing in the right upper quadrant at the level of surgical clips represents a surgical blind ended loop of duodenum and not a focus of small bowel obstruction. Dictated by: Rio Thornton M.D. on 02/26/2017 at 15:02 (02/27/17) US PELVIC SONOGRAM + TRANSVAGINAL SONOGRAM IMPRESSION: 1. Atrophic otherwise ultrasonographically normal uterus. The ovaries were not identified and cannot be evaluated. 2. Ascites is noted. Dictated and approved by: Keny Duvall M.D. on 02/27/2017 at 18:47 . 12-lead ECG Normal sinus rhythm with heart rate of 83; QTc 4 70 Assessment & Plan 61-year-old female with multiple abdominal surgeries due to gastric carcinoma, and history of intra-abdominal sepsis and abscesses with MRSA in the fall of 2016 who presented to the hospital with 3 weeks of worsening abdominal pain and new nausea and emesis x3 starting day prior to admission. 1. Intra-abdominal mass/fluid collection, acute. Present on admission. Active and progressive. -ddx: infectious or inflammatory or recurrent malingnancy. CA 125 slightly elevated, uncertain significance. -awaits cytology, flow cytometry from peritoneal fluid 03/10/17, should be available later today -all antibiotics stopped yesterday -Dilaudid SENIOR CONTROLS TECHNICIAN for control of abdominal pain -CT directed needle biopsey 03-13-17, await results. 2. UTI, acute. Present on admission. resolved. -Urine culture growing- E. coli, Klebsiella. Patient suprapubic pain but no urinary symptoms. . 3. Constipation, chronic. Present on admission. Active, -Likely secondary to chronic opiate use. Typically responds to suppositories, per the patient. -continue Relistor, for counteract opiate induced component of constipation, -Schedule miralax and docusate, added ducolax -Enema 02/28, 03/05, will try again on daily basis if needed -Had big BM today 4. Insulin using Type II diabetes, chronic. Present on admission. Active -Patient presents with glucose of 192. Goal blood glucose 140-180. -A1c 7.2 -home dose = Lantus 30 HS, Lispro 2 units tid ac (nutritional), and metformin 1 ,000 bid -Increase lantus to 25, increase to medium correction scale, cont to hold metformin for now 5. Acute microcytic, hypochromic anemia. Present mission. Active -Patient presents with a hemoglobin 11.6, a low MCV; review of past admissions does not appear that this is a chronic issue -Iron studies demonstrate deficiency component. -Supplemental iron held thus far due to constipation. -Follow CBC 6. Nutrition -continue TPN 7. Positive nasal MRSA screen, poa, resolved -treatment completed with muperisone, discontinued High risk meds: IV dilaudid, Disposition: currently waiting to establish keno terminal operator plan, based on cytology, pt may need surgery, please coordinate with surgery, ID Retirement nutrition also has to be discussed if non-surgical option is the plan. Consider palliative care consult in this case Patient will likely discharge back to [facility] following appropriate diagnostic procedures to characterize her mass disposition; -[facility] -oncologist is Dr. Garber -pcp is Dr. Bauer GI Prophylaxis: Proton Pump Inhibitor VTE Prophylaxis: Sub-Q Heparin (Unfractionated) VTE Mechanical Devices: Intermittant Pneumatic CD Resuscitation Status: CPR: Attempt Resuscitation Deng Menard MD Mar 14, 2017 15:32
--- NOTE | 2017-03-14 15:48 | NUR ---
NUTRITION FOLLOW-UP: ASSESS: 61 YO female with multiple abdominal surgeries due to gastric carcinoma, and history of intra-abdominal sepsis and abscesses with MRSA in the fall of 2016, presented to the hospital with 3 weeks of worsening abdominal pain and new nausea and emesis x 3 starting day prior to admission. Pt. with intra-abdominal mass /fluid collection, POA, active and progressive. Intra-abdominal mass/fluid collection, acute. Present on admission. Active and progressive. Diagnosis: infectious or inflammatory or recurrent malignancy. CA 125 slightly elevated, uncertain significance. Awaiting cytology. Bowel regimen successful; pt. had large BM today. She continues on TPN, as her appetite is minimal. She did eat 75% of one meal yesterday, which is encouraging. PMHX: Type 2 DM, hyperlipidemia, stroke with left sided weakness, gastric adenocarcinoma,gastrectomy w/reconstruction. LABS: Reviewed. Glu 189, A1c 7.2, Ca 8.1. MEDS: Reviewed. Reglan, Relistor, MiraLax, Docusate, Dulcolax, Melatonin, Dilaudid, Insulin. GI: Large BM today. SKIN: Devin 14. No major issues noted. WT: 78.5 kg, BMI 32.0 kg/m2, admit wt 69.8kg, IBW 47.7kg DIET: Diabetic. TPN: 300 g Dex, 75 g AA and 50 g lipids to provide 1820 kcal and 75 g pro (100% estimated needs) EST. NEEDS: BMI Kcals: 1780-2025kcal/day (22-25kcal/kg) Pro: 60-75g/day (1.2-1.5g/kg IBW) NUTRITION DIAGNOSIS: 1) Inadequate oral intake related to altered GI function as evidence by poor PO intake, pt reporting poor appetite, severe abdominal pain and history of needing J-tube feedings - PERSISTS. Pt remains on TPN. NUTRITION INTERVENTION: 1) Continue current TPN: 300g Dex, 75g AA and 50g lipids to provide 1820kcal and 75g pro (100% estimated needs). 2.) Monitor PO intake and modify TPN accordingly. If PO intake remains 25-75% or > consider decreasing TPN formulation. MONITOR / EVAL: TPN tolerance, PO intake, wt, GI, diet advc, labs, POC, nutrition status. Will continue to monitor per high nutrition risk guidelines.
--- NOTE | 2017-03-14 18:32 | NUR ---
Pain Pt remains on RIG SUPERVISOR Dilaudid at 0.2mg o14gvps with 0.9mg lockout ordered. No boluses of 0.23mg given this shift. Pt used total of 2.4mg with a recorded 15 denied attempts for a dose. Per PT, pt hit the RIG SUPERVISOR button multiple times but no facial grimacing or discomfort noted via face. Pt seeming to tolerate bed mobility. Has been sleepy this shift, but arousable and will wake to see family present and will converse with them. No acute issues this shift. Care continues.
[2017-03-14] MEDS ORDERED: Insulin GLARgine 100 Unit/mL Syringe SUBQ SCH (21:00)
[2017-03-14] MEDS: Total Parenteral Nutrition 1 BAG IV SCH (22:35)
[2017-03-15] VITALS (13 sets, daily range): BP systolic 134–174; BP diastolic 77–87; PULSE 70–90; RESP 15–18; O2SAT 96–100
[2017-03-15] MEDS: Heparin 5,000 Unit/mL Inj SUBQ SCH ×3 (00:50→17:22)
--- NOTE | 2017-03-15 02:41 | NUR ---
E COMMERCE WEB DEVELOPER Patient states her pain level is a 5/10, but that she feels the E COMMERCE WEB DEVELOPER Dilaudid is managing the pain well. Daughter and other family in room. Patient A&OX3. Tele sinus 94. Room air high 90's. Patient asked of Melatonin to help her sleep at bedtime. TPN running at 52ml/hr.
[2017-03-15] MEDS: MetoCLOpramide 5 mg/mL 2 mL Inj IVPUSH SCH ×4 (03:05→21:24)
[2017-03-15] MEDS: TPN Per Pharmacist XX SCH (08:30)
[2017-03-15] MEDS: Polyethylene Glycol (PEG) 17 Gm Powder PO SCH ×2 (10:13→21:23)
[2017-03-15] MEDS: Nystatin 100,000 Unit/Gm 15 Gm Powder TOPICAL SCH ×2 (10:14→21:24)
[2017-03-15] MEDS: Insulin LISPRO 300 Unit/3 mL Inj SUBQ SCH ×4 (10:14→22:03)
[2017-03-15] MEDS: HYDROmorphone PCA 0.2 mg/mL 30 mL Inj IV PRN (10:30)
--- NOTE | 2017-03-15 11:02 | PCM.PHAPRO ---
Progress PARENTERAL NUTRITION ORDERS 13 15-Mar-17 Standard Hang Time: 2100 Substrates Total kcal: 1820 AMINO ACIDS 75 g DEXTROSE 300 g Total Volume (mL): 1250 LIPIDS 50 g Sterile Water for Injection QS mL To Infuse Over (hrs): 24 Total Volume 1250 mL At at a rate of (mL/hr): 52 Additives Sodium Chloride 140 mEq "typical" daily requirements Sodium Acetate 30 mEq Sodium 50-120mEq Potassium Chloride 40 mEq Potassium 60-120mEq Potassium Phosphate 20 mEq Phosphate 20-40mEq Calcium Gluconate 9 mEq Magnesium 8-32mEq Magnesium Sulfate 24 mEq Calcium 9-22mEq Acetate* 80-120mEq Chloride* 80-120mEq Regular Insulin units *Depending on acid-base status Famotidine 40 mg Multivitamins 1 std dose Insulin Regimen Trace Elements 1 std dose none Thiamine mg Regular Low Intensity Subcut X Folic Acid mg Regular Medium Intensity Subcut Ascorbic Acid mg Regular High Intensity Subcut Regular Insulin Infusion Other: Special Instructions: To be infused via central line only. For delay or inturruption of TPN contact the pharmacist for alternative replacement solution. Signature Date: FLAQUITO DUBON [address] [facility] Mynor See, PharmD Mynor See Mar 15, 2017 11:02
[2017-03-15] MEDS: Dextrose 5% 500 ML IV SCH (13:23)
--- NOTE | 2017-03-15 13:43 | NUR ---
Activity Pt remains sleepy - in and out this shift. A&O when awoken. Family present to assist with translation. Was seen by PT and assisted to dangle at EOB. Received PO medications late d/t stating nausea. Later given PO medications when at EOB. Again stating nausea and wanted to lay back down. Pt not wanting to do much except sleep. Denies being hungry but enjoys eating fruits that her daughter, Mary, brings in. TPN continues to infuse at 52ml/hr. Continue BG checks and insulin coverage. Pt assists with bed mobility when asked to do so. Performing minimal activity - using JOB SITE SUPERVISOR for pain as needed. Appearing comfortable at rest. Care continues.
--- NOTE | 2017-03-15 13:44 | PCM.PNMED ---
Subjective Date of Service Mar 15, 2017 Subjective Sleeping, daughter SUSANNE present. Pain under control, not eating anything, no emesis. Biopsy results still pending, hope fully we can get results tomorrow. No other new problems. Blood sugars still bit elevated despite increasing lantus yesterday. Exam Vital Signs Vital Sign - Last Date Time Temp Pulse Resp B/P Pulse Ox O2 Delivery O2 Flow Rate FiO2 03/15/17 11:41 99 03/15/17 10:15 37.3 90 18 174/87 Room Air 03/10/17 09:04 1.00 Intake and Output 03/14/17 03/14/17 03/15/17 Cumulative From/Thru 15:00 23:00 07:00 02/21/17 16:49 - 03/15/17 06:35 Intake Total 988 ml 923 ml 15105 ml Output Total 98158 ml Balance 988 ml 923 ml 54336 ml Intake Oral 200 ml 200 ml 71590 ml IV Total 129 ml 123 ml 14644 ml TPN/PPN 659 ml 600 ml 38497 ml Output Urine Total 7956 ml Stool Total 1 ml Urine/Stool Mix 781 ml Emesis 2490 ml Other 3800 ml # Voids 4 3 104 # Bowel Movements 0 0 17 Exam Resting comfortable, pain under good control Skin; clear no rash HENT adequate hydration, no oral lessions CV; no murmur, reg, no sig edema, no JVD Resp; clear anteriorly, no wheezing or rhonchi GI; firm hardness to anterior abdomen, bs present, mild diffuse tenderness today, increased firmness and probable fluid neuro; 2-12 intact, no focal neuro deficits Lab and Diagnostics Result Diagram: 03/12/17 0743 03/15/17 0350 Microbiology 02/21/17 Blood culture- No growth to date 02/21/17 Urine culture- Positive Escherichia Coli; Klebsiella Pneumoniae 02/21/17 MRSA screen- positive 02/22/17- Repeat Blood Cultures- no growth to date X-Rays, CTs and MRIs (02/26/17) CT ABDOMEN AND PELVIS WITH CONTRAST IMPRESSION: 1. Small bilateral pleural effusions, left greater than right, increasing volume of ascites and development of diffuse subcutaneous edema. 2. Postoperative changes of partial gastrectomy, cholecystectomy and possible partial bowel resection. Old abdominal wall tract from prior J-tube placement. 3. Bowel distention with air-fluid levels, likely inflammatory with ileus, possibility of partial small bowel obstruction with possible transition in the right upper quadrant in the area of surgical clips. Dictated and approved by: Rio Thornton M.D. on 02/26/2017 at 14:05 ADDENDUM: Following consultation with Dr. Sawyer, the focal area of small bowel narrowing in the right upper quadrant at the level of surgical clips represents a surgical blind ended loop of duodenum and not a focus of small bowel obstruction. Dictated by: Rio Thornton M.D. on 02/26/2017 at 15:02 (02/27/17) US PELVIC SONOGRAM + TRANSVAGINAL SONOGRAM IMPRESSION: 1. Atrophic otherwise ultrasonographically normal uterus. The ovaries were not identified and cannot be evaluated. 2. Ascites is noted. Dictated and approved by: Keny Duvall M.D. on 02/27/2017 at 18:47 . 12-lead ECG Normal sinus rhythm with heart rate of 83; QTc 4 70 Assessment & Plan 61-year-old female with multiple abdominal surgeries due to gastric carcinoma, and history of intra-abdominal sepsis and abscesses with MRSA in the fall of 2015 who presented to the hospital with 3 weeks of worsening abdominal pain and new nausea and emesis x3 starting day prior to admission. 1. Intra-abdominal mass/fluid collection, acute. Present on admission. Active and progressive. -ddx: infectious or inflammatory or recurrent malingnancy. CA 125 slightly elevated, uncertain significance. -awaits cytology, flow cytometry from peritoneal fluid 03/10/17, should be available later today -all antibiotics stopped yesterday -Dilaudid TRAVELING AUDITOR for control of abdominal pain -CT directed needle biopsy 03-13-17, await results, if negative Surgery may consider open biopsy. 2. UTI, acute. Present on admission. resolved. -Urine culture growing- E. coli, Klebsiella. Patient suprapubic pain but no urinary symptoms. . 3. Constipation, chronic. Present on admission. Active, -Likely secondary to chronic opiate use. Typically responds to suppositories, per the patient. -continue Relistor, for counteract opiate induced component of constipation, -Schedule miralax and docusate, added ducolax -Enema 02/28, 03/05, will try again on daily basis if needed -Had big BM er 4. Insulin using Type II diabetes, chronic. Present on admission. Active -Patient presents with glucose of 192. Goal blood glucose 140-180. -A1c 7.2 -home dose = Lantus 30 HS, Lispro 2 units tid ac (nutritional), and metformin 1 ,000 bid -Increase lantus to 30, increase to medium correction scale, cont to hold metformin for now 5. Acute microcytic, hypochromic anemia. Present mission. Active -Patient presents with a hemoglobin 11.6, a low MCV; review of past admissions does not appear that this is a chronic issue -Iron studies demonstrate deficiency component. -Supplemental iron held thus far due to constipation. -Follow CBC 6. Nutrition -continue TPN 7. Positive nasal MRSA screen, poa, resolved -treatment completed with muperisone, discontinued High risk meds: IV dilaudid, Disposition: currently waiting to establish intermodal customer service plan, based on cytology, pt may need surgery, please coordinate with surgery, ID Mcc nutrition also has to be discussed if non-surgical option is the plan. Consider palliative care consult in this case Patient will likely discharge back to [facility] following appropriate diagnostic procedures to characterize her mass disposition; -[facility] -oncologist is Dr. Garber -pcp is Dr. Bauer GI Prophylaxis: Proton Pump Inhibitor VTE Prophylaxis: Sub-Q Heparin (Unfractionated) VTE Mechanical Devices: Intermittant Pneumatic CD Resuscitation Status: CPR: Attempt Resuscitation Deng Menard MD Mar 15, 2017 13:44
--- NOTE | 2017-03-15 15:09 | NUR ---
CHACE signature attempted by calling pt's daughter Mary Smith [phone] Rita Martinez PESTICIDE APPLICATOR
[2017-03-15] MEDS: 0.9% Sodium Chloride 250 ML IV SCH (17:15)
[2017-03-15] MEDS: Total Parenteral Nutrition 1 BAG IV SCH (21:00)
[2017-03-15] MEDS: Insulin GLARgine 100 Unit/mL Syringe SUBQ SCH (22:02)
[2017-03-16] VITALS (14 sets, daily range): BP systolic 148–159; BP diastolic 68–84; PULSE 74–105; RESP 14–18; O2SAT 97–100
[2017-03-16] MEDS: Heparin 5,000 Unit/mL Inj SUBQ SCH ×3 (00:52→16:42)
[2017-03-16] MEDS: MetoCLOpramide 5 mg/mL 2 mL Inj IVPUSH SCH ×4 (03:04→21:49)
--- NOTE | 2017-03-16 05:21 | NUR ---
Pain Patient continues to use OIL DISPATCHER Dilaudid for pain. Patient stated that she felt the OIL DISPATCHER was working well to manage pain and that her pain level hovered around a 4-5/10. TPN running at 52ml/hr. Patient is egyptian speaking only.A&OX3. No bowl movement this shift. Care continues.
[2017-03-16 07:20] LABS: Mean Corpuscular Hemoglobin 24.7 pg (27.0-35.0); Mean Corpuscular Volume 77.7 fL (81-100)
[2017-03-16 07:43] LABS: Magnesium 1.8 mg/dL (1.6-2.6); Phosphorus 3.1 mg/dL (2.5-4.9)
[2017-03-16] MEDS: Insulin LISPRO 300 Unit/3 mL Inj SUBQ SCH ×4 (08:24→21:41)
[2017-03-16] MEDS: Polyethylene Glycol (PEG) 17 Gm Powder PO SCH ×2 (08:30→21:47)
--- NOTE | 2017-03-16 10:42 | PCM.PHAPRO ---
Progress PARENTERAL NUTRITION ORDERS 14 16-Mar-17 Standard Hang Time: 2100 Substrates Total kcal: 1820 AMINO ACIDS 75 g DEXTROSE 300 g Total Volume (mL): 1250 LIPIDS 50 g Sterile Water for Injection QS mL To Infuse Over (hrs): 24 Total Volume 1250 mL At at a rate of (mL/hr): 52 Additives Sodium Chloride 140 mEq "typical" daily requirements Sodium Acetate 30 mEq Sodium 50-120mEq Potassium Chloride 40 mEq Potassium 60-120mEq Potassium Phosphate 20 mEq Phosphate 20-40mEq Calcium Gluconate 9 mEq Magnesium 8-32mEq Magnesium Sulfate 24 mEq Calcium 9-22mEq Acetate* 80-120mEq Chloride* 80-120mEq Regular Insulin units *Depending on acid-base status Famotidine 40 mg Multivitamins 1 std dose Insulin Regimen Trace Elements 1 std dose none Thiamine mg Regular Low Intensity Subcut X Folic Acid mg Regular Medium Intensity Subcut Ascorbic Acid mg Regular High Intensity Subcut Regular Insulin Infusion Other: Special Instructions: To be infused via central line only. For delay or inturruption of TPN contact the pharmacist for alternative replacement solution. Signature Date: FLAQUITO DUBON [address] [facility] Mynor See, PharmD Mynor See Mar 16, 2017 10:42
[2017-03-16] MEDS: Nystatin 100,000 Unit/Gm 15 Gm Powder TOPICAL SCH ×2 (12:46→21:49)
[2017-03-16] MEDS: 0.9% Sodium Chloride 250 ML IV SCH (13:00)
--- NOTE | 2017-03-16 13:51 | NUR ---
Social Work: Continued Discharge Planning D: EMR reviewed. Pt is on day 23 of hospitalization. Per MD in AM multi-disciplinary rounds, pt is awaiting biopsy results. If results are negative, pt will receive open biopsy. Pt is full code. Palliative is following pt. Pt will return to [facility] with Dr. Cortes to follow. Discharge plan is also pending pt's biopsy results. Pt and family (dtr Mary Smith [phone]) are agreeable to discharge plan. SW will continue to follow. A: Pt for whom a SNF has been deemed medically necessary. P: Pt to return to [facility] with Dr. Cortes to follow. SW will continue to follow for needs pending biopsy. COLLIN Anderson
--- NOTE | 2017-03-16 13:58 | NUR ---
NUTRITION FOLLOW-UP: ASSESS: 61 YO female with multiple abdominal surgeries due to gastric carcinoma, and history of intra-abdominal sepsis and abscesses with MRSA in the fall of 2016, presented to the hospital with 3 weeks of worsening abdominal pain and new nausea and emesis x 3 starting day prior to admission. Pt. with intra-abdominal mass /fluid collection, POA, active and progressive. Intra-abdominal mass/fluid collection, acute. Present on admission. Active and progressive. Diagnosis: infectious or inflammatory or recurrent malignancy. CA 125 slightly elevated, uncertain significance. Awaiting cytology. Bowel regimen successful; pt. had large BM today. She continues on TPN, as her appetite is minimal. Noted some improvement in appetite x 48hrs with po intake of 0-100%, pt likes fruit that daughter brings her. Note cytology should be available today to help develop POC, goals for potential LT nutrition needs if surgery not an option. PMHX: Type 2 DM, hyperlipidemia, stroke with left sided weakness, gastric adenocarcinoma,gastrectomy w/reconstruction. LABS: Reviewed. Glu 227, Na 133 MEDS: Reviewed. Reglan, Relistor, MiraLax, Docusate, Dulcolax, Melatonin, Dilaudid, Insulin. GI: 1 BM 03/14 SKIN: Devin 14. No major issues noted. WT: 73.7 kg, BMI 30.7 kg/m2, admit wt 69.8kg, IBW 47.7kg DIET: Diabetic. PO 0-100% x 48hrs. TPN: 300 g Dex, 75 g AA and 50 g lipids to provide 1820 kcal and 75 g pro (100% estimated needs) EST. NEEDS: BMI Kcals: 1780-2025kcal/day (22-25kcal/kg) Pro: 60-75g/day (1.2-1.5g/kg IBW) NUTRITION DIAGNOSIS: 1) Inadequate oral intake related to altered GI function as evidence by poor PO intake, pt reporting poor appetite, severe abdominal pain and history of needing J-tube feedings - MILDLY IMPROVING. Pt remains on TPN. NUTRITION INTERVENTION: 1) Continue current TPN: 300g Dex, 75g AA and 50g lipids to provide 1820kcal and 75g pro (100% estimated needs). 2.) Monitor PO intake and modify TPN accordingly. If PO intake remains 25-75% or > consider decreasing TPN formulation. MONITOR / EVAL: TPN tolerance, PO intake, wt, GI, diet advc, labs, POC pending cytology results, nutrition status. Will continue to monitor per high nutrition risk guidelines.
[2017-03-16] MEDS: HYDROmorphone PCA 0.2 mg/mL 30 mL Inj IV PRN (14:02)
[2017-03-16] MEDS: Dextrose 5% 500 ML IV SCH (15:20)
--- NOTE | 2017-03-16 15:41 | DRSVH ---
PROCEDURE: US ABDOMEN, LIMITED ([id number]) INDICATIONS: ascites/peritoneal carcinomatosis TECHNIQUE: Real-time focused scanning was performed of the abdomen with attention to the appendix, with image do cumentation. COMPARISON: [facility], US, US GUIDED PARACENTESIS, 03/10/2017, 14:17. [facility] pital, CT, CT ABD PELVIS W CON, 03/09/2017, 16:20. [facility], US, ABDOMEN LTD, 03/03/2017 , 10:25. FINDINGS: Ultrasound was performed in the area of interest. There is a small to moderate amount of a scites. IMPRESSION: Small to moderate amount of ascites. The amount of ascitic fluid was felt not safe for th erapeutic paracentesis. Dictated by: Alfredo Flynn M.D. on 03/16/2017 at 15:37 Approved by: Alfredo Flynn M.D. on 03/16/2017 at 15:40
--- NOTE | 2017-03-16 19:29 | NUR ---
GI Pt without stool since NOC shift 03/14; continued stool softeners. This AM, pt with 50cc green bile emesis - refusing morning medications. Reoffered twice. Pt then willing to take her heart/BP medications, did not receive PO laxatives. SQ Relistor dose given. No effect. Suppository given and attempted to give Mag Citrate - pt took one sip and stated nausea. Diluted with water and left at bedside. Daughter present and aware. At change of shift, pt with large loose stool. Care continues.
[2017-03-16] MEDS: Insulin GLARgine 100 Unit/mL Syringe SUBQ SCH (21:48)
[2017-03-16] MEDS: TPN Per Pharmacist XX SCH (21:48)
[2017-03-16] MEDS: Total Parenteral Nutrition 1 BAG IV SCH (21:49)
--- NOTE | 2017-03-16 23:23 | PCM.PNMED ---
Subjective Date of Service Mar 16, 2017 Subjective This is a 61F unfortunate female with many prior hospital visits due to gastric cancer s/p biliroth II+cholecystectomy, and subsequent complications that include an abscess of anterior abdomen, stump leakage, J-tube, sepsis due to MRSA abdominal abscess now here due to increased pain, thought to be due to peritoneal carcinomatosis. Awaiting biopsy to characterize the mass prior to returning to [facility] where she resides. She states she has lower abd pain, wants to know if she can get tapped again. Says pain is 7/10 but does not want increase in pain meds. She ahs no appetite, last BMw as 5 days ago Exam Vital Signs Vital Sign - Last Date Time Temp Pulse Resp B/P Pulse Ox O2 Delivery O2 Flow Rate FiO2 03/16/17 04:04 14 97 03/16/17 00:20 37.0 74 151/68 Room Air 03/10/17 09:04 1.00 Intake and Output 03/15/17 03/15/17 03/16/17 Cumulative From/Thru 15:00 23:00 07:00 02/21/17 16:49 - 03/15/17 20:37 Intake Total 1400 ml 36400 ml Output Total 62184 ml Balance 1400 ml 23042 ml Intake Oral 560 ml 80665 ml IV Total 225 ml 17386 ml TPN/PPN 615 ml 43831 ml Output Urine Total 7956 ml Stool Total 1 ml Urine/Stool Mix 781 ml Emesis 2490 ml Other 3800 ml # Voids 3 107 # Bowel Movements 17 Exam Resting comfortable, pain under good control Skin; clear no rash HENT adequate hydration, no oral lessions CV; no murmur, reg, no sig edema, no JVD Resp; clear anteriorly, no wheezing or rhonchi GI; firm hardness to anterior abdomen, bs hypoactive, mild diffuse tenderness today, increased firmness and probable fluid neuro; 2-12 intact, no focal neuro deficits psych: neg for anxiety and agitation Ext: L foor ext rotated, not moving Left leg or arm, no edema, cyanosis IVs and Medications IV Fluids TPN Medications Reviewed: Medications were reviewed in detail Lab and Diagnostics Result Diagram: 03/12/17 0743 03/15/17 0350 Microbiology 02/21/17 Blood culture- No growth to date 02/21/17 Urine culture- Positive Escherichia Coli; Klebsiella Pneumoniae 02/21/17 MRSA screen- positive 02/22/17- Repeat Blood Cultures- no growth to date X-Rays, CTs and MRIs (02/26/17) CT ABDOMEN AND PELVIS WITH CONTRAST IMPRESSION: 1. Small bilateral pleural effusions, left greater than right, increasing volume of ascites and development of diffuse subcutaneous edema. 2. Postoperative changes of partial gastrectomy, cholecystectomy and possible partial bowel resection. Old abdominal wall tract from prior J-tube placement. 3. Bowel distention with air-fluid levels, likely inflammatory with ileus, possibility of partial small bowel obstruction with possible transition in the right upper quadrant in the area of surgical clips. Dictated and approved by: Rio Thornton M.D. on 02/26/2017 at 14:05 ADDENDUM: Following consultation with Dr. Sawyer, the focal area of small bowel narrowing in the right upper quadrant at the level of surgical clips represents a surgical blind ended loop of duodenum and not a focus of small bowel obstruction. Dictated by: Rio Thornton M.D. on 02/26/2017 at 15:02 (02/27/17) US PELVIC SONOGRAM + TRANSVAGINAL SONOGRAM IMPRESSION: 1. Atrophic otherwise ultrasonographically normal uterus. The ovaries were not identified and cannot be evaluated. 2. Ascites is noted. Dictated and approved by: Keny Duvall M.D. on 02/27/2017 at 18:47 . 12-lead ECG Normal sinus rhythm with heart rate of 83; QTc 4 70 Assessment & Plan 61-year-old female with multiple abdominal surgeries due to gastric carcinoma, and history of intra-abdominal sepsis and abscesses with MRSA in the fall of 2015 who presented to the hospital with 3 weeks of worsening abdominal pain and new nausea and emesis x3 starting day prior to admission. 1. Intra-abdominal mass/fluid collection, acute. Present on admission. Active and progressive. -ddx: infectious or inflammatory or recurrent malingnancy. CA 125 slightly elevated, uncertain significance. -awaits cytology, flow cytometry from peritoneal fluid 03/10/17, result available on 03/15 -all antibiotics stopped 03/14 -Dilaudid TOOL POLISHER for control of abdominal pain -CT directed needle biopsy 03-13-17, await results, if negative Surgery may consider open biopsy. - No tests were ordered on the tap from 03/11 per micro --Requested a paracentesis from IR today, they will take a look at the US: US showed not enough fluid for paracentesis --Called path lab, they have no result available from the 03/13 biopsy yet 2. Constipation, chronic. Present on admission. Resolved -Likely secondary to chronic opiate use. Typically responds to suppositories, per the patient. -continue Relistor, for counteract opiate induced component of constipation, -Schedule miralax and docusate, added ducolax -Enema 02/28, 03/05, will try again on daily basis if needed -Had big BM 03/14 -- states she hdid nto have a large BM -- dulcolax, mag citrate 3. Insulin using Type II diabetes, chronic. Present on admission. Active -Patient presents with glucose of 192. Goal blood glucose 140-180. -A1c 7.2 -home dose = Lantus 30 HS, Lispro 2 units tid ac (nutritional), and metformin 1 ,000 bid -Increase lantus to 30, increase to medium correction scale, cont to hold metformin for now 4. Acute microcytic, hypochromic anemia. Present mission. Active -Patient presents with a hemoglobin 11.6, a low MCV; review of past admissions does not appear that this is a chronic issue -Iron studies demonstrate deficiency component. -Supplemental iron held thus far due to constipation. -Follow CBC 5. Nutrition -continue TPN 6. Positive nasal MRSA screen, poa, resolved -treatment completed with mupirocin 7. UTI, acute. Present on admission. resolved. -Urine culture growing- E. coli, Klebsiella. Patient suprapubic pain but no urinary symptoms. -No more abx per ID High risk meds: IV dilaudid, Disposition: currently waiting to establish [facility] plan, based on cytology, pt may need surgery, please coordinate with surgery, ID [facility] nutrition also has to be discussed if non-surgical option is the plan. Consider palliative care consult in this case Patient will likely discharge back to [facility] following appropriate diagnostic procedures to characterize her mass disposition; -[facility] -oncologist is Dr. Garber -pcp is Dr. Bauer Pain Evaluation: Adequate Pain Control GI Prophylaxis: Proton Pump Inhibitor VTE Prophylaxis: Sub-Q Heparin (Unfractionated) VTE Mechanical Devices: Intermittant Pneumatic CD Resuscitation Status: CPR: Attempt Resuscitation Time spent 20 min Didi Sawyer DO Mar 16, 2017 05:56
[2017-03-17] VITALS (10 sets, daily range): BP systolic 147–175; BP diastolic 74–91; PULSE 88–95; RESP 14–18; O2SAT 97–99
[2017-03-17] MEDS: Heparin 5,000 Unit/mL Inj SUBQ SCH ×3 (00:54→16:30)
[2017-03-17] MEDS: MetoCLOpramide 5 mg/mL 2 mL Inj IVPUSH SCH ×4 (03:39→21:17)
--- NOTE | 2017-03-17 05:14 | NUR ---
Mobility / Port access Pt able to reposition self in bed for comfort and skin care, skin on back and bottom appear in good condition. Pain continues to be adequately controlled with SENIOR ACCOUNTS PAYABLE CLERK. Port re-accessed by IV therapy; does not draw, TPN infusing. Pt has very poor appetite, family requests tray to be left until they are available to assist with meals to encourage PO intake. Hourly rounding ongoing.
[2017-03-17] MEDS: TPN Per Pharmacist XX SCH (08:30)
[2017-03-17] MEDS: Polyethylene Glycol (PEG) 17 Gm Powder PO SCH ×2 (09:13→23:17)
[2017-03-17] MEDS: Insulin LISPRO 300 Unit/3 mL Inj SUBQ SCH ×4 (09:15→22:00)
[2017-03-17] MEDS: Nystatin 100,000 Unit/Gm 15 Gm Powder TOPICAL SCH (09:15)
[2017-03-17 09:21] LABS: Magnesium 1.9 mg/dL (1.6-2.6); Phosphorus 3.4 mg/dL (2.5-4.9)
--- NOTE | 2017-03-17 10:42 | PCM.PHAPRO ---
Progress PARENTERAL NUTRITION ORDERS 15 17-Mar-17 Standard Hang Time: 2100 Substrates Total kcal: 1820 AMINO ACIDS 75 g DEXTROSE 300 g Total Volume (mL): 1250 LIPIDS 50 g Sterile Water for Injection QS mL To Infuse Over (hrs): 24 Total Volume 1250 mL At at a rate of (mL/hr): 52 Additives Sodium Chloride 150 mEq "typical" daily requirements Sodium Acetate 30 mEq Sodium 50-120mEq Potassium Chloride 40 mEq Potassium 60-120mEq Potassium Phosphate 20 mEq Phosphate 20-40mEq Calcium Gluconate 9 mEq Magnesium 8-32mEq Magnesium Sulfate 24 mEq Calcium 9-22mEq Acetate* 80-120mEq Chloride* 80-120mEq Regular Insulin units *Depending on acid-base status Famotidine 40 mg Multivitamins 1 std dose Insulin Regimen Trace Elements 1 std dose none Thiamine mg Regular Low Intensity Subcut X Folic Acid mg Regular Medium Intensity Subcut Ascorbic Acid mg Regular High Intensity Subcut Regular Insulin Infusion Other: Special Instructions: To be infused via central line only. For delay or inturruption of TPN contact the pharmacist for alternative replacement solution. Signature Date: FLAQUITO DUBON [address] [facility] Made slight adjustment to sodium. Labs for tomorrow will need to be ordered. -Mynor See, PharmD Mynor See Mar 17, 2017 10:41
[2017-03-17] MEDS: 0.9% Sodium Chloride 250 ML IV SCH (11:05)
--- NOTE | 2017-03-17 13:58 | NUR ---
CHACE: Daughter not present this morning, spoke with FOOD COURT TEAM MEMBER regarding coordination of CHACE.
[2017-03-17] MEDS: Dextrose 5% 500 ML IV SCH (15:07)
[2017-03-17] MEDS: HYDROmorphone PCA 0.2 mg/mL 30 mL Inj IV PRN ×2 (15:20→22:04)
--- NOTE | 2017-03-17 16:55 | NUR ---
CHACE SIGNED by daughter this afternoon.
--- NOTE | 2017-03-17 17:05 | NUR ---
Nausea Patient denied nausea for most of the AM and at about 1130 had an episode of nausea with vomiting. Patient changed and given a bed bath. No reports of nausea since. Continuing scheduled reglan and hourly rounding.
[2017-03-17] MEDS: Total Parenteral Nutrition 1 BAG IV SCH (21:00)
[2017-03-17] MEDS: HYDROmorphone 1 mg/mL Inj IVPUSH PRN ×2 (22:16→23:29)
[2017-03-17] MEDS: Insulin GLARgine 100 Unit/mL Syringe SUBQ SCH (22:36)
--- NOTE | 2017-03-17 23:14 | CONS ---
[address] [address] CONSULTATION REPORT PATIENT: FLAQUITO DUBON : 1955 MR#: [id number] ADMIT: 02/21/2017 JOB ID: [id number] DATE OF SERVICE: 03/17/2017 DIAGNOSIS: Advanced gastric adenocarcinoma, associated with peritoneal carcinomatosis and malignant ascites. HISTORY OF PRESENT ILLNESS: The patient is a very pleasant, 61-year-old, woman, who was diagnosed in February 2016 with poorly differentiated gastric adenocarcinoma, involving distal stomach, clinical stage T4 N0. Her tumor was HER 2 negative. She received neoadjuvant chemotherapy with EOX regimen x3 cycles, and underwent distal gastrectomy with Billroth II gastrojejunostomy in May 2016. She had significant residual adenocarcinoma, with poorly differentiated morphology, non-signet ring type, involving anterior wall of the distal/antral stomach. The size of tumor was 4.2 x 3.7 x 1.5 cm. There was moderate response to neoadjuvant chemotherapy. A total of 11 lymph nodes were removed, including two common hepatic lymph nodes and nine perigastric lymph nodes, all of which were negative for metastatic carcinoma. Post neoadjuvant pathologic stage was T2 N0 (whereas preneoadjuvant pathologic stage was T4 N0). Unfortunately, the patient had many postoperative complications, including initially bile leakage from her duodenal stump and later development of retroperitoneal abscess. She had multiple hospital admissions. This time, the patient was admitted to hospital about three weeks ago due to progressive lower abdominal pain, distention and vomiting. PET-CT scan on admission on February 21, 2017 showed ill-defined loops of thickened bowel within the right chapito abdomen, correlating to both small and large bowel, and fluid-filled prominence of scattered small bowel loops. There were areas of mesenteric thickening, suspicious for carcinomatosis. Subsequent CT scan on March 09 showed moderate degree of ascites, an enhancing peritoneal nodularity. Peritoneal fluid was sampled on March 10, but showed negative cytology. Eventually a CT-guided core needle omental biopsy was obtained on March 13, and the report came today positive for metastatic poorly differentiated adenocarcinoma, consistent with the patient's known gastric primary, with no overexpression of HER-2 by IHC. PAST MEDICAL HISTORY: 1. Type 2 diabetes. 2. 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 SUBJECTIVE: She complains of constant pain across lower abdomen. She reports intermittent vomiting and very poor appetite. She feels profoundly weak. She is mostly bed-bound, and was only able to sit in a bedside chair for a short period of time today. Yesterday, she had a good bowel movement. OBJECTIVE: Very delightful woman, as always. She appears weak. She is resting in bed. Blood pressure 159/87, heart rate 95, temperature 37.1, O2 saturation 99% on room air. On exam, abdomen is moderate to severely distended with palpable ascites. The abdomen is semi firm to palpation throughout. LABORATORY DATA: Persistent leukocytosis with WBC count 19,800 yesterday, hemoglobin 9.1, platelet count 680,000. Basic metabolic profile is normal other than hyperglycemia. IMPRESSION AND PLAN: I had a long conversation with the patient's daughter and son outside of the patient's room. Per family's request, we did not have this conversation at her bedside. I explained to her children that, unfortunately, she has an incurable stomach cancer that has extensively spread to peritoneal surfaces and is associated with malignant ascites. Given suboptimal response to previous multiagent neoadjuvant chemotherapy and, more importantly, given her extremely poor condition and performance status currently, in my opinion, this patient is not a candidate for palliative chemotherapy. I recommend comfort care in the setting of hospice, and her children agree with this. We will consult Palliative Care team tomorrow. Her children would like to discuss this with other family members and the patient's , but they want to limit the amount of information that the patient herself would know. They tell me that the patient knows that her cancer has recurred, but they do not want to discuss the poor prognosis with her. This is totally understandable, and I will respect their wishes. I also recommend a palliative therapeutic paracentesis prior to discharge on hospice, unless there was persistent leakage after her recent diagnostic thoracentesis. In total, 60 minutes was spent today, mostly in discussion of prognosis and treatment recommendations with the patient's children. ALEXEI
[2017-03-17] MEDS: Ondansetron 2 mg/mL 2 mL Inj IVPUSH PRN (23:27)
--- NOTE | 2017-03-17 23:53 | PCM.PNMED ---
Subjective Date of Service Mar 17, 2017 Subjective Patient is seen and examined with the help of wrapping machine helper Alicja. Daughter was present in the room. Discussed biopsy results. No other concerns. Exam Vital Signs Vital Sign - Last Date Time Temp Pulse Resp B/P Pulse Ox O2 Delivery O2 Flow Rate FiO2 03/17/17 17:55 14 97 03/17/17 17:25 37.1 95 159/87 Room Air Intake and Output 03/16/17 03/16/17 03/17/17 Cumulative From/Thru 15:00 23:00 07:00 02/21/17 16:49 - 03/17/17 06:12 Intake Total 1284 ml 559 ml 80712 ml Output Total 20280 ml Balance 1284 ml 559 ml 84919 ml Intake Oral 400 ml 86463 ml IV Total 106 ml 132 ml 30295 ml TPN/PPN 778 ml 427 ml 25550 ml Output Urine Total 9295 ml Stool Total 1 ml Urine/Stool Mix 781 ml Emesis 2490 ml Other 3800 ml # Voids 3 110 # Bowel Movements 17 Exam Resting comfortable, pain under good control Skin; clear no rash HENT adequate hydration, no oral lessions CV; no murmur, reg, no sig edema, no JVD Resp; clear anteriorly, no wheezing or rhonchi GI; firm hardness to anterior abdomen, bs hypoactive, mild diffuse tenderness today, increased firmness and probable fluid neuro; 2-12 intact, no focal neuro deficits psych: neg for anxiety and agitation Ext: L foor ext rotated, not moving Left leg or arm, no edema, cyanosis IVs and Medications IV Fluids TPN Medications Reviewed: Medications were reviewed in detail Lab and Diagnostics Laboratory Tests Test 03/17/17 08:25 Phosphorus Level 3.4mg/dL (2.5-4.9) Magnesium Level 1.9mg/dL (1.6-2.6) Microbiology 03/06/17 Blood Fungal Culture - Preliminary, Resulted No Fungus isolated at one week 03/04/17 Gram Stain - Final, Complete 03/04/17 Culture & Sensitivity - Final, Complete No growth. 03/04/17 Anaerobic Culture - Final, Complete No anaerobes isolated 02/22/17 MRSA (PCR) - Final, Complete Mrsa Pos By Pcr Testing 02/21/17 Urine Culture - Final, Complete Escherichia Coli Klebsiella Pneumoniae Result Diagram: 03/16/17 0705 03/16/1705 Microbiology 02/21/17 Blood culture- No growth to date 02/21/17 Urine culture- Positive Escherichia Coli; Klebsiella Pneumoniae 02/21/17 MRSA screen- positive 02/22/17- Repeat Blood Cultures- no growth to date X-Rays, CTs and MRIs (02/26/17) CT ABDOMEN AND PELVIS WITH CONTRAST IMPRESSION: 1. Small bilateral pleural effusions, left greater than right, increasing volume of ascites and development of diffuse subcutaneous edema. 2. Postoperative changes of partial gastrectomy, cholecystectomy and possible partial bowel resection. Old abdominal wall tract from prior J-tube placement. 3. Bowel distention with air-fluid levels, likely inflammatory with ileus, possibility of partial small bowel obstruction with possible transition in the right upper quadrant in the area of surgical clips. Dictated and approved by: Rio Thornton M.D. on 02/26/2017 at 14:05 ADDENDUM: Following consultation with Dr. Sawyer, the focal area of small bowel narrowing in the right upper quadrant at the level of surgical clips represents a surgical blind ended loop of duodenum and not a focus of small bowel obstruction. Dictated by: Rio Thornton M.D. on 02/26/2017 at 15:02 (02/27/17) US PELVIC SONOGRAM + TRANSVAGINAL SONOGRAM IMPRESSION: 1. Atrophic otherwise ultrasonographically normal uterus. The ovaries were not identified and cannot be evaluated. 2. Ascites is noted. Dictated and approved by: Keny Duvall M.D. on 02/27/2017 at 18:47 . 12-lead ECG Normal sinus rhythm with heart rate of 83; QTc 4 70 Assessment & Plan 61-year-old female with multiple abdominal surgeries due to gastric carcinoma, and history of intra-abdominal sepsis and abscesses with MRSA in the fall of 2016 who presented to the hospital with 3 weeks of worsening abdominal pain and new nausea and emesis x3 starting day prior to admission. 1. Intra-abdominal mass/fluid collection, acute. Present on admission. Active and progressive. -ddx: infectious or inflammatory or recurrent malingnancy. CA 125 slightly elevated, uncertain significance. -awaits cytology, flow cytometry from peritoneal fluid 03/10/17, result available on 03/15 -all antibiotics stopped 03/14 -Dilaudid FIELD APPLICATIONS SPECIALIST for control of abdominal pain -CT directed needle biopsy 03-13-17, await results, if negative Surgery may consider open biopsy. - No tests were ordered on the tap from 03/11 per micro --Requested a paracentesis from IR today, they will take a look at the US: US showed not enough fluid for paracentesis --Path report from 03/13 is available, showed mets from primary gastric cancer -- Consulted Dr. Hi. He will see the patient. -- Daughter says no one should discuss patient's health with the patient.Daughter and family will make the decisions. -- Palliative care will see the patient after the biopsy result is obtained, will likely see pt tomorrow. 2. Constipation, chronic. Present on admission. Resolved -Likely secondary to chronic opiate use. Typically responds to suppositories, per the patient. -continue Relistor, for counteract opiate induced component of constipation, -Schedule miralax and docusate, added ducolax -Enema 02/28, 03/05, will try again on daily basis if needed -Had big BM 03/14 -- states she did not have a large BM -- dulcolax, mag citrate 3. Insulin using Type II diabetes, chronic. Present on admission. Active -Patient presents with glucose of 192. Goal blood glucose 140-180. -A1c 7.2 -home dose = Lantus 30 HS, Lispro 2 units tid ac (nutritional), and metformin 1 ,000 bid -Increase lantus to 30, increase to medium correction scale, cont to hold metformin for now 4. Acute microcytic, hypochromic anemia. Present mission. Active -Patient presents with a hemoglobin 11.6, a low MCV; review of past admissions does not appear that this is a chronic issue -Iron studies demonstrate deficiency component. -Supplemental iron held thus far due to constipation. -Follow CBC 5. Nutrition -continue TPN 6. Positive nasal MRSA screen, poa, resolved -treatment completed with mupirocin 7. UTI, acute. Present on admission. resolved. -Urine culture growing- E. coli, Klebsiella. Patient suprapubic pain but no urinary symptoms. -No more abx per ID High risk meds: IV dilaudid, Disposition: currently waiting to establish [facility] heaterman plan, based on cytology, pt may need surgery, please coordinate with surgery, ID Care Home nutrition also has to be discussed if non-surgical option is the plan. Consider palliative care consult in this case Patient will likely discharge back to [facility] following appropriate diagnostic procedures to characterize her mass disposition; -[facility] -oncologist is Dr. Garber -pcp is Dr. Bauer GI Prophylaxis: Proton Pump Inhibitor VTE Prophylaxis: Sub-Q Heparin (Unfractionated) VTE Mechanical Devices: Intermittant Pneumatic CD Resuscitation Status: CPR: Attempt Resuscitation Time spent 25 min Didi Sawyer DO Mar 17, 2017 23:53
[2017-03-18] VITALS (11 sets, daily range): BP systolic 133–157; BP diastolic 72–79; PULSE 58–109; RESP 16; O2SAT 93–100
[2017-03-18] MEDS: Nystatin 100,000 Unit/Gm 15 Gm Powder TOPICAL SCH ×3 (00:03→23:19)
[2017-03-18] MEDS: Heparin 5,000 Unit/mL Inj SUBQ SCH ×3 (00:14→17:43)
--- NOTE | 2017-03-18 00:23 | NUR ---
PAIN/IV/INCONTINENT/FEVER: Pt. reported pain at 9/10 and 10/10, IV was infiltrated. Gave 1 mg of IV Dilaudid brought pain down to 9/10, later on gave another 1 mg of IV Dilaudid it brought her pain down to 3 which is tolerable for pain. IV was infiltrated, placed a new IV line and hooked up her HOMICIDE DETECTIVE Dilaudid. Premedicated pt. with Reglan IV previous to PO meds, pt. still c/o nausea. Gave 8 mg of IV Zofran, effective. No emesis at this time. Low grade fever temp 37.3 pt. states she feels too warm, noticed diaphoresis around lips and nose, given cool wash cloths, turned the heat down in her room from 74 to 69. Genevieve care done, pt. was incontinent of large urine. Abdomen is very distended and firm with hyperactive BT. Per report pt. had a BM yesterday but also given 17g of Miralx tonight. Lots of visitors in her room for a long time tonight, all of them left at about midnight. Pt. asleep at this time.
--- NOTE | 2017-03-18 00:59 | NUR ---
Belongings (glasses x1) Found only one pair of glasses. Checked in closet, in serving tray cubby, under the bed, in pink basin on counter. RN- in room while seeking for second pair. Unfound. Will pass onto am shift.
[2017-03-18] MEDS: MetoCLOpramide 5 mg/mL 2 mL Inj IVPUSH SCH ×2 (05:36→09:27)
[2017-03-18] MEDS: HYDROmorphone 1 mg/mL Inj IVPUSH PRN ×3 (05:39→21:56)
[2017-03-18 06:05] LABS: Mean Corpuscular Hemoglobin 24.4 pg (27.0-35.0); Mean Corpuscular Volume 79.7 fL (81-100)
[2017-03-18 06:40] LABS: Magnesium 1.9 mg/dL (1.6-2.6); Phosphorus 3.7 mg/dL (2.5-4.9)
[2017-03-18] MEDS: TPN Per Pharmacist XX SCH (08:30)
[2017-03-18] MEDS: Polyethylene Glycol (PEG) 17 Gm Powder PO SCH (09:26)
[2017-03-18] MEDS: Insulin LISPRO 300 Unit/3 mL Inj SUBQ SCH ×4 (09:27→22:19)
--- NOTE | 2017-03-18 11:45 | NUR ---
NUTRITION FOLLOW-UP: ASSESS: 61 YO female with multiple abdominal surgeries due to gastric carcinoma, and history of intra-abdominal sepsis and abscesses with MRSA in the fall of 2015, presented to the hospital with 3 weeks of worsening abdominal pain and new nausea and emesis x 3 starting day prior to admission. CT-guided biopsy was obtained on 03/13, and the report came 03/17 positive for metastatic poorly differentiated Adenocarcinoma. Per oncology, pt is not a candidate for palliative chemotherapy. Family is considering hospice or comfort care. At this point she continues on TPN, as her appetite is minimal. Family is bringing in some food that pt likes. Requested AST, ALT and alk phos be ordered per pharmacy. If pt continues on TPN, pt may benefit from cycling lipids as she has been on TPNx3 weeks. PMHX: Type 2 DM, hyperlipidemia, stroke with left sided weakness, gastric adenocarcinoma,gastrectomy w/reconstruction. LABS: Reviewed. Glu 265, Ca 8.2 MEDS: Reviewed. Reglan, Relistor, MiraLax, Docusate, Dulcolax, Melatonin, Dilaudid, Insulin. GI: 1 BM 03/14 SKIN: Devin 14. ascites WT: 74.8kg, BMI 31.2 kg/m2, admit wt 69.8kg, IBW 47.7kg DIET: Diabetic. PO 0-100% x 48hrs. TPN: 300 g Dex, 75 g AA and 50 g lipids to provide 1820 kcal and 75 g pro (100% estimated needs) EST. NEEDS: Kcals: 1645-2025kcal/day (22-25kcal/kg) Pro: 60-75g/day (1.2-1.5g/kg IBW) NUTRITION DIAGNOSIS: 1) Inadequate oral intake related to altered GI function as evidence by poor PO intake, pt reporting poor appetite, severe abdominal pain and history of needing J-tube feedings - MILDLY IMPROVING. Pt remains on TPN. NUTRITION INTERVENTION: 1) Continue current TPN: 300g Dex, 75g AA and 50g lipids to provide 1820kcal and 75g pro (100% estimated needs). 2) Will monitor for AST, ALT and alk phos and potential need to cycle lipids every other day 3) Will monitor goals of care for possible hospice 4) Monitor PO intake and modify TPN accordingly. If PO intake remains 25-75% or > consider decreasing TPN formulation. MONITOR / EVAL: TPN tolerance, PO intake, wt, GI, diet advc, labs, POC, nutrition status. Will continue to monitor per high nutrition risk guidelines.
[2017-03-18] MEDS: 0.9% Sodium Chloride 250 ML IV SCH (11:54)
--- NOTE | 2017-03-18 12:40 | NUR ---
Social Work: Continued Discharge Planning D: EMR reviewed. 61 YO female with multiple abdominal surgeries due to gastric carcinoma, and history of intra-abdominal sepsis and abscesses with MRSA in the fall of 2015, presented to the hospital with 3 weeks of worsening abdominal pain and new nausea and emesis x 3 starting day prior to admission. CT-guided biopsy was obtained on 03/13, and the report came 03/17 positive for metastatic poorly differentiated Adenocarcinoma. Per oncology, pt is not a candidate for palliative chemotherapy. Family is considering hospice or comfort care. JORDAN received hospice orders from . JORDAN met with pt's daughter Mary Smith [phone] regarding hospice care with the assistance of the Language Line translator interpreter. Pt was asleep in the room and Mary requested we have the conversation in the report room so as not to wake pt. Mary is agreeable to hospice infovisit, HOSPICE CHOICE LIST PROVIDED. Mary chose Hospice the . Mary is aware that [facility] is affiliated with [facility]. JORDAN explained that hospice does not provide caregivers but will provide supportive staff and equipment in the home. Mary states that she would like to take time off of work to care for her mother and be involved in her care. Mary has concerns about her mother's HCS caregiving (Mary is pt's caregiver). T/C to DINORAH Haro regarding HCS caregivers and hospice, left message requesting return call. Return call will likely be received tomorrow. T/C to Luz at [facility] who is reviewing pt's referral. Luz will contact [employer] when hospice infovisit can be scheduled. Mary's contact information has been provided to Luz to assist with coordination of this infovisit. A: Pt who will discharge on hospice. P: Pt has been referred to Hospice the , infovisit pending. HNW will contact [employer] when infovisit is scheduled. JORDAN will continue to follow. COLLIN Fung
--- NOTE | 2017-03-18 12:46 | PCM.PHAPRO ---
Progress PARENTERAL NUTRITION ORDERS 16 18-Mar-17 Standard Hang Time: 2100 Substrates Total kcal: 1820 AMINO ACIDS 75 g DEXTROSE 300 g Total Volume (mL): 1250 LIPIDS 50 g Sterile Water for Injection QS mL To Infuse Over (hrs): 24 Total Volume 1250 mL At at a rate of (mL/hr): 52 Additives Sodium Chloride 150 mEq "typical" daily requirements Sodium Acetate 30 mEq Sodium 50-120mEq Potassium Chloride 40 mEq Potassium 60-120mEq Potassium Phosphate 20 mEq Phosphate 20-40mEq Calcium Gluconate 9 mEq Magnesium 8-32mEq Magnesium Sulfate 24 mEq Calcium 9-22mEq Acetate* 80-120mEq Chloride* 80-120mEq Regular Insulin units *Depending on acid-base status Famotidine 40 mg Multivitamins 1 std dose Insulin Regimen Trace Elements 1 std dose none Thiamine mg Regular Low Intensity Subcut Folic Acid mg Regular Medium Intensity Subcut Ascorbic Acid mg Regular High Intensity Subcut Regular Insulin Infusion Other: Special Instructions: To be infused via central line only. For delay or inturruption of TPN contact the pharmacist for alternative replacement solution. Signature Date: FLAQUITO DUBON [address] [facility] No chagnes today. Ordered CMP for tomorrow as nutrition may begin cycling pt's lipids. Mynor See, PharmD Mynor See Mar 18, 2017 12:46
[2017-03-18] MEDS ORDERED: Dexamethasone 4 mg/mL Inj IVPUSH ONE (12:50)
--- NOTE | 2017-03-18 12:50 | NUR ---
Hospice Choice List Provided. COLLIN Fung
[2017-03-18] MEDS: Methylnaltrexone 12 mg/0.6 mL Inj SUBQ SCH (13:22)
--- NOTE | 2017-03-18 13:24 | PCM.CONPAL ---
Date of Service Mar 18, 2017 Date of Hospital Admission: February 21, 2017 at 20:53 Date of Palliative Consult: Mar 18, 2017 Requesting Provider: Moo Amin DO Reason Palliative Care Consult: Goals of Care Discussion, Hospice Referral & Discussion Reason for Consultation Discuss and set up hospice meeting with family - Sneha Casillas (), Mary ( daughter), Gildadaphnie (son). 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 Hospital Unit @time of consult: Orthopedic/Surgical Care (Room 1010) Palliative Care Recommendation Summary of palliative recommendations: Patient is a 61-year-old female with history of gastric adenocarcinoma s/p neoadjuvant chemotherapy and distal gastrectomy with Billroth II gastrojejunostomy presenting with lower abdominal pain, distention and vomiting and found on CT-guided core needle omental biopsy to be positive for metastatic poorly differentiated adenocarcinoma, consistent with the patient's gastric primary. 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 1. Continue hydromorphone CONSTRUCTION SKILLS TEACHER tonight and anticipate discontinuing tomorrow. 2. Start scheduled oxycodone 5mg PO every 6 hours. 3. Start oxycodone 5mg PO every 3 hours as needed for breakthrough pain. 4. Discontinue acetaminophen. -Nausea and vomiting, especially noticeable with any oral intake 1. Start dexamethasone. Will give dexamethasone 4mg IV one time today and start dexamethasone 4mg PO tomorrow. 2. Discontinue ondansetron and octreotide. -Constipation 1. Currently on methylnaltrexone and metoclopramide. Discontinue metoclopramide and Miralax. 2. Give additional dose of methylnaltrexone 12mg IV today and continue every 48 hours -DPOA/Advanced Directives/POLST. Daughter (Mary) and (Sneha Casillas) are identified as the POA. Patient's family has insight and understanding of the patient's poor prognosis and wish to have Hospice information meeting. Drs. Shea and Germaine also discussed code status and completed POLST form with daughter. Code status changed from FULL CODE to DNAR/DNI. -Family/emotional support - excellent family support. Additional Medical Diagnoses with primary management by Hospitalist team include : 1. Intra-abdominal mass/fluid collection, acute. Present on admission. Active and progressive. 2. Constipation, chronic. Present on admission. Resolved 3. Insulin using Type II diabetes, chronic. Present on admission. Active 4. Acute microcytic, hypochromic anemia. Present mission. Active 5. Nutrition 6. Positive nasal MRSA screen, poa, resolved 7. UTI, acute. Present on admission. resolved. Problems: Goals of Care DNR/DNI/comfort goals Disposition Likely home with assistance from hospice. Family is meeting hospice agency for a information visit soon. Resuscitation Status Resuscitation Status: DNR/DNI:Do Not Resuscitate/Intubate POLST Updates/Changes Previous POLST?: No POLST Last Review Date: Mar 18, 2017 Antibiotics: Determine Use or Limitations Artificially Admin Nutrition: No Artifical Nutrition by Tube POLST Discussed with: Health Care Agent (DPOAHC) POLST Review Outcome: New Form Completed . Advanced Care Planning Address: POLST, Code status change Pain: Moderate Symptom management: Nausea, Constipation Pt History History of Present Illness Per admit note: 61-year-old female staying at [facility] with a history of gastric carcinoma with multiple surgeries since last summer including Billroth II that was complicated by duodenal stump leak and intra-abdominal sepsis, a history of intra-abdominal abscess with MRSA, diabetes type II, CVA with left- sided deficits, and hyperlipidemia who presents emergency department tonight complaining of abdominal pain greater on the right than the left of 3 weeks duration with acute increase in pain last night. Patient states that over the last 3 weeks she has had crampy and stabbing lower quadrant abdominal pain as well as intermittent epigastric pain. Patient currently says her pain as 7 out of 10 with worst pain 10 out of 10 yesterday prior to vomiting. States she experienced nausea and nonbloody emesis 3. Over the last couple weeks she has been asking for better pain control but states that she is only received Tylenol. She denies any ongoing diarrhea, hematochezia/melena, fever, chills, chest pain, shortness of breath, dizziness, or difficulty urinating. She does state that she has been constipated, but this seems to be usual for her. Patient had a recent J-tube but is unable to give details about its removal. Patient is Australian-speaking only and her daughters only speak some Korean. History obtained using a personal secretary. In the ED patient underwent CT scan which shows some perisplenic free fluid and thickening of large and possibly small bowel with an overall picture concerning for infection/inflammation with questionable developing ileus or partial SBO. There are also small areas of inflammation or fluid in the peritoneum. Official read in chart Patient had a mild leukocytosis with white count 14.3, microcytic hypochromic anemia, as well as very mild hyponatremia and hypochloremia with thin anion gap of 17. Patient's glucose is 192. Lipase and LFTs were negative. Troponin was also negative. Urine was sent for culture although UA does not hint that UTI. Patient underwent CT-guided core needle omental biopsy on March 13, which was positive for metastatic poorly differentiated adenocarcinoma, consistent with the patient's gastric primary. Per Oncology, the patient has an incurable cancer that has progressed and given the suboptimal response to previous multiagent neoadjuvant chemotherapy and the patient's poor condition the patient is not a candidate for palliative chemotherapy. Palliative medicine consulted to assist with initiating hospice and discuss goals of care. Prior to visiting the patient, reviewed patient's records in the EMR in detail and discussed patient with bedside nurse. Patient is accompanied at bedside by her daughter, Mary, who wishes to limit the amount of information divulged to the patient. Dr. Herron spoke to dtr Mary separately regarding setting up Hospice. Patient reports lower abdominal pain that she rates 8 out of 10 on analog pain scale. 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 She reports having decreased appetite since eating usually leads to vomiting but she currently denies any nausea. She also reports constipation with last bowel movement being approximately three days ago. Drs. Shea and Germaine rounded again on the patient in the afternoon and discussed code status and completed POLST form with daughter (who is her DPOAHC), Mary Smith. The patient's code status was changed from FULL CODE to DNAR/DNI. Interventions include comfort measures only. Family is okay with antibiotics with comfort being the goal. Family agrees to not have any medically assisted nutrition by tube. Patient seen in bed. Appears comfortable in no acute distress. Cardiac tones without murmur. Lungs clear bilaterally. Left chest port with clean, dry dressing. Abdomen with hypoactive tones. Extremities warm. Neurologically grossly intact. Past Medical History Significant PMH Noted: Gastric carcinoma Duodenal stump leak Hypercholesterolemia Recurrent UTIs CVA w/ left-sided deficits Intra-abdominal mass/fluid collection Constipation, chronic Acute microcytic, hypochromic anemia Positive nasal MRSA screen Social History Family Members Issues: Patient's family currently wishes to limit the information regarding the poor prognosis from patient, though the patient is aware of her diagnosis. Social Support: Good family support - (Sneha Casillas), daughter (Mary), son (Sneha Abreu) ADLs ADL Ambulation: Mainly Bed ADL Dressing: Mainly assistance ADL Feeding: Mainly assistance ADL Hygene/bathing: Mainly assistance Allergy Allergies Reviewed: Yes Medications Current Medications: Current Medications Metoprolol Tartrate 75 mg BID PO Last administered on 03/17/17t 23:03; Admin Dose 75 MG; Start 03/17/17 at 20:30 Insulin Glargine 32 unit HS SUBQ; Start 03/18/17 at 21:00 Scheduled Aspirin (Aspirin) 81 Mg Tablet 81 MG PO DAILY J TUBE Atorvastatin (Lipitor) 20 Mg Tablet 20 MG PO HS Citalopram (Citalopram) 20 Mg Tablet 20 MG PO DAILY Insulin Glargine (Lantus U100 Solostar Insulin Pen) 100 Unit/1 Ml Insuln.pen 30 UNIT SUBQ HS Insulin Human Lispro (HumaLOG U100 Insulin Vial) 100 Unit/Ml Unit 2 UNIT SUBQ TIDWM Check blood sugars before meals and at bedtime. Use correction factor only before meals. Blood Sugar Lispro Correction: <151, 0 units; 151-175, 1 unit; 176-200, 2 units; 201-225, 3 units; 226-250, 4 units; 251-275, 5 units; 276-300 , 6 units; 301-325, 7 units; 326-350, 8 units; 351-375, 9 units; 376-400, 10 units; >400, 12 units. Melatonin (Melatonin) 3 Mg Tablet 6 MG PO HS Metformin ER (Metformin ER) 1,000 Mg Tablet 1,000 MG PO BID Metoprolol Tartrate (Metoprolol Tartrate) 25 Mg Tablet 50 MG PO BID Octreotide Acetate (Octreotide Acetate) 50 Mcg/1 Ml Vial 50 MCG SQ DAILY Ranitidine (Ranitidine) 150 Mg Capsule 150 MG PO BID Scheduled PRN Acetaminophen (Acetaminophen) 325 Mg Capsule 650 MG PO Q6H PRN PRN For Pain Ondansetron (Ondansetron) 8 Mg Tablet 8 MG PO TID PRN PRN For Nausea oxyCODONE (oxyCODONE) 5 Mg/5 Ml Solution 5-10 MG PO Q4H PRN PRN For Pain Miscellaneous Medications Propylene Glycol (Systane Balance) 10 Ml Drops 1 DROP BOTH_EYES Objective Findings Exam Vital Sign - Last Date Time Temp Pulse Resp B/P Pulse Ox O2 Delivery O2 Flow Rate FiO2 03/18/17 09:49 16 98 03/18/17 09:14 36.8 58 133/78 Room Air Intake and Output 03/17/17 03/17/17 03/18/17 Cumulative From/Thru 15:00 23:00 07:00 02/21/17 16:49 - 03/18/17 05:43 Intake Total 1522 ml 828 ml 85674 ml Output Total 62612 ml Balance 1522 ml 828 ml 97547 ml Intake Oral 800 ml 350 ml 97812 ml IV Total 722 ml 102 ml 26196 ml TPN/PPN 376 ml 63345 ml Output Urine Total 9295 ml Stool Total 1 ml Urine/Stool Mix 781 ml Emesis 2490 ml Other 3800 ml # Voids 3 2 115 # Bowel Movements 0 0 17 General: Alert, No acute distress HEENT: Atraumatic, EOMI Heart: Exam Unremarkable Lungs: Clear to Auscultation Abdomen: Other (Hypoactive bowel tones) Neuro: Other (Grossly intact) Extremities: Warm Lab/Diagnostics Lab and Imaging results reviewed in detail in EMR. Time spent Total time 70 minutes; >50% face to face with patient and/or family, providing counselling regarding plans and recommendations, and in care coordination with his/her medical teams. I also spent an additional 30 minutes counseling for advanced care planning with the patient/the patients family/the surrogate decision maker. Attending Statement Dr. Shea was physically present and available to resident for interview, counseling of pt and family. She discussed Palliative Care symptom management plan with resident who implemented it. She agrees with documentation in consult note above. copies to: Mervin Garber MD; Yesy Bauer MD,Wan Subramanian DO Mar 18, 2017 09:55 Allison Shea MD Mar 18, 2017 13:49
--- NOTE | 2017-03-18 16:14 | NUR ---
Pain INSPECTOR GOLF BALL DC'd today after patient and patient's family met with palliative care. Patient was started on oxycodone PO and has been able to swallow pills whole. Before discontinuing INSPECTOR GOLF BALL and starting PO medications patient complained of a pain level of 20/10. After one dose of scheduled oxycodone patient complained of a pain at a level of 5/10 and requested another dose. PRN dose of oxycodone administered and upon reassessment patient states pain is at a 4/10 and increases with movement. Patient was sitting on [facility] when reassessed. Continuing hourly rounding and assessing pain level. Addendum: 03/18/17 at 1824 by ARMOND WILBURN RN Pain continues to be uncontrolled at a 5/10 pain level. Talked with . New order for IVPhilly curry. Will continue to monitor pain.
[2017-03-18] MEDS ORDERED: Naloxone 0.4 mg/mL 10 mL Inj IVPUSH PRN ×2 (18:00)
[2017-03-18] MEDS: Total Parenteral Nutrition 1 BAG IV SCH (21:00)
--- NOTE | 2017-03-18 21:25 | PCM.PNMED ---
Subjective Date of Service Mar 18, 2017 Subjective PAtient is seen and examined. She is sitting up in bed, no compliants Exam Vital Signs Vital Sign - Last Date Time Temp Pulse Resp B/P Pulse Ox O2 Delivery O2 Flow Rate FiO2 03/18/17 20:54 36.7 84 16 154/77 97 Room Air Intake and Output 03/17/17 03/17/17 03/18/17 Cumulative From/Thru 15:00 23:00 07:00 02/21/17 16:49 - 03/18/17 05:43 Intake Total 1522 ml 828 ml 33957 ml Output Total 78343 ml Balance 1522 ml 828 ml 14686 ml Intake Oral 800 ml 350 ml 40922 ml IV Total 722 ml 102 ml 05423 ml TPN/PPN 376 ml 97083 ml Output Urine Total 9295 ml Stool Total 1 ml Urine/Stool Mix 781 ml Emesis 2490 ml Other 3800 ml # Voids 3 2 115 # Bowel Movements 0 0 17 IVs and Medications IV Fluids TPN Medications Reviewed: Medications were reviewed in detail Lab and Diagnostics Result Diagram: 03/18/17 0540 03/18/17 0540 Microbiology 02/21/17 Blood culture- No growth to date 02/21/17 Urine culture- Positive Escherichia Coli; Klebsiella Pneumoniae 02/21/17 MRSA screen- positive 02/22/17- Repeat Blood Cultures- no growth to date X-Rays, CTs and MRIs (02/26/17) CT ABDOMEN AND PELVIS WITH CONTRAST IMPRESSION: 1. Small bilateral pleural effusions, left greater than right, increasing volume of ascites and development of diffuse subcutaneous edema. 2. Postoperative changes of partial gastrectomy, cholecystectomy and possible partial bowel resection. Old abdominal wall tract from prior J-tube placement. 3. Bowel distention with air-fluid levels, likely inflammatory with ileus, possibility of partial small bowel obstruction with possible transition in the right upper quadrant in the area of surgical clips. Dictated and approved by: Rio Thornton M.D. on 02/26/2017 at 14:05 ADDENDUM: Following consultation with Dr. Sawyer, the focal area of small bowel narrowing in the right upper quadrant at the level of surgical clips represents a surgical blind ended loop of duodenum and not a focus of small bowel obstruction. Dictated by: Rio Thornton M.D. on 02/26/2017 at 15:02 (02/27/17) US PELVIC SONOGRAM + TRANSVAGINAL SONOGRAM IMPRESSION: 1. Atrophic otherwise ultrasonographically normal uterus. The ovaries were not identified and cannot be evaluated. 2. Ascites is noted. Dictated and approved by: Keny Duvall M.D. on 02/27/2017 at 18:47 . 12-lead ECG Normal sinus rhythm with heart rate of 83; QTc 4 70 Assessment & Plan 61-year-old female with multiple abdominal surgeries due to gastric carcinoma, and history of intra-abdominal sepsis and abscesses with MRSA in the fall of 2016 who presented to the hospital with 3 weeks of worsening abdominal pain and new nausea and emesis x3 starting day prior to admission. 1. Intra-abdominal mass/fluid collection, acute. Present on admission. Active and progressive. -ddx: infectious or inflammatory or recurrent malingnancy. CA 125 slightly elevated, uncertain significance. -awaits cytology, flow cytometry from peritoneal fluid 03/10/17, result available on 03/15 -all antibiotics stopped 03/14 -Dilaudid FIELD MARKETING ASSOCIATE for control of abdominal pain -CT directed needle biopsy 03-13-17, await results, if negative Surgery may consider open biopsy. - No tests were ordered on the tap from 03/11 per micro --Requested a paracentesis from IR today, they will take a look at the US: US showed not enough fluid for paracentesis --Path report from 03/13 is available, showed mets from primary gastric cancer -- Consulted Dr. Hi. He has seen the patient and recommends no further treatments -- Daughter says no one should discuss patient's health with the patient.Daughter and family will make the decisions. -- Palliative care has seen the patient. New orders for oxycodone were placed, FIELD MARKETING ASSOCIATE was discontinued, but patient kept c/o pain. Dilaudid 1 mg Q4H PRN with one time PRN narco is ordered. Patient felt much better. 2. Constipation, chronic. Present on admission. Resolved -Likely secondary to chronic opiate use. Typically responds to suppositories, per the patient. -continue Relistor, for counteract opiate induced component of constipation, -Schedule miralax and docusate, added ducolax -Enema 02/28, 03/05, will try again on daily basis if needed -- dulcolax, mag citrate: she has had several BM 3. Insulin using Type II diabetes, chronic. Present on admission. Active -Patient presents with glucose of 192. Goal blood glucose 140-180. -A1c 7.2 -home dose = Lantus 30 HS, Lispro 2 units tid ac (nutritional), and metformin 1 ,000 bid -Lantus 30, medium correction scale, cont to hold metformin for now 4. Acute microcytic, hypochromic anemia. Present mission. Active -Patient presents with a hemoglobin 11.6, a low MCV; review of past admissions does not appear that this is a chronic issue -Iron studies demonstrate deficiency component. -Supplemental iron restarted. -Follow CBC 5. Nutrition -continue TPN 6. Positive nasal MRSA screen, poa, resolved -treatment completed with mupirocin 7. UTI, acute. Present on admission. resolved. -Urine culture growing- E. coli, Klebsiella. Patient suprapubic pain but no urinary symptoms. -No more abx per ID High risk meds: IV dilaudid, Disposition: Family is discussing hospice options with palliative care. Oncology has signed off. disposition; -patient come from [facility] -oncologist is Dr. Garber -pcp is Dr. Bauer Pain Evaluation: Adequate Pain Control GI Prophylaxis: Proton Pump Inhibitor VTE Prophylaxis: Sub-Q Heparin (Unfractionated) VTE Mechanical Devices: Intermittant Pneumatic CD Resuscitation Status: DNR/DNI:Do Not Resuscitate/Intubate Time spent 25 min Didi Sawyer DO Mar 18, 2017 21:25
[2017-03-18] MEDS: Insulin GLARgine 100 Unit/mL Syringe SUBQ SCH (22:18)
[2017-03-19] MEDS: Heparin 5,000 Unit/mL Inj SUBQ SCH ×3 (00:33→16:34)
[2017-03-19 01:07] VITALS: BP 164/79; PULSE 83; RESP 16; O2SAT 96
[2017-03-19] MEDS: HYDROmorphone 1 mg/mL Inj IVPUSH PRN ×7 (02:08→23:32)
--- NOTE | 2017-03-19 02:25 | NUR ---
PAIN: Pt. has been medicated prn and with scheduled pain medication, still c/o abdominal pain. Given Roxicodone on schedule and Roxicodone prn every 3 hr as well as IV Dilaudid 1 mg every 4 hr prn. Pt. still asking for pain medication before it is due. Denies n/v. Incontinent of urine, no stool this shift so far. Pt. did c/o H/A at HS tonight was given 5 mg of Roxicodone, effective. Awake off and on tonight. On going care.
[2017-03-19 05:23] VITALS: BP 157/77; PULSE 84; RESP 18; O2SAT 96
[2017-03-19 07:38] LABS: Magnesium 1.7 mg/dL (1.6-2.6); Phosphorus 3.2 mg/dL (2.5-4.9)
[2017-03-19] MEDS: TPN Per Pharmacist XX SCH (08:30)
--- NOTE | 2017-03-19 08:46 | NUR ---
Pain 0725 pt c/o pain 05/14 w/o relief from po medication. changed dilaudid to 1mg q2h. medication given and explained to pt and family. will continue to monitor.
[2017-03-19 09:15] VITALS: BP 166/83; PULSE 88; RESP 18; O2SAT 95
[2017-03-19] MEDS: Insulin LISPRO 300 Unit/3 mL Inj SUBQ SCH ×4 (09:17→21:39)
[2017-03-19] MEDS: Nystatin 100,000 Unit/Gm 15 Gm Powder TOPICAL SCH ×2 (09:20→20:39)
[2017-03-19] MEDS ORDERED: Ondansetron 2 mg/mL 2 mL Inj IVPUSH PRN (10:25)
--- NOTE | 2017-03-19 10:25 | NUR ---
NAUSEA MD NOTIFIED AT 0945 THAT PT WAS UNABLE TO TOLERATE PO MEDS AND HAD EPISODE OF EMESIS. 25MG OF METOPROLOL, 1/2 OF SENNA DOSE AND COLACE MAY OR MAY NOT HAVE BEEN LOST IN EMESIS. PER MD TO JUST GIVE REMAINING MEDS AFTER DOSE OF NEWLY ORDERED ZOFRAN AND MONITOR TOLERANCE TO PO.
[2017-03-19] MEDS ORDERED: Dexamethasone 10 mg/mL Inj IVPUSH STA (10:31)
--- NOTE | 2017-03-19 10:37 | NUR ---
Social Work: Continued Discharge Planning D: EMR reviewed. 61 YO female with multiple abdominal surgeries due to gastric carcinoma, and history of intra-abdominal sepsis and abscesses with MRSA in the fall of 2015, presented to the hospital with 3 weeks of worsening abdominal pain and new nausea and emesis x 3 starting day prior to admission. CT-guided biopsy was obtained on 03/13, and the report came 03/17 positive for metastatic poorly differentiated Adenocarcinoma. Per oncology, pt is not a candidate for palliative chemotherapy. T/C to [facility] regarding pt's info visit. Luz was working on scheduling info visit, coordinating with AMMUNITION STORAGE SUPERINTENDENT and consulting actuary but both COLLIN and Luz were unable to coordinate consulting actuary in time for the hospice infovisit. Pt's daughter updated of this and is agreeable to infovisit tomorrow morning before 1:30 pm. Luz and COLLIN will coordinate with Hospice AMMUNITION STORAGE SUPERINTENDENT, consulting actuary, and pt's daughter. SW awaits return call from Lilly Haro [facility] regarding pt's [facility] caregiving benefits. A: Pt who will discharge on hospice. P: Pt has been referred to [facility], infovisit pending. HNW will contact AMMUNITION STORAGE SUPERINTENDENT when infovisit is scheduled. JORDAN will continue to follow. COLLIN Fung Addendum: 03/19/17 at 1549 by PADDY GUERRA T/C from Luz who has coordinated a hospice infovisit tomorrow March 20 at 1300 with a Shipyard Painter provided by hospice. Pt's daughter and Palliative Care is aware. JORDAN acknowledges an MD order from Palliative Care to run pt's benefits for home TPN Infusion. Consulted rotating vendor calendar and Aimee at [facility] is running pt's benefits. AMMUNITION STORAGE SUPERINTENDENT to update Palliative Care when information is known. Rita Guerra MSW
--- NOTE | 2017-03-19 10:38 | NUR ---
NUTRITION FOLLOW-UP: ASSESS: 61 YO female with multiple abdominal surgeries due to gastric carcinoma, and history of intra-abdominal sepsis and abscesses with MRSA in the fall of 2016, presented to the hospital with 3 weeks of worsening abdominal pain and new nausea and emesis x 3 starting day prior to admission. CT-guided biopsy was obtained on 03/13, and the report came 03/17 positive for metastatic poorly differentiated Adenocarcinoma. Per oncology, pt is not a candidate for palliative chemotherapy. Family is considering hospice or comfort care. Palliative care is involved and will discuss with family about if they want to continue TPN or not. Likely pt will not be able to be on TPN if she goes on hospice. At this point she continues on TPN, as her appetite is minimal and has n/v. Family is bringing in some food that pt likes. Pt's ALT, AST and alk phos are elevated likely related to receiving TPN for the past 3 weeks. Pharmacy is aware of recommendation to cycle lipids. PMHX: Type 2 DM, hyperlipidemia, stroke with left sided weakness, gastric adenocarcinoma,gastrectomy w/reconstruction. LABS: Reviewed. Na 131, Glu 271, Ca 8.2, AST 262, ALT 192, alk phos 335 MEDS: Reviewed. Reglan, Relistor, MiraLax, Docusate, Dulcolax, Melatonin, Dilaudid, Insulin. GI: 1 BM 03/14 SKIN: Devin 14. ascites WT: 75kg, BMI 31.2 kg/m2, admit wt 69.8kg, IBW 47.7kg DIET: Diabetic. Refused most meals TPN: 300 g Dex, 75 g AA and 50 g lipids to provide 1820 kcal and 75 g pro (100% estimated needs) EST. NEEDS: Kcals: 1645-2025kcal/day (22-25kcal/kg) Pro: 60-75g/day (1.2-1.5g/kg IBW) NUTRITION DIAGNOSIS: 1) Inadequate oral intake related to altered GI function as evidence by poor PO intake, pt reporting poor appetite, severe abdominal pain and history of needing J-tube feedings - PERSISTS NUTRITION INTERVENTION: 1) Recommend start cycling lipids due to elevated AST, ALT and alk phos. Recommend 300g Dex, 75g AA and 0 g lipids M, W, F and 300g Dex, 75g AA and 50g lipids Sourav Grimm Sat, Sun. 2) Will continue to monitor labs closely and adjust macronutrients accordingly 3) Will monitor goals of care for possible hospice 4) Monitor PO intake and modify TPN accordingly. If PO intake remains 25-75% or > consider decreasing TPN formulation. MONITOR / EVAL: TPN tolerance, PO intake, wt, GI, diet advc, labs, POC, nutrition status. Will continue to monitor per high nutrition risk guidelines.
--- NOTE | 2017-03-19 12:28 | NUR ---
Pain/status Spoke with Dr. Martini at 1105. Per Dr. Martini, she would like pt to use po pain meds over IV meds as much as possible. Rating 8-9/10 prior to meds and 4 to 6 after meds. Has 10mg oxy q3prn and 10mg po q6. Dr. Martini notified of am emesis with po pills. To give IV decadron for nausea, MD aware zofran already given. Per MD, to give soap suds enema as well. Will continue to monitor patient. Family at bedside.
--- NOTE | 2017-03-19 12:43 | PCM.PALLBR ---
Palliative Care Recommendation Summary of palliative recommendations: Patient is a 61-year-old female with gastric adenocarcinoma s/p neoadjuvant chemotherapy and distal gastrectomy with Billroth II gastrojejunostomy presenting with lower abdominal pain, distention and vomiting and found this admission to have omental mets with poorly differentiated adenocarcinoma consistent with the patient's gastric primary. Symptom management: -Pain is currently not controlled on low dose oral oxycodone and she has had several IV dilaudid PRN doses given by RNs. 1. Increase oxycodone to 10mg PO q 6 hours scheduled and 10mg PO q 3 hours for breakthrough pain. 2. -Nausea and vomiting, especially noticeable with any oral intake 1. Give one bolus IV dexamethasone 8mg IV NOW. Return to evaluate whether this was effective for N&V. 2. -Constipation 1. methylnaltrexone 12mg IV given x1 on 03/18 with incomplete effectiveness. 2. Give soaps suds enema today and return to re-assess. Return visit today in afternoon to reassess effectiveness of pain, nausea and constipation. Dr. Shea counseled family and patient via ship superintendent for 35 min. We discussed symptoms and TPN in home setting and overnight management plan as outlined below. On exam, her abdomen is still very distended. Rectal exam was negative for stool in the vault. There is a mass palpable over the anterior wall of lower rectum that is partially obstructing rectal lumen. Constipation: 1. The enema did not work, no stool output and no gas. We will try lactulose orally 20g x 1 dose. Pain: 1. The oral oxycodone helps, but her abdomen still hurts a fair amount (5 /10). Dr. Shea encouraged her and family to try the oral medications for pain rest of today and overnight and if we need to resort to IV medications, then we' ll reevaluate in morning. TPN: 1. Hospice will not pay for TPN. (Family is inclined not to accept hospice if TPN is available via other home health/home infusion services.) 2. Dr. Shea asked DINORAH to find out if an infusion service would provide TPN through pt's port and how much that would cost the family, if not covered by their insurance. DINORAH is working on this question. 3. Dr. Shea counseled that TPN is NOT as nutritious as taking food by mouth and it would be a high infection risk to have TPN in the home setting. Family understands, but is still concerned about pt who is not eating. All Counseling given to dtr and pt via ship superintendent. Considerable case coordination with CM and RN and ship superintendent services over another 40 minutes. DPOA/Advanced Directives/POLST: 1. DPOA is Daughter (Mary) and (Sneha Casillas). 2. On 03/18, Drs. Shea and Germaine discussed code status and completed POLST form with daughter (who is her DPOAHC), Mary Smith. The patient's code status was changed from FULL CODE to DNAR/DNI. Interventions include comfort measures only. Family is okay with antibiotics with comfort being the goal. Family agrees to not have any medically assisted nutrition by tube -Family/emotional support - excellent family support. Patient's family has insight and understanding of the patient's poor prognosis Disposition: 1. Hospice information visit pending on 03/20 at 1pm. 2. Family preference is to take pt home. Additional Medical Diagnoses with primary management by Hospitalist team include : 1. Intra-abdominal mass/fluid collection, acute. Present on admission. Active and progressive. 2. Constipation, chronic. Present on admission. Resolved 3. Insulin using Type II diabetes, chronic. Present on admission. Active 4. Acute microcytic, hypochromic anemia. Present mission. Active 5. Nutrition 6. Positive nasal MRSA screen, poa, resolved 7. UTI, acute. Present on admission. resolved. Problems: Goals of Care DNR/DNI/comfort goals Disposition Likely home with assistance from hospice. Family is meeting hospice agency for a information visit soon. Resuscitation Status Resuscitation Status: DNR/DNI:Do Not Resuscitate/Intubate POLST Updates/Changes Previous POLST?: No POLST Last Review Date: Mar 18, 2017 Antibiotics: Determine Use or Limitations Artificially Admin Nutrition: No Artifical Nutrition by Tube POLST Discussed with: Health Care Agent (DPOAHC) POLST Review Outcome: New Form Completed . Pain: Moderate Symptom management: Nausea, Vomiting Total time 100 minutes; >50% face to face with patient and/or family, providing counselling regarding plans and recommendations, and in care coordination with his/her medical teams, nursing, interpretation services and outreach and education social worker on floor. I also spent an additional 35 minutes counseling for advanced care planning around the possibility that if mother cannot absorb medications by mouth, she likely will not be absorbing any nutrition by mouth and her prognosis will be even more limited. This discussion held with daughter outside the room at her request (with ship superintendent present). Palliative Brief Note Date of Service Mar 19, 2017 . Patient Identification: 61-year-old female staying at [facility] with a history of gastric carcinoma with multiple surgeries since last summer including Billroth II that was complicated by duodenal stump leak and intra-abdominal sepsis, a history of intra-abdominal abscess with MRSA, diabetes type II, CVA with left-sided deficits, and hyperlipidemia admitted on for abdominal pain x 3 weeks duration. Hospital Course: Subsequently, CT scan showed some perisplenic free fluid and thickening of large and possibly small bowel with an overall picture concerning for infection/inflammation with questionable developing ileus or partial SBO. Patient underwent CT-guided core needle omental biopsy on March 13, which was positive for metastatic poorly differentiated adenocarcinoma, consistent with the patient's gastric primary. Per Oncology, the patient has an incurable cancer that has progressed and given the suboptimal response to previous multiagent neoadjuvant chemotherapy and the patient's poor condition the patient is not a candidate for palliative chemotherapy. On 03/18/17, Hospital Day 25, Palliative medicine consulted to assist with initiating hospice and discuss goals of care. Patient is Brazilian-speaking only and her daughters only speak some Lao. History obtained using a ship superintendent. Prior to visiting the patient, reviewed patient's records in the EMR in detail and discussed patient with bedside nurse. Patient is accompanied at bedside by her daughter, Mary, who wishes to limit the amount of information divulged to the patient. Dr. Herron spoke to dtr Mary separately regarding setting up Hospice, and a hospice information visit is scheduled for 03/19. Pt started on dilaudid WORD PROCESSING SPECIALIST earlier, and Pall Care Team began an attempt to transition to oral pain medications 03/18, with plan to keep WORD PROCESSING SPECIALIST on overnight. Overnight events: Unfortunately, the WORD PROCESSING SPECIALIST was stopped at night ([employer] technical error) and patient has had several episodes of pain in last 12 hours, along with nausea and one emesis this morning. Subjective: Patient reports lower abdominal pain 8-9/1- prior to pain meds and 5 -6/10 after using analog pain scale. The last BM was 4 days ago per EMR, but RN says pt had small BM overnight. Dr. Shea counseled pt and family (no ship superintendent available at this point. Dr. Shea speaks limited medical Brazilian) about her plans to change pain/nausea medicine doses and give pt an enema due to her abdominal distension. Dtr understands and translates to patient. Dr. Shea will return after 14:30pm with an ship superintendent to see whether pt improving. Dtr has an appt from 1300 - 1430 today. Exam: Patient seen in bed. Vitals noted. She appears mildly uncomfortable. Cardiac tones without murmur. Lungs clear bilaterally. Left chest port with clean, dry dressing. Abdomen is tense, distended with hypoactive tones. Extremities warm. Neurologically grossly intact. Allison Shea MD Mar 19, 2017 12:43
--- NOTE | 2017-03-19 13:20 | NUR ---
Enema Soap suds enema given at [address] Martini. Will monitor response.
--- NOTE | 2017-03-19 13:42 | PCM.PHAPRO ---
Progress PARENTERAL NUTRITION ORDERS 17 19-Mar-17 Standard Hang Time: 2100 Substrates Total kcal: 1320 AMINO ACIDS 75 g DEXTROSE 300 g Total Volume (mL): 1250 LIPIDS 0 g Sterile Water for Injection QS mL To Infuse Over (hrs): 24 Total Volume 1250 mL At at a rate of (mL/hr): 52 Additives Sodium Chloride 150 mEq "typical" daily requirements Sodium Acetate 40 mEq Sodium 50-120mEq Potassium Chloride 40 mEq Potassium 60-120mEq Potassium Phosphate 20 mEq Phosphate 20-40mEq Calcium Gluconate 9 mEq Magnesium 8-32mEq Magnesium Sulfate 24 mEq Calcium 9-22mEq Acetate* 80-120mEq Chloride* 80-120mEq Regular Insulin units *Depending on acid-base status Famotidine 40 mg Multivitamins 1 std dose Insulin Regimen Trace Elements 1 std dose none Thiamine mg Regular Low Intensity Subcut Folic Acid mg Regular Medium Intensity Subcut Ascorbic Acid mg Regular High Intensity Subcut Regular Insulin Infusion Other: Special Instructions: To be infused via central line only. For delay or inturruption of TPN contact the pharmacist for alternative replacement solution. *CYCLE LIPIDS M/W/F* Signature Date: FLAQUITO DUBON [address] [facility] Pt has been vomiting overnight which may be causing her electrolytes to trend down. Team has been discussing hospice with current condition. Nutrition recommended cycling lipids M/W/F. Mynor See, PharmD Mynor See Mar 19, 2017 13:42
[2017-03-19] MEDS ORDERED: Lactulose 20 Gm/30 mL 30 mL Syrup TUBE ONE (15:05)
[2017-03-19] MEDS: 0.9% Sodium Chloride 250 ML IV SCH (15:05)
--- NOTE | 2017-03-19 15:07 | NUR ---
Status Dr. Martini notified that enema not successful in producing bm. Also notified of poor pain control on po oxy. MD requests to continue to try po but okwith use of IV dilaudid. Reviewed doses and frequencies, no adjustments. MD to order lactulose. Will continue to monitor.
--- NOTE | 2017-03-19 15:26 | NUR ---
Spoke with Noemy at [facility] [phone], asked her to check patient benefits and see what it would look like for patient to go home with TPN. Noemy will be calling me back with information regarding patient benefits. This done per MD order. Updated STRIPPER AND OPAQUER APPRENTICE
[2017-03-19 15:29] VITALS: BP 161/107; PULSE 85; RESP 17; O2SAT 96
[2017-03-19] MEDS: Ondansetron 2 mg/mL 2 mL Inj IVPUSH PRN ×3 (15:52→23:47)
--- NOTE | 2017-03-19 15:55 | NUR ---
BM Pt did have 200ml jelly consisteny, light brown bm at [facility].
--- NOTE | 2017-03-19 17:21 | NUR ---
notified that iron held this evening. Addendum: 03/19/17 at 1852 by DAR RANDOLPH RN MD lira with med hold. notified at 1849 that pt c/o itching and would like something for this.
[2017-03-19 21:01] VITALS: BP 178/83; PULSE 90; RESP 16; O2SAT 95
[2017-03-19] MEDS: Insulin GLARgine 100 Unit/mL Syringe SUBQ SCH (21:38)
[2017-03-19] MEDS: Total Parenteral Nutrition 1 BAG IV SCH (22:32)
--- NOTE | 2017-03-20 00:33 | NUR ---
GI: pt. having nausea, pt. had 400cc emesis. Addendum: 03/20/17 at 0034 by CRISELDA DOSS RN 8mg iv zofran given
--- NOTE | 2017-03-20 00:50 | PCM.PNMED ---
Subjective Date of Service Mar 20, 2017 Subjective Patient is seen and examined. She continues to have trouble controlling her pain with that the Dilaudid MAORI PHYSIOTHERAPIST/ continued to request Dilaudid IV for pain control. Has increased oxycodone pills are not controlling her pain. She is also wondering if we can do. Ultrasound to see if she can get a paracentesis. Family has no other concerns Exam Vital Signs Vital Sign - Last Date Time Temp Pulse Resp B/P Pulse Ox O2 Delivery O2 Flow Rate FiO2 03/19/17 21:01 36.8 90 16 178/83 95 Room Air Intake and Output 03/19/17 03/19/17 03/20/17 Cumulative From/Thru 15:00 23:00 07:00 02/21/17 16:49 - 03/19/17 18:19 Intake Total 1187 ml 00723 ml Output Total 1200 ml 67032 ml Balance -13 ml 80566 ml Intake Oral 400 ml 69877 ml IV Total 126 ml 11653 ml TPN/PPN 661 ml 16883 ml Output Urine Total 1000 ml 28003 ml Stool Total 200 ml 201 ml Urine/Stool Mix 781 ml Emesis 2490 ml Other 3800 ml # Voids 117 # Bowel Movements 17 Exam Resting uncomfortable Skin; clear no rash HENT adequate hydration, no oral lessions CV; no murmur, reg, no sig edema, no JVD Resp; clear anteriorly, no wheezing or rhonchi GI; worsen firm hardness to anterior abdomen, bs hypoactive, mild diffuse tenderness today, increased firmness and probable fluid neuro; 2-12 intact, no focal neuro deficits psych: neg for anxiety and agitation Ext: L foor ext rotated, not moving Left leg or arm, no edema, cyanosis IVs and Medications IV Fluids TPN Medications Reviewed: Medications were reviewed in detail Lab and Diagnostics Result Diagram: 03/18/17 0540 03/19/17 0705 Microbiology 02/21/17 Blood culture- No growth to date 02/21/17 Urine culture- Positive Escherichia Coli; Klebsiella Pneumoniae 02/21/17 MRSA screen- positive 02/22/17- Repeat Blood Cultures- no growth to date X-Rays, CTs and MRIs (02/26/17) CT ABDOMEN AND PELVIS WITH CONTRAST IMPRESSION: 1. Small bilateral pleural effusions, left greater than right, increasing volume of ascites and development of diffuse subcutaneous edema. 2. Postoperative changes of partial gastrectomy, cholecystectomy and possible partial bowel resection. Old abdominal wall tract from prior J-tube placement. 3. Bowel distention with air-fluid levels, likely inflammatory with ileus, possibility of partial small bowel obstruction with possible transition in the right upper quadrant in the area of surgical clips. Dictated and approved by: Rio Thornton M.D. on 02/26/2017 at 14:05 ADDENDUM: Following consultation with Dr. Sawyer, the focal area of small bowel narrowing in the right upper quadrant at the level of surgical clips represents a surgical blind ended loop of duodenum and not a focus of small bowel obstruction. Dictated by: Rio Thornton M.D. on 02/26/2017 at 15:02 (02/27/17) US PELVIC SONOGRAM + TRANSVAGINAL SONOGRAM IMPRESSION: 1. Atrophic otherwise ultrasonographically normal uterus. The ovaries were not identified and cannot be evaluated. 2. Ascites is noted. Dictated and approved by: Keny Duvall M.D. on 02/27/2017 at 18:47 . 12-lead ECG Normal sinus rhythm with heart rate of 83; QTc 4 70 Assessment & Plan 61-year-old female with multiple abdominal surgeries due to gastric carcinoma, and history of intra-abdominal sepsis and abscesses with MRSA in the fall of 2016 who presented to the hospital with 3 weeks of worsening abdominal pain and new nausea and emesis x3 starting day prior to admission. Intra-abdominal mass/fluid collection, acute. Present on admission. Active and progressive. -ddx: infectious or inflammatory or recurrent malingnancy. CA 125 slightly elevated, uncertain significance. -awaits cytology, flow cytometry from peritoneal fluid 03/10/17, result available on 03/15 -all antibiotics stopped 03/14 -Dilaudid MAORI PHYSIOTHERAPIST for control of abdominal pain -CT directed needle biopsy 03-13-17, await results, if negative Surgery may consider open biopsy. - No tests were ordered on the tap from 03/11 per micro --Requested a paracentesis from IR today, they will take a look at the US: US showed not enough fluid for paracentesis --Path report from 03/13 is available, showed mets from primary gastric cancer -- Consulted Dr. Hi. He has seen the patient and recommends no further treatments -- Daughter says no one should discuss patient's health with the patient.Daughter and family will make the decisions. -- Palliative care has seen the patient. New orders for oxycodone were placed, MAORI PHYSIOTHERAPIST was discontinued, but patient kept c/o pain. Dilaudid 1 mg Q4H PRN with one time PRN narco is ordered. Patient felt much better. -- Patient is continuing to need IV Dilaudid on 03/19. Recommended palliative care that they use a fentanyl patch with breakthrough Dilaudid by mouth -- We will request a ASCITES again for potential paracentesis Constipation, chronic. Present on admission. Resolved -Likely secondary to chronic opiate use. Typically responds to suppositories, per the patient. -continue Relistor, for counteract opiate induced component of constipation, -Schedule miralax and docusate, added ducolax -Enema 02/28, 03/05, will try again on daily basis if needed --dulcolax, mag citrate: she has had several BM Insulin using Type II diabetes, chronic. Present on admission. Active -Patient presents with glucose of 192. Goal blood glucose 140-180. -A1c 7.2 -home dose = Lantus 30 HS, Lispro 2 units tid ac (nutritional), and metformin 1 ,000 bid -Lantus 30, medium correction scale, cont to hold metformin for now Acute microcytic, hypochromic anemia. Present mission. Active -Patient presents with a hemoglobin 11.6, a low MCV; review of past admissions does not appear that this is a chronic issue -Iron studies demonstrate deficiency component. -Supplemental iron restarted. -Follow CBC Nutrition -continue TPN -- Palliative care is currently discussing this with the family. Patient cannot maintain TPN if they are interested in going on hospice. Positive nasal MRSA screen, poa, resolved -treatment completed with mupirocin UTI, acute. Present on admission. resolved. -Urine culture growing- E. coli, Klebsiella. Patient suprapubic pain but no urinary symptoms. -No more abx per ID High risk meds: IV dilaudid, Disposition: Family is discussing hospice options with palliative care. Oncology has signed off. disposition; -patient come from [facility] care -oncologist is Dr. Garber -pcp is Dr. Bauer Pain Evaluation: Pain not Controlled GI Prophylaxis: Proton Pump Inhibitor VTE Prophylaxis: Sub-Q Heparin (Unfractionated) VTE Mechanical Devices: Intermittant Pneumatic CD Resuscitation Status: DNR/DNI:Do Not Resuscitate/Intubate Time spent 20 MIN Didi Sawyer DO Mar 20, 2017 00:49
[2017-03-20] MEDS: Heparin 5,000 Unit/mL Inj SUBQ SCH ×3 (01:03→17:14)
[2017-03-20 01:04] VITALS: BP 163/89; PULSE 95; RESP 16; O2SAT 94
[2017-03-20] MEDS: HYDROmorphone 1 mg/mL Inj IVPUSH PRN ×6 (01:45→20:20)
[2017-03-20 06:04] VITALS: BP 171/80; PULSE 107; RESP 16; O2SAT 95
[2017-03-20] MEDS: TPN Per Pharmacist XX SCH (08:30)
[2017-03-20 08:55] VITALS: BP 174/84; PULSE 97; RESP 18; O2SAT 95
--- NOTE | 2017-03-20 09:01 | NUR ---
Noemy from [facility] called and is waiting to hear from Medicare regarding approval for home TPN, she is expecting to have update sometime this morning. Updated STEM ROLLER Addendum: 03/20/17 at 1023 by VALORIE YU CM Spoke with Noemy and patient does not meet criteria for Medicare TPN, Noemy is working on running it with patient's [facility]. Patient can not have TPN and hospice together due to insurance guidelines. They also can not have patient pay privately because she a medicaid patient. Noemy let me know if patient and family wanted TPN Thursday would be the soonest [facility] could start. Updated STEM ROLLER
[2017-03-20] MEDS: Nystatin 100,000 Unit/Gm 15 Gm Powder TOPICAL SCH ×2 (09:14→20:30)
[2017-03-20] MEDS: Ondansetron 2 mg/mL 2 mL Inj IVPUSH PRN ×3 (09:17→21:07)
[2017-03-20] MEDS: Insulin LISPRO 300 Unit/3 mL Inj SUBQ SCH ×4 (09:25→22:55)
[2017-03-20 09:43] LABS: Magnesium 1.8 mg/dL (1.6-2.6); Phosphorus 3.2 mg/dL (2.5-4.9)
--- NOTE | 2017-03-20 11:43 | PCM.PALLBR ---
Palliative Care Recommendation Summary of palliative recommendations: Patient is a 61-year-old female with gastric adenocarcinoma s/p neoadjuvant chemotherapy and distal gastrectomy with Billroth II gastrojejunostomy presenting with lower abdominal pain, distention and vomiting and found this admission to have omental mets with poorly differentiated adenocarcinoma consistent with the patient's gastric primary. Symptom management: -Pain 1. Start fentanyl patch 75 mcg/hr q 3 days 2. Discontinue scheduled and PRN oxycodone 3. Continue hydromorphone 1mg IV q 2 hours as needed for breakthrough pain -Nausea and vomiting 1. Patient received IV dexamethasone 8mg IV one time yesterday with episode of emesis this morning 2. Continue ondansetron IV as needed -Constipation 1. methylnaltrexone 12mg IV given x1 on 03/18 with incomplete effectiveness. 2. Patient received soap suds enema and lactulose PO 20g one time on . Per RN, no bowel movement reported overnight, just a smear. 3. Continue Colace and above treatments. TPN: 1. Hospice will not pay for TPN. (Family is inclined not to accept hospice if TPN is available via other home health/home infusion services.) 2. Dr. Shea asked to find out if an infusion service would provide TPN through pt's port and how much that would cost the family, if not covered by their insurance. is working on this question. 3. Dr. Shea counseled that TPN is NOT as nutritious as taking food by mouth and it would be a high infection risk to have TPN in the home setting. Family understands, but is still concerned about pt who is not eating. 4. Hospice meeting this afternoon with family. Further discussion regarding TPN at that time. Hospice Meeting with family, Drs. Shea and Germaine: Drs. Shea and Germaine returned in the afternoon of 03/20 to take part in the hospice information meeting with family. official court interpreter and hospice apparel trimmings sales representative were present. Discussion took place in the conference room. Discussed purpose of hospice and scope of hospice. There was lengthy discussion with family and Dr. Shea regarding end of life expectations and symptoms. Dr. Shea also discussed the risks of TPN during the end of life period. Family with many questions regarding TPN, NG tube feedings and expectations. All questions from family were answered. DPOA/Advanced Directives/POLST: 1. DPOA is Daughter (Mary) and (Sneha Casillas). 2. On 03/18, Drs. Shea and Germaine discussed code status and completed POLST form with daughter (who is her DPOAHC), Mary Smith. The patient's code status was changed from FULL CODE to DNAR/DNI. Interventions include comfort measures only. Family is okay with antibiotics with comfort being the goal. Family agrees to not have any medically assisted nutrition by tube -Family/emotional support - excellent family support. Patient's family has insight and understanding of the patient's poor prognosis Disposition: 1. Hospice information visit pending on 03/20 at 1pm. 2. Family preference is to take pt home. Additional Medical Diagnoses with primary management by Hospitalist team include : 1. Intra-abdominal mass/fluid collection, acute. Present on admission. Active and progressive. 2. Constipation, chronic. Present on admission. Resolved 3. Insulin using Type II diabetes, chronic. Present on admission. Active 4. Acute microcytic, hypochromic anemia. Present mission. Active 5. Nutrition 6. Positive nasal MRSA screen, poa, resolved 7. UTI, acute. Present on admission. resolved. Problems: Goals of Care DNR/DNI/comfort goals Disposition Likely home with assistance from hospice. Family is meeting hospice agency for a information visit soon. Resuscitation Status Resuscitation Status: DNR/DNI:Do Not Resuscitate/Intubate POLST Updates/Changes Previous POLST?: No POLST Last Review Date: Mar 18, 2017 Antibiotics: Determine Use or Limitations Artificially Admin Nutrition: No Artifical Nutrition by Tube POLST Discussed with: Health Care Agent (DPOAHC) POLST Review Outcome: New Form Completed Total time 150 minutes; >50% face to face with patient and/or family, providing counselling regarding plans and recommendations, and in care coordination with his/her medical teams, nursing, case management, and hospice representatives. Palliative Brief Note Date of Service Mar 20, 2017 . Patient Identification: 61-year-old female staying at [facility] with a history of gastric carcinoma with multiple surgeries since last summer including Billroth II that was complicated by duodenal stump leak and intra-abdominal sepsis, a history of intra-abdominal abscess with MRSA, diabetes type II, CVA with left-sided deficits, and hyperlipidemia admitted on for abdominal pain x 3 weeks duration. Hospital Course: Subsequently, CT scan showed some perisplenic free fluid and thickening of large and possibly small bowel with an overall picture concerning for infection/inflammation with questionable developing ileus or partial SBO. Patient underwent CT-guided core needle omental biopsy on March 13, which was positive for metastatic poorly differentiated adenocarcinoma, consistent with the patient's gastric primary. Per Oncology, the patient has an incurable cancer that has progressed and given the suboptimal response to previous multiagent neoadjuvant chemotherapy and the patient's poor condition the patient is not a candidate for palliative chemotherapy. On 03/18/17, Hospital Day 25, Palliative medicine consulted to assist with initiating hospice and discuss goals of care. Patient is Cook Islander-speaking only and her daughters only speak some Japanese. History obtained using a per diem interpreter. Prior to visiting the patient, reviewed patient's records in the EMR in detail and discussed patient with bedside nurse. Patient is accompanied at bedside by her daughter, Mary, who wishes to limit the amount of information divulged to the patient. Dr. Herron spoke to dtr Mary separately regarding setting up Hospice, and a hospice information visit is scheduled for 03/20. Pt started on Dilaudid NATUROPATHIC PHYSICIAN earlier, and Pall Care Team began an attempt to transition to oral pain medications on 03/18. Previous abdominal ultrasound on 03/16 shows insufficient ascites for paracentesis. Repeat ultrasound 03/19 also with insufficient ascites for paracentesis. Subjective: Patient is seen with dtrMary, at bedside. TPN infusing at time of visit. Patient still with some nausea this morning. No bowel movement overnight , only a little smear per nursing. Patient continues to have abdominal discomfort. Exam: Patient seen in bed. Vitals noted. She appears to be in some minor discomfort. Left chest port with clean, dry dressing. Abdomen is tense and distended with hypoactive tones. Extremities warm. Neurologically grossly intact. Wan Herron DO Mar 20, 2017 11:20 Allison Shea MD Mar 20, 2017 14:30
--- NOTE | 2017-03-20 12:09 | PCM.PHAPRO ---
Progress Date of Service: Mar 20, 2017 - Day 18 on TPN for abdominal infection complication - Patient's patient is going to decide whether patient should go home hospice without TPN or somewhere else where TPN to be continued - No today lab except Phos 3.2 and Mag 1.8 - As noted, cyclic TPN on lipids will start today. Per office services clerk's recommendation macronutrients as follow: dextrose 300g, AA 75g, and lipid 50g on Thursday/Thu/Thu PARENTERAL NUTRITION ORDERS 18 -Mar- Substrates AMINO ACIDS 75 g DEXTROSE 300 g LIPIDS 50 g Sterile Water for Injection QS mL Total Volume 1250 mL Additives Sodium Chloride 150 mEq Sodium Acetate 40 mEq Potassium Chloride 40 mEq Potassium Phosphate 20 mEq Calcium Gluconate 9 mEq Magnesium Sulfate 24 mEq Regular Insulin units Famotidine 40 mg Multivitamins 1 std dose Trace Elements 1 std dose Thiamine mg Folic Acid mg Ascorbic Acid mg - AST/ALT lab ordered for Friday 03/23. Pharmacy will follow daily Thank you Jose Cervantes Mar 20, 2017 12:08
[2017-03-20] MEDS: 0.9% Sodium Chloride 250 ML IV SCH (12:28)
--- NOTE | 2017-03-20 13:21 | NUR ---
NUTRITION FOLLOW-UP: ASSESS: 61 YO female with multiple abdominal surgeries due to gastric carcinoma, and history of intra-abdominal sepsis and abscesses with MRSA in the fall of 2016, presented to the hospital with 3 weeks of worsening abdominal pain and new nausea and emesis x 3 starting day prior to admission. CT-guided biopsy was obtained on 03/13, and the report came 03/17 positive for metastatic poorly differentiated Adenocarcinoma. Per oncology, pt is not a candidate for palliative chemotherapy. Family is considering hospice or comfort care but due to the fact the hospice will not cover TPN, family is leaning towards not doing hospice. Palliative care is involved and has been discussing with family about if they want to continue TPN or not. They have counseled the family about the high infection risk and the many complications that come with extermination supervisor TPN. At this point she continues on TPN at the hospital, as her appetite is minimal and has n/v. Family is bringing in some food that pt likes. Pt's ALT, AST and alk phos are elevated likely related to receiving TPN for the past 3 weeks. Pharmacy is aware of recommendation to cycle lipids. Pts BG levels have consistently been in the 200s. PMHX: Type 2 DM, hyperlipidemia, stroke with left sided weakness, gastric adenocarcinoma,gastrectomy w/reconstruction. LABS: Reviewed. No new labs 03/20- new labs were requested per pharmacy MEDS: Reviewed. Reglan, Relistor, MiraLax, Docusate, Dulcolax, Melatonin, Dilaudid, Insulin. GI: 1 BM 03/14 SKIN: Devin 14. ascites WT: 75.6kg, BMI 31.5 kg/m2, admit wt 69.8kg, IBW 47.7kg DIET: Diabetic. Refused most meals TPN: 300 g Dex, 75 g AA and 50 g lipids to provide 1820 kcal and 75 g pro (100% estimated needs) EST. NEEDS: (based on admit wt) Kcals: 8687-0497 kcal/day (22-25kcal/kg) Pro: 60-75g/day (1.2-1.5g/kg IBW) NUTRITION DIAGNOSIS: 1) Inadequate oral intake related to altered GI function as evidence by poor PO intake, pt reporting poor appetite, severe abdominal pain and history of needing J-tube feedings and TPN - PERSISTS NUTRITION INTERVENTION: 1) Recommend continue cycling lipids due to elevated AST, ALT and alk phos. Recommend 300g Dex, 75g AA and 0 g lipids M, W, F and 300g Dex, 75g AA and 50g lipids Tue, Thur, Sat, Sun. 2) IF pts BG levels continue to be high over the weekend and pt remains on TPN, recommend consider decreasing pt's Dextrose to 255g Dex. Recommend continuing to cycle lipids and continue current AA of 75g. 3) Will monitor goals of care for possible hospice or stop of TPN 4) Monitor PO intake and modify TPN accordingly. If PO intake remains 25-75% or > consider decreasing TPN formulation. MONITOR / EVAL: TPN tolerance, labs, PO intake, wt, GI, diet advc, POC, nutrition status. Will continue to monitor per high nutrition risk guidelines.
[2017-03-20] MEDS: Methylnaltrexone 12 mg/0.6 mL Inj SUBQ SCH (14:12)
[2017-03-20 14:42] VITALS: BP 159/76; PULSE 89; RESP 16; O2SAT 96
[2017-03-20 18:12] VITALS: BP 183/106; PULSE 90; RESP 18; O2SAT 96
--- NOTE | 2017-03-20 18:34 | NUR ---
Medications/Pain/BP No reports of chest pain/pressure/discomfort. No tele, HR 80s-low 100s. Systolic BP 170s this AM, high 150s this afternoon and 180s in the early evening. One time dose of IV Enalapril administered per MD orders. No reports of SOB at rest. SPO2 on RA 96%. Denies cough. Reports continuous nausea especially with any PO intake. Took metoprolol at scheduled time this AM but vomited afterwards. Unable to take any further PO meds at that time, states she will try to take them later in the day, as she did she had repeated emesis. Reports continuous abdominal pain7-06/14, well treated with IV Dilaudid, no BM today. Incontinent of urine. TPN infusing at 52 mls per hour per MD orders.
--- NOTE | 2017-03-20 19:15 | DRSVH ---
PROCEDURE: US ABDOMEN, LIMITED ([id number]) INDICATIONS: ascites TECHNIQUE: Real-time focused scanning was performed of the abdomen, with image documentation. COMPARISON: [facility], , ABDOMEN LTD, 03/16/2017, 15:02. FINDINGS: There is small amount of ascites without definite change from 03/16/17. Insufficient amount for safe paracentesis. IMPRESSION: No interval change or sufficient fluid for safe paracentesis. Dictated by: Tomy Cervantes M.D. on 03/20/2017 at 19:12 Approved by: Tomy Cervantes M.D. on 03/20/2017 at 19:13
[2017-03-20 20:05] VITALS: BP 152/85; PULSE 89; RESP 18; O2SAT 96
[2017-03-20] MEDS: Total Parenteral Nutrition 1 BAG IV SCH (21:00)
--- NOTE | 2017-03-20 21:54 | PCM.PNMED ---
Subjective Date of Service Mar 20, 2017 Subjective Lot of family is present in the room. Discussions about TPN are still ongoing. Family is resultant to stop TPN feeds. Ia sked the son with the help of paper reel operator if there are any concerns and he denies. Patient is very sleepy, was responsive to verbal upon wakening. Exam Vital Signs Vital Sign - Last Date Time Temp Pulse Resp B/P Pulse Ox O2 Delivery O2 Flow Rate FiO2 03/20/17 18:12 37.1 90 18 183/106 96 Room Air Intake and Output 03/19/17 03/19/17 03/20/17 Cumulative From/Thru 15:00 23:00 07:00 02/21/17 16:49 - 03/20/17 06:40 Intake Total 1187 ml 1404 ml 05240 ml Output Total 1200 ml 990 ml 41337 ml Balance -13 ml 414 ml 74340 ml Intake Oral 400 ml 650 ml 86579 ml IV Total 126 ml 124 ml 51663 ml TPN/PPN 661 ml 630 ml 14788 ml Output Urine Total 1000 ml 590 ml 51473 ml Stool Total 200 ml 201 ml Urine/Stool Mix 781 ml Emesis 400 ml 2890 ml Other 3800 ml # Voids 1 118 # Bowel Movements 0 17 Exam General: Resting comfortable Skin; clear no rash HENT adequate hydration, no oral lessions CV; no murmur, reg, no sig edema, no JVD Resp; clear anteriorly, no wheezing or rhonchi GI; worsen firm hardness to anterior abdomen, bs hypoactive, non tenderness today neuro; 2-12 intact, no focal neuro deficits psych: neg for anxiety and agitation Ext: L foot ext rotated, not moving Left leg or arm, Left foot edema, no cyanosis IVs and Medications IV Fluids TPN Medications Reviewed: Medications were reviewed in detail Lab and Diagnostics Result Diagram: 03/18/17 0540 03/19/17 0705 Microbiology 02/21/17 Blood culture- No growth to date 02/21/17 Urine culture- Positive Escherichia Coli; Klebsiella Pneumoniae 02/21/17 MRSA screen- positive 02/22/17- Repeat Blood Cultures- no growth to date X-Rays, CTs and MRIs (02/26/17) CT ABDOMEN AND PELVIS WITH CONTRAST IMPRESSION: 1. Small bilateral pleural effusions, left greater than right, increasing volume of ascites and development of diffuse subcutaneous edema. 2. Postoperative changes of partial gastrectomy, cholecystectomy and possible partial bowel resection. Old abdominal wall tract from prior J-tube placement. 3. Bowel distention with air-fluid levels, likely inflammatory with ileus, possibility of partial small bowel obstruction with possible transition in the right upper quadrant in the area of surgical clips. Dictated and approved by: Rio Thornton M.D. on 02/26/2017 at 14:05 ADDENDUM: Following consultation with Dr. Sawyer, the focal area of small bowel narrowing in the right upper quadrant at the level of surgical clips represents a surgical blind ended loop of duodenum and not a focus of small bowel obstruction. Dictated by: Rio Thornton M.D. on 02/26/2017 at 15:02 (02/27/17) US PELVIC SONOGRAM + TRANSVAGINAL SONOGRAM IMPRESSION: 1. Atrophic otherwise ultrasonographically normal uterus. The ovaries were not identified and cannot be evaluated. 2. Ascites is noted. Dictated and approved by: Keny Duvall M.D. on 02/27/2017 at 18:47 . 12-lead ECG Normal sinus rhythm with heart rate of 83; QTc 4 70 Assessment & Plan 61-year-old female with multiple abdominal surgeries due to gastric carcinoma, and history of intra-abdominal sepsis and abscesses with MRSA in the fall of 2016 who presented to the hospital with 3 weeks of worsening abdominal pain and new nausea and emesis x3 starting day prior to admission. Intra-abdominal mass/fluid collection, acute. Present on admission. Active and progressive. - recurrent malingnancy. CA 125 slightly elevated,. -all antibiotics stopped 03/14 -Dilaudid FLUE LINING DIPPER for control of abdominal pain --Path report from 03/13 is available, showed mets from primary gastric cancer --Consulted Dr. Hi. He has seen the patient and recommends no further treatments --Daughter says no one should discuss patient's health with the patient.Daughter and family will make the decisions. --We will request a ASCITES US abd again for potential paracentesis --Palliative care has patient on the following pain med regimen: "1. Start fentanyl patch 75 mcg/hr q 3 days 2. Discontinue scheduled and PRN oxycodone 3. Continue hydromorphone 1mg IV q 2 hours as needed for breakthrough pain" Hypertension, elevated BP: patient threw up meds per family -- Enalapril 1.25 mg IV one time dose is given Insulin using Type II diabetes, chronic. Present on admission. Active -Patient presents with glucose of 192. Goal blood glucose 140-180. -A1c 7.2 -home dose = Lantus 30 HS, Lispro 2 units tid ac (nutritional), and metformin 1 ,000 bid -Lantus 30, medium correction scale, cont to hold metformin for now Acute microcytic, hypochromic anemia. Present mission. Active -Patient presents with a hemoglobin 11.6, a low MCV; review of past admissions does not appear that this is a chronic issue -Iron studies demonstrate deficiency component. -Supplemental iron restarted. -Follow CBC Nutrition -continue TPN -- Palliative care is currently discussing this with the family. Patient cannot maintain TPN if they are interested in going on hospice. -- Family is reluctant to stop TPN. Gave family copy of tube feeds info from [facility]. --"Dr. Shea asked to find out if an infusion service would provide TPN through pt's port and how much that would cost the family, if not covered by their insurance. CM is working on this question.. Dr. Shea counseled that TPN is NOT as nutritious as taking food by mouth and it would be a high infection risk to have TPN in the home setting. Family understands, but is still concerned about pt who is not eating. " Constipation, chronic. Present on admission. active and ongoing -Likely secondary to chronic opiate use. Typically responds to suppositories, per the patient. -continue Relistor, for counteract opiate induced component of constipation, -Schedule miralax and docusate, added ducolax -Enema 02/28, 03/05, will try again on daily basis if needed --dulcolax, mag citrate: she has had several BM Positive nasal MRSA screen, poa, resolved -treatment completed with mupirocin UTI, acute. Present on admission. resolved. -Urine culture growing- E. coli, Klebsiella. Patient suprapubic pain but no urinary symptoms. -No more abx per ID Disposition: Family is discussing hospice options with palliative care. Oncology has signed off. Hospice has met with family 03/20 afternoon disposition; -patient come from [facility] -oncologist is Dr. Garber -pcp is Dr. Bauer Pain Evaluation: Adequate Pain Control GI Prophylaxis: Proton Pump Inhibitor VTE Prophylaxis: Sub-Q Heparin (Unfractionated) VTE Mechanical Devices: Intermittant Pneumatic CD Resuscitation Status: DNR/DNI:Do Not Resuscitate/Intubate Time spent 25 min Didi Sawyer DO Mar 20, 2017 21:53
[2017-03-20] MEDS: Insulin GLARgine 100 Unit/mL Syringe SUBQ SCH (22:56)
[2017-03-21] MEDS: HYDROmorphone 1 mg/mL Inj IVPUSH PRN ×8 (00:59→23:27)
[2017-03-21] MEDS: Heparin 5,000 Unit/mL Inj SUBQ SCH ×3 (01:05→15:48)
[2017-03-21 05:10] VITALS: BP 148/79; PULSE 81; RESP 16; O2SAT 95
--- NOTE | 2017-03-21 05:30 | NUR ---
pain/medications pt has reported her pain well controlled this shift. she was started on a fentanyl patch yesterday and the family believes that is helping. she was given IV dilaudid 3x this shift for breakthrough pain in her abdomen but even then said the pain was better 3-5/10 in intensity. pt slept for most of the night. family stated she "had a good night" and "looked comfortable". she was premedicated with zofran before giving her HS meds and she was able to take all of them without getting nauseated or vomiting. care continues.
[2017-03-21] MEDS: Ondansetron 2 mg/mL 2 mL Inj IVPUSH PRN ×2 (07:53→23:50)
[2017-03-21] MEDS: Insulin LISPRO 300 Unit/3 mL Inj SUBQ SCH ×4 (07:54→22:03)
[2017-03-21] MEDS: TPN Per Pharmacist XX SCH (08:30)
[2017-03-21 08:52] LABS: Magnesium 1.8 mg/dL (1.6-2.6); Phosphorus 3.1 mg/dL (2.5-4.9)
[2017-03-21 10:30] VITALS: BP 149/75; PULSE 93; RESP 18; O2SAT 93
[2017-03-21] MEDS: Nystatin 100,000 Unit/Gm 15 Gm Powder TOPICAL SCH (10:33)
[2017-03-21] MEDS: 0.9% Sodium Chloride 250 ML IV SCH (11:16)
[2017-03-21 13:42] VITALS: BP 149/82; PULSE 86; RESP 18; O2SAT 97
--- NOTE | 2017-03-21 14:30 | NUR ---
Social Work: Continued Discharge Planning D: EMR reviewed. Pt is on day 28 of hospitalization. SW requested to meet with family to discuss discharge options. Family requested private pay costs for TPN so pt could go home with hospice and private pay TPN. SW received quote from [facility] for TPN noting that cost would be $1600 per week/$6400 per month for TPN. Palliative care requested that SW work to explain why insurance will not pay for hospice and TPN. SW placed T/C to Lu[facility] at [facility] confirming that insurance won't cover TPN and hospice but insurance will cover NG tube and hospice. SW confirmed with that NG tube is not an option for pt at this time. SW met with pt's daughter Mary ([phone]), Damian ([phone]), and Wilfredo ([phone]) and explained private pay costs for TPN, why insurance won't cover TPN and hospice together, and option to return to [facility] with TPN without hospice. Pt's son Damian helped to translate some [place]inean to Nigerien. Pt's daughter Mary requested that her brother Damian translate as both Mary and Wilfredo can speak some [place]inean and would rather have Damian help assist with the conversation. SW offered to use project control analyst stick as project control analyst is not available on weekends. Pt's family declined to use project control analyst stick and requested Damian help guide the conversation. After SW explained options, family confirmed they understood their options and would like time to decide. Family stated that their two brothers Derian and Serafin are on their way to [place] and will need to be included in the decision making process. Family confirmed they will work to reach decision to go home with hospice or return to [facility] with TPN by the end of the weekend. Family confirmed they don't have the financial means to pay privately for TPN at this [facility]. Family stated that they could not make decision until they reach agreement with the whole family. P: SW to follow-up with Damian and Mary regarding family decision on discharge plan. COLLIN Anderson
--- NOTE | 2017-03-21 15:12 | PCM.PHAPRO ---
Progress TPN PER PHARMACY CYCLE LIPIDS MWF - no lipids today PARENTERAL NUTRITION ORDERS 21-Mar-17 Standard Hang Time: 2100 Substrates Total kcal: 1320 AMINO ACIDS 75 g DEXTROSE 300 g Total Volume (mL): 1250 LIPIDS 0 g Sterile Water for Injection QS mL To Infuse Over (hrs): 24 Total Volume 1250 mL At at a rate of (mL/hr): 52 Additives Sodium Chloride 150 mEq "typical" daily requirements Sodium Acetate 40 mEq Sodium 50-120mEq Potassium Chloride 40 mEq Potassium 60-120mEq Potassium Phosphate 20 mEq Phosphate 20-40mEq Calcium Gluconate 9 mEq Magnesium 8-32mEq Magnesium Sulfate 24 mEq Calcium 9-22mEq Acetate* 80-120mEq Chloride* 80-120mEq Regular Insulin units *Depending on acid-base status Famotidine 40 mg Multivitamins 1 std dose Insulin Regimen Trace Elements 1 std dose none Thiamine mg Regular Low Intensity Subcut Folic Acid mg Regular Medium Intensity Subcut Ascorbic Acid mg Regular High Intensity Subcut Regular Insulin Infusion Other: Special Instructions: To be infused via central line only. For delay or inturruption of TPN contact the pharmacist for alternative replacement solution. *CYCLE LIPIDS M/W/F* Signature Date: FLAQUITO DUBON [address] [facility] Pharmacy will continue to follow, thank you. Elizabeth Colunga PharmD Mar 21, 2017 15:12
--- NOTE | 2017-03-21 16:50 | PCM.PNMED ---
Subjective Date of Service Mar 21, 2017 Subjective Patient is lori nd examined. Many family members in the room. Patient was pleasant but sleepy. Daughter says family is trying to pool money to pay for the TPN as they can not see her go w/o nutrition. PAin is under control with fentanyl patch and IV dilaudid 1 mg Q2H PRN (she is taking it on the clock). Exam Vital Signs Vital Sign - Last Date Time Temp Pulse Resp B/P Pulse Ox O2 Delivery O2 Flow Rate FiO2 03/21/17 16:23 Supplement Oxygen 03/21/17 13:42 36.7 86 18 149/82 97 Intake and Output 03/20/17 03/20/17 03/21/17 Cumulative From/Thru 15:00 23:00 07:00 02/21/17 16:49 - 03/21/17 06:56 Intake Total 1246 ml 785 ml 94370 ml Output Total 00673 ml Balance 1246 ml 785 ml 34815 ml Intake Oral 550 ml 50 ml 74765 ml IV Total 111 ml 125 ml 92574 ml TPN/PPN 585 ml 610 ml 01069 ml Output Urine Total 54789 ml Stool Total 201 ml Urine/Stool Mix 781 ml Emesis 2890 ml Other 3800 ml # Voids 3 2 123 # Bowel Movements 0 17 Lab and Diagnostics Result Diagram: 03/18/17 0540 03/21/17 0800 Microbiology 02/21/17 Blood culture- No growth to date 02/21/17 Urine culture- Positive Escherichia Coli; Klebsiella Pneumoniae 02/21/17 MRSA screen- positive 02/22/17- Repeat Blood Cultures- no growth to date X-Rays, CTs and MRIs (02/26/17) CT ABDOMEN AND PELVIS WITH CONTRAST IMPRESSION: 1. Small bilateral pleural effusions, left greater than right, increasing volume of ascites and development of diffuse subcutaneous edema. 2. Postoperative changes of partial gastrectomy, cholecystectomy and possible partial bowel resection. Old abdominal wall tract from prior J-tube placement. 3. Bowel distention with air-fluid levels, likely inflammatory with ileus, possibility of partial small bowel obstruction with possible transition in the right upper quadrant in the area of surgical clips. Dictated and approved by: Rio Thornton M.D. on 02/26/2017 at 14:05 ADDENDUM: Following consultation with Dr. Sawyer, the focal area of small bowel narrowing in the right upper quadrant at the level of surgical clips represents a surgical blind ended loop of duodenum and not a focus of small bowel obstruction. Dictated by: Rio Thornton M.D. on 02/26/2017 at 15:02 (02/27/17) US PELVIC SONOGRAM + TRANSVAGINAL SONOGRAM IMPRESSION: 1. Atrophic otherwise ultrasonographically normal uterus. The ovaries were not identified and cannot be evaluated. 2. Ascites is noted. Dictated and approved by: Keny Duvall M.D. on 02/27/2017 at 18:47 . 12-lead ECG Normal sinus rhythm with heart rate of 83; QTc 4 70 Assessment & Plan 61-year-old female with multiple abdominal surgeries due to gastric carcinoma, and history of intra-abdominal sepsis and abscesses with MRSA in the fall of 2015 who presented to the hospital with 3 weeks of worsening abdominal pain and new nausea and emesis x3 starting day prior to admission. Intra-abdominal mass/fluid collection, acute. Present on admission. Active and progressive. - recurrent malingnancy. CA 125 slightly elevated,. -all antibiotics stopped 03/14 -Dilaudid SEMICONDUCTOR TESTING GROUP LEADER for control of abdominal pain was used for several days --Path report from 03/13 is available, showed mets from primary gastric cancer --Consulted Dr. Hi. He has seen the patient and recommends no further treatments, he signed off. He recommends palliative care. --Daughter says no one should discuss patient's health with the patient.Daughter and family will make the decisions. --We will request a ASCITES US abd again for potential paracentesis: done on 03/20, not enough fluid for a paracentesis. --Palliative care has patient on the following pain med regimen: "Start fentanyl patch 75 mcg/hr q 3 days Continue hydromorphone 1mg IV q 2 hours as needed for breakthrough pain" -- Pain under control but pt still using IV dilaudid Insulin using Type II diabetes, chronic. Present on admission. Active -Patient presents with glucose of 192. Goal blood glucose 140-180. -A1c 7.2 -home dose = Lantus 30 HS, Lispro 2 units tid ac (nutritional), and metformin 1 ,000 bid -Lantus 30, medium correction scale, cont to hold metformin for now Acute microcytic, hypochromic anemia. Present mission. Active -Patient presents with a hemoglobin 11.6, a low MCV; review of past admissions does not appear that this is a chronic issue -Iron studies demonstrate deficiency component. -Supplemental iron restarted. Held due to constipation. -Follow CBC Nutrition -continue TPN -- Palliative care is currently discussing this with the family. Patient cannot maintain TPN if they are interested in going on hospice. -- Family is reluctant to stop TPN. Gave family copy of tube feeds info [facility]. --"Dr. Shea asked DINORAH to find out if an infusion service would provide TPN through pt's port and how much that would cost the family, if not covered by their insurance. DINORAH is working on this question.. Dr. Shea counseled that TPN is NOT as nutritious as taking food by mouth and it would be a high infection risk to have TPN in the home setting. Family understands, but is still concerned about pt who is not eating. " -- I counseled family there might come a point TPN may not help the patient thrive if her disease process becomes so severe, daughter stated her understanding and asked for a hug. Constipation, chronic. Present on admission. active and ongoing -Likely secondary to chronic opiate use. Typically responds to suppositories, per the patient. -continue Relistor, for counteract opiate induced component of constipation, -Schedule miralax and docusate, added ducolax -Enema 02/28, 03/05, will try again on daily basis if needed --dulcolax, mag citrate: she has had several BM Positive nasal MRSA screen, poa, resolved -treatment completed with mupirocin UTI, acute. Present on admission. resolved. -Urine culture growing- E. coli, Klebsiella. Patient suprapubic pain but no urinary symptoms. -No more abx per ID Disposition: Family is discussing hospice options with palliative care. Oncology has signed off. Hospice has met with family 03/20 afternoon, no final answer on TPN, family firm on somehow paying for it out of pocket. They would like her to be at home with TPN. Not much changed today with her management. disposition; -patient come from [facility] -oncologist is Dr. Garber -pcp is Dr. Bauer Pain Evaluation: Adequate Pain Control GI Prophylaxis: Proton Pump Inhibitor VTE Prophylaxis: Sub-Q Heparin (Unfractionated) VTE Mechanical Devices: Intermittant Pneumatic CD Resuscitation Status: DNR/DNI:Do Not Resuscitate/Intubate Time spent 25 min Didi Sawyer DO Mar 21, 2017 16:50
--- NOTE | 2017-03-21 18:36 | NUR ---
Pain/Nausea & Vomiting Pt. states having abdominal pain throughout shift and req. IV PRN dilaudid almost q2hrs. Pt. states her pain will jump with no warning from a 2-3 to 7-9. Pt. this morning prior to scheduled meds Pt. was given zofran PRN IV push ~45min prior to scheduled medications. After administering scheduled meds. Pt. has no episodes of nausea or vomiting on shift and denies having nausea and vomiting. Pt. has also not had a BM on shift. Family at bedside, will continue to monitor.
[2017-03-21] MEDS: Total Parenteral Nutrition 1 BAG IV SCH (21:00)
[2017-03-21 21:35] VITALS: BP 163/94; PULSE 94; RESP 16; O2SAT 96
[2017-03-22] MEDS: Heparin 5,000 Unit/mL Inj SUBQ SCH ×3 (00:01→15:59)
[2017-03-22] MEDS: HYDROmorphone 1 mg/mL Inj IVPUSH PRN ×8 (01:36→22:41)
[2017-03-22 04:20] LABS: Magnesium 1.8 mg/dL (1.6-2.6); Phosphorus 2.9 mg/dL (2.5-4.9)
[2017-03-22 05:40] VITALS: BP 179/81; PULSE 87; RESP 16; O2SAT 95
[2017-03-22] MEDS: Ondansetron 2 mg/mL 2 mL Inj IVPUSH PRN ×2 (06:08→20:44)
[2017-03-22] MEDS: TPN Per Pharmacist XX SCH (08:30)
[2017-03-22 08:41] VITALS: BP 183/81; PULSE 89; RESP 18; O2SAT 96
[2017-03-22] MEDS: Insulin LISPRO 300 Unit/3 mL Inj SUBQ SCH ×4 (08:52→22:41)
[2017-03-22] MEDS: Nystatin 100,000 Unit/Gm 15 Gm Powder TOPICAL SCH ×3 (09:01→21:47)
--- NOTE | 2017-03-22 09:09 | NUR ---
CHACE signed by pt's daughter Mary at bedside
--- NOTE | 2017-03-22 09:21 | PCM.PHAPRO ---
Progress TPN PER PHARMACY PARENTERAL NUTRITION ORDERS 22-Mar-17 Standard Hang Time: 2100 Substrates Total kcal: 1320 AMINO ACIDS 75 g DEXTROSE 300 g Total Volume (mL): 1250 LIPIDS 0 g Sterile Water for Injection QS mL To Infuse Over (hrs): 24 Total Volume 1250 mL At at a rate of (mL/hr): 52 Additives Sodium Chloride 150 mEq "typical" daily requirements Sodium Acetate 40 mEq Sodium 50-120mEq Potassium Chloride 60 mEq Potassium 60-120mEq Potassium Phosphate 20 mEq Phosphate 20-40mEq Calcium Gluconate 9 mEq Magnesium 8-32mEq Magnesium Sulfate 24 mEq Calcium 9-22mEq Acetate* 80-120mEq Chloride* 80-120mEq Regular Insulin units *Depending on acid-base status Famotidine 40 mg Multivitamins 1 std dose Insulin Regimen Trace Elements 1 std dose none Thiamine mg Regular Low Intensity Subcut Folic Acid mg Regular Medium Intensity Subcut Ascorbic Acid mg Regular High Intensity Subcut Regular Insulin Infusion Other: Special Instructions: To be infused via central line only. For delay or inturruption of TPN contact the pharmacist for alternative replacement solution. *CYCLE LIPIDS M/W/F* Signature Date: FLAQUITO DUBON [address] [facility] Pharmacy will continue to follow Elizabeth Colunga [facility]eng Mar 22, 2017 09:21
[2017-03-22] MEDS: 0.9% Sodium Chloride 250 ML IV SCH (11:05)
--- NOTE | 2017-03-22 12:11 | PCM.PNMED ---
Subjective Date of Service Mar 22, 2017 Subjective Currently comfortable with pain controlled Exam Vital Signs Vital Sign - Last Date Time Temp Pulse Resp B/P Pulse Ox O2 Delivery O2 Flow Rate FiO2 03/22/17 08:50 Supplement Oxygen 03/22/17 08:41 37.2 89 18 183/81 96 Intake and Output 03/21/17 03/21/17 03/22/17 Cumulative From/Thru 15:00 23:00 07:00 02/21/17 16:49 - 03/22/17 06:58 Intake Total 200 ml 1708 ml 98743 ml Output Total 650 ml 63084 ml Balance 200 ml 1058 ml 65360 ml Intake Oral 200 ml 100 ml 38921 ml IV Total 362 ml 50599 ml TPN/PPN 1246 ml 17167 ml Output Urine Total 07639 ml Stool Total 201 ml Urine/Stool Mix 781 ml Emesis 650 ml 3540 ml Other 3800 ml # Voids 3 2 128 # Bowel Movements 0 17 Exam General: Alert, no acute distress Heart: Regular Lungs: Clear anteriorly and laterally Abdomen: Distended and firm, bowel tones are present, appears nontender Extremities: Trace pedal edema IVs and Medications Medications Reviewed: Medications were reviewed in detail Lab and Diagnostics Result Diagram: 03/18/17 0540 03/22/17 0315 Microbiology 02/21/17 Blood culture- No growth to date 02/21/17 Urine culture- Positive Escherichia Coli; Klebsiella Pneumoniae 02/21/17 MRSA screen- positive 02/22/17- Repeat Blood Cultures- no growth to date X-Rays, CTs and MRIs (02/26/17) CT ABDOMEN AND PELVIS WITH CONTRAST IMPRESSION: 1. Small bilateral pleural effusions, left greater than right, increasing volume of ascites and development of diffuse subcutaneous edema. 2. Postoperative changes of partial gastrectomy, cholecystectomy and possible partial bowel resection. Old abdominal wall tract from prior J-tube placement. 3. Bowel distention with air-fluid levels, likely inflammatory with ileus, possibility of partial small bowel obstruction with possible transition in the right upper quadrant in the area of surgical clips. Dictated and approved by: Rio Thornton M.D. on 02/26/2017 at 14:05 ADDENDUM: Following consultation with Dr. Sawyer, the focal area of small bowel narrowing in the right upper quadrant at the level of surgical clips represents a surgical blind ended loop of duodenum and not a focus of small bowel obstruction. Dictated by: Rio Thornton M.D. on 02/26/2017 at 15:02 (02/27/17) US PELVIC SONOGRAM + TRANSVAGINAL SONOGRAM IMPRESSION: 1. Atrophic otherwise ultrasonographically normal uterus. The ovaries were not identified and cannot be evaluated. 2. Ascites is noted. Dictated and approved by: Keny Duvall M.D. on 02/27/2017 at 18:47 . 12-lead ECG Normal sinus rhythm with heart rate of 83; QTc 4 70 Assessment & Plan 61-year-old female with multiple abdominal surgeries due to gastric carcinoma, and history of intra-abdominal sepsis and abscesses with MRSA in the fall of 2016 who presented to the hospital with 3 weeks of worsening abdominal pain and new nausea and emesis x3 starting day prior to admission. Intra-abdominal mass/fluid collection, acute. Present on admission. Active and progressive. - recurrent malingnancy. CA 125 slightly elevated,. -all antibiotics stopped 03/14 -Dilaudid HELICOPTER REPAIRER for control of abdominal pain was used for several days --Path report from 03/13 is available, showed mets from primary gastric cancer --Consulted Dr. Hi. He has seen the patient and recommends no further treatments, he signed off. He recommends palliative care. --Daughter says no one should discuss patient's health with the patient.Daughter and family will make the decisions. --We will request a ASCITES US abd again for potential paracentesis: done on 03/20, not enough fluid for a paracentesis. --Palliative care has patient on the following pain med regimen: "Start fentanyl patch 75 mcg/hr q 3 days, Continue hydromorphone 1mg IV q 2 hours as needed for breakthrough pain" -- Pain under control but pt still using IV dilaudid -- Two sons are ariving today (from [place]?) and then family may decide to proceed with hospice care and no TPN Insulin using Type II diabetes, chronic. Present on admission. Active -Patient presents with glucose of 192. Goal blood glucose 140-180. -A1c 7.2 -home dose = Lantus 30 HS, Lispro 2 units tid ac (nutritional), and metformin 1 ,000 bid -Lantus 30, medium correction scale, cont to hold metformin for now -Glucose currently in low 200's Acute microcytic, hypochromic anemia. Present mission. Active -Patient presents with a hemoglobin 11.6, a low MCV; review of past admissions does not appear that this is a chronic issue -Iron studies demonstrate deficiency component. -Supplemental iron restarted. Held due to constipation. -Follow CBC, stable Nutrition -continue TPN -- Palliative care is currently discussing this with the family. Patient cannot maintain TPN if they are interested in going on hospice. as above may decide for hospice after 2 sons arrive later today -- Family is reluctant to stop TPN. Gave family copy of tube feeds info [facility]. --"Dr. Shea asked CM to find out if an infusion service would provide TPN through pt's port and how much that would cost the family, if not covered by their insurance. CM is working on this question.. Dr. Shea counseled that TPN is NOT as nutritious as taking food by mouth and it would be a high infection risk to have TPN in the home setting. Family understands, but is still concerned about pt who is not eating. " -- family has been counseled there might come a point TPN may not help the patient thrive if her disease process becomes so severe, daughter stated her understanding and asked for a hug. Constipation, chronic. Present on admission. active and ongoing -Likely secondary to chronic opiate use. Typically responds to suppositories, per the patient. -continue Relistor, for counteract opiate induced component of constipation, -Schedule miralax and docusate, added ducolax -Enema 02/28, 03/05, will try again on daily basis if needed --dulcolax, mag citrate: she has had several BM Positive nasal MRSA screen, poa, resolved -treatment completed with mupirocin UTI, acute. Present on admission. resolved. -Urine culture growing- E. coli, Klebsiella. Patient suprapubic pain but no urinary symptoms. -No more abx per ID Disposition: Family is discussing hospice options with palliative care. Oncology has signed off. Hospice has met with family 03/20 afternoon, no final answer on TPN, family had been firm on somehow paying for it out of pocket so she could be at home with TPN. However they are now thinking of doing hospice ( stopping TPN) but waiting for 2 sons to arrive before deciding disposition; -patient come from [facility] -oncologist is Dr. Garber -pcp is Dr. Bauer GI Prophylaxis: Proton Pump Inhibitor VTE Prophylaxis: Sub-Q Heparin (Unfractionated) VTE Mechanical Devices: Intermittant Pneumatic CD Resuscitation Status: DNR/DNI:Do Not Resuscitate/Intubate Amanda Quiroz MD Mar 22, 2017 12:11
[2017-03-22] MEDS: Methylnaltrexone 12 mg/0.6 mL Inj SUBQ SCH (12:32)
[2017-03-22 13:12] VITALS: BP 174/81; PULSE 83; RESP 16; O2SAT 95
--- NOTE | 2017-03-22 18:40 | NUR ---
Pain/BM Pt. this morning was requesting dilaudid PRN IV push almost q2hrs for abdominal pain. Pt. this afternoon has not requested dilaudid PRN medication as frequently like she did this morning. Pt. has not had a BM this sift as well and has had no PO intake.
[2017-03-22 21:46] VITALS: BP 184/83; PULSE 91; RESP 16; O2SAT 96
[2017-03-22] MEDS: Total Parenteral Nutrition 1 BAG IV SCH (22:41)
[2017-03-22] MEDS: Insulin GLARgine 100 Unit/mL Syringe SUBQ SCH ×2 (22:42)
[2017-03-23] MEDS: Heparin 5,000 Unit/mL Inj SUBQ SCH ×4 (00:47→23:52)
[2017-03-23] MEDS: HYDROmorphone 1 mg/mL Inj IVPUSH PRN ×12 (00:48→23:52)
[2017-03-23] MEDS: Ondansetron 2 mg/mL 2 mL Inj IVPUSH PRN ×6 (00:48→21:20)
[2017-03-23] MEDS: 0.9% Sodium Chloride 250 ML IV SCH ×2 (04:37→11:15)
--- NOTE | 2017-03-23 05:07 | NUR ---
GI / pain Continues to have severe nausea with vomiting, emesis of 100-300 ml watery, greenish liquid x 2. Zofran given Q4 hours for relief. No BM this shift, suppository given as well as scheduled bowel meds. TPN infusing. Pain continues to require IV Dilaudid every 2 hours for tolerable management. Hourly rounding ongoing.
[2017-03-23] MEDS: TPN Per Pharmacist XX SCH (08:30)
[2017-03-23 08:40] LABS: Magnesium 1.7 mg/dL (1.6-2.6); Phosphorus 3.2 mg/dL (2.5-4.9)
[2017-03-23 08:42] VITALS: BP 188/85; PULSE 90; RESP 20; O2SAT 95
[2017-03-23] MEDS: Insulin LISPRO 300 Unit/3 mL Inj SUBQ SCH ×4 (08:52→23:01)
--- NOTE | 2017-03-23 10:26 | PCM.PHAPRO ---
Progress TPN Management: -Day 21 this evening for TPN -electrolytes have remained stable -macronutrients will be as follows per discussion with monorail operator: Amino Acids 75gm, Dextrose 255gm, Lipids 50gm (blood sugars have been elevated therefore the decrease in Dextrose. Lipids will be added today since pt did not receive for the past 2 days) -Plan: formula for this evening: PARENTERAL NUTRITION ORDERS 23-Mar-17 Standard Hang Time: 2100 Substrates Total kcal: 1667 AMINO ACIDS 75 g DEXTROSE 255 g Total Volume (mL): 1250 LIPIDS 50 g Sterile Water for Injection QS mL To Infuse Over (hrs): 24 Total Volume 1250 mL At at a rate of (mL/hr): 52 Additives Sodium Chloride 150 mEq "typical" daily requirements Sodium Acetate 40 mEq Sodium 50-120mEq Potassium Chloride 60 mEq Potassium 60-120mEq Potassium Phosphate 20 mEq Phosphate 20-40mEq Calcium Gluconate 9 mEq Magnesium 8-32mEq Magnesium Sulfate 24 mEq Calcium 9-22mEq Acetate* 80-120mEq Chloride* 80-120mEq Regular Insulin units *Depending on acid-base status Famotidine 40 mg Multivitamins 1 std dose Insulin Regimen Trace Elements 1 std dose none Thiamine mg Regular Low Intensity Subcut Folic Acid mg Regular Medium Intensity Subcut Ascorbic Acid mg Regular High Intensity Subcut Regular Insulin Infusion Other: Leesa Knight [facility] Mar 23, 2017 10:26
[2017-03-23] MEDS: Nystatin 100,000 Unit/Gm 15 Gm Powder TOPICAL SCH ×2 (10:29→20:30)
--- NOTE | 2017-03-23 10:48 | NUR ---
NUTRITION FOLLOW-UP: ASSESS: 61 YO female with multiple abdominal surgeries due to gastric carcinoma, and history of intra-abdominal sepsis and abscesses with MRSA in the fall of 2015, presented to the hospital with 3 weeks of worsening abdominal pain and new nausea and emesis x 3 starting day prior to admission. CT-guided biopsy was obtained on 03/13, and the report came 03/17 positive for metastatic poorly differentiated Adenocarcinoma. Per oncology, pt is not a candidate for palliative chemotherapy. Family is considering hospice or comfort care but due to the fact the hospice will not cover TPN, family is now leaning towards pursuing hospice and discontinuing TPN at home, awaiting all family members input prior to deciding. Palliative care is involved and has been discussing with family about if they want to continue TPN or not. They have counseled the family about the high infection risk and the many complications that come with terminal block assembler TPN. At this point she continues on TPN at the hospital, as her appetite is minimal and has persistent n/v. Family is bringing in some food that pt likes. Pt's ALT, AST and alk phos are significantly trending down with cycling of lipids. Spoke with Pharmacist re recommendation to cycle lipids. Pts BG levels have consistently been in the 200s, pt. dextrose has been decreased in TPN today. Lipids added to today's TPN as pt had not received lipids over the weekend. PMHX: Type 2 DM, hyperlipidemia, stroke with left sided weakness, gastric adenocarcinoma,gastrectomy w/reconstruction. LABS: Reviewed. Na 136, K+4.0, Glu 230,Ca 8.1, AST 59,ALT 73, Alb 1.9 MEDS: Reviewed. Reglan, Relistor, MiraLax, Docusate, Dulcolax, Melatonin, Dilaudid, Insulin. GI: 1 BM 03/14 SKIN: Devin 14. ascites WT: 75.6kg, BMI 31.5 kg/m2, admit wt 69.8kg, IBW 47.7kg DIET: Diabetic. Refused most meals x 9 days TPN: 255 g Dex, 75 g AA and 50 g lipids to provide 1667 kcal and 75 g pro (100% estimated needs) EST. NEEDS: (based on admit wt) Kcals: 9396-0646 kcal/day (22-25kcal/kg) Pro: 60-75g/day (1.2-1.5g/kg IBW) NUTRITION DIAGNOSIS: 1) Inadequate oral intake related to altered GI function as evidence by poor PO intake, pt reporting poor appetite, severe abdominal pain and history of needing J-tube feedings and TPN - PERSISTS NUTRITION INTERVENTION: 1) Recommend continue cycling lipids due to elevated AST, ALT and alk phos. Recommend 255g Dex, 75g AA and 0 g lipids M, W, F and 255g Dex, 75g AA and 50g lipids Sourav Grimm Sat, Sun. 2) Will monitor goals of care for possible hospice or stop of TPN 3) Monitor PO intake and modify TPN accordingly. If PO intake 25-75% or > consider decreasing TPN formulation. MONITOR / EVAL: TPN tolerance, labs, PO intake, wt, GI, diet advc, POC, nutrition status. Will continue to monitor per high nutrition risk guidelines. Addendum: 03/24/17 at [address] Pt to transition to hospice with no TPN. TPN to titrate off tonight. Pharmacy aware.
[2017-03-23] MEDS ORDERED: HepLOK Flush 100 unit/mL 5 mL Inj IVFLUSH PRN (11:15)
--- NOTE | 2017-03-23 11:38 | PCM.PALLBR ---
Palliative Care Recommendation Summary of palliative recommendations: Patient is a 61-year-old female with gastric adenocarcinoma s/p neoadjuvant chemotherapy and distal gastrectomy with Billroth II gastrojejunostomy presenting with lower abdominal pain, distention and vomiting and found this admission to have omental mets with poorly differentiated adenocarcinoma consistent with the patient's gastric primary. Family currently awaiting arrival of patient's two sons from [place] before making decision about going home with hospice versus returning to [facility] and continuing TPN. Symptom management: -Pain 1. Continue fentanyl patch 75 mcg/hr q 3 days. 2. Continue hydromorphone 1mg IV q 2 hours as needed for breakthrough pain. -Nausea and vomiting 1. Start Haldol 0.25mg IV every 6 hours scheduled for 24 hours. Will reassess tomorrow for effectiveness. 2. Continue ondansetron IV as needed. 3. Patient received IV dexamethasone 8mg IV one time on 03/20. -Constipation 1. Methylnaltrexone 12mg IV given x1 on 03/18 with incomplete effectiveness. 2. Patient received soap suds enema and lactulose PO 20g one time on 03/19. 3. Continue Colace, Dulcolax suppository and above treatments. TPN: 1. Hospice will not pay for TPN. (Family is inclined not to accept hospice if TPN is available via other home health/home infusion services.) 2. Insurance will not cover TPN and hospice but insurance will cover NG tube and hospice; however, NG tube is not an option for the patient at this time given emesis and abdominal pain. 3. Dr. Shea counseled that TPN is NOT as nutritious as taking food by mouth and it would be a high infection risk to have TPN in the home setting. Family understands, but is still concerned about pt who is not eating. 4. Family awaiting arrival of their two brothers, Derian and Serafin, both of whom need to be included in the decision making process. Family confirmed they will work to reach decision to go home with hospice or return to [facility] with TPN. Hospice Meeting with family, Drs. Shea and Germaine: Drs. Shea and Germaine were present during the hospice information meeting on 03/[address] light mechanic and hospice apprenticeship training representative were present. Discussion took place in the conference room. Discussed purpose of hospice and scope of hospice. There was lengthy discussion with family and Dr. Shea regarding end of life expectations and symptoms. Dr. Shea also discussed the risks of TPN during the end of life period. Family with many questions regarding TPN, NG tube feedings and expectations. All questions from family were answered. DPOA/Advanced Directives/POLST: 1. DPOA is Daughter (Mary) and (Sneha Casillas). 2. On 03/18, Drs. Shea and Germaine discussed code status and completed POLST form with daughter (who is her DPOAHC), Mary Smith. The patient's code status was changed from FULL CODE to DNAR/DNI. Interventions include comfort measures only. Family is okay with antibiotics with comfort being the goal. Family agrees to not have any medically assisted nutrition by tube -Family/emotional support - excellent family support. Patient's family has insight and understanding of the patient's poor prognosis Disposition: 1. Family preference is to take pt home. Currently deciding on hospice and whether to continue TPN on discharge Additional Medical Diagnoses with primary management by Hospitalist team include : 1. Intra-abdominal mass/fluid collection, acute. Present on admission. Active and progressive. 2. Constipation, chronic. Present on admission. Resolved 3. Insulin using Type II diabetes, chronic. Present on admission. Active 4. Acute microcytic, hypochromic anemia. Present mission. Active 5. Nutrition 6. Positive nasal MRSA screen, poa, resolved 7. UTI, acute. Present on admission. resolved. Problems: Goals of Care DNR/DNI/comfort goals Disposition Likely home with assistance from hospice. Family is meeting hospice agency for a information visit soon. Resuscitation Status Resuscitation Status: DNR/DNI:Do Not Resuscitate/Intubate POLST Updates/Changes Previous POLST?: No POLST Last Review Date: Mar 18, 2017 Antibiotics: Determine Use or Limitations Artificially Admin Nutrition: No Artifical Nutrition by Tube POLST Discussed with: Health Care Agent (DPOAHC) POLST Review Outcome: New Form Completed Total time 40 minutes; >50% face to face with patient and/or family, providing counselling regarding plans and recommendations, and in care coordination with his/her medical teams. Attending Statement The patient was seen and examined together with Dr. Herron on 03/23/17 and I agree with the history, exam and plan as outlined in the note above. Palliative Brief Note Date of Service Mar 23, 2017 . Rounded on patient today with Dr. Metcalf. Prior to visiting the patient, EMR was reviewed in detail and patient was discussed with bedside nurse. Patient is seen resting at time of visit. Patient's daughter, Mary, is also present at bedside at time of visit. Per Mary, the patient's nausea persists with two episodes of emesis this morning. Per nurse, patient's nausea and emesis persists with any oral intake despite ondansetron. Pain is otherwise controlled. Spoke with Mary outside the patient's room and family is currently awaiting arrival of patient's other sons so they can be part of the decision making process. Patient's vitals stable. She is resting comfortably in bed, sleeping, in no acute distress. Rest of examination deferred per patient's daughter's request and for patient's comfort. Wan Herron DO Mar 23, 2017 11:38 Zeke Metcalf MD Mar 23, 2017 15:09
--- NOTE | 2017-03-23 12:37 | PCM.PNMED ---
Subjective Date of Service Mar 23, 2017 Subjective no complaints Exam Vital Signs Vital Sign - Last Date Time Temp Pulse Resp B/P Pulse Ox O2 Delivery O2 Flow Rate FiO2 03/23/17 08:42 37.5 90 20 188/85 95 Room Air Intake and Output 03/22/17 03/22/17 03/23/17 Cumulative From/Thru 15:00 23:00 07:00 02/21/17 16:49 - 03/23/17 06:52 Intake Total 200 ml 1684 ml 11606 ml Output Total 700 ml 41648 ml Balance 200 ml 984 ml 18726 ml Intake Oral 200 ml 200 ml 25340 ml IV Total 235 ml 66211 ml TPN/PPN 1249 ml 75937 ml Output Urine Total 93370 ml Stool Total 201 ml Urine/Stool Mix 781 ml Emesis 700 ml 4240 ml Other 3800 ml # Voids 3 2 133 # Bowel Movements 17 Exam General: arouses easily and seems alert, no acute distress Heart: Regular Lungs: Clear anteriorly and laterally Abdomen: Distended and firm, mild tenderness, bowel tones present Extremities: No pedal edema IVs and Medications Medications Reviewed: Medications were reviewed in detail Lab and Diagnostics Result Diagram: 03/18/17 0540 03/23/17 0750 Microbiology 02/21/17 Blood culture- No growth to date 02/21/17 Urine culture- Positive Escherichia Coli; Klebsiella Pneumoniae 02/21/17 MRSA screen- positive 02/22/17- Repeat Blood Cultures- no growth to date X-Rays, CTs and MRIs (02/26/17) CT ABDOMEN AND PELVIS WITH CONTRAST IMPRESSION: 1. Small bilateral pleural effusions, left greater than right, increasing volume of ascites and development of diffuse subcutaneous edema. 2. Postoperative changes of partial gastrectomy, cholecystectomy and possible partial bowel resection. Old abdominal wall tract from prior J-tube placement. 3. Bowel distention with air-fluid levels, likely inflammatory with ileus, possibility of partial small bowel obstruction with possible transition in the right upper quadrant in the area of surgical clips. Dictated and approved by: Rio Thornton M.D. on 02/26/2017 at 14:05 ADDENDUM: Following consultation with Dr. Sawyer, the focal area of small bowel narrowing in the right upper quadrant at the level of surgical clips represents a surgical blind ended loop of duodenum and not a focus of small bowel obstruction. Dictated by: Rio Thornton M.D. on 02/26/2017 at 15:02 (02/27/17) US PELVIC SONOGRAM + TRANSVAGINAL SONOGRAM IMPRESSION: 1. Atrophic otherwise ultrasonographically normal uterus. The ovaries were not identified and cannot be evaluated. 2. Ascites is noted. Dictated and approved by: Keny Duvall M.D. on 02/27/2017 at 18:47 . 12-lead ECG Normal sinus rhythm with heart rate of 83; QTc 4 70 Assessment & Plan 61-year-old female with multiple abdominal surgeries due to gastric carcinoma, and history of intra-abdominal sepsis and abscesses with MRSA in the fall of 2016 who presented to the hospital with 3 weeks of worsening abdominal pain and new nausea and emesis x3 starting day prior to admission. Intra-abdominal mass/fluid collection, acute. Present on admission. Active and progressive. - recurrent malingnancy. CA 125 slightly elevated,. -all antibiotics stopped 03/14 -Dilaudid SERGEANT OF CORRECTIONS for control of abdominal pain was used for several days --Path report from 03/13 is available, showed mets from primary gastric cancer --Consulted Dr. Hi. He has seen the patient and recommends no further treatments, he signed off. He recommends palliative care. --Daughter says no one should discuss patient's health with the patient.Daughter and family will make the decisions. --We will request a ASCITES US abd again for potential paracentesis: done on 03/20, not enough fluid for a paracentesis. --Palliative care has patient on the following pain med regimen: "Start fentanyl patch 75 mcg/hr q 3 days, Continue hydromorphone 1mg IV q 2 hours as needed for breakthrough pain" -- Pain under control but pt still using IV dilaudid -- One son arrived from [place] yesterday but one more in [place] hoping to get here in next day or two and then family may decide to proceed with hospice care and no TPN Insulin using Type II diabetes, chronic. Present on admission. Active -Patient presents with glucose of 192. Goal blood glucose 140-180. -A1c 7.2 -home dose = Lantus 30 HS, Lispro 2 units tid ac (nutritional), and metformin 1 ,000 bid -Lantus 30, medium correction scale, cont to hold metformin for now -Glucose currently in low 200's Acute microcytic, hypochromic anemia. Present mission. Active -Patient presents with a hemoglobin 11.6, a low MCV; review of past admissions does not appear that this is a chronic issue -Iron studies demonstrate deficiency component. -Supplemental iron restarted. Held due to constipation. -Hgb has been stable, last checked March 18 Nutrition -- continue TPN -- Palliative care is currently discussing this with the family. Patient cannot continue TPN if they are interested in going on hospice. as above may decide for hospice after 2nd son arrives but if not able to get here they will need to proceed with discharge plan anyway -- Family is reluctant to stop TPN. family given copy of tube feeds info from [facility]. --"Dr. Shea asked DINORAH to find out if an infusion service would provide TPN through pt's port and how much that would cost the family, if not covered by their insurance. DINORAH is working on this question.. Dr. Shea counseled that TPN is NOT as nutritious as taking food by mouth and it would be a high infection risk to have TPN in the home setting. Family understands, but is still concerned about pt who is not eating." -- family has been counseled there might come a point TPN may not help the patient thrive if her disease process becomes so severe Constipation, chronic. Present on admission. active and ongoing -Likely secondary to chronic opiate use. Typically responds to suppositories, per the patient. -continue Relistor, for counteract opiate induced component of constipation, -Schedule miralax and docusate, added ducolax -Enema 02/28, 03/05, will try again on daily basis if needed --dulcolax, mag citrate: she has had several BM Positive nasal MRSA screen, poa, resolved -treatment completed with mupirocin UTI, acute. Present on admission. resolved. -Urine culture growing- E. coli, Klebsiella. Patient suprapubic pain but no urinary symptoms. -No more abx per ID Disposition: Family is discussing hospice options with palliative care. Oncology has signed off. Hospice has met with family 03/20 afternoon, no final answer on TPN, family had been firm on somehow paying for it out of pocket so she could be at home with TPN. However they are now thinking of doing hospice ( stopping TPN) but waiting for second son to arrive from [place] before deciding disposition; -patient come from [facility] care -oncologist is Dr. Garber -pcp is Dr. Bauer GI Prophylaxis: Proton Pump Inhibitor VTE Prophylaxis: Sub-Q Heparin (Unfractionated) VTE Mechanical Devices: Intermittant Pneumatic CD Resuscitation Status: DNR/DNI:Do Not Resuscitate/Intubate Amanda Quiroz MD Mar 23, 2017 12:37
[2017-03-23] MEDS: Haloperidol 5 mg/mL Inj IVPUSH SCH ×2 (13:04→19:26)
[2017-03-23 13:08] VITALS: BP 156/77; PULSE 80; RESP 16; O2SAT 96
--- NOTE | 2017-03-23 16:18 | NUR ---
Social Work: Readiness for Discharge D: EMR reviewed. Pt is on day 30 of hospitalization. JORDAN spoke with pt's daughter Mary regarding hospice. Mary stated that her family has decided going home with hospice without TPN. JORDAN placed T/C to pt's son Damian regarding family decision to go home with hospice and no TPN. Damian is agreeable to discharge plan. JORDAN placed T/C to Luz at [facility] and confirmed consent form has been signed. Luz confirmed that hospice can open on 03/25 at 1130 and that pt must discharge by 1030. JORDAN confirmed plan with Damian and Mary. Damian will also confirm plan with Mary (Damian is in [place] and will call Mary). Hospice confirmed consent form is signed. Family is agreeable for pt to discharge home with hospice and no TPN. JORDAN met with family on 03/21 with family almond blancher operator (Damian) and explained TPN private pay costs. Family has agreed that they do not want TPN and understand that pt will go on Hospice without TPN for end of life care. Family is agreeable to plan. A: Pt for whom hospice has been deemed medically necessary. P: Pt and family signed hospice consent form. JORDAN confirmed with Luz from [facility] that hospice can open on 03/25 at 1130 and pt must discharge by 1030. JORDAN spoke with pt's son (sinhala speaking) and confirmed plan. JORDAN also confirmed plan with Mary. Pt's son stated he will also call Mary and confirm. JORDAN will continue to follow. COLLIN Anderson
--- NOTE | 2017-03-23 19:18 | NUR ---
Pain/GI Pt. has been getting PRN dilaudid 1mg IV push q2hrs throughout shift today. Pt. had one episode of vomiting this morning stated by her daughter Mary and she said "it filled the blue bag, it was brown liquid and foul smelling." Pt. was started on haldol IV push q6hr by Dr. Metcalf to try and help with her nausea as zofran IV push PRN q4hr is beginning to look like it is not helping. No BM on shift. Pt. at this time is surrounded by family and appears in no distress at this time.
[2017-03-23 20:55] VITALS: BP 151/80; PULSE 85; RESP 18; O2SAT 96
[2017-03-23] MEDS: Insulin GLARgine 100 Unit/mL Syringe SUBQ SCH (23:01)
[2017-03-23] MEDS: Total Parenteral Nutrition 1 BAG IV SCH (23:01)
[2017-03-24] MEDS: Haloperidol 5 mg/mL Inj IVPUSH SCH ×2 (01:57→09:21)
[2017-03-24] MEDS: HYDROmorphone 1 mg/mL Inj IVPUSH PRN ×8 (01:58→20:47)
[2017-03-24] MEDS: 0.9% Sodium Chloride 250 ML IV SCH (04:23)
--- NOTE | 2017-03-24 04:33 | NUR ---
Pain / nausea Pain not well controlled at start of shift, pt requesting additional medication before 2 hours had passed. Md increased IV Dilaudid to 2 mg; however later in night pt was comfortable and able to sleep with only 1 mg given about every 2 hours as needed. Nausea under better control, using Haldol scheduled and prn Zofran. No episodes of emesis. Hourly rounding ongoing.
[2017-03-24 04:55] VITALS: BP 162/87; PULSE 83; RESP 16; O2SAT 94
[2017-03-24] MEDS: Ondansetron 2 mg/mL 2 mL Inj IVPUSH PRN (06:26)
[2017-03-24] MEDS: TPN Per Pharmacist XX SCH (08:30)
[2017-03-24] MEDS: Insulin LISPRO 300 Unit/3 mL Inj SUBQ SCH ×4 (09:49→22:00)
[2017-03-24] MEDS: Heparin 5,000 Unit/mL Inj SUBQ SCH ×2 (09:50→17:33)
[2017-03-24] MEDS: Nystatin 100,000 Unit/Gm 15 Gm Powder TOPICAL SCH ×2 (09:51→20:45)
--- NOTE | 2017-03-24 09:52 | PCM.PALLBR ---
Palliative Care Recommendation Summary of palliative recommendations: Patient is a 61-year-old female with gastric adenocarcinoma s/p neoadjuvant chemotherapy and distal gastrectomy with Billroth II gastrojejunostomy presenting with lower abdominal pain, distention and vomiting and found this admission to have omental mets with poorly differentiated adenocarcinoma consistent with the patient's gastric primary. Family is agreeable for patient to discharge home with hospice (and without TPN) . Hospice is scheduled to open tomorrow (03/25/2017) at 11:30AM. Symptom management: Pain. Patient experienced increased pain overnight. Night hospitalist increased dose of hydromorphone IV from 1 mg to 2 mg every 2 hours as needed. Despite the change the patient has only required 1 mg every 2 hours. 1. Increase fentanyl patch to 100 mcg/hr q 3 days; previously 75 mcg/hr q 3 days. Will reassess for effectiveness tomorrow. May need further titration by hospice. 2. D/C hydromorphone 1 to 2 mg IV q 2 hours and start 4-8mg po dilaudid as needed for breakthrough pain (in preparation for going home tomorrow). Nausea and vomiting 1. Start oral Haldol 0.25mg every 6 hours scheduled. Continue Haldol 0.25mg IV every 6 hours prn. Plan to stop IV haldol on Thu. 2. Continue ondansetron IV as needed. 3. Patient received IV dexamethasone 8mg IV one time on 03/20. Constipation: minimal stool output for several days-->suspect incomplete bowel blockage by extrinsic tumor mass (partially palpable on rectal exam done by Dr. Shea several days ago) 1. Methylnaltrexone 12mg IV given x1 on 03/18 with incomplete effectiveness. 2. Patient received soap suds enema and lactulose PO 20g one time on 03/19. 3. Continue Colace, Dulcolax suppository and above treatments. TPN: 1. Hospice will not pay for TPN. (Family is aware) 2. Insurance will not cover TPN and hospice. Insurance will cover NG tube and hospice; however, NG tube is not an option for the patient at this time given emesis and abdominal pain. 3. Dr. Shea counseled that TPN is NOT as nutritious as taking food by mouth and it would be a high infection risk to have TPN in the home setting. Family understands, and is still concerned about pt who is not eating. 4. After considerable counseling, Family agreed to have patient discharge home with hospice. Family also agreed to no TPN. Hospice Meeting with family, Drs. Shea and Germaine: Drs. Shea and Germaine were present during the hospice information meeting on 03/20 with family. fiberglass roving winder and hospice service center representative were present. Discussion took place in the conference room. Discussed purpose of hospice and scope of hospice. There was lengthy discussion with family and Dr. Shea regarding end of life expectations and symptoms. Dr. Shea also discussed the risks of TPN during the end of life period. Family with many questions regarding TPN, NG tube feedings and expectations. All questions from family were answered. DPOA/Advanced Directives/POLST: 1. DPOA is Daughter (Mary) and (Sneha Casillas). 2. On 03/18, Drs. Shea and Germaine discussed code status and completed POLST form with daughter (who is her DPOAHC), Mary Smith. The patient's code status was changed from FULL CODE to DNAR/DNI. Interventions include comfort measures only. Family is okay with antibiotics with comfort being the goal. Family agrees to not have any medically assisted nutrition by tube -Family/emotional support - excellent family support. Patient's family has insight and understanding of the patient's poor prognosis Disposition: 1. Anticipate discharge home tomorrow with hospice to open. Family agreed to no TPN. Additional Medical Diagnoses with primary management by Hospitalist team include : 1. Intra-abdominal mass/fluid collection, acute. Present on admission. Active and progressive. 2. Constipation, chronic. Present on admission. Resolved 3. Insulin using Type II diabetes, chronic. Present on admission. Active 4. Acute microcytic, hypochromic anemia. Present mission. Active 5. Nutrition 6. Positive nasal MRSA screen, poa, resolved 7. UTI, acute. Present on admission. resolved. Problems: Goals of Care DNR/DNI/comfort goals Disposition Likely home with assistance from hospice. Family is meeting hospice agency for a information visit soon. Resuscitation Status Resuscitation Status: DNR/DNI:Do Not Resuscitate/Intubate POLST Updates/Changes Previous POLST?: No POLST Last Review Date: Mar 18, 2017 Antibiotics: Determine Use or Limitations Artificially Admin Nutrition: No Artifical Nutrition by Tube POLST Discussed with: Health Care Agent (DPOAHC) POLST Review Outcome: New Form Completed Total time 35 minutes; >50% face to face with patient and/or family, providing counselling regarding plans and recommendations, and in care coordination with his/her medical teams. Attending Statement Dr. Shea was physically present and available to resident throughout pt interview, exam, family conversation. We worked on management plan together and I agree with documentation by Dr. Herron above. copies to: Ny Hinton MD; Kyleigh Baltazar MD Palliative Brief Note Date of Service Mar 24, 2017 . Rounded on patient with Dr. Shea this morning. Prior to visiting, the EMR was reviewed in detail and discussed patient with bedside nurse. Patient's daughter, Mary, is at bedside at time of visit. Received overnight report from nurse that the patient had increased pain. The dose of hydromorphone IV was increased overnight from 1mg to 2 mg every 2 hours as needed for breakthrough pain. Despite the change in dosing the patient has only been using hydromorphone 1mg every 2 hours. Mary reports the patient's nausea and emesis has been fairly well controlled since the addition of Haldol. Clarified with Mary outside the patient room the anticipated plan of discharge home tomorrow with hospice to open. Patient is sleeping in bed but arousable with stimuli. She appears comfortable and in no acute distress. Lungs are clear bilaterally. Cardiac tones are regular. Abdomen with distention. Bowel tones present. Extremities are warm. Neurologically grossly intact. Wan Herron DO Mar 24, 2017 09:52 Allison Shea MD Mar 24, 2017 10:55
[2017-03-24 09:56] VITALS: BP 166/77; PULSE 86; RESP 16; O2SAT 95
[2017-03-24] MEDS ORDERED: Haloperidol 2 mg/mL 5 mL Oral Conc Liquid PO SCH ×2 (10:00→16:00)
--- NOTE | 2017-03-24 10:16 | NUR ---
Palliative care note D/A: Phone call from Luz at [facility] to ask if pain meds will be IV or orals/other. Currently IV. Issue discussed with Dr. Shea who notes that she will be transitioning to orals/other today. Phone call to Luz to alert. P: Palliative to follow as needed. Olimpia ADAN, MAIKEL Addendum: 03/24/17 at 1305 by [facility] note amendment Learn from Dr. Shea that she has discussed with Dr. Hinton and there will be some IV meds. g left for Luz about this. Phone call to jade Sam and inform her of above. Olimpia ADAN, [facility]
[2017-03-24] MEDS ORDERED: hydrALAZINE 20 mg/mL Inj IV PRN (10:40)
[2017-03-24] MEDS ORDERED: HYDROmorphone 1 mg/mL 2 mL Solution PO PRN (10:50)
--- NOTE | 2017-03-24 10:58 | NUR ---
Social Work: Readiness for Discharge D: EMR reviewed. Pt is on day 31 of hospitalization. Per MD in rounds, pt is ready to discharge with hospice to open tomorrow 03/25 at 11:30 am. Pt will transition to PO pain medication prior to discharge. Pt's TPN will be weaned today and D/C prior to discharge. T/C to Luz confirming that equipment has been delivered to pt's home. Per Luz, hospice will be delivering equipment today and this has been confirmed with Damian and Mary (pt's son and daughter). SW spoke with pt's Bao with the assistance of [employer] services regarding hospice and weaning TPN prior to discharge. He is aware of the TPN being discontinued and his daughter Mary is at home preparing the home and accepting equipment today. Bao is updated and agreeable to plan, did not have any questions or concerns at this time. Luz confirmed that hospice can open on 03/25 at 1130 and that pt must discharge by 1030 on 03/25. MD and RN is aware of this. Pharmacy updated regarding TPN. All updated and agreeable to plan at this time. A: Pt for whom hospice has been deemed medically necessary. P: Hospice is confirmed to open 03/25 at 11:30 am. Pt to discharge at 10:30. SW will address transportation needs prior to discharge. Hospice equipment is delivered today. TPN will be weaned prior to discharge. All updated and agreeable to plan. SW will continue to follow. COLLIN Fung Addendum: 03/24/17 at 1353 by PADDY GUERRA Per Palliative Care, rather than PO as discussed in rounds, pt is likely to discharge on IV pain medication. Luz from Hospice is aware of this and is coordinating equipment and supplies. JORDAN will continue to follow. COLLIN Fung Addendum: 03/24/17 at 1446 by PADDY GUERRA SS SW confirmed with hospice pt's discharge. Hospice requested pt discharge at 10 am tomorrow morning 03/25 to be ready for coordination of care with hospice at 11:30. RN notified. notified and COLLIN requested discharge orders be in by 8:30 am. [facility] to coordinate BLS transport at 10 am. JORDAN will continue to follow. COLLIN Fung
--- NOTE | 2017-03-24 11:07 | PCM.PNMED ---
Subjective Date of Service Mar 24, 2017 Subjective 61-year-old female with multiple abdominal surgeries due to gastric carcinoma, and history of intra-abdominal sepsis and abscesses with MRSA in the fall of 2016 who presented to the hospital with 3 weeks of worsening abdominal pain and new nausea and emesis x3 starting day prior to admission. Patient has gastric adenocarcinoma s/p neoadjuvant chemotherapy and distal gastrectomy with Billroth II gastrojejunostomy. Patient was diagnosed with recurrent malignancy , omental mets with poorly differentiated adenocarcinoma consistent with the patient's gastric primary. Oncology recommended palliative care consult. Palliative care was consulted and evaluated the patient. After several discussions with palliative medicine team family would like to take the patient home with hospice. Exam Vital Signs Vital Sign - Last Date Time Temp Pulse Resp B/P Pulse Ox O2 Delivery O2 Flow Rate FiO2 03/24/17 09:56 36.8 86 16 166/77 95 Room Air Intake and Output 03/23/17 03/23/17 03/24/17 Cumulative From/Thru 15:00 23:00 07:00 02/21/17 16:49 - 03/24/17 06:45 Intake Total 400 ml 1518 ml 45673 ml Output Total 82576 ml Balance 400 ml 1518 ml 99144 ml Intake Oral 400 ml 50 ml 59181 ml IV Total 225 ml 35074 ml TPN/PPN 1243 ml 10389 ml Output Urine Total 72711 ml Stool Total 201 ml Urine/Stool Mix 781 ml Emesis 4240 ml Other 3800 ml # Voids 3 2 138 # Bowel Movements 0 0 17 Exam GENERAL: Sleepy, weak, deconditioned, in bed HEAD: atraumatic, normocephalic= EYES: anicteric, able to fully open and close eyelids SKIN: Skin color normal EAR, NOSE, MOUTH, THROAT: Lips, oral mucosa, pink. Ears normal appearance, no lesions. NECK: no jugulovenous distention, supple. ABDOMEN: Abdomen soft, tender. EXTREMITIES: no significant pitting edema in LE, no deformities, clubbing or skin discoloration. ction. PULSES: 2+ radial, 2+ carotid REVIEW OF SYSTEMS: GENERAL: No weight loss, +++ malaise All other reviewed and negative other than HPI. IVs and Medications Medications Reviewed: Medications were reviewed in detail Lab and Diagnostics Result Diagram: 03/18/17 0540 03/23/17 0750 Microbiology 02/21/17 Blood culture- No growth to date 02/21/17 Urine culture- Positive Escherichia Coli; Klebsiella Pneumoniae 02/21/17 MRSA screen- positive 02/22/17- Repeat Blood Cultures- no growth to date X-Rays, CTs and MRIs (02/26/17) CT ABDOMEN AND PELVIS WITH CONTRAST IMPRESSION: 1. Small bilateral pleural effusions, left greater than right, increasing volume of ascites and development of diffuse subcutaneous edema. 2. Postoperative changes of partial gastrectomy, cholecystectomy and possible partial bowel resection. Old abdominal wall tract from prior J-tube placement. 3. Bowel distention with air-fluid levels, likely inflammatory with ileus, possibility of partial small bowel obstruction with possible transition in the right upper quadrant in the area of surgical clips. Dictated and approved by: Rio Thornton M.D. on 02/26/2017 at 14:05 ADDENDUM: Following consultation with Dr. Sawyer, the focal area of small bowel narrowing in the right upper quadrant at the level of surgical clips represents a surgical blind ended loop of duodenum and not a focus of small bowel obstruction. Dictated by: Rio Thornton M.D. on 02/26/2017 at 15:02 (02/27/17) US PELVIC SONOGRAM + TRANSVAGINAL SONOGRAM IMPRESSION: 1. Atrophic otherwise ultrasonographically normal uterus. The ovaries were not identified and cannot be evaluated. 2. Ascites is noted. Dictated and approved by: Keyn Duvall M.D. on 02/27/2017 at 18:47 . 12-lead ECG Normal sinus rhythm with heart rate of 83; QTc 4 70 Assessment & Plan 61-year-old female with multiple abdominal surgeries due to gastric carcinoma, and history of intra-abdominal sepsis and abscesses with MRSA in the fall of 2015 who presented to the hospital with 3 weeks of worsening abdominal pain and new nausea and emesis x3 starting day prior to admission. Gastric adenocarcinoma, poorly differentiated, omental metastases present - Stable, prognosis is poor, family is aware - All antibiotics stopped 03/14 - Palliative care consult and is helping with pain management and goals of care discussions. Plan - hospice tomorrow if family and patient are ready Type II diabetes - Continue with current medications, Accu-Cheks Acute microcytic, hypochromic anemia Constipation - Continue his current meds Positive nasal MRSA screen -treatment completed with mupirocin Hypertension - Continue with current medications - Enalaprilat IV PRN Elevated liver enzymes - Improving UTI, acute. Present on admission - resolved. - Urine culture growing- E. coli, Klebsiella. Patient suprapubic pain but no urinary symptoms. - No more abx per ID DVT prophylaxis with subcutaneous heparin disposition; -patient come from [facility] -oncologist is Dr. Garber -pcp is Dr. Bauer GI Prophylaxis: Proton Pump Inhibitor VTE Prophylaxis: Sub-Q Heparin (Unfractionated) VTE Mechanical Devices: Intermittant Pneumatic CD Resuscitation Status: DNR/DNI:Do Not Resuscitate/Intubate Yoni Jensen MD Mar 24, 2017 11:07
[2017-03-24] MEDS ORDERED: Haloperidol 5 mg/mL Inj IVPUSH PRN (11:50)
--- NOTE | 2017-03-24 12:11 | NUR ---
CHACE signed by verbal signature by daughter Mary Smith as pt is on comfort care at this time. Rita Martinez DYEHOUSE WORKER
[2017-03-24] MEDS: OLANZapine Zydis ODT 5 mg Tablet PO SCH ×2 (13:43→20:45)
[2017-03-24] MEDS: Methylnaltrexone 12 mg/0.6 mL Inj SUBQ SCH (13:43)
--- NOTE | 2017-03-24 14:52 | NUR ---
Arranged BLS transport via [facility] for 10AM order picker on 03/25/17 per MD order. PCS complete and signed Updated OFFICE EQUIPMENT MECHANIC
[2017-03-24 15:34] VITALS: BP 170/83; PULSE 79; RESP 15; O2SAT 96
--- NOTE | 2017-03-24 17:43 | NUR ---
GI/Pain Pt had two small brown jelly like stools today. 75 mcg Fentanyl patch d/c'd and new 100 mcg fentanyl patch replaced. IV Dilaudid used Q2 hours for breakthrough pain.
[2017-03-24 19:55] VITALS: BP 158/75; PULSE 86; RESP 18; O2SAT 96
[2017-03-24] MEDS: Insulin GLARgine 100 Unit/mL Syringe SUBQ SCH (21:45)
[2017-03-25] MEDS: Heparin 5,000 Unit/mL Inj SUBQ SCH (00:39)
[2017-03-25] MEDS: HYDROmorphone 1 mg/mL Inj IVPUSH PRN ×4 (03:19→09:56)
[2017-03-25] MEDS ORDERED: Dextrose 10% 250 ML IV ONE (03:50)
[2017-03-25] MEDS: 0.9% Sodium Chloride 250 ML IV SCH (04:54)
[2017-03-25] MEDS ORDERED: Dextrose 5% 0.45% NaCl 1,000 ML IV SCH (05:20)
[2017-03-25 06:00] VITALS: BP 138/67; PULSE 78; RESP 18; O2SAT 97
--- NOTE | 2017-03-25 07:15 | NUR ---
Blood sugar Patients blood sugar dropped down to 59 at 0304. Glucose gel was given, but patient's blood sugar only tejal briefly and then fell back down to 62. Hospitalist was notified and D10W was given. This brought patient's blood sugar up to 145, but within 45 min. the patients blood sugar dropped down to 83. Orders for D5 1/2 NS were placed and patients blood sugar improved since receiving the medication. Patient experienced N/V around the same time that her blood glucose was bouncing up and down. Patient's TPN was tapered off and discontinued at 2100 last night.
[2017-03-25] MEDS ORDERED: OLAN5TAB25 PO (07:27)
[2017-03-25] MEDS ORDERED: OXYC5SOL11 PO (07:27)
[2017-03-25] MEDS ORDERED: Fentanyl TOPICAL (07:27)
[2017-03-25] MEDS: Insulin LISPRO 300 Unit/3 mL Inj SUBQ SCH (08:00)
[2017-03-25] MEDS: OLANZapine Zydis ODT 5 mg Tablet PO SCH (08:03)
[2017-03-25 08:34] VITALS: BP 148/86; PULSE 84; RESP 18; O2SAT 96
[2017-03-25] MEDS ORDERED: ONDA-54 PO (10:15)
[2017-03-25] MEDS ORDERED: RANI150C4 PO (10:25)
[2017-03-25] MEDS ORDERED: MELA3TAB35 PO (10:25)
[2017-03-25] MEDS ORDERED: CITA20TA11 PO (10:25)
[2017-03-25] MEDS ORDERED: METO25TA6 PO (10:25)
--- NOTE | 2017-03-25 10:30 | NUR ---
Social Work: Discharge D: EMR reviewed. Pt is on day 3 of hospitalization. Pt is medically stable to discharge today to return home with hospice via BLS transport. BLS transport is scheduled for 10 am with [facility]. Family is agreeable and aware that coverage of BLS transport is never guaranteed. Hospice of the will open with pt at 11:30 am. Rather than PO pain medication, which was the first discharge plan, pt will discharge on IV pain medication coordinated by [facility] and Hospice Doc to Doc. Hospice is prepared for this. Equipment was delivered to pt's home yesterday. Pt to discharge home via BLS with hospice to open at 11:30 am. No additional discharge needs identified. A: Pt for whom hospice has been deemed medically necessary. P: Hospice is confirmed to open 03/25 at 11:30 am. Pt discharged at 10 am via BLS transport. No additional discharge needs identified at this time. COLLIN Fung
--- NOTE | 2017-03-25 10:30 | NUR ---
pt discharged home per BLS, discharge instruction gone over with her daughter, Mary, and [employer]. Daughter speaks irish fairly fluently but had trouble understanding how to give meds, so requested an curber for that part. Pt was given Dilaudid 1 mg IV prior to discharge, as requested by Hospice nurse and that nurse was going to meet them at home when they got there.
--- NOTE | 2017-03-25 11:57 | PCM.DC.MED ---
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 Type II diabetes, Acute microcytic, hypochromic anemia, Positive nasal MRSA screen, Hypertension, Elevated liver enzymes, UTI, Consultations Palliative medicine, Oncology Procedures XRay, CTs & MRIs (02/26/17) CT ABDOMEN AND PELVIS WITH CONTRAST 1. Small bilateral pleural effusions, left greater than right, increasing volume of ascites and development of diffuse subcutaneous edema. 2. Postoperative changes of partial gastrectomy, cholecystectomy and possible partial bowel resection. Old abdominal wall tract from prior J-tube placement. 3. Bowel distention with air-fluid levels, likely inflammatory with ileus, possibility of partial small bowel obstruction with possible transition in the right upper quadrant in the area of surgical clips. ADDENDUM: Following consultation with Dr. Sawyer, the focal area of small bowel narrowing in the right upper quadrant at the level of surgical clips represents a surgical blind ended loop of duodenum and not a focus of small bowel obstruction. (02/27/17) US PELVIC SONOGRAM + TRANSVAGINAL SONOGRAM 1. Atrophic otherwise ultrasonographically normal uterus. The ovaries were not identified and cannot be evaluated. 2. Ascites is noted ECG 12 Lead Normal sinus rhythm with heart rate of 83; QTc 4 70 Invasive Procedures 03/13/17 - Biopsy site: Anterior abdominal wall Hospital Course 61-year-old female with multiple abdominal surgeries due to gastric carcinoma, and history of intra-abdominal sepsis and abscesses with MRSA in the fall of 2016 who presented to the hospital with 3 weeks of worsening abdominal pain and new nausea and emesis x3 starting day prior to admission. Patient has gastric adenocarcinoma s/p neoadjuvant chemotherapy and distal gastrectomy with Billroth II gastrojejunostomy. Patient was diagnosed with recurrent malignancy , Advanced gastric adenocarcinoma, associated with peritoneal carcinomatosis and malignant ascites, omental mets. Oncology recommended palliative care consult. Palliative care was consulted and evaluated the patient. After several discussions with palliative medicine team, family and the patient made a decision to proceed with hospice at home. I discontinued patient's ASA, Lipitor , discussed Insulin therapy with regina's daughter/POA, she will hold Insulin for now as it is not clear how much chava will be able to eat at home. Patient 's daughter informed me that she did not have any medications at home, so I provided prescriptions for pain, nausea, anxiety/agitation, depression, insomnia. Hospice will follow with the family at home and adjust her meds. Patient Condition @ Discharge: fair Discharge Disposition: home with hospice Discharge Diet: advance as tolerated Information Provided to Patient: information about discharge medication Discharge Medications: I discussed with patient/POA medication dosage, usage, goals of therapy, side effects, alternatives. Patient/POA verbalized understanding and agreed to current plan of care and discharge. TIME SPENT IN DISCHARGE ACTIVITY: Face to face activity greater then 30 minutes spent in discharge activity. 1. Discussed with patient/ family re: discharge plan of care/treatment, and follow up care/services. 2. Patient/family agreed with discharge plan and further plan of care, all questions were answered/addressed, no further questions at the time of discharge . Exam Vital Signs (Last) Date Time Temp Pulse Resp B/P Pulse Ox O2 Delivery O2 Flow Rate FiO2 03/25/17 08:34 36.9 84 18 148/86 96 Room Air Exam Patient was seen and examined on the day of discharge. Test 02/21/17 17:40 02/21/17 17:50 02/21/17 18:41 02/22/17 02:10 Iron Level 32ug/dL (35-150) Total Iron Binding Capacity 306ug/dL (250-450) Percent Iron Saturation 10%sat (15-50) Unsaturated Iron Binding 274.2ug/dL Lipase 14U/L (13-60) Hold Little Top Tube Received (Received) Hold Urine Received (Received) Urine Color Dark yellow (YELLOW) Urine Appearance Cloudy (CLEAR,HAZY) Urine pH 5.0 (5.0-8.0) Urine Specific [place] 1.020 (1.003-1.035) Urine Protein 30mg/dL (NEG,TRACE) Urine Glucose (UA) Negativemg/dL (NEGATIVE) Urine Ketones Negativemg/dL (NEGATIVE) Urine Occult Blood Trace (NEGATIVE) Urine Nitrite Positive (NEGATIVE) Urine Bilirubin Negative (NEGATIVE) Urine Urobilinogen 1.0mg/dL (NORMAL) Urine Leukocyte Esterase Negative (NEGATIVE) Urine RBC 0-2/hpf (0-2) Urine WBC 0-5/hpf (0-5) Urine Epithelial Cells None/hpf (NONE-MOD) Urine Crystals None seen (NONE SEEN) Urine Bacteria Many/hpf (NONE-FEW) Urine Hyaline Casts None/lpf (NONE) Urine Granular Casts None seen (NONE SEEN) Urine Waxy Casts None seen (NONE SEEN) Urine Red Blood Cell Casts None seen (NONE SEEN) Urine White Blood Cell Casts None seen (NONE SEEN) Urine Mucus Present (None Seen) Urine Trichomonas None seen (NONE SEEN) Urine Yeast None (NONE SEEN) Urinalysis Comment None Urine Culture Reflexed Indicated Hemoglobin A1c 7.2% (4.8-5.6) Ferritin 60ng/mL (13-150) Test 02/22/17 14:15 02/24/17 05:10 02/25/17 16:15 03/01/17 03:13 Fungal Antibodies <31pg/mL (<80) Lactic Acid Level 0.9mmol/L (0.4-2.0) Carcinoembryonic Antigen 3.8ng/mL (0.0-4.7) CA 19-9 Antigen <1U/mL (0-35) CA 125 Antigen 39.2U/mL (0.0-38.1) Band Neutrophils % 1% (1-5) Hematology Comments Test 03/02/17 21:30 03/03/17 00:00 03/03/17 09:43 03/04/17 00:00 Troponin T 0.010ug/L (0.0-0.011) Lactate Dehydrogenase 173U/L (100-190) Body Fluid Albumin 1.5g/dL (.) Body Fluid Source Peritoneal fluid Body Fluid Color Straw (Clear) Body Fluid Appearance Hazy Body Fluid WBC 353/mm3 Body Fluid RBC 195/mm3 Body Fluid Polynuclear WBCs 52% Body Fluid Lymphocytes 38% Body Fluid Monocytes 10% Body Fluid Eosinophils 0% Body Fluid Basophils 0% Test 03/11/17 06:41 03/12/17 07:43 03/13/17 08:55 03/18/17 05:40 Vancomycin Level Trough 14.5mcg/mL Neutrophils (%) (Auto) 78.7% (40-74) Lymphocytes (%) (Auto) 11.5% (14-46) Monocytes (%) (Auto) 6.8% (4-12) Eosinophils (%) (Auto) 1.7% (0-5) Basophils (%) (Auto) 0.3% (0-3) Procalcitonin 0.08ng/mL (0.00-0.08) Prothrombin Time 10.9sec (8.1-12.5) Prothromb Time International Ratio 1.02ratio White Blood Count 17.7th/mm3 (3.8-10.1) Red Blood Count 3.60mil/mm3 (3.90-5.20) Hemoglobin 8.8g/dL (12.0-15.6) Hematocrit 28.7% (35.0-46.0) Mean Corpuscular Volume 79.7fL (81-100) Mean Corpuscular Hemoglobin 24.4pg (27.0-35.0) Mean Corpuscular Hemoglobin Concent 30.7% (32.0-37.0) Red Cell Distribution Width 17.4% (12.3-15.4) Platelet Count 648bil/L (150-400) Test 03/19/17 07:05 03/23/17 07:50 Total Bilirubin 0.8mg/dL (0.0-1.2) Alkaline Phosphatase 335U/L (25-165) Total Protein 7.0g/dL (6.4-8.4) Albumin 1.9g/dL (3.4-5.0) Sodium Level 136mEq/L (134-144) Potassium Level 4.0mEq/L (3.5-5.2) Chloride Level 102mEq/L (97-108) Carbon Dioxide Level 22mmol/L (18-29) Blood Urea Nitrogen 16mg/dL (8-27) Creatinine 0.48mg/dL (0.57-1.00) Estimat Glomerular Filtration Rate 188mL/min (>59) Glucose Level 230mg/dL (60-99) Calcium Level 8.1mg/dL (8.5-10.1) Phosphorus Level 3.2mg/dL (2.5-4.9) Magnesium Level 1.7mg/dL (1.6-2.6) Aspartate Amino Transf (AST/SGOT) 59U/L (0-50) Alanine Aminotransferase (ALT/SGPT) 73U/L (0-32) Microbiology Results 02/21/17 Blood culture- No growth to date 02/21/17 Urine culture- Positive Escherichia Coli; Klebsiella Pneumoniae 02/21/17 MRSA screen- positive 02/22/17- Repeat Blood Cultures- no growth to date Discharge Medications Discharge Medications ([Fentanyl]) 1 PATCH PATCH 1 PATCH TOPICAL Q3D Prescribed by: BERNABE LIN MD Citalopram (Citalopram) 20 Mg Tablet 20 MG PO DAILY Prescribed by: BERNABE LIN MD Melatonin (Melatonin) 3 Mg Tablet 6 MG PO HS Prescribed by: BERNABE LIN MD Metoprolol Tartrate (Metoprolol Tartrate) 25 Mg Tablet 50 MG PO BID Prescribed by: BERNABE LIN MD Olanzapine ODT (Zyprexa Zydis) 5 Mg Tablet 2.5 MG PO BID Prescribed by: BERNABE LIN MD Ranitidine (Ranitidine) 150 Mg Capsule 150 MG PO BID Prescribed by: BERNABE LIN MD As needed Acetaminophen (Acetaminophen) 325 Mg Capsule 650 MG PO Q6H PRN PRN For Pain ( Reported) Ondansetron (Ondansetron) 8 Mg Tablet 8 MG PO TID PRN PRN For Nausea Prescribed by: BERNABE LIN MD oxyCODONE (oxyCODONE) 5 Mg/5 Ml Solution 5-10 MG PO Q4H PRN PRN For Pain Prescribed by: BERNABE LIN MD Miscellaneous Medications Propylene Glycol (Systane Balance) 10 Ml Drops 1 DROP BOTH_EYES (Reported) Yoni Jensen MD Mar 25, 2017 10:29
== END 2017-03-25 10:40 | disposition hospice, home (50) | DRG 375 ==
LOC: SED 16:11 → PCC 20:53 → OSC 03-03 14:51
PROVIDERS: ADMIT Hospitalist; ATTEND Hospitalist
PROC: 3E0336Z Introduction of Nutritional Substance into Peripheral Vein, Percutaneous Approach (ICD-10-PCS; 2017-02-21)
PROC: 0W9G3ZX Drainage of Peritoneal Cavity, Percutaneous Approach, Diagnostic (ICD-10-PCS; principal; 2017-03-03)
PROC: 0W9G3ZX Drainage of Peritoneal Cavity, Percutaneous Approach, Diagnostic (ICD-10-PCS; 2017-03-10)
PROC: 0W9G3ZX Drainage of Peritoneal Cavity, Percutaneous Approach, Diagnostic (ICD-10-PCS; 2017-03-13)
DX: C78.6 Secondary malignant neoplasm of retroperitoneum and peritoneum (principal); K56.60 Unspecified intestinal obstruction; R18.0 Malignant ascites; I69.354 Hemiplegia and hemiparesis following cerebral infarction affecting left non-dominant side; N39.0 Urinary tract infection, site not specified; E11.9 Type 2 diabetes mellitus without complications; Z87.891 Personal history of nicotine dependence; Z79.4 Long term (current) use of insulin; D64.9 Anemia, unspecified; B96.20 Unspecified Escherichia coli [E. coli] as the cause of diseases classified elsewhere; B96.1 Klebsiella pneumoniae [K. pneumoniae] as the cause of diseases classified elsewhere; K59.03 Drug induced constipation; T50.7X5A Adverse effect of analeptics and opioid receptor antagonists, initial encounter; Z85.028 Personal history of other malignant neoplasm of stomach; I10 Essential (primary) hypertension